=== PATIENT | female | born 1970 | race Caucasian/White ===

== ENCOUNTER 2016-12-26 14:18 | Emergency (ER) | payer OTHER ==
[2016-12-26 14:38] VITALS: BP 126/86
== END 2016-12-26 18:50 | disposition left against medical advice (07) ==
LOC: ED 14:18
DX: H53.8 Other visual disturbances (principal); R20.0 Anesthesia of skin; Z53.21 Procedure and treatment not carried out due to patient leaving prior to being seen by health care provider

== ENCOUNTER 2017-01-04 18:12 | Emergency (ER) | payer OTHER ==
[2017-01-04 18:29] VITALS: BP 104/72
--- NOTE | 2017-01-04 18:46 | UC ---
Headache HPI - HPI Summary HPI Summary: 46 year old female with dizziness. complaints of headache with dizziness, when closing eyes increase dizziness. Symptoms been going on for past 2 weeks. Seen by PCP 12/20/16 diagnosed with sinus infection treated with Augmentin. Seen by Dr. Fuchs and pain management for headaches, changed antibiotics to Doxycycline. Patient states the dizziness worsened a few days ago with movement and called Neuro and advised to get eval. no numbness, no falling, headache stable at this time. Went to Pain management and had Botox for BARRON and not much improved but 7-10 days after the shot had some left sided facial swelling. She went to [place] ED last week and after waiting 6 hours she states she left. She has had some left side face numbness for over a week. No changes in the Sx recently. [ End ] - History Of Current Complaint Chief Complaint: UCGeneralIllness Stated Complaint: DIZZINESS/HEADACHES Time Seen by Provider: 01/04/17 18:40 Hx Obtained From: Patient Hx Last Menstrual Period: a while - had uterine ablation Onset/Duration: Gradual Onset Onset Of Symptoms: Still Present Associated Signs And Symptoms: Positive: Dizziness - Allergies/Home Medications Allergies/Adverse Reactions: Allergies Allergy/AdvReac Type Severity Reaction Status Date / Time Ciprofloxacin [From Cipro] Allergy Unknown Verified 01/04/17 18:29 Reaction Details Indomethacin Allergy Unknown Verified 01/04/17 18:29 Reaction Details Omeprazole Allergy Unknown Verified 01/04/17 18:29 Reaction Details Verapamil Allergy Unknown Verified 01/04/17 18:29 Reaction Details Cephalexin [From Keflex] AdvReac Intermediate Vomiting Verified 01/04/17 18:29 Hydromorphone [From Dilaudid] AdvReac Intermediate Headache Verified 01/04/17 18 :29 Sulfa Drugs AdvReac Intermediate Vomiting Verified 01/04/17 18:29 Home Medications: Home Medications DOXYcycline CAP(*) [DOXYcycline 100MG CAP(*)] 100 mg PO BID 01/04/17 [History Confirmed 01/04/17] Ibuprofen TAB* [Motrin TAB* 600 MG] 600 mg PO Q8H PRN 01/04/17 [History Confirmed 01/04/17] PMH/Surg Hx/FS Hx/Imm Hx Previously Healthy: Yes Psychological History: Anxiety, Depression, Other - headaches Other Psychological History: migraine - Surgical History Surgical History: Yes Surgery Procedure, Year, and Place: c-spine fusion 2007, [facility]. 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 c-sections x2-TUBAL LIGATION 1997. left ankle surgery, RIGHT HIP SURGERY FOR BURSITIS. Lt breast biopsy LUMPECTOMY. RIGHT HIP BURSECTOMY-11/2015 - Family History Known Family History: Positive: Cardiac Disease - Social History Alcohol Use: Rare Alcohol Amount: 2 PER MONTH Substance Use Type: None Smoking Status (MU): Never Smoked Tobacco Have You Smoked in the Last Year: No Review of Systems Neurological: Headache, Other - dizziness Is Patient Immunocompromised?: No All Other Systems Reviewed And Are Negative: Yes Physical Exam Triage Information Reviewed: Yes Appearance: Well-Appearing, No Pain Distress, Well-Nourished Vital Signs: Initial Vital Signs Temp 99.4 F 01/04/17 18:21 Pulse 97 01/04/17 18:21 Resp 16 01/04/17 18:21 BP 104/72 01/04/17 18:21 Vital Signs Reviewed: Yes Eye Exam: Normal ENT Exam: Normal ENT: Positive: Nasal congestion, TM dull - b/l Dental Exam: Normal Neck exam: Normal Neck: Positive: 1 Respiratory Exam: Normal Cardiovascular Exam: Normal Abdominal Exam: Normal Musculoskeletal Exam: Normal Neurological Exam: Normal Neurological: Positive: Alert, Other: - finger to nose normal, DTRs brisk, left side of face of trigeminal nerve with slightly less sensation that the right. can not raise eye brows due to botox, can smile and frown identical. Psychological Exam: Normal Skin Exam: Normal Headache Course/Dx - Course Course Of Treatment: Spoke at length that she should go to ED for imaing and labs as she could have had a stroke which could recur and we have no CT today or capacity to due labs today. She and her partner are aware she could have had TIA or stroke and declined ED. They want to try meds for dizziness and if her sx worsen or not improved then she will go to ED. She will call PCP and Neuro tomorrow. Likely serous effusion causing vertigo like Sx and recent botox causing some of the facial numbness as well. - Differential Dx/Diagnosis Differential Diagnosis/HQI/PQRI: Migraine, Other - vertigo, TIA, stroke Provider Diagnoses: dizziness / vertigo Discharge - Discharge Plan Condition: Good Disposition: HOME Prescriptions: Meclizine HCl [Meclizine 25] 25 mg PO TID PRN #20 tab PRN Reason: Vertigo Patient Education Materials: Vertigo (ED) Referrals: Cecil Holland NP [Primary Care Provider] - 1 Day Additional Instructions: As we discussed you may have had mini stroke like Symptoms and could benefit from further eval in the emergency room. We at this time since you have opted to not go to the ED will try meclizine to see if it can reduce your vertigo symptoms. If you have worsening of any symptoms then go to ED please
== END 2017-01-04 19:12 | disposition home or self-care (01) ==
LOC: UCCORT 18:12
DX: R42 Dizziness and giddiness (principal); Z88.1 Allergy status to other antibiotic agents; Z88.8 Allergy status to other drugs, medicaments and biological substances; Z88.2 Allergy status to sulfonamides; Z98.1 Arthrodesis status; Z98.84 Bariatric surgery status
CPT/HCPCS: 99212; G0463

== ENCOUNTER 2017-01-05 01:20 | Observation (INO) | payer OTHER ==
[2017-01-05 02:12] LABS: Hematocrit 37 % (35-47); Hemoglobin 12.2 g/dl (12.0-16.0); Mean Corpuscular HGB Conc 33 g/dl (31-36); Mean Corpuscular Hemoglobin 32 pg (27-31); Mean Corpuscular Volume 96 fL (80-97); Mean Platelet Volume 8 um3 (7.4-10.4); Red Blood Count 3.83 10^6/ul (4.0-5.4); Red Cell Distribution Width 14 % (10.5-15); White Blood Count 6.4 10^3/ul (3.5-10.8)
[2017-01-05 02:27] LABS: ALT 7 U/L (7-52); AST 11 U/L (13-39); Albumin 3.2 g/dL (3.2-5.2); Alcohol < 10 mg/dL (<10); Alkaline Phosphatase 43 U/L (34-104); Anion Gap 7 mmol/L (2-11); BUN/Creatinine Ratio 22.6 (8-20); Blood Urea Nitrogen 19 mg/dL (6-24); CO2 Carbon Dioxide 22 mmol/L (22-32); Calcium 8.3 mg/dL (8.6-10.3); Chloride 109 mmol/L (101-111); Cholesterol 170 mg/dL; EGFR African American 93.9 (>60); Globulin 2.5 g/dL (2-4); Glucose 80 mg/dL (70-100); HDL Cholesterol 43.7 mg/dL; LDL Cholesterol 104 mg/dL; Potassium 3.5 mmol/L (3.5-5.0); Sodium 138 mmol/L (133-145); Total Protein 5.7 g/dL (6.4-8.9); Triglycerides 112 mg/dL
[2017-01-05 02:30] LABS: Troponin I 0.01 ng/mL (<0.04)
[2017-01-05 02:35] LABS: Urine Bilirubin Negative (Negative); Urine Glucose Negative (Negative); Urine Nitrite Negative (Negative)
[2017-01-05 02:53] LABS: Benzodiazepine Urine Screen None Detected (None Detect)
[2017-01-05 02:53] LABS: TSH (Thyroid Stimulating Horm) 3.54 mcIU/mL (0.34-5.60)
[2017-01-05] MEDS ORDERED: Melatonin (NF) 3 MG TAB PO PRN (02:56)
--- NOTE | 2017-01-05 03:14 | HP ---
H&P (Free Text) History and Physical: PCP: Darrell Holland NP Date/Time: 01/05/2017 0245 CC: facial droop HPI: Mrs Pritchett is a morbidly obese 46YO female HX migraines, anxiety, chronic LBP who presents reporting waxing and waning headache for "weeks" for which she saw Kevin Fuchs MD neurology who increased her topamax & depakote and had her undergo Botox injections around the forehead, ears, and back of the head on . On 12/20 she was seen by per PCP, diagnosed with a sinus infection, and placed on amoxicillin/clavulanate. On the morning of 12/22 after her morning shower she noticed L facial swelling including L eye nearly swelling shut. She contacted her PCP who changed her ABX thinking it was an allergic reaction. She contacted Kevin Fuchs's office again today reporting ongoing BARRON and light-headedness for which he recommended ED evaluation. She initially went to urgent care in [place], was referred to [place] ED, and then transferred here for neurology consultation as she was noted to have OS ptosis. She denies change in speech/swallow or other focal W/N/T. PMedHx anxiety chronic LBP anemia migraines depression B hip pain 2nd OA Ambulatory Orders Topiramate TAB(*) [Topamax 100 mg tab] 100 mg PO BID 01/11/12 traZODone TAB* [Desyrel*] 200 mg PO BEDTIME 01/16/12 Pregabalin [Lyrica] 300 mg PO BEDTIME 11/05/12 Rizatriptan Benzoate [Maxalt] 5 mg PO WEEKLY PRN 02/03/15 Escitalopram (NF) [Lexapro 10 mg (NF)] 20 mg PO DAILY 11/08/15 Divalproex ER TAB(*) [Depakote ER TAB(*)] 500 mg PO BID 02/29/16 HYDROcodone/ACETAMIN 5-325 MG* [[place] 5-325 TAB*] 1 tab PO TID PRN 03/21/16 Cyclobenzaprine TAB* [Flexeril 10 MG TAB*] 10 mg PO TID 07/20/16 Ibuprofen TAB* [Motrin TAB* 600 MG] 600 mg PO Q8H PRN 01/04/17 Allergies Ciprofloxacin [From Cipro] Allergy (Verified 01/05/17 01:46) Unknown Reaction Details Indomethacin Allergy (Verified 01/05/17 01:46) Unknown Reaction Details Omeprazole Allergy (Verified 01/05/17 01:46) Unknown Reaction Details Verapamil Allergy (Verified 01/05/17 01:46) Unknown Reaction Details Cephalexin [From Keflex] Adverse Reaction (Intermediate, Verified 01/05/17 01:46 ) Vomiting Hydromorphone [From Dilaudid] Adverse Reaction (Intermediate, Verified 01/05/17 01:46) Headache Sulfa Drugs Adverse Reaction (Intermediate, Verified 01/05/17 01:46) Vomiting PSurgHx L foot surgery sinus surgery x2 adhesolysis tonsillectomy section x2 tubal ligation gastric bypass L ankle surgery uterine ablation SocHx: no tobacco, alcohol, or recreational drugs; lives with her ; full code status FamHx: Mother: 60s 2nd CAD, DM2, HTN, HLD, CKD; Father: alive 70s w/ HTN, CAD, DM2; Brother: Down's syndrome ROS: as above, otherwise reviewed and all were negative vitals: Vital Signs Temp 36.2 C 01/05/17 01:23 Pulse 84 01/05/17 02:30 Resp 23 01/05/17 02:30 BP 113/77 01/05/17 02:30 Pulse Ox 95 01/05/17 02:30 Intake & Output 01/04/17 01/04/17 01/05/17 11:59 23:59 11:59 Weight 111.13 kg Constitutional: NAD, normally developed, morbidly obese white female HEENM: atraumatic; sclera/conjunctiva: non-icteric/clear; hearing: clinically intact; oropharynx: clear, mucosa moist Neck: soft tissue: non-tender; thyroid: normal Pulmonary: clear to auscultation bilaterally, good aeration, no accessory muscle use CV: RR/RR, normal S1S2, no carotid bruit, no jugular venous distention, 2+ B DP/ PT, no edema Abdominal: soft, non-distended, non-tender, no rebound/guarding/rigidity, normoactive bowel sounds, no hepatosplenomegaly or masses, no costovertebral angle tenderness Musculoskeletal: general: grossly intact, no palpable tenderness Integumental: normal appearance and texture of exposed skin Neurological cranial nerves III/IV/: symmetric light reflex, EOMI, R pupil 7mm reactive, L pupil 5mm reactive V: facial sensation decreased on left VII: L facial droop, OS ptosis VIII: hearing clinically intact IX/X: symmetric palatal motion, no dysarthria XI: intact shoulder shrug XII: midline tongue protrusion, normal voice articulation motor LUE: 4+/5 proximally, distally, & weigher and crusher strength RUE: 4+/5 proximally, distally, & weigher and crusher strength LLE: 4+/5 proximally & distally RLE: 4+/5 proximally & distally coordination finger/nose: slightly ataxic on L heal/brewer: intact B sensory crude touch: decreased globally on L pinprick: decreased globally on L vibration: decreased on L proprioception: intact DTRs biceps: 2+ B triceps: 2+ B brachioradialis: 2+ B patellar: 2+ B Achilles: 1+ B Babinski: equivocal B Psychiatric orientation: AA&O to PPS affect: calm mood: cooperative eye contact: good content: reliable, disjointed responses: timely insight: fair Testing: Lab Results 01/05/17 01/05/17 01/05/17 Range/Units 02:00 02:00 02:00 WBC 6.4 (3.5-10.8) 10^3/ul RBC 3.83 L (4.0-5.4) 10^6/ul Hgb 12.2 (12.0-16.0) g/dl Hct 37 (35-47) % MCV 96 (80-97) fL MCH 32 H (27-31) pg MCHC 33 (31-36) g/dl RDW 14 (10.5-15) % Plt Count 219 (150-450) 10^3/ul MPV 8 (7.4-10.4) um3 Neut % (Auto) 39.4 (38-83) % Lymph % (Auto) 49.0 H (25-47) % Nelson % (Auto) 7.5 (1-9) % Eos % (Auto) 3.3 (0-6) % Baso % (Auto) 0.8 (0-2) % Absolute Neuts (auto) 2.5 (1.5-7.7) 10^3/ul Absolute Lymphs (auto) 3.1 (1.0-4.8) 10^3/ul Absolute Monos (auto) 0.5 (0-0.8) 10^3/ul Absolute Eos (auto) 0.2 (0-0.6) 10^3/ul Absolute Basos (auto) 0.1 (0-0.2) 10^3/ul Absolute Nucleated RBC 0 10^3/ul Nucleated RBC % 0.1 INR (Anticoag Therapy) 0.90 (0.89-1.11) APTT 26.0 (26.0-36.3) seconds Sodium 138 (133-145) mmol/L Potassium 3.5 (3.5-5.0) mmol/L Chloride 109 (101-111) mmol/L Carbon Dioxide 22 (22-32) mmol/L Anion Gap 7 (2-11) mmol/L BUN 19 (6-24) mg/dL Creatinine 0.84 (0.51-0.95) mg/dL Est GFR ( Amer) 93.9 (>60) Est GFR (Non-Af Amer) 73.0 (>60) BUN/Creatinine Ratio 22.6 H (8-20) Glucose 80 (70-100) mg/dL Lactic Acid (0.5-2.0) mmol/L Calcium 8.3 L (8.6-10.3) mg/dL Total Bilirubin 0.40 (0.2-1.0) mg/dL AST 11 L (13-39) U/L ALT 7 (7-52) U/L Alkaline Phosphatase 43 (34-104) U/L Troponin I 0.01 (<0.04) ng/mL Total Protein 5.7 L (6.4-8.9) g/dL Albumin 3.2 (3.2-5.2) g/dL Globulin 2.5 (2-4) g/dL Albumin/Globulin Ratio 1.3 (1-3) Triglycerides 112 mg/dL Cholesterol 170 mg/dL LDL Cholesterol 104 mg/dL HDL Cholesterol 43.7 mg/dL TSH 3.54 (0.34-5.60) mcIU/mL Beta HCG, Quant < 0.60 mIU/mL Urine Color Urine Appearance Urine pH (5-9) Ur Specific [place] (1.010-1.030) Urine Protein (Negative) Urine Ketones (Negative) Urine Blood (Negative) Urine Nitrate (Negative) Urine Bilirubin (Negative) Urine Urobilinogen (Negative) Ur Leukocyte Esterase (Negative) Urine Glucose (Negative) Urine Opiates Screen (None Detect) Ur Barbiturates Screen (None Detect) Ur Phencyclidine Scrn (None Detect) Ur Amphetamines Screen (None Detect) U Benzodiazepines Scrn (None Detect) Urine Cocaine Screen (None Detect) U Cannabinoids Screen (None Detect) Serum Alcohol < 10 (<10) mg/dL 01/05/17 01/05/17 01/05/17 Range/Units 02:00 02:10 02:10 WBC (3.5-10.8) 10^3/ul RBC (4.0-5.4) 10^6/ul Hgb (12.0-16.0) g/dl Hct (35-47) % MCV (80-97) fL MCH (27-31) pg MCHC (31-36) g/dl RDW (10.5-15) % Plt Count (150-450) 10^3/ul MPV (7.4-10.4) um3 Neut % (Auto) (38-83) % Lymph % (Auto) (25-47) % Nelson % (Auto) (1-9) % Eos % (Auto) (0-6) % Baso % (Auto) (0-2) % Absolute Neuts (auto) (1.5-7.7) 10^3/ul Absolute Lymphs (auto) (1.0-4.8) 10^3/ul Absolute Monos (auto) (0-0.8) 10^3/ul Absolute Eos (auto) (0-0.6) 10^3/ul Absolute Basos (auto) (0-0.2) 10^3/ul Absolute Nucleated RBC 10^3/ul Nucleated RBC % INR (Anticoag Therapy) (0.89-1.11) APTT (26.0-36.3) seconds Sodium (133-145) mmol/L Potassium (3.5-5.0) mmol/L Chloride (101-111) mmol/L Carbon Dioxide (22-32) mmol/L Anion Gap (2-11) mmol/L BUN (6-24) mg/dL Creatinine (0.51-0.95) mg/dL Est GFR ( Amer) (>60) Est GFR (Non-Af Amer) (>60) BUN/Creatinine Ratio (8-20) Glucose (70-100) mg/dL Lactic Acid 0.8 (0.5-2.0) mmol/L Calcium (8.6-10.3) mg/dL Total Bilirubin (0.2-1.0) mg/dL AST (13-39) U/L ALT (7-52) U/L Alkaline Phosphatase (34-104) U/L Troponin I (<0.04) ng/mL Total Protein (6.4-8.9) g/dL Albumin (3.2-5.2) g/dL Globulin (2-4) g/dL Albumin/Globulin Ratio (1-3) Triglycerides mg/dL Cholesterol mg/dL LDL Cholesterol mg/dL HDL Cholesterol mg/dL TSH (0.34-5.60) mcIU/mL Beta HCG, Quant mIU/mL Urine Color Yellow Urine Appearance Clear Urine pH 6.0 (5-9) Ur Specific [place] 1.012 (1.010-1.030) Urine Protein Negative (Negative) Urine Ketones Negative (Negative) Urine Blood Negative (Negative) Urine Nitrate Negative (Negative) Urine Bilirubin Negative (Negative) Urine Urobilinogen Negative (Negative) Ur Leukocyte Esterase Negative (Negative) Urine Glucose Negative (Negative) Urine Opiates Screen Presumptive positive H (None Detect) Ur Barbiturates Screen None detected (None Detect) Ur Phencyclidine Scrn None detected (None Detect) Ur Amphetamines Screen None detected (None Detect) U Benzodiazepines Scrn None detected (None Detect) Urine Cocaine Screen None detected (None Detect) U Cannabinoids Screen None detected (None Detect) Serum Alcohol (<10) mg/dL CT brain WO, ([place]): unavailable for review Impression: 46F presenting with TIA vs CVA vs less likely Botox reaction DIAGNOSIS & PLAN Primary TIA : ECHO in AM : MRI brain WO in AM : Lisa Garcia MD neurology consulted by Cookie Edouard MD ED; will evaluate in AM : telemetry : supplemental oxygen : neurockecks : NPO until bedside swallow passed : no indication for PT/OT/ST : supportive care Secondary anxiety : review meds once reconciled chronic LBP : review meds once reconciled anemia : review meds once reconciled migraines : review meds once reconciled Admission Rational: CDU observation for TIA/CVA work up DVTp: heparin SQ Code Status: full HCP:
[2017-01-05] MEDS: Acetaminophen TAB* 325 MG PO PRN ×2 (04:44→21:05)
[2017-01-05] MEDS: Ondansetron INJ* 2 MG/ML VIAL IV PRN ×2 (05:34→11:15)
[2017-01-05] MEDS: Cyclobenzaprine TAB* 10 MG PO SCH ×3 (09:19→21:03)
[2017-01-05] MEDS: Citalopram TAB* 40 MG PO SCH (09:20)
[2017-01-05] MEDS: Topiramate TAB(*) 100 MG PO SCH ×2 (09:20→21:05)
[2017-01-05] MEDS: Divalproex ER TAB(*) 500 MG PO SCH ×3 (09:20→21:03)
[2017-01-05] MEDS: Docusate CAP* 100 MG PO SCH ×2 (09:51→21:05)
--- NOTE | 2017-01-05 11:11 | RAD ---
HISTORY: TIA, stroke COMPARISONS: September 07, 2015 TECHNIQUE: The following sequences were obtained of the head: Sagittal T1-weighted images, axial T2-weighted images, axial FLAIR images, axial susceptibility weighted images, axial T1-weighted images. Additionally, axial diffusion-weighted images were obtained with calculated apparent diffusion coefficients. FINDINGS: HEMORRHAGE/INFARCT: There is no hemorrhage or acute infarct. MASSES/SHIFT: There is no mass or shift. EXTRA-AXIAL SPACES/MENINGES: There are no extra-axial fluid collections. SULCI AND VENTRICLES: The sulci and ventricles are normal in size and position for the patient's stated age. CEREBRUM: There are no focal parenchymal abnormalities. BRAINSTEM: There are no focal parenchymal abnormalities. CEREBELLUM: There are no focal parenchymal abnormalities. The cerebellar tonsils are normal in size and position. SELLA: The sella is normal. PINEAL: The pineal region is clear. CP ANGLE/TEMPORAL BONES: The labyrinthine structures are grossly normal. VESSELS: Normal flow-voids are noted within the visualized vertebral vasculature. DIFFUSION ABNORMALITIES: There are no diffusion abnormalities. PARANASAL SINUSES/MASTOIDS: The paranasal sinuses are clear. ORBITS: The orbits are unremarkable. BONES AND SOFT TISSUE: No bone or soft tissue abnormalities are noted. OTHER: None IMPRESSION: NORMAL BRAIN. NO RESTRICTED DIFFUSION TO SUGGEST ACUTE INFARCT
[2017-01-05] MEDS: HYDROcodone/ACETAMIN 5-325 MG* 1 TAB PO PRN (11:15)
[2017-01-05] MEDS: Ibuprofen TAB* 600 MG PO PRN (13:40)
--- NOTE | 2017-01-05 14:30 | ED ---
Cynthia Sinclair Rebecca, scribed for Audelia Edouard MD on 01/05/17 at 0304 . Neurological HPI - HPI Summary HPI Summary: Pt is a 46 y/o F BIBA as a transfer from [facility] for further evaluation of neurologic sxs including left ptosis afater negative CT brain and labs at [facility]. Pt [place]. F[place] [facility] so when advised by [facility] ED that pt needed further neuro evaluation that [facility] could not provide, pt requested to be transferred [place] [facility] [place] neurology consultation at the hospital where her neurologist practices, and further evaluation. Pt reports that on the 22 of December (14 days ago) she experienced L-sided eye swelling, facial numbness and facial swelling. The numbness resolved after " half of a day" while the swelling lasted for approximately 1 week. Pt reports that her L eye feels as though it has never returned to the way that it was prior to the episode of those symptoms, currently c/o left ptosis. States it "feels like when I am reading or driving, it feels as though I am straining to hold it open." Additionally c/o BARRON, dizziness, blurred vision, numbness of the bilateral lower leg and nausea. BARRON is currently moderate, ranked 6/10. Notes a small rash on the L side of the jaw. Denies fever, CP, SOB. Pt received Botox for her migraines which get injected into the forehead with the last treatment on 12/15. States that she has an indoor dog that occasionally goes outside that often gets fleas, though she cannot recall any ticks. Pt has not been seen in the ED for these sx prior to [facility], as she was going to be seen [place] [facility] [place] but she LWBS. There is a [facility] urgent care visit yesterday, seen by Dr. Brown, recommended to go to the ED for further eval, but pt declined transfer at the time. - History of Current Complaint Chief Complaint: EDGeneral Stated Complaint: XFER FROM [facility] Time Seen by Provider: 01/05/17 01:29 Hx Obtained From: Patient, EMS, Other: - PAULO Martinez at [facility] ED Hx Last Menstrual Period: a while - had uterine ablation Onset/Duration: Still Present Timing: Constant Onset Severity: Moderate Current Severity: Moderate Neurological Deficit Location: Facial - left ptosis Headache Location: Diffuse (Left) Pain Intensity: 6 Pain Scale Used: 0-10 Numeric Character: Dizzy, Numbness/Tingling - Bilateral LE, Other: - not her typical migraine Aggravating: Nothing Alleviating: Nothing Associated Signs and Symptoms: Positive: Headache, Dizziness, Nausea/Vomiting TPA Considered: No - sxs x 2 weeks - Allergy/Home Medications Allergies/Adverse Reactions: Allergies Allergy/AdvReac Type Severity Reaction Status Date / Time Ciprofloxacin [From Cipro] Allergy Unknown Verified 01/05/17 01:46 Reaction Details Indomethacin Allergy Unknown Verified 01/05/17 01:46 Reaction Details Omeprazole Allergy Unknown Verified 01/05/17 01:46 Reaction Details Verapamil Allergy Unknown Verified 01/05/17 01:46 Reaction Details Cephalexin [From Keflex] AdvReac Intermediate Vomiting Verified 01/05/17 01:46 Hydromorphone [From Dilaudid] AdvReac Intermediate Headache Verified 01/05/17 01 :46 Sulfa Drugs AdvReac Intermediate Vomiting Verified 01/05/17 01:46 PMH/Surg Hx/FS Hx/Imm Hx Endocrine/Hematology History: Reports: Hx Anemia Denies: Hx Diabetes, Hx Thyroid Disease Cardiovascular History: Denies: Hx Congestive Heart Failure, Hx Hypertension, Hx Pacemaker/ICD, Other Cardiovascular Problems/Disorders Respiratory History: Reports: Hx Asthma Denies: Hx Chronic Obstructive Pulmonary Disease (COPD), Other Respiratory Problems/Disorders GI History: Reports: Hx Ulcer Denies: Other GI Disorders History: Denies: Hx Renal Disease, Other Problems/Disorders Musculoskeletal History: Reports: Hx Back Problems, Hx Bursitis - RIGHT HIP Denies: Hx Rheumatoid Arthritis, Hx Osteoporosis, Other Musculoskeletal History Sensory History: Denies: Hx Contacts or Glasses, Hx Hearing Aid Opthamlomology History: Denies: Hx Contacts or Glasses Neurological History: Reports: Hx Migraine - receives Botox Psychiatric History: Reports: Hx Anxiety - ON MEDS PRN, Hx Depression, Hx Panic Disorder - Cancer History Hx Chemotherapy: No Hx Radiation Therapy: No - Surgical History Surgery Procedure, Year, and Place: c-spine fusion 2007, . 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 c-sections x2-TUBAL LIGATION 1997. left ankle surgery, RIGHT HIP SURGERY FOR BURSITIS. Lt breast biopsy LUMPECTOMY. RIGHT HIP BURSECTOMY-11/2015 Hx Anesthesia Reactions: No Infectious Disease History: No Infectious Disease History: Denies: Hx Hepatitis, Hx Human Immunodeficiency Virus (HIV), History Other Infectious Disease, Traveled Outside the [place] in Last 30 Days - Family History Known Family History: Positive: Cardiac Disease - Social History Alcohol Use: Rare Alcohol Amount: 2 PER MONTH Substance Use Type: Reports: None Hx Tobacco Use: Yes Smoking Status (MU): Never Smoked Tobacco Have You Smoked in the Last Year: No Review of Systems Negative: Fever Positive: Blurred Vision, Other - L-sided eyelid swelling, L ptosis Negative: Chest Pain Negative: Shortness Of Breath Positive: Nausea Positive: Rash - Small, L side of the jaw, Other - Facial swelling - resolved Neurological: Other - Dizziness Positive: Headache, Numbness - Facial numbness - resolved; Bilateral lower leg All Other Systems Reviewed And Are Negative: Yes Physical Exam Triage Information Reviewed: Yes Vital Signs On Initial Exam: Initial Vitals Temp Pulse Resp BP Pulse Ox 97.1 F 84 16 142/91 100 01/05/17 01:23 01/05/17 01:23 01/05/17 01:23 01/05/17 01:23 01/05/17 01:23 Vital Signs Reviewed: Yes Appearance: Positive: Well-Appearing, Well-Nourished, Pain Distress Skin: Positive: Warm, Skin Color Reflects Adequate Perfusion Head/Face: Positive: Other - left ptosis and left upper eyelid swelling, no forehead creases Eyes: Positive: EOMI, Conjunctiva Clear, Other: - Ptosis on the L side, swelling of the left upper eye lid ENT: Positive: Pharynx normal, TMs normal, Other - Upper plate in place Neck: Positive: Supple, Nontender, No Lymphadenopathy, Other: - no bruits Respiratory/Lung Sounds: Positive: Clear to Auscultation, Breath Sounds Present Cardiovascular: Positive: RRR, Pulses are Symmetrical in both Upper and Lower Extremities, Other - Brisk capillary refill. Negative: Murmur Abdomen Description: Positive: Nontender, Soft Bowel Sounds: Positive: Present Musculoskeletal: Positive: Strength/ROM Intact Neurological: Positive: Sensory/Motor Intact, Alert, Oriented to Person Place, Time, Speech Normal, Other - Eyebrows are moving up with the foreheard with no forehead creases, left ptosis Psychiatric: Positive: Normal - Jose Coma Scale Coma Scale Total: 15 Diagnostics - Vital Signs Vital Signs Temp Pulse Resp BP Pulse Ox 01/05/17 02:30 84 23 113/77 95 01/05/17 02:18 80 20 96 01/05/17 02:15 98 01/05/17 02:14 116/75 01/05/17 01:23 97.1 F 84 16 142/91 100 - Laboratory Lab Results: Lab Results 01/05/17 01/05/17 01/05/17 Range/Units 02:00 02:00 02:00 WBC 6.4 (3.5-10.8) 10^3/ul RBC 3.83 L (4.0-5.4) 10^6/ul Hgb 12.2 (12.0-16.0) g/dl Hct 37 (35-47) % MCV 96 (80-97) fL MCH 32 H (27-31) pg MCHC 33 (31-36) g/dl RDW 14 (10.5-15) % Plt Count 219 (150-450) 10^3/ul MPV 8 (7.4-10.4) um3 Neut % (Auto) 39.4 (38-83) % Lymph % (Auto) 49.0 H (25-47) % [place] % (Auto) 7.5 (1-9) % Eos % (Auto) 3.3 (0-6) % Baso % (Auto) 0.8 (0-2) % Absolute Neuts (auto) 2.5 (1.5-7.7) 10^3/ul Absolute Lymphs (auto) 3.1 (1.0-4.8) 10^3/ul Absolute Monos (auto) 0.5 (0-0.8) 10^3/ul Absolute Eos (auto) 0.2 (0-0.6) 10^3/ul Absolute Basos (auto) 0.1 (0-0.2) 10^3/ul Absolute Nucleated RBC 0 10^3/ul Nucleated RBC % 0.1 INR (Anticoag Therapy) 0.90 (0.89-1.11) APTT 26.0 (26.0-36.3) seconds Sodium 138 (133-145) mmol/L Potassium 3.5 (3.5-5.0) mmol/L Chloride 109 (101-111) mmol/L Carbon Dioxide 22 (22-32) mmol/L Anion Gap 7 (2-11) mmol/L BUN 19 (6-24) mg/dL Creatinine 0.84 (0.51-0.95) mg/dL Est GFR ( Amer) 93.9 (>60) Est GFR (Non-Af Amer) 73.0 (>60) BUN/Creatinine Ratio 22.6 H (8-20) Glucose 80 (70-100) mg/dL Lactic Acid (0.5-2.0) mmol/L Calcium 8.3 L (8.6-10.3) mg/dL Total Bilirubin 0.40 (0.2-1.0) mg/dL AST 11 L (13-39) U/L ALT 7 (7-52) U/L Alkaline Phosphatase 43 (34-104) U/L Troponin I 0.01 (<0.04) ng/mL Total Protein 5.7 L (6.4-8.9) g/dL Albumin 3.2 (3.2-5.2) g/dL Globulin 2.5 (2-4) g/dL Albumin/Globulin Ratio 1.3 (1-3) Triglycerides 112 mg/dL Cholesterol 170 mg/dL LDL Cholesterol 104 mg/dL HDL Cholesterol 43.7 mg/dL TSH Pending Beta HCG, Quant < 0.60 mIU/mL Urine Color Urine Appearance Urine pH (5-9) Ur Specific [place] (1.010-1.030) Urine Protein (Negative) Urine Ketones (Negative) Urine Blood (Negative) Urine Nitrate (Negative) Urine Bilirubin (Negative) Urine Urobilinogen (Negative) Ur Leukocyte Esterase (Negative) Urine Glucose (Negative) Serum Alcohol < 10 (<10) mg/dL 01/05/17 01/05/17 Range/Units 02:00 02:10 WBC (3.5-10.8) 10^3/ul RBC (4.0-5.4) 10^6/ul Hgb (12.0-16.0) g/dl Hct (35-47) % MCV (80-97) fL MCH (27-31) pg MCHC (31-36) g/dl RDW (10.5-15) % Plt Count (150-450) 10^3/ul MPV (7.4-10.4) um3 Neut % (Auto) (38-83) % Lymph % (Auto) (25-47) % [place] % (Auto) (1-9) % Eos % (Auto) (0-6) % Baso % (Auto) (0-2) % Absolute Neuts (auto) (1.5-7.7) 10^3/ul Absolute Lymphs (auto) (1.0-4.8) 10^3/ul Absolute Monos (auto) (0-0.8) 10^3/ul Absolute Eos (auto) (0-0.6) 10^3/ul Absolute Basos (auto) (0-0.2) 10^3/ul Absolute Nucleated RBC 10^3/ul Nucleated RBC % INR (Anticoag Therapy) (0.89-1.11) APTT (26.0-36.3) seconds Sodium (133-145) mmol/L Potassium (3.5-5.0) mmol/L Chloride (101-111) mmol/L Carbon Dioxide (22-32) mmol/L Anion Gap (2-11) mmol/L BUN (6-24) mg/dL Creatinine (0.51-0.95) mg/dL Est GFR ( Amer) (>60) Est GFR (Non-Af Amer) (>60) BUN/Creatinine Ratio (8-20) Glucose (70-100) mg/dL Lactic Acid 0.8 (0.5-2.0) mmol/L Calcium (8.6-10.3) mg/dL Total Bilirubin (0.2-1.0) mg/dL AST (13-39) U/L ALT (7-52) U/L Alkaline Phosphatase (34-104) U/L Troponin I (<0.04) ng/mL Total Protein (6.4-8.9) g/dL Albumin (3.2-5.2) g/dL Globulin (2-4) g/dL Albumin/Globulin Ratio (1-3) Triglycerides mg/dL Cholesterol mg/dL LDL Cholesterol mg/dL HDL Cholesterol mg/dL TSH Beta HCG, Quant mIU/mL Urine Color Yellow Urine Appearance Clear Urine pH 6.0 (5-9) Ur Specific [place] 1.012 (1.010-1.030) Urine Protein Negative (Negative) Urine Ketones Negative (Negative) Urine Blood Negative (Negative) Urine Nitrate Negative (Negative) Urine Bilirubin Negative (Negative) Urine Urobilinogen Negative (Negative) Ur Leukocyte Esterase Negative (Negative) Urine Glucose Negative (Negative) Serum Alcohol (<10) mg/dL Result Diagrams: 01/06/17 05:08 01/06/17 05:08 Lab Statement: Any lab studies that have been ordered have been reviewed, and results considered in the medical decision making process. Course/Dx - Course Assessment/Plan: Pt is a 46 y/o F BIBA as a transfer from [facility] for a neurology consultation after normal CT brain and labs, further eval of left ptosis. Pt reports that on the 22 of December (14 days ago) she experienced L- sided eye swelling, facial numbness and facial swelling. The numbness resolved after "half of a day" while the swelling lasted for approximately 1 week. Pt reports that her L eye feels as though it has never returned to the way that it was prior to the episode of those symptoms, currently c/o left ptosis. States it "feels like when I am reading or driving, it feels as though I am straining. " Additionally c/o BARRON, dizziness, blurred vision, numbness of the bilateral lower leg and nausea. BARRON is currently moderate, ranked 6/10. Notes a small rash on the L side of the jaw. Denies fever, CP, SOB. Pt received Botox for her migraines which get injected into the forehead with the last treatment on 12/15. States that she has an indoor dog that occasionally goes outside that often gets fleas, though she cannot recall any ticks. Pt has not been seen for these sx prior to [facility], as she was going to be [place] [facility] [place] but she LWBS. UA negative for UTI. Discussed care of pt with Dr. Garcia who advised acceptance of transfer from [facility] and that he will evaluate the pt in the morning. Discussed care of pt with Dr. Hill who accepts pt for admission. Pt will be admitted to hospitalist services. She understands and agrees. Pt medications reviewed this visit. Allergies noted. Elevated BP noted. - Differential Dx Differential Diagnoses Neuro: Positive: Francis's Palsy, Cerebrovascular Accident, Drug Toxicity - botox, Migraine, Other - Lyme disease - Diagnoses Provider Diagnoses: Ptosis, left, Elevated BP without diagnosis of hypertension, Headache - Physician Notifications Discussed Care Of Patient With: Jose Garcia Time Discussed With Above Provider: 23:20 Instructed by Provider To: Other - Advises that we accept her as a transfer and he will see the pt in the morning. Discussed care of pt with Dr. Hill at 0325 who accepts pt for admission. Discharge - Discharge Plan Condition: Good Disposition: ADMITTED TO [facility] The documentation as recorded by the Cynthia elias Rebecca accurately reflects the service I personally performed and the decisions made by , Audelia Edouard MD.
[2017-01-05] MEDS ORDERED: Aspirin TAB* 325 MG PO ONE (15:42)
[2017-01-05] MEDS ORDERED: Perflutren Lipid Microsphere* 3 ML VIAL ONE (16:11)
--- NOTE | 2017-01-05 16:58 | PN ---
Subjective Date of Service: 01/05/17 Interval History: Patient denies any new complaints overnight. Patient states that the numbness and tingling in her leg has subsided since yesterday. Patient states she has intermittent dizziness since her symptoms started, but it has not increased. Patient has a headache which has not changed from her chronic headache and is not responsive to tylenol and ibuprofen. Family History: Unchanged from Admission Social History: Unchanged from Admission Past Medical History: Unchanged from Admission Objective Active Medications: Acetaminophen (Tylenol Tab*) 650 mg PO Q6H PRN PRN Reason: FEVER/PAIN Last Admin: 01/05/17 04:44 Dose: 650 mg Hydrocodone Bitart/Acetaminophen (Grimstead 5-325 Tab*) 1 tab PO TID PRN PRN Reason: PAIN Last Admin: 01/05/17 11:15 Dose: 1 tab Aspirin (Aspirin Ec Low Dose*) 81 mg PO DAILY [facility] Citalopram Hydrobromide (Celexa Tab*) 40 mg PO DAILY [facility] Last Admin: 01/05/17 09:20 Dose: 40 mg Cyclobenzaprine HCl (Flexeril Tab*) 10 mg PO TID [facility] Last Admin: 01/05/17 13:36 Dose: 10 mg Divalproex Sodium (Depakote Er Tab(*)) 500 mg PO BID [facility] Last Admin: 01/05/17 09:41 Dose: 500 mg Docusate Sodium (Colace Cap*) 200 mg PO BID [facility] Last Admin: 01/05/17 09:51 Dose: Not Given Heparin Sodium (Porcine) (Heparin Vial(*)) 5,000 units SUBCUT Q8HR [facility] Ibuprofen (Motrin Tab*) 600 mg PO Q8H PRN PRN Reason: PAIN Last Admin: 01/05/17 13:40 Dose: 600 mg Melatonin (Melatonin (Nf)) 3 mg PO BEDTIME PRN; Protocol PRN Reason: Sleep Ondansetron HCl (Zofran Inj*) 4 mg IV Q6H PRN PRN Reason: NAUSEA Last Admin: 01/05/17 11:15 Dose: 4 mg Pregabalin (Lyrica Cap(*)) 300 mg PO BEDTIME [facility] Topiramate (Topamax(*)) 100 mg PO BID [facility] Last Admin: 01/05/17 09:20 Dose: 100 mg Trazodone HCl (Desyrel Tab*) 200 mg PO BEDTIME [facility] Vital Signs 01/05/17 01/05/17 01/05/17 03:00 03:30 04:35 Temperature 97.7 F Pulse Rate 75 84 71 Respiratory 14 19 16 Rate Blood Pressure 129/85 123/77 107/64 (mmHg) O2 Sat by Pulse 96 96 100 Oximetry 01/05/17 01/05/17 01/05/17 04:50 07:51 08:00 Temperature 97.7 F Pulse Rate 73 Respiratory 16 16 16 Rate Blood Pressure 133/82 (mmHg) O2 Sat by Pulse 99 Oximetry 01/05/17 01/05/17 01/05/17 09:19 11:11 11:15 Temperature 97.5 F Pulse Rate 79 Respiratory 16 16 16 Rate Blood Pressure 123/81 (mmHg) O2 Sat by Pulse 97 Oximetry 01/05/17 01/05/17 01/05/17 11:19 13:15 13:36 Temperature Pulse Rate Respiratory 16 16 16 Rate Blood Pressure (mmHg) O2 Sat by Pulse Oximetry Oxygen Devices in Use Now: None Appearance: Patient is a 46yo female with a flat affect who is sitting in the hospital bed in [facility]. Eyes: No Scleral Icterus, PERRLA Ears/Nose/Mouth/Throat: NL Teeth, Lips, Gums, Clear Oropharnyx, Mucous Membranes Moist Neck: NL Appearance and Movements; NL JVP, Trachea Midline Respiratory: Symmetrical Chest Expansion and Respiratory Effort, Clear to Auscultation Cardiovascular: NL Sounds; No Murmurs; No JVD, RRR, No Edema Abdominal: NL Sounds; No Tenderness; No Distention, No Hepatosplenomegaly Lymphatic: No Cervical Adenopathy Extremities: No Edema Skin: No Rash or Ulcers, No Nodules or Sclerosis Neurological: Alert and Oriented x 3, NL Sensation, - - Ptosis and facial droop on left side with symmetrical movement of the forehead and soft palate. Decreased shrugging strength on left side possibly due to pain. 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 Reflexes 1+ in the bilateral biceps and quadriceps areas. Overall poor effort in exam. Result Diagrams: 01/05/17 02:00 01/05/17 02:00 Additional Lab and Data: Lab Results 01/05/17 01/05/17 01/05/17 Range/Units 02:00 02:00 02:00 WBC 6.4 (3.5-10.8) 10^3/ul RBC 3.83 L (4.0-5.4) 10^6/ul Hgb 12.2 (12.0-16.0) g/dl Hct 37 (35-47) % MCV 96 (80-97) fL MCH 32 H (27-31) pg MCHC 33 (31-36) g/dl RDW 14 (10.5-15) % Plt Count 219 (150-450) 10^3/ul MPV 8 (7.4-10.4) um3 Neut % (Auto) 39.4 (38-83) % Lymph % (Auto) 49.0 H (25-47) % [place] % (Auto) 7.5 (1-9) % Eos % (Auto) 3.3 (0-6) % Baso % (Auto) 0.8 (0-2) % Absolute Neuts (auto) 2.5 (1.5-7.7) 10^3/ul Absolute Lymphs (auto) 3.1 (1.0-4.8) 10^3/ul Absolute Monos (auto) 0.5 (0-0.8) 10^3/ul Absolute Eos (auto) 0.2 (0-0.6) 10^3/ul Absolute Basos (auto) 0.1 (0-0.2) 10^3/ul Absolute Nucleated RBC 0 10^3/ul Nucleated RBC % 0.1 INR (Anticoag Therapy) 0.90 (0.89-1.11) APTT 26.0 (26.0-36.3) seconds Sodium 138 (133-145) mmol/L Potassium 3.5 (3.5-5.0) mmol/L Chloride 109 (101-111) mmol/L Carbon Dioxide 22 (22-32) mmol/L Anion Gap 7 (2-11) mmol/L BUN 19 (6-24) mg/dL Creatinine 0.84 (0.51-0.95) mg/dL Est GFR ( Amer) 93.9 (>60) Est GFR (Non-Af Amer) 73.0 (>60) BUN/Creatinine Ratio 22.6 H (8-20) Glucose 80 (70-100) mg/dL Lactic Acid (0.5-2.0) mmol/L Calcium 8.3 L (8.6-10.3) mg/dL Total Bilirubin 0.40 (0.2-1.0) mg/dL AST 11 L (13-39) U/L ALT 7 (7-52) U/L Alkaline Phosphatase 43 (34-104) U/L Troponin I 0.01 (<0.04) ng/mL Total Protein 5.7 L (6.4-8.9) g/dL Albumin 3.2 (3.2-5.2) g/dL Globulin 2.5 (2-4) g/dL Albumin/Globulin Ratio 1.3 (1-3) Triglycerides 112 mg/dL Cholesterol 170 mg/dL LDL Cholesterol 104 mg/dL HDL Cholesterol 43.7 mg/dL TSH Pending Beta HCG, Quant < 0.60 mIU/mL Urine Color Urine Appearance Urine pH (5-9) Ur Specific [place] (1.010-1.030) Urine Protein (Negative) Urine Ketones (Negative) Urine Blood (Negative) Urine Nitrate (Negative) Urine Bilirubin (Negative) Urine Urobilinogen (Negative) Ur Leukocyte Esterase (Negative) Urine Glucose (Negative) Serum Alcohol < 10 (<10) mg/dL 01/05/17 01/05/17 Range/Units 02:00 02:10 WBC (3.5-10.8) 10^3/ul RBC (4.0-5.4) 10^6/ul Hgb (12.0-16.0) g/dl Hct (35-47) % MCV (80-97) fL MCH (27-31) pg MCHC (31-36) g/dl RDW (10.5-15) % Plt Count (150-450) 10^3/ul MPV (7.4-10.4) um3 Neut % (Auto) (38-83) % Lymph % (Auto) (25-47) % [place] % (Auto) (1-9) % Eos % (Auto) (0-6) % Baso % (Auto) (0-2) % Absolute Neuts (auto) (1.5-7.7) 10^3/ul Absolute Lymphs (auto) (1.0-4.8) 10^3/ul Absolute Monos (auto) (0-0.8) 10^3/ul Absolute Eos (auto) (0-0.6) 10^3/ul Absolute Basos (auto) (0-0.2) 10^3/ul Absolute Nucleated RBC 10^3/ul Nucleated RBC % INR (Anticoag Therapy) (0.89-1.11) APTT (26.0-36.3) seconds Sodium (133-145) mmol/L Potassium (3.5-5.0) mmol/L Chloride (101-111) mmol/L Carbon Dioxide (22-32) mmol/L Anion Gap (2-11) mmol/L BUN (6-24) mg/dL Creatinine (0.51-0.95) mg/dL Est GFR ( Amer) (>60) Est GFR (Non-Af Amer) (>60) BUN/Creatinine Ratio (8-20) Glucose (70-100) mg/dL Lactic Acid 0.8 (0.5-2.0) mmol/L Calcium (8.6-10.3) mg/dL Total Bilirubin (0.2-1.0) mg/dL AST (13-39) U/L ALT (7-52) U/L Alkaline Phosphatase (34-104) U/L Troponin I (<0.04) ng/mL Total Protein (6.4-8.9) g/dL Albumin (3.2-5.2) g/dL Globulin (2-4) g/dL Albumin/Globulin Ratio (1-3) Triglycerides mg/dL Cholesterol mg/dL LDL Cholesterol mg/dL HDL Cholesterol mg/dL TSH Beta HCG, Quant mIU/mL Urine Color Yellow Urine Appearance Clear Urine pH 6.0 (5-9) Ur Specific [place] 1.012 (1.010-1.030) Urine Protein Negative (Negative) Urine Ketones Negative (Negative) Urine Blood Negative (Negative) Urine Nitrate Negative (Negative) Urine Bilirubin Negative (Negative) Urine Urobilinogen Negative (Negative) Ur Leukocyte Esterase Negative (Negative) Urine Glucose Negative (Negative) Serum Alcohol (<10) mg/dL 01/05/17 01/05/17 01/05/17 02:00 02:00 02:00 WBC 6.4 RBC 3.83 L Hgb 12.2 Hct 37 MCV 96 MCH 32 H MCHC 33 RDW 14 Plt Count 219 MPV 8 Neut % (Auto) 39.4 Lymph % (Auto) 49.0 H [place] % (Auto) 7.5 Eos % (Auto) 3.3 Baso % (Auto) 0.8 Absolute Neuts (auto) 2.5 Absolute Lymphs (auto) 3.1 Absolute Monos (auto) 0.5 Absolute Eos (auto) 0.2 Absolute Basos (auto) 0.1 Absolute Nucleated RBC 0 Nucleated RBC % 0.1 INR (Anticoag Therapy) 0.90 APTT 26.0 Sodium 138 Potassium 3.5 Chloride 109 Carbon Dioxide 22 Anion Gap 7 BUN 19 Creatinine 0.84 Est GFR ( Amer) 93.9 Est GFR (Non-Af Amer) 73.0 BUN/Creatinine Ratio 22.6 H Glucose 80 Lactic Acid Calcium 8.3 L Total Bilirubin 0.40 AST 11 L ALT 7 Alkaline Phosphatase 43 Troponin I 0.01 Total Protein 5.7 L Albumin 3.2 Globulin 2.5 Albumin/Globulin Ratio 1.3 Triglycerides 112 Cholesterol 170 LDL Cholesterol 104 HDL Cholesterol 43.7 TSH 3.54 Beta HCG, Quant < 0.60 Urine Color Urine Appearance Urine pH Ur Specific [place] Urine Protein Urine Ketones Urine Blood Urine Nitrate Urine Bilirubin Urine Urobilinogen Ur Leukocyte Esterase Urine Glucose Urine Opiates Screen Ur Barbiturates Screen Ur Phencyclidine Scrn Ur Amphetamines Screen U Benzodiazepines Scrn Urine Cocaine Screen U Cannabinoids Screen Serum Alcohol < 10 01/05/17 01/05/17 01/05/17 02:00 02:10 02:10 WBC RBC Hgb Hct MCV MCH MCHC RDW Plt Count MPV Neut % (Auto) Lymph % (Auto) [place] % (Auto) Eos % (Auto) Baso % (Auto) Absolute Neuts (auto) Absolute Lymphs (auto) Absolute Monos (auto) Absolute Eos (auto) Absolute Basos (auto) Absolute Nucleated RBC Nucleated RBC % INR (Anticoag Therapy) APTT Sodium Potassium Chloride Carbon Dioxide Anion Gap BUN Creatinine Est GFR ( Amer) Est GFR (Non-Af Amer) BUN/Creatinine Ratio Glucose Lactic Acid 0.8 Calcium Total Bilirubin AST ALT Alkaline Phosphatase Troponin I Total Protein Albumin Globulin Albumin/Globulin Ratio Triglycerides Cholesterol LDL Cholesterol HDL Cholesterol TSH Beta HCG, Quant Urine Color Yellow Urine Appearance Clear Urine pH 6.0 Ur Specific [place] 1.012 Urine Protein Negative Urine Ketones Negative Urine Blood Negative Urine Nitrate Negative Urine Bilirubin Negative Urine Urobilinogen Negative Ur Leukocyte Esterase Negative Urine Glucose Negative Urine Opiates Screen Presumptive positive H Ur Barbiturates Screen None detected Ur Phencyclidine Scrn None detected Ur Amphetamines Screen None detected U Benzodiazepines Scrn None detected Urine Cocaine Screen None detected U Cannabinoids Screen None detected Serum Alcohol Assess/Plan/Problems-Billing Assessment: Patient is a 46yo female who was transferred from [facility] with left sided facial droop, continuous headache and dizziness with concern for CVA vs TIA. Patient has improved since being in the hospital but has continued neurological deficits. - Patient Problems (1) Headache Current Visit: Yes Status: Acute Code(s): R51 - HEADACHE SNOMED Code(s): 55569047 Comment: Appreciate Neurology Consultation. Increase Depakote level to 500mg QAM and 750mg QPM pending valproic acid level. Continue topimirate. Discontinue Maxalt due to possibility of hemiplegic migraine per Neurology. Grimstead, Tylenol, and Ibuprofen PRN. (2) Facial droop Current Visit: Yes Status: Acute Code(s): R29.810 - FACIAL WEAKNESS SNOMED Code(s): 66551706 Comment: MRI negative, Echo pending. Probably due to adverse botox reaction. unlikely hemiplegic migraine. Observe overnight to assess progress in pain. (3) Chronic pain Current Visit: Yes Status: Acute Code(s): G89.29 - OTHER CHRONIC PAIN SNOMED Code(s): 20239762 Comment: Continue Grimstead, Tylenol, Lyrica, and Flexeril for pain. Status and Disposition: Patient will be observed overnight to document progression in symptoms per Neurology.
--- NOTE | 2017-01-05 18:53 | ECHO ---
Patient: CHAIM THOMAS [facility] Rec#: [id number] : 1970 Date: 01/05/2017 Age: 46y Height: 160 cm / 63.0 in Weight: 111.1 kg / 244.9 lbs Sex: F BSA: 2.1 Room#: [facility] Admit Date#: 01/05/2017 Type: Inpatient Referring: Pedro Hill MD Reading: Bam Schultz DO [place] Chief: Court Yuen RN RDCS CC: ALO [employer]I [employer] Transthoracic Echocardiogram Indication: TIA BP: 107/64 HR: 81 Rhythm: NSR Findings History: Morbid obesity, smoker, recent botox injections for headaches, anemia, anxiety Technical Comments: The study is technically limited due to poor apical windows. The study is technically limited due to patient body habitus. The study is technically limited due to the patient's smoking history. This study was performed in two parts, as the patient needed to go for an MRI before the exam was completed. Left Ventricle: The left ventricular chamber size is normal. Mild concentric left ventricular hypertrophy is observed. Global left ventricular wall motion and contractility are within normal limits. Left ventricular systolic function is at the lower limits of normal. The estimated ejection fraction is 50-55%. There is no consistent Doppler evidence of clinically significant diastolic dysfunction. Left Atrium: The left atrial chamber size is normal. Right Ventricle: The right ventricular cavity size is normal. The right ventricular global systolic function is low normal. Right Atrium: The right atrial cavity size is normal. The bubble study is negative. A patent foramen ovale is not demonstrated with color Doppler and agitated contrast. negative bubble study without and with valsalva Aortic Valve: The aortic valve is trileaflet. The aortic valve leaflets are mildly thickened. There is no evidence of aortic regurgitation. There is no evidence of aortic stenosis. Mitral Valve: The mitral valve leaflets are mildly thickened. There is trace to mild mitral regurgitation. There is no evidence of mitral stenosis. Tricuspid Valve: The tricuspid valve leaflets are normal. There is trace tricuspid regurgitation. Unable to estimate the right ventricular systolic pressure. Pulmonic Valve: The pulmonic valve appears normal. There is a trace pulmonic regurgitation. There is no pulmonic stenosis. Pericardium: There is no significant pericardial effusion. Aorta: There is no dilatation of the ascending aorta. There is no dilatation of the aortic arch. There is no dilation of the aortic root. Pulmonary Artery: The main pulmonary artery is not well visualized. Venous: The venous system is not well visualized. The inferior vena cava is not visualized. Contrast: Definity was used to optimize study. A total of 3 ml of diluted Definity was given IV. Intravenous agitated saline contrast was used to assess intracardiac shunting. Images and . Conclusions The left ventricular chamber size is normal. Mild concentric left ventricular hypertrophy is observed. Left ventricular systolic function is at the lower limits of normal. The estimated ejection fraction is 50% The left atrial chamber size is normal. The right ventricular cavity size is normal. The right ventricular global systolic function is low normal. No significant valvular abnormalities are noted. The agitated saline (bubble study) is negative. Definity was used to optimize study. No prior studies available for comparison at time of interpretation. Measurements Name Value Normal Range RVDdMajor (2D) 2.9 cm (2.2 - 4.4) RAd ISD 4CH 4.1 cm (3.4 - 4.9) RA (A4C)W 3 cm (2.9 - 4.6) IVSd (2D) 1.1 cm (0.6 - 1) LVPWd (2D) 1.1 cm (0.6 - 1) LVIDd (2D) 4.6 cm (3.6 - 5.4) LVIDs (2D) 3.6 cm - LV FS (2D) 22 % (25 - 45) Aortic Annulus 2 cm (1.4 - 2.6) Ao root diameter (2D) 2.8 cm (2.1 - 3.5) Ascending Ao 2.9 cm (2.1 - 3.4) Aortic arch 2.3 cm (1.8 - 3.4) LA dimension (AP) 2D 3.1 cm (2.3 - 3.8) LAd ISD 4CH 4.2 cm (2.9 - 5.3) LA ISD 4CH W 3.5 cm (2.5 - 4.5) Name Value Normal Range MV E-wave Vmax 1.1 m/sec - MV deceleration time 181 msec - MV A-wave Vmax 1.1 m/sec - MV E:A ratio 1 ratio - LV septal e' Vmax 0.08 m/sec - LV lateral e' Vmax 0.08 m/sec - LV E:e' septal ratio 13.8 ratio - LV E:e' lateral ratio 13.8 ratio - Name Value Normal Range AV Vmax 0.98 m/sec - AV VTI 21.2 cm - AV peak gradient 3.8 mmHg - AV mean gradient 2.3 mmHg - LVOT Vmax 0.8 m/sec - LVOT VTI 17.9 cm - LVOT peak gradient 2.6 mmHg - LVOT mean gradient 1.3 mmHg - HARJEET Vmax 0.98 m/sec - Name Value Normal Range PV Vmax 0.8 m/sec -
[2017-01-05] MEDS ORDERED: traZODone TAB* 100 MG PO SCH (21:00)
[2017-01-05] MEDS ORDERED: Pregabalin CAP(*) 300 MG PO SCH (21:00)
[2017-01-06] MEDS: HYDROcodone/ACETAMIN 5-325 MG* 1 TAB PO PRN (05:30)
[2017-01-06 05:47] LABS: Hematocrit 37 % (35-47); Hemoglobin 12.1 g/dl (12.0-16.0); Mean Corpuscular HGB Conc 33 g/dl (31-36); Mean Corpuscular Hemoglobin 31 pg (27-31); Mean Corpuscular Volume 95 fL (80-97); Mean Platelet Volume 8 um3 (7.4-10.4); Red Blood Count 3.86 10^6/ul (4.0-5.4); Red Cell Distribution Width 14 % (10.5-15); White Blood Count 5.7 10^3/ul (3.5-10.8)
[2017-01-06 05:56] LABS: BUN/Creatinine Ratio 14.4 (8-20); Calcium 8.5 mg/dL (8.6-10.3); EGFR African American 86.7 (>60); EGFR Non-African American 67.4 (>60); Potassium 3.6 mmol/L (3.5-5.0)
[2017-01-06] MEDS ORDERED: Heparin VIAL(*) 5000 UNITS/ML VIAL (FIVE THOUSAND) SUBCUT SCH (06:00)
[2017-01-06] MEDS: Ibuprofen TAB* 600 MG PO PRN (06:30)
[2017-01-06] MEDS ORDERED: Divalproex ER TAB(*) 500 MG PO SCH (09:00)
[2017-01-06] MEDS ORDERED: Aspirin EC Low Dose* 81 MG TAB.EC PO SCH (09:00)
[2017-01-06] MEDS: Cyclobenzaprine TAB* 10 MG PO SCH (09:12)
[2017-01-06] MEDS: Citalopram TAB* 40 MG PO SCH (09:13)
[2017-01-06] MEDS: Docusate CAP* 100 MG PO SCH (09:19)
[2017-01-06] MEDS: Topiramate TAB(*) 100 MG PO SCH (09:19)
[2017-01-06 10:32] VITALS: BP 114/68
--- NOTE | 2017-01-06 13:36 | CONS ---
CONSULTATION REPORT: DATE OF CONSULT / DICTATION: 01/06/17 PATIENT OF: Dr. Hill, Dr. Fuchs, and Dr. Ames. HISTORY OF PRESENT ILLNESS: This is a 46-year-old woman I am asked to evaluate for her ptosis. She has had difficult to control migraines for a long time and was recently seen by Dr. Fuchs in December, who adjusted her Depakote, who continued her on Depakote and Topamax and sent her for additional Botox injection, which she had on 12/15/16. On 12/20/16, she was evaluated for a sinus infection by her primary and put on amoxicillin clavulanate. On 12/22/16 , she noted that her left eye had severe ptosis. Her primary care doctor changed the antibiotics and contacted Dr. Fuchs's office on day of admission , who recommended emergent ED evaluation. She also had some persistent headaches and lightheadedness. She went to [facility] and was referred from [facility] ED to [facility], who was noted to have left eye ptosis. She notes that she became worried about the ptosis and then is not sure, but concerned that she had some possible left-sided numbness or weakness. There were no functional limitations in her ability. PAST MEDICAL HISTORY: She has a history of anxiety, chronic low back pain, anemia, migraines, depression, and bilateral hip pain. PAST SURGICAL HISTORY: She is status post left foot surgery, sinus surgery x2, tonsillectomy, , tubal ligation, gastric bypass, left ankle surgery, and uterine ablation. MEDICATIONS: Medicines include: 1. Topamax 100 b.i.d. 2. Trazodone 200 at bedtime. 3. Lyrica 300 at bedtime. 4. Maxalt 5 mg p.o. weekly. 5. Lexapro 20 mg daily. 6. Depakote 500 twice a day. 7. Hydrocodone and acetaminophen 1 pill t.i.d. p.r.n. 8. Flexeril 10 mg t.i.d. 9. Motrin 600 q.8 hours p.r.n. ALLERGIES: Include CIPRO, INDOMETHACIN, OMEPRAZOLE, VERAPAMIL, CEPHALOSPORIN, DILAUDID and SULFA drugs. FAMILY HISTORY: Mother in her 60s and had coronary artery disease, diabetes, hypertension, hyperlipidemia, and chronic kidney disease. Her father has hypertension, coronary artery disease, and diabetes. SOCIAL HISTORY: She does not smoke, drink, or use drugs. She lives with her . REVIEW OF SYSTEMS: Negative in all 14 spheres other than the HPI. PHYSICAL EXAM: On exam, temperature 97.3, pulse 82, respirations 18, blood pressure 123/78. She is alert and oriented with normal speech and comprehension. Cranial nerves II through XII are intact other than she had a left ptosis. She had full extraocular movements. Pupils were equal, round, and reactive to light. Fundi were benign. Facies other than ptosis appeared symmetric. Motor exam revealed normal tone, strength, coordination and gait. No pronator drift. She had some initial giveaway weakness in her left arm, but with encouragement, it is symmetric and full 5/5 strength. Sensation is intact to light touch. The patient's reflexes 2 and equal with downgoing toes. Chest : Clear. Cardiovascular: Regular rate and rhythm. Abdomen: Soft with positive bowel sounds. DIAGNOSTIC STUDIES/LAB DATA: We reviewed her MRI scan, which was normal. She had a transthoracic echo, which showed no source of clot. Labs include white count 6.4, hematocrit 37, platelet count 219. Normal INR and PTT. CMP was normal other than protein of 7.4, calcium of 8.4. Negative beta-HCG. TSH normal. LDL 104. UA negative. Negative toxicology other than opioids presented positive with Depakote level of 48. IMPRESSION AND PLAN: I spoke to Dr. Andrade who does Botox who noted that ptosis can occur following Botox injections as there were complication. It can occur beginning a week or 2 after injection and can persist for several weeks after. The time given here is most consistent with this as the etiology began a week or so after and is slowly improving. She became concerned and had some giveaway weakness in the left arm. I do not think this is hemiplegic. migraines and MRI scan was negative. I would recommend that they send off cardiolipin antibodies and also increase her Depakote dose. She will need to have a followup with Dr. Fuchs in the next several weeks' time. Thank you for sharing her case. [id number]/[facility] #: [id number] LISA
[2017-01-06] MEDS ORDERED: Divalproex ER TAB(*) 250 MG PO SCH (21:00)
--- NOTE | 2017-01-07 06:18 | DS ---
AMENDED REPORT NOW INCLUDES COSIGNER DESIGNATION - ESIGNED BEFORE ADJUSTMENT DISCHARGE SUMMARY: DATE OF ADMISSION: 01/05/17 DATE OF DISCHARGE: 01/06/17 PRIMARY CARE PROVIDER: Cecil Holland NP MY ATTENDING WHILE IN THE HOSPITAL: Dr. Rebekah Eller * (DICTATED BY PAULO MCCOY) PRIMARY DISCHARGE DIAGNOSES: 1. Botox complication, ptosis. 2. Intractable headache. SECONDARY DISCHARGE DIAGNOSES: 1. Anxiety. 2. Chronic low back pain. 3. Depression. CONSULTING PROVIDER: Jose Garcia MD STUDIES DONE WHILE IN THE HOSPITAL: Brain MRI read as normal brain, no restricted diffusion to suggest acute infarct. Transthoracic echocardiogram read as left ventricular chamber size normal, mild concentric left ventricular hypertrophy, left ventricular systolic function lower limits of normal, estimated ejection fraction 50%. Left atrial size is normal. Right ventricular cavity size normal. The right ventricular goal systolic function is low normal. No significant valvular abnormalities. Bubble study is negative. Definity was used to optimize study. MEDICATIONS ON DISCHARGE: 1. Topiramate 100 mg p.o. b.i.d. 2. Trazodone 200 mg p.o. at bedtime. 3. Lyrica 300 mg p.o. at bedtime. 4. Maxalt 5 mg p.o. weekly. 5. Lexapro 25 mg p.o. daily. 6. Divalproex 500 mg p.o. in the morning. 7. Divalproex 750 mg p.o. at bedtime. 8. [place] 325 one tab p.o. t.i.d. 9. Flexeril 10 mg p.o. t.i.d. 10. Ibuprofen 600 mg p.o. q. 8 hours as needed. New medications: 1. Divalproex 750 mg p.o. at bedtime. 2. Divalproex 500 mg p.o. daily. Discontinued medications: Divalproex 500 mg p.o. b.i.d. HOSPITAL COURSE: This is a brief summary of the patient's hospital course. For more details, please see the history and physical by Dr. Pedro Hill from 01/05/17. In brief, the patient is a 46-year-old female with past medical history significant for migraines, anxiety, chronic low back pain, and intractable headache, who presented with left facial swelling with ptosis, which started on 12/22/16 after Botox injection for her headaches on 12/15/16. The patient also had some dizziness and numbness and tingling in her leg, neither of which were new. The patient went to [facility] and was transferred to [facility] for neurological consultation and evaluation for CVA. The patient was admitted and continued to have ptosis, which did not improve. The patient had mild amount of dizziness in the hospital, but this was baseline for her. The patient had intermittent numbness and tingling in the lateral aspect of her lower calf, which is also baseline for her. The patient had a MRI, which was normal and echocardiogram which was also normal. Neurology was consulted and they believe that the differential was between CVA, hemiplegic migraine, and Botox complication. In the end, they believed that Botox complication was the most likely and that it would resolve by itself after a few weeks. The patient continue to have waxing and waning headaches that were resistant to ibuprofen, Tylenol, and [place]. While in the hospital, the patient's preventative medication divalproex was increased to 500 in the morning and 750 at night from 500 mg b.i.d. The patient's valproate level while in the hospital was 0.48, which was subtherapeutic for what they were trying to achieve. The patient was willing to be sent home on her current medication regimen, which includes Maxalt , which would have been contraindicated in hemiplegic migraines and to follow up with her primary care doctor and Dr. Fuchs for continued attempt to control her intractable headaches. PHYSICAL EXAMINATION: On the day of discharge: General: The patient is a 46-year-old female who appears stated age, sitting comfortably in the hospital bed. HEENT: Head normocephalic, atraumatic. Sclerae anicteric. No conjunctival injection. Mucous membranes moist. Pharynx : Nonerythematous. The patient has slight bruising below her left eye. Neck: Supple, nontender, no lymphadenopathy. No carotid bruit auscultated. Cardiac: Regular rate and rhythm. No clicks, murmurs, gallops, or rubs. Pulses 2+ in the bilateral posterior tibialis, dorsalis pedis, and radial areas. Respiratory : Clear to auscultation bilaterally. The patient had mild crackles in the bilateral lower lungs, which resolved with continued deep breathing. Good air exchange bilaterally. Abdomen: Obese, nontender, nondistended. Bowel sounds present and normoactive in all 4 quadrants. No hepatosplenomegaly. No abdominal bruits auscultated. Skin: Clean, dry, and intact. Neuro: Alert and oriented x3. Cranial nerves II through XII grossly intact except for left- sided facial droop with symmetrical forehead movement, which is restricted. Pupils equal, round, and reactive to light. Extraocular movements intact without nystagmus. Distal and proximal strength preserved 5/5 in both upper and lower extremities bilaterally. The patient has poor cooperation with the test, but with prompting, she is able to get up to 5/5 strength. Sensation intact to light touch in the upper and lower extremities. Reflexes 2+ bilaterally in the biceps, quadriceps, and Achilles tendons. [id number] performed without difficulty. No dysdiadochokinesis. Gait antalgic. No unsteadiness. Romberg negative. No drift. Psychiatric: The patient has a flat affect and seems discouraged by her current headaches. The patient is otherwise pleasant and cooperative. DISCHARGE PLAN: The patient will be discharged with the understanding that this is a complication from her Botox and will be able to go home and continue taking her Maxalt as prescribed. The patient will follow up with her primary care doctor within a week and with Dr. Fuchs within a month to assess her ongoing intractable headaches. The patient will continue to take her Depakote at the new dose and should have a Depakote level repeated in a month. The patient should continue to take all of her other medications as prescribed. The patient should avoid taking too many abortive medications such as ibuprofen or Maxalt to avoid rebound headache. ACTIVITY: As tolerated. DIET: Heart healthy, no caffeine. TIME SPENT: Approximately 60 minutes were spent on this discharge, half of which was spent [id number] with the patient obtaining the history and physical and discussing treatment options. PAULO MCCOY [id number]/CPS #: [id number] LISA
[2017-01-08 15:09] LABS: Phospholipid Ab IgG < 9.4 GPL; Phospholipid Ab IgM, S < 9.4 MPL
== END 2017-01-06 11:30 | disposition home or self-care (01) ==
LOC: ED 01:20 → MEDTELE 02:51
PROVIDERS: ADMIT Hospitalist; ATTEND Internal Medicine
DX: T48.295A Adverse effect of other drugs acting on muscles, initial encounter (principal); H02.402 Unspecified ptosis of left eyelid; Y84.8 Other medical procedures as the cause of abnormal reaction of the patient, or of later complication, without mention of misadventure at the time of the procedure; Y92.9 Unspecified place or not applicable; G43.909 Migraine, unspecified, not intractable, without status migrainosus; G89.29 Other chronic pain; I51.7 Cardiomegaly; Z88.1 Allergy status to other antibiotic agents; Z88.2 Allergy status to sulfonamides; Z88.8 Allergy status to other drugs, medicaments and biological substances; F41.9 Anxiety disorder, unspecified; Z79.899 Other long term (current) drug therapy
CPT/HCPCS: 36415; 70551; 80048; 80053; 80061; 80164; 80307; 80320; 81003; 83605; 84443; 84484; 84702; 85025; 85610; 85730; 86147; 86618; 93306; 96374; 99284; A9270-GY; C8929; G0378; G0480; J1644; J2405

== ENCOUNTER 2017-01-30 13:45 | Emergency (ER) | payer OTHER ==
[2017-01-30] MEDS ORDERED: NS 0.9% 1000 ML* 1,000 ML IV SCH (14:15)
--- NOTE | 2017-01-30 14:42 | RAD ---
Indication: Cough. Single frontal view of the chest performed at 1420 hours was reviewed. Comparison is made with previous exam dated January 04, 2017. No mediastinal shift is noted. Heart is of normal size and configuration. Lung pickens appear clear. IMPRESSION: NO ACTIVE CARDIOPULMONARY DISEASE IS NOTED.
[2017-01-30 14:45] LABS: Hematocrit 44 % (35-47); Hemoglobin 14.5 g/dl (12.0-16.0); Mean Corpuscular HGB Conc 33 g/dl (31-36); Mean Corpuscular Hemoglobin 32 pg (27-31); Mean Corpuscular Volume 96 fL (80-97); Mean Platelet Volume 8 um3 (7.4-10.4); Red Blood Count 4.56 10^6/ul (4.0-5.4); Red Cell Distribution Width 15 % (10.5-15); White Blood Count 5.8 10^3/ul (3.5-10.8)
[2017-01-30 15:15] LABS: Albumin 3.8 g/dL (3.2-5.2); BUN/Creatinine Ratio 16.5 (8-20); C Reactive Protein 3.67 mg/L (< 5.00); Calcium 9.2 mg/dL (8.6-10.3); EGFR African American 85.6 (>60); EGFR Non-African American 66.6 (>60); Globulin 3.1 g/dL (2-4); Magnesium 2.1 mg/dL (1.9-2.7); Potassium 3.9 mmol/L (3.5-5.0); Total Bilirubin 0.4 mg/dL (0.2-1.0); Total Protein 6.9 g/dL (6.4-8.9)
--- NOTE | 2017-01-30 15:21 | RAD ---
INDICATION: Left face numbness and pain COMPARISON: CT of the brain dated May 24, 2012 TECHNIQUE: Contiguous axial sections of the brain were obtained from the skull base to the vertex without contrast. FINDINGS: The ventricles, cisterns and sulci are within normal limits. The jackson-white matter differentiation is adequately maintained and there is no sulcal effacement. No significant focal abnormality or mass effect is present. There is no evidence for intracranial hemorrhage. At the expected location of the right cavernous sinus (image 6 and 7 of 28) and along the anterior medial margins of the bilateral orbits (image 5) there are scattered foci of gas. No significant focal osseous abnormality is present. The visualized portion of the paranasal sinuses and mastoid air cells appear clear. IMPRESSION: Scattered foci of gas are identified at the expected location of the right cavernous sinus as well as the medial aspects of the bilateral orbits. The clinical significance of this is indeterminate. There is no CT evidence of an acute territorial infarction or acute intracranial hemorrhage.
[2017-01-30 15:40] LABS: TSH (Thyroid Stimulating Horm) 1.03 mcIU/mL (0.34-5.60)
[2017-01-30 16:26] LABS: Urine Bilirubin Negative (Negative); Urine Glucose Negative (Negative); Urine Nitrite Negative (Negative)
--- NOTE | 2017-01-30 16:36 | ED ---
Odette Sinclair Alfonso, scribed for Haris Germain MD on 01/30/17 at 1406 . Complex/Multi-Sys Presentation - HPI Summary HPI Summary: This patient is a 46 year [facility] with a chief complaint of left-sided face numbness and swelling since approximately 90 minutes ago. These symptoms began while washing dishes. The patient rates the aching pain 8/10 in severity. Symptoms aggravated by nothing. Symptoms alleviated by nothing. Patient reports nonproductive coughing, bilateral ear ache, and a gradually worsening sharp left-frontal headache. Patient denies vision changes, extremity numbness, and rhinorrhea. She was admitted to [facility] from 01/05/17 to 01/06/17 with primary discharge diagnoses of botox complication , ptosis and intractable headache. She reports neurologist follow up on . Medications reviewed. Allergies reviewed. - History Of Current Complaint Chief Complaint: EDHeadache Time Seen by Provider: 01/30/17 13:55 Hx Obtained From: Patient, Medical Records Onset/Duration: Sudden Onset, Lasting Minutes - 90, Still Present Timing: Constant Character: Dull - aching Aggravating Factor(s): nothing Alleviating Factor(s): nothing Associated Signs And Symptoms: Positive: Other - Patient reports nonproductive coughing, bilateral ear ache, and a gradually worsening sharp left-frontal headache. Patient denies vision changes, extremity numbness, and rhinorrhea. - Allergies/Home Medications Allergies/Adverse Reactions: Allergies Allergy/AdvReac Type Severity Reaction Status Date / Time Ciprofloxacin [From Cipro] Allergy Unknown Verified 01/05/17 01:46 Reaction Details Indomethacin Allergy Unknown Verified 01/05/17 01:46 Reaction Details Omeprazole Allergy Unknown Verified 01/05/17 01:46 Reaction Details Verapamil Allergy Unknown Verified 01/05/17 01:46 Reaction Details Cephalexin [From Keflex] AdvReac Intermediate Vomiting Verified 01/05/17 01:46 Hydromorphone [From Dilaudid] AdvReac Intermediate Headache Verified 01/05/17 01 :46 Sulfa Drugs AdvReac Intermediate Vomiting Verified 01/05/17 01:46 Home Medications: Home Medications Pantoprazole TAB (NF) [Protonix TAB (NF)] 20 mg PO DAILY 01/30/17 [History Confirmed 01/30/17] Pregabalin CAP(*) [Lyrica CAP(*)] 300 mg PO BEDTIME 01/30/17 [History Confirmed 01/30/17] Rizatriptan (NF) [Maxalt-Field Operator (NF)] 10 mg PO BID PRN MDD 20 mg 01/30/17 [History Confirmed 01/30/17] PMH/Surg Hx/FS Hx/Imm Hx Endocrine/Hematology History: Reports: Hx Anemia Denies: Hx Diabetes, Hx Thyroid Disease Cardiovascular History: Denies: Hx Congestive Heart Failure, Hx Hypertension, Hx Pacemaker/ICD, Other Cardiovascular Problems/Disorders Respiratory History: Reports: Hx Asthma Denies: Hx Chronic Obstructive Pulmonary Disease (COPD), Other Respiratory Problems/Disorders GI History: Reports: Hx Ulcer Denies: Other GI Disorders History: Denies: Hx Renal Disease, Other Problems/Disorders Musculoskeletal History: Reports: Hx Back Problems, Hx Bursitis - RIGHT HIP Denies: Hx Rheumatoid Arthritis, Hx Osteoporosis, Other Musculoskeletal History Sensory History: Denies: Hx Contacts or Glasses, Hx Hearing Aid Opthamlomology History: Denies: Hx Contacts or Glasses Neurological History: Reports: Hx Headaches - migraines, Hx Migraine - receives Botox, Other Neuro Impairments/Disorders - PAIN CLINIC PT Psychiatric History: Reports: Hx Anxiety - ON MEDS PRN, Hx Depression, Hx Panic Disorder - Cancer History Hx Chemotherapy: No Hx Radiation Therapy: No - Surgical History Surgery Procedure, Year, and Place: c-spine fusion 2007, . 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 c-sections x2-TUBAL LIGATION 1997. left ankle surgery, RIGHT HIP SURGERY FOR BURSITIS. Lt breast biopsy LUMPECTOMY. RIGHT HIP BURSECTOMY-11/2015 Hx Anesthesia Reactions: No Infectious Disease History: No Infectious Disease History: Denies: Hx Clostridium Difficile, Hx Hepatitis, Hx Human Immunodeficiency Virus (HIV), Hx of Known/Suspected MRSA, Hx Shingles, Hx Tuberculosis, History Other Infectious Disease, Traveled Outside the [place] in Last 30 Days - Family History Known Family History: Positive: Cardiac Disease - Social History Alcohol Use: Rare Alcohol Amount: 2 PER MONTH Substance Use Type: Reports: None Hx Tobacco Use: Yes Smoking Status (MU): Never Smoked Tobacco Have You Smoked in the Last Year: No Review of Systems Negative: Fever Positive: Other - Negative vision changes Positive: Ear Ache. Negative: Nasal Discharge Positive: Cough Neurological: Other - left-sided face numbness and swelling; negative extremity numbness Positive: Headache All Other Systems Reviewed And Are Negative: Yes Physical Exam - Summary Physical Exam Summary: General: well-appearing, no pain distress Skin: warm, color reflects adequate perfusion, dry Head: normal Eyes: EOMI, TIO ENT: normal Neck: supple, nontender Respiratory: CTA, breath sounds present Cardiovascular: RRR Abdomen: soft, nontender Bowel: present Musculoskeletal: normal, strength/ROM intact Neurological: normal, sensory/motor intact, A&O x3, GSC 15, NIH 0. Psychological: affect/mood appropriate Triage Information Reviewed: Yes Vital Signs On Initial Exam: Initial Vitals Temp Pulse Resp BP Pulse Ox 97.5 F 86 18 135/83 98 01/30/17 13:48 01/30/17 13:48 01/30/17 13:48 01/30/17 13:48 01/30/17 13:48 Vital Signs Reviewed: Yes - [place] Coma Scale Best Eye Response: 4 - Spontaneous Best Motor Response: 6 - Obeys Commands Best Verbal Response: 5 - Oriented Coma Scale Total: 15 Diagnostics - Vital Signs Vital Signs Temp Pulse Resp BP Pulse Ox 01/30/17 13:48 97.5 F 86 18 135/83 98 - Laboratory Lab Results: Lab Results 01/30/17 01/30/17 01/30/17 Range/Units 14:35 14:35 14:35 WBC 5.8 (3.5-10.8) 10^3/ul RBC 4.56 (4.0-5.4) 10^6/ul Hgb 14.5 (12.0-16.0) g/dl Hct 44 (35-47) % MCV 96 (80-97) fL MCH 32 H (27-31) pg MCHC 33 (31-36) g/dl RDW 15 (10.5-15) % Plt Count 274 (150-450) 10^3/ul MPV 8 (7.4-10.4) um3 Neut % (Auto) 55.6 (38-83) % Lymph % (Auto) 34.2 (25-47) % [place] % (Auto) 6.0 (1-9) % Eos % (Auto) 3.4 (0-6) % Baso % (Auto) 0.8 (0-2) % Absolute Neuts (auto) 3.2 (1.5-7.7) 10^3/ul Absolute Lymphs (auto) 2.0 (1.0-4.8) 10^3/ul Absolute Monos (auto) 0.3 (0-0.8) 10^3/ul Absolute Eos (auto) 0.2 (0-0.6) 10^3/ul Absolute Basos (auto) 0 (0-0.2) 10^3/ul Absolute Nucleated RBC 0 10^3/ul Nucleated RBC % 0 INR (Anticoag Therapy) 0.82 L (0.89-1.11) APTT 24.8 L (26.0-36.3) seconds Sodium 139 (133-145) mmol/L Potassium 3.9 (3.5-5.0) mmol/L Chloride 110 (101-111) mmol/L Carbon Dioxide 23 (22-32) mmol/L Anion Gap 6 (2-11) mmol/L BUN 15 (6-24) mg/dL Creatinine 0.91 (0.51-0.95) mg/dL Est GFR ( Amer) 85.6 (>60) Est GFR (Non-Af Amer) 66.6 (>60) BUN/Creatinine Ratio 16.5 (8-20) Glucose 80 (70-100) mg/dL Lactic Acid (0.5-2.0) mmol/L Calcium 9.2 (8.6-10.3) mg/dL Magnesium 2.1 (1.9-2.7) mg/dL Total Bilirubin 0.40 (0.2-1.0) mg/dL AST 11 L (13-39) U/L ALT 8 (7-52) U/L Alkaline Phosphatase 41 (34-104) U/L Troponin I 0.00 (<0.04) ng/mL C-Reactive Protein 3.67 (< 5.00) mg/L Total Protein 6.9 (6.4-8.9) g/dL Albumin 3.8 (3.2-5.2) g/dL Globulin 3.1 (2-4) g/dL Albumin/Globulin Ratio 1.2 (1-3) TSH 1.03 (0.34-5.60) mcIU/mL Urine Color Urine Appearance Urine pH (5-9) Ur Specific [place] (1.010-1.030) Urine Protein (Negative) Urine Ketones (Negative) Urine Blood (Negative) Urine Nitrate (Negative) Urine Bilirubin (Negative) Urine Urobilinogen (Negative) Ur Leukocyte Esterase (Negative) Urine Glucose (Negative) Valproic Acid 71.0 (50-100) mcg/mL 01/30/17 01/30/17 Range/Units 14:35 15:59 WBC (3.5-10.8) 10^3/ul RBC (4.0-5.4) 10^6/ul Hgb (12.0-16.0) g/dl Hct (35-47) % MCV (80-97) fL MCH (27-31) pg MCHC (31-36) g/dl RDW (10.5-15) % Plt Count (150-450) 10^3/ul MPV (7.4-10.4) um3 Neut % (Auto) (38-83) % Lymph % (Auto) (25-47) % [place] % (Auto) (1-9) % Eos % (Auto) (0-6) % Baso % (Auto) (0-2) % Absolute Neuts (auto) (1.5-7.7) 10^3/ul Absolute Lymphs (auto) (1.0-4.8) 10^3/ul Absolute Monos (auto) (0-0.8) 10^3/ul Absolute Eos (auto) (0-0.6) 10^3/ul Absolute Basos (auto) (0-0.2) 10^3/ul Absolute Nucleated RBC 10^3/ul Nucleated RBC % INR (Anticoag Therapy) (0.89-1.11) APTT (26.0-36.3) seconds Sodium (133-145) mmol/L Potassium (3.5-5.0) mmol/L Chloride (101-111) mmol/L Carbon Dioxide (22-32) mmol/L Anion Gap (2-11) mmol/L BUN (6-24) mg/dL Creatinine (0.51-0.95) mg/dL Est GFR ( Amer) (>60) Est GFR (Non-Af Amer) (>60) BUN/Creatinine Ratio (8-20) Glucose (70-100) mg/dL Lactic Acid 1.2 (0.5-2.0) mmol/L Calcium (8.6-10.3) mg/dL Magnesium (1.9-2.7) mg/dL Total Bilirubin (0.2-1.0) mg/dL AST (13-39) U/L ALT (7-52) U/L Alkaline Phosphatase (34-104) U/L Troponin I (<0.04) ng/mL C-Reactive Protein (< 5.00) mg/L Total Protein (6.4-8.9) g/dL Albumin (3.2-5.2) g/dL Globulin (2-4) g/dL Albumin/Globulin Ratio (1-3) TSH (0.34-5.60) mcIU/mL Urine Color Straw Urine Appearance Clear Urine pH 7.0 (5-9) Ur Specific [place] 1.008 L (1.010-1.030) Urine Protein Negative (Negative) Urine Ketones Negative (Negative) Urine Blood Negative (Negative) Urine Nitrate Negative (Negative) Urine Bilirubin Negative (Negative) Urine Urobilinogen Negative (Negative) Ur Leukocyte Esterase Negative (Negative) Urine Glucose Negative (Negative) Valproic Acid (50-100) mcg/mL Result Diagrams: 01/30/17 14:35 01/30/17 14:35 Lab Statement: Any lab studies that have been ordered have been reviewed, and results considered in the medical decision making process. - Radiology CXR Radiology Interpretation Completed By: Radiologist - NO ACTIVE CARDIOPULMONARY DISEASE IS NOTED. ED physician has reviewed this radiology report and agrees. - CT Brain CT Interpretation Completed By: Radiologist - Scattered foci of gas are identified at the expected location of the right cavernous sinus as well as the medial aspects of the bilateral orbits. The clinical significance of this is indeterminate. There is no CT evidence of an acute territorial infarction or acute intracranial hemorrhage. ED physician has reviewed this radiology report and agrees. National Institutes Of Health - NIH Scale Level of Consciousness: Alert/Keenly Responsive Ask Patient the Month and His/Her Age: Both Correct Ask Pt to Open/Close Eyes and Shingle Shearing Machine Operator/Release Non-Paretic Hand: Both Correctly Best Gaze (Only Horizontal Eye Movement): Normal Visual Field Testing: No Visual Loss Facial Paresis-Pt to Smile & Close Eyes or Grimace Symmetry: Normal/Symmetrical Motor Function - Right Arm: No Drift-Holds 10 Seconds Motor Function - Left Arm: No Drift-Holds 10 Seconds Motor Function - Right Leg: No Drift-Holds 10 Seconds Motor Function - Left Leg: No Drift-Holds 10 Seconds Limb Ataxia-Must be out of Proportion to Weakness Present: Absent Sensory (Use Pinprick to Test Arms/Legs/Trunk/Face): Normal Best Language (Describe Picture, Name Items): No Aphasia Dysarthria (Read Several Words): Normal Extinction and Inattention: No Abnormality Total Score: 0 Complex Multi-Symp Course/Dx Course Of Treatment: DR WELLINGTON, NEUROLOGY, SAW PATIENT IN THE ED. SEE HIS CONSULT. WILL TREAT BRONCHITIS WITH ZPAC. F/U PMD/NEUROLOGY; RETURN IF WORSE. NO CRITICAL CARE TIME. - Diagnoses Provider Diagnoses: Headache, Paresthesia, Bronchitis - Physician Notifications Discussed Care Of Patient With: Geo Wellington Time Discussed With Above Provider: 14:23 Instructed by Provider To: Other - Consulted Dr. Wellington (neurologist) at 1423 who will see the patient in the ED. Discharge - Discharge Plan Condition: Stable Disposition: HOME Prescriptions: Azithromycin TAB* [Zithromax TAB (Z-KIMBERLEE) 250 mg #6 tabs] 2 tab PO .TODAY, THEN 1 DAILY #1 [email or web address] Patient Education Materials: Acute Bronchitis (ED), Acute Headache (ED), Paresthesia (ED) Referrals: Cecil Holland NP [Primary Care Provider] - Additional Instructions: FOLLOW UP WITH YOUR DOCTOR. RETURN TO THE EMERGENCY DEPARTMENT FOR ANY WORSENING OF YOUR CONDITION; WEAKNESS , NUMBNESS, SHORTNESS OF BREATH, YOU FEEL ILL OR QUESTIONS OR CONCERNS. The documentation as recorded by the Odette elias Alfonso accurately reflects the service I personally performed and the decisions made by me, Haris Germain MD.
[2017-01-30 17:05] VITALS: BP 124/84
--- NOTE | 2017-01-30 22:08 | CONS ---
CC: Dr. Fuchs * NEUROLOGY CONSULTATION: DATE OF CONSULT: 01/30/17 LOCATION: She is in the emergency room. REFERRING PHYSICIAN: Dr. Germain. CHIEF COMPLAINT: Headache, facial numbness. HISTORY OF PRESENT ILLNESS: Fany Pritchett is a 46-year-old woman, who has had chronic migraines and follows with Dr. Fuchs and has also had some Botox therapies for chronic migraine by Dr. Ames. I saw her a couple of years back for occipital nerve blocks. She has chronic daily headache, which is usually milder in the morning and it gets worse as the day goes by. She was in hospital and admitted on 01/06/17 with a bad headache and ptosis of the left eye. Her Depakote has been increased since to 1500 mg per day from 1000 mg per day. She had a normal MRI scan of the brain during that hospitalization. Today, she was in her usual state of health with a dull headache in the morning. She started to get some numbness or pain in the left side of her face, which she rates "a 3/10." It seemed to go up towards her eye and forehead and then she had an intensification of her headache. Headache was most intense in the left side, but then it became global. Previously, headaches could be on the left or right side or global. The numbness became more of a pain in the left side of her forehead and face. At this point, she just has a bad headache. She does not notice any change in vision or numbness of her limbs. There is no facial weakness or difficulty with speech. She did not take any additional headache medicine. She has hydrocodone that she can take up to 3 times per day for back and hip pain and also had a prescription for rizatriptan , which she says that she was told to stop that, but she is not sure by who. She does not clearly describe visual aura in the past, but she says occasionally she has seen spotted lines. It is not clear whether they precede the headaches or occur with the headaches or how often. She says sometimes she has them every day and sometimes not at all. PAST MEDICAL HISTORY: Notable for chronic migraines, chronic back pain, anxiety disorder, depression, sinus surgery, gastric bypass surgery, ankle surgery. MEDICATIONS: Current medications consist of: 1. Depakote 1500 mg p.o. q. day. 2. Topamax 100 mg p.o. b.i.d. 3. Trazodone 200 mg q.h.s. 4. Lyrica 300 mg q.h.s. 5. Hydrocodone 1 tablet 3 times a day as needed for back and hip pain. 6. Ibuprofen 600 mg t.i.d. as needed. 7. Flexeril 10 mg t.i.d. ALLERGIES: She is allergic to SULFA drugs which caused a rash and DILAUDID which intensified her headaches. SOCIAL HISTORY: She is a nonsmoker, does not drink alcohol. She lives with her , who is present in the exam room today. PHYSICAL EXAM: She is obese. Temperature 97.5 by temporal scan, blood pressure 135/83, heart rate 86 and regular. Respirations 18 and oxygen saturation is 98% on room air. Heart is in a regular rate and rhythm without murmurs. Carotid pulses are symmetric and there are no bruits. Lungs are clear. Neurological Exam: Pupils are equal and reactive to light from 4 down to 2.5 mm. Funduscopic exam revealed sharp discs with venous pulsation seen bilaterally. Eye movements are normal and there is no ptosis. Visual pickens are full to confrontation. Facial musculature is symmetric. Palate and tongue appeared normal and speech is clear. Hearing is intact. Facial sensation is reported as diminished to light touch on the left cheek, temperature is reported as symmetric, vibration is reported as decreased in the left forehead relative to the right forehead. Sensation in the limbs in intact with vibration and light touch. Strength and tone in the limbs are normal. There is no drift of any of the limbs. There is no tremor or other abnormal movements. Finger taps are normal in hands. Reflexes are symmetric in the upper and lower extremities. Plantar responses are flexor. She is alert and oriented. She is a fairly good historian with intact recent and remote memory. She has a flat affect. Language is fluent. DIAGNOSTIC STUDIES/LAB DATA: On this admission is notable for a normal CBC, INR is 0.82, PTT 24.8. CT scan of the brain was obtained and looks normal. There is, however, some air or gas bubbles in the orbits in the medial aspects right up against the bony orbital wall on both sides. There is also some in the right cavernous sinus. IMPRESSION AND PLAN: My impression is that Fany has chronic migraines. The facial numbness may be from migraine and her exam is somewhat functional. I am not sure how the air bubbles or gas bubbles got into the venous system, but I presume it might have been related to phlebotomy or IV insertion. There has been no recent head trauma. She has had 3 brain MRI scans since 2012, all of which have been normal. Recommended treating her headache as migraine by usual approach including ketorolac and also recommended adding some antiemetics and magnesium. I will discuss my impression with Dr. Germain. [id number] #: [id number] [facility] NETWORKLisa
== END 2017-01-30 17:05 | disposition home or self-care (01) ==
LOC: ED 13:45
DX: R51 Headache (principal); R20.2 Paresthesia of skin; J40 Bronchitis, not specified as acute or chronic; H92.02 Otalgia, left ear; R05 Cough
CPT/HCPCS: 36415; 70450; 71010; 80053; 80164; 81003; 83605; 83735; 84443; 84484; 85025; 85610; 85730; 86140; 99156; 99157; 99283

== ENCOUNTER 2017-09-25 12:26 | Observation (INO) | payer OTHER ==
--- OUTSIDE RECORDS SUMMARY | 2017-09-25 12:43 | XMS REPORT ---
:1970 External Reference #:[id number] Author Organization [facility] Address [address] [place] [address] [place] [address] Phone [phone] Care Team Providers Name Role Phone Teresa Montesinos MD Primary Care Physician Unavailable Payers Type Date Identification Numbers Payment Provider Subscriber Commercial Effective: Policy Number: [employer] Alex Thomas 2012 [id number] Group Number: [id number] [id number] Group Name: [place] [address] PayID: [id number] Problems Date Description Provider Status Onset: 04/23/2013 Neck pain Lionel Ramirez M.D. 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 Active Onset: 06/02/2014 Low back pain Lionel Ramirez M.D. Active Onset: 08/04/2014 Headache Joie Fuchs M.D. Active Onset: 11/30/2014 Lumbosacral spondylosis without Lionel Ramirez M.D. 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 Active Onset: 09/24/2015 Trochanteric bursitis Karely Guzmán M.D. Active Onset: 09/24/2015 Morbid obesity Karely Guzmán M.D. Active Onset: 11/01/2015 Gluteal tendinitis Karely Guzmán M.D. Active Onset: 11/09/2015 Chronic migraine without aura Joie Fuchs M.D. Active with status migrainosus Onset: 07/26/2016 Difficulty breathing Melva Connell MD Active Onset: 09/12/2016 Obstructive sleep apnea syndrome Roz Velazquez DNP, RN, Active POLISHING MACHINE OPERATOR-BC Onset: 09/12/2016 Hypersomnia Roz Velazquez DNP, RN, Active POLISHING MACHINE OPERATOR-BC Onset: 12/29/2016 Iliotibial band friction syndrome Karely Guzmán M.D. 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 08/04/2014 Dilaudid active 12/22/2014 Sulfa Antibiotics active 12/22/2014 Cipro active 12/22/2014 Keflex active 05/31/2015 Omeprazole active Mild caused burning in chest 10/19/2015 Indomethacin Nausea and Vomiting active Severe 11/08/2015 Verapamil hEADACHES active 05/03/2016 Guaifenisen-Codeine Hallucinations active 08/17/2016 Famotidine active Medications Medication Date Status Form Strength Qnty SIG Indications Ordering Provider Ativan 09/11 Active Tablets 0.5mg 30tab take 1 F41.9 Cecil /2018 s tab by IVAN Holland mouth every 12 hours as needed for anxiety Cyanocobalamin 02/04 Active Solution 1000mcg/M 1unit inject 1 Cecil /2016 L s millilite IVAN Holland rs intramusc ularly once a month Fluticasone 01/12 Active Suspension 50mcg/Act 16gm 2 sprays J06.9 Cecil Propionate each IVAN Holland nostril qd. Syringe/Luer 05/04 Active Misc 25G X 10uni intramusc Cecil Lock/3ML/25G X /2016 1-1/2" 3 ts ular, IVAN Holland 1-1/2" ML once monthly with cyanocoba kannan Escitalopram 04/19 Active Tablets 20mg 30tab Take One Cecil Oxalate s Tablet By IVAN Holland Mouth Every Day Ondansetron 01/13 Active Tablets 4mg 30tab 1 three G43.909 Geo . Dispers s times a Raymond, day as M.D. needed for nausea Depakote 11/[address] 500mg 90tab take one G43.011 Jose s tablet by kory Garcia in the morning and 2 tabs in pm. Ventolin HFA 07/07 Active Aerosol 108(90Bas 1unit 2 puffs 4 e) s times a Varn, N.P. mcg/Act day as needed Topiramate 08/04 Active Tablets 50mg 450ta 2 tabs by Joie Oh /2014 lilli mouth in [facility] the in M.D. the morning, 3 tabs in the at night Hydrocodone-Aceta 06/17 Active Tablets 5-325mg 60tab 1-2 by M54.2 Joie torres /2014 s mouth [facility], every 6 M.D. hours as needed (30 day supply) Lyrica 12/25 Active Capsules 150mg 60cap take two Jose s capsules Jose by mouth every evening Cyclobenzaprine Active Tablets 10mg 90tab one by Cecil HCL / s mouth IVAN Holland three times a day as needed spasm Meclizine HCL Active Tablets 25mg 30tab 1 tablet Cecil / s every 8 IVAN Holland hours as needed for vertigo Zolmitriptan Active Tablets 5mg 6tabs 1 tab by Jose / mouth Jose, twice a MD day maximum 2 days weekly Trazodone HCL 00 Active Tablets 100mg 60tab Take Two Cecil s Tablets IVAN Holland By Mouth AT Bedtime Doxycycline 06/19 Hx Capsules 100mg 20cap one J01.90 Cecil Hyclate s tablet IVAN Holland - twice 06/29 daily for 10 days. Azithromycin 01/17 Hx Tablets 250mg 6tabs 2 tabs by mouth IVAN Holland - every day 01/23 x1 day, tab by mouth every day x 4 days Miralax 01/12 Hx Powder 3350NF 510un dissolve K59.00 its 1 IVAN Holland - tablespoo 07/11 nful daily in liquid as needed Benzonatate 01/12 Hx Capsules 200mg 30cap one by J06.9 s mouth IVAN Holland - three 09/11 daily as needed for cough Doxycycline 12/22 Hx Capsules 100mg 20cap one J01.90 Cecil cl s tablet IVAN Holland - twice 01/12 daily for 10 days. Pantoprazole 12/[address] 20mg 30tab take 1 R10.9 Cecil s tablet by IVAN Holland - mouth one 02/06 daily Augmentin 12/20 Hx Tablets 875-125mg 20tab 1 tablet J01.90 s by mouth IVAN Holland - q12 hours 12/22 for days Methylprednisolon 08/23 Hx TBPK 4mg 1unit Medrol Raphael s dose pack MD Yuli - Take as 09/04 Augmentin 08/21 Hx Tablets 875-125mg 20tab one by Christelle /2017 s mouth Varn, N.P. - every 12 / hours ten days Benzonatate 08/15 Hx Capsules 200mg 30cap one by J20.9 Christelle /2017 s mouth Varn, N.P. - three 08/30 daily as needed for cough Flovent HFA 08/15 Hx Aerosol 110mcg/Ac 12gm 2 puffs J20.9 Christelle /2017 t twice Varn, N.P. - daily 09/14 Famotidine 08/09 Hx Tablets 20mg 60tab take one s tablet by IVAN Holland - mouth 08/16 twice a day as needed Vitamin D3 06/27 Hx Capsules [id number] 4caps one by E55.9 mouth Varn, N.P. - once 08/26 Augmentin 06/27 Hx Tablets 875-125mg 28tab one by J01.90 s mouth Varn, N.P. - every 12 07/11 hours 14 days Medrol 06/27 Hx TBPK 4mg 21uni 6 by [email or web address] Christelle /2017 ts mouth day Varn, N.P. - 1, 5 by 07/03 mouth 2, 4 by mouth day 3, 3 by mouth day 4, 2 by mouth day 5, 1 by mouth day 6 Levofloxacin 05/16 Hx Tablets 500mg 10tab one by s mouth IVAN Holland - daily for 05/26 Azithromycin 05/03 Hx Tablets 250mg 6tabs 2 tabs by mouth IVAN Holland - every day 05/07 x1 day, tab by mouth every day x 4 days Cyanocobalamin 04/30 Hx Solution 1000mcg/M 25ml 1.0 cubic L centimete IVAN Holland - rs 12/13 intram ular once monthly Guaifenesin-Codei 04/19 Hx Syrup 100-10mg/ 180ml 1-2 J06.9 [place] 5ML teaspoon IVAN Holland - every 4-6 04/24 hours cough Ativan 03/22 Hx Tablets 0.5mg 30tab take 1 s tab by IVAN Holland - mouth 07/11 every hours as needed for anxiety Prednisone 02/22 Hx Tablets 20mg 6tabs 3 by Geo Silva mouth x1 Raymond, - day then M.D. 04/19 2 by mouth x1 day then 1 by mouth every day and stop Rizatriptan 01/10 Hx Tablets 10mg 14tab 1 by Joie Guerra s mouth Jef, - twice a M.D. 07/11 day needed headache max 2 days a week Percocet 01/06 Hx Tablets 5-325mg 60tab 1 -2 tabs Janice s by mouth Donnell, - every 4-6 M.D. 04/19 hours needed pain Cyclobenzaprine 01/06 Hx Tablets 5mg 60tab Take One Cecil HCL s Tablet By IVAN Holland - Mouth 07/26 Every Hours as Needed, May Take A Second Tablet If Not Effective Medrol 01/03 Hx TBPK 4mg 21uni as M54.31 Cecil ts directed IVAN Holland - on 01/10 package Percocet 10/31 Hx Tablets 5-325mg 60tab 1-2 M25.551 Cherie s tablets [place], - by mouth AIR TURNING MACHINE FEEDER 01/10 every - hours as needed for pain Colace 10/31 Hx Capsules 100mg 90cap 1 by M25.551 Cherie s mouth up [place], - to 3 AIR TURNING MACHINE FEEDER 12/22 times day as needed for constipat ion. Aspirin Ec 10/[address] 325mg 20tab 1 by M25.551 Cherie /2016 s mouth [place], - twice AIR TURNING MACHINE FEEDER 01/03 daily 10 days to prevent blood clots Verapamil HCL 10/18 Hx Tablets 40mg 60tab 1 tab by Zuri s mouth MD Hallie - every 11/07 night at bedtime x1 week then 1 twice daily Indomethacin 09/19 Hx Capsules 25mg 120ca 1-4 caps Joie M. ps by mouth Jef, - as M.D. 10/18 directed Vitamin D3 08/17 Hx Capsules [id number] 12cap Once Cecil s weekly x IVAN Holland - 12 weeks 01/25 Levaquin 07/29 Hx Tablets 500mg 5tabs 1 tab daily [place], - M.D. 08/15 Escitalopram 07/18 Hx Tablets 10mg 30tab take one Cecil Oxalate s tablet by IVAN Holland - mouth 04/19 every Fluticasone 07/08 Hx Suspension 50mcg/Act 16gm 2 sprays J01.90 Cecil Propionate each Amalia, AIR TURNING MACHINE FEEDER - nostril 07/18 qd. Levofloxacin 07/08 Hx Tablets 500mg 10tab one by J01.90 Cecil s mouth Amalia, AIR TURNING MACHINE FEEDER - daily for 07/18 10 days Pulmicort 07/08 Hx Aerosol 180mcg/Ac 1unit 2 puffs R05 [place] Flexhaler t s twice Amalia, AIR TURNING MACHINE FEEDER - daily 07/25 Azithromycin 07/04 Hx Tablets 250mg 6tabs 2 tabs by J01.90 Cecil mouth Amalia, AIR TURNING MACHINE FEEDER - every day 07/08 x1 day, tab by mouth every day x 4 days Guaifenesin-Codei 07/04 Hx Syrup 100-10mg/ 180ml 1-2 J01.90 [place] 5ML teaspoon Amalia, AIR TURNING MACHINE FEEDER - every 4-6 07/14 hours cough Medrol (Owen) 06/01 Hx Tablets 4mg 21tab take 6 M54.2 s tabs day Amalia, AIR TURNING MACHINE FEEDER - 1, 5 tabs 06/07 day 2, tabs day 3, 3 tabs day 4, 2 tabs day 5, and 1 tab day 6. Lidocaine HCL 06/01 Hx Cream 3% 85gm apply M54.2 twice a Amalia, AIR TURNING MACHINE FEEDER - day as 07/04 needed painful areas. Rabeprazole 05/[address] 20mg 30tab 1 by [place] s mouth Amalia, AIR TURNING MACHINE FEEDER - every day 10/18 Vistaril 05/24 Hx Capsules 25mg 30cap 1-2 by F41.9 Cecil s mouth Amalia, AIR TURNING MACHINE FEEDER - four 11/07 times daily as needed Omeprazole 05/[address] 20mg 30cap 1 by R10.9 Cecil s mouth Amalia, AIR TURNING MACHINE FEEDER - once 05/28 daily Sertraline HCL 05/07 Hx Tablets 100mg 60tab 2 by [place] s mouth Amalia, AIR TURNING MACHINE FEEDER - every day 07/18 Vitamin D3 05/03 Hx Capsules 5000Unit 60cap 1 by [place] Maximum s mouth Amalia, AIR TURNING MACHINE FEEDER - twice 08/05 Vitamin D 12/29 Hx Capsules [id number] 12cap take one Cecil (Ergocalciferol) s capsule IVAN Holland - once 05/03 for 12 weeks. Ferrous Sulfate 12/29 Hx Tablets 325(65Fe) 60tab take 1 mg s tablet IVAN Holland - daily. 04/19 Cyanocobalamin 12/29 Hx Solution 1000mcg/M 25ml 1.0 cubic L centimete IVAN Holland - rs 11/07 intramusc ular every week for 4 weeks and then monthly Methylprednisolon 12/22 Hx Tablets 4mg QS as M46.1 Cecil e (Owen) directed IVAN Holland - on 12/26 Maxalt 08/04 Hx Tablets 10mg 12tab Take One Geo S. s Tablet By Raymond, - Mouth AT M.D. 01/03 Onset Migraine, May Repeat In 2 Hours Once, No More Than 2 Days A Week Acetaminophen-Cod 06/08 Hx Tablets 300-30mg 45tab 1-2 tab 723.1 Geo lyne # s four [place], - times a M.D. 06/17 day needed for pain Oxycodone HCL 04/07 Hx Capsules 5mg 30cap 1 q8 Lionel Marcelino s hours James, - prnfor M.D. 06/02 pain Nortriptyline HCL 02/03 Hx Capsules 25mg 90cap 3 caps by R51 Joie Oh s mouth Jef, - every M.D. 07/06 night directed. Oxycodone-Acetami 01/07 Hx Tablets 5-325mg 10tab 1 tab by Joie patterson s mouth q Jef, - 8-12 M.D. 04/07 hours as needed Tramadol HCL 12/03 Hx Tablets 50mg 60tab 1-2 by 723.1 Lionel Marcelino s mouth James, - four M.D. 06/08 times day as needed Nortriptyline HCL 11/27 Hx Capsules 50mg 90cap take 1 by Joie Oh s mouth Jef, - every M.D. 08/03 night at /2015 bedtime Sertraline HCL 09/30 Hx Tablets 100mg 30tab 1 by Cecil s mouth Amalia AIR TURNING MACHINE FEEDER - every 05/07 night at bedtime Methocarbamol 10/29 Hx Tablets 500mg 45tab one to Joie Oh s two up to Jef, - qid prn M.D. 10/29 for spasm Lyrica 10/29 Hx Capsules 50mg 120ca 2 - 4 Joie Yas ps caps by Jef, - mouth M.D. 12/25 night as directed Relpax 10/29 Hx Tablets 40mg 12tab 1 tab by Trish s mouth as Patrizia AIR TURNING MACHINE FEEDER - needed ; 01/13 repeat once in 2 hrs. no more than 2 doses in 24 hours, on no more than 2 days a week. Oxycodone/Acetami 05/23 Hx Tablets 5-325mg 15tab 1 tab by Joie patterson s mouth q Jef, - 6-8 hours M.D. 01/07 as needed Nortriptyline HCL 04/10 Hx Capsules 10mg 180ca 5 po qhs Joie Yas ps Jef, - M.D. 11/27 Nortriptyline HCL 02/25 Hx Capsules 50mg 90cap take 1 po Joie Oh s daily as Jef, - directed M.D. 04/10 Methylprednisolon 11/21 Hx Tablets 4mg 28tab two po Lionel wright s bid x 7 James, - days only M.D. 10/29 Gabapentin 11/07 Hx Capsules 100mg 90cap 1 - 2 po Lionel Marcelino s qhs to James, - start and M.D. 09/30 increase as tolerated graduall y up to 3 tid prn pain, caution: can cause sedation. Cyclobenzaprine 04/14 Hx Tablets 10mg 90tab 1 tab by Lionel VALLE s mouth James, - three M.D. 01/03 times day as needed spasm Methocarbamol 07/27 Hx Tablets 500mg 45tab one to Lionel Marcelino s two up to James, - qid prn M.D. 03/31 for spasm Neurontin 07/27 Hx Capsules 100mg 90cap 1 po qhs Lionel Marcelino /2009 s to start James, - x 2 days M.D. 09/24 then up as tolerable slowly to 3 qhs then up as tolerable to 3 tid 2 days between each ch [place] 07/27 Hx Tablets 7.5-325mg 90tab one to Lionel Marcelino s two by James, - mouth M.D. 09/30 times a day as needed pain Topiramate Hx Tablets 100mg 180ta 1 po qhs Unknown /0000 bs - 08/04 Hydroxyzine HCL Hx Tablets 50mg 60tab take 1 Unknown / s tablet by - mouth tid 09/30 pr Pantoprazole Hx Tablets DR 40mg Atkins, Sodium /0000 Honey, - P.A. 06/02 Ibuprofen Hx Tablets 800mg by mouth Unknown /0000 three - times a 06/05 day needed Proair HFA Hx Aerosol 108(90Bas 2 puffs Unknown /0000 e) by mouth - mcg/Act every 4 / hours needed Hydroxyzine Hx Capsules 25mg 1-2 caps Unknown Pamoate /0000 by mouth - four 07/06 times day as needed for anxiety Divalproex Sodium Hx Tablets ER 250mg 3 tabs by Unknown ER /0000 24HR mouth at - bedtime 09/11 Medications Administered in Office Medication Date Status Form Strength Qnty SIG Indications Ordering Provider B-12 Injection Administered Injection Nurse Visit 017 A Depomedrol Administered Injection Geo S. 20MG Tiffanie Andrade M.D. Depomedrol Administered Injection Geo S. 20MG Tiffanie Andrade M.D. Depomedrol Administered Injection Karely 40MG Tiffanie Guzmán M.D. B-12 Injection Administered Injection Christelle 016 Varn, N.P. B-12 Injection Administered Injection Tiffanie Mccarthy AIR TURNING MACHINE FEEDER B-12 Injection Administered Injection Tiffanie Mccarthy AIR TURNING MACHINE FEEDER B-12 Injection Administered Injection Nurse Visit 016 A B-12 Injection Administered Injection Shilo Mccarthy AIR TURNING MACHINE FEEDER B-12 Injection Administered Injection Nurse Visit 015 C B-12 Injection Administered Injection Nurse Visit 015 C B-12 Injection Administered Injection Nurse Visit 015 C Vital Signs Date Vital Result Comment 09/11/2017 Height 63 inches 5'3" Weight 239.50 lb Heart Rate 87 /min BP Systolic 109 mmHg BP Diastolic 74 mmHg Body Temperature 97.8 F O2 % BldC Oximetry 99 % BMI (Body Mass Index) 42.4 kg/m2 07/11/2017 Height 63 inches 5'3" Weight 232.00 lb Heart Rate 87 /min BP Systolic Sitting 118 mmHg BP Diastolic Sitting 76 mmHg BMI (Body Mass Index) 41.1 kg/m2 07/05/2017 Height 63 inches 5'3" Weight 235.25 lb Heart Rate 92 /min BP Systolic Sitting 116 mmHg Rue large cuff BP Diastolic Sitting 78 mmHg Rue large cuff Respiratory Rate 12 /min O2 % BldC Oximetry 93 % BMI (Body Mass Index) 41.7 kg/m2 06/19/2017 Weight 234.00 lb Heart Rate 87 /min BP Systolic 122 mmHg BP Diastolic 74 mmHg Body Temperature 98.4 F O2 % BldC Oximetry 99 % 02/06/2017 Weight 245.00 lb Heart Rate 93 /min BP Systolic Sitting 120 mmHg BP Diastolic Sitting 80 mmHg Body Temperature 98.5 F O2 % BldC Oximetry 98 % 01/12/2017 Height 63 inches 5'3" Weight 245.00 lb Heart Rate 101 /min BP Systolic Sitting 114 mmHg BP Diastolic Sitting 76 mmHg Body Temperature 97.8 F O2 % BldC Oximetry 98 % BMI (Body Mass Index) 43.4 kg/m2 12/29/2016 Height 63 inches 5'3" Weight 245.00 lb Heart Rate 97 /min BP Systolic 113 mmHg BP Diastolic 76 mmHg BMI (Body Mass Index) 43.4 kg/m2 12/20/2016 Weight 245.00 lb Heart Rate 81 /min BP Systolic Sitting 102 mmHg BP Diastolic Sitting 76 mmHg Body Temperature 97.5 F Pain Level 6 R hip O2 % BldC Oximetry 94 % 12/14/2016 Height 63 inches 5'3" Weight 245.00 lb Heart Rate 96 /min BP Systolic Sitting 122 mmHg LA lg cuff BP Diastolic Sitting 92 mmHg LA lg cuff Respiratory Rate 28 /min BMI (Body Mass Index) 43.4 kg/m2 09/12/2016 Height 63 inches 5'3" Weight 240.00 lb Heart Rate 100 /min BP Systolic Sitting 124 mmHg BP Diastolic Sitting 80 mmHg Respiratory Rate 16 /min O2 % BldC Oximetry 98 % BMI (Body Mass Index) 42.5 kg/m2 09/04/2016 Height 63 inches 5'3" Weight 240.00 lb BP Systolic Sitting 118 mmHg BP Diastolic Sitting 76 mmHg Pain Level 5 neck & shoulders BMI (Body Mass Index) 42.5 kg/m2 08/21/2016 Height 63 inches 5'3" Weight 240.00 lb Heart Rate 86 /min BP Systolic Sitting 122 mmHg BP Diastolic Sitting 82 mmHg Respiratory Rate 16 /min Body Temperature 97.9 F Pain Level 4 BMI (Body Mass Index) 42.5 kg/m2 08/17/2016 Height 63.5 inches 5'3.50" Weight 240.00 lb Heart Rate 80 /min BP Systolic Sitting 118 mmHg BP Diastolic Sitting 70 mmHg Respiratory Rate 14 /min BMI (Body Mass Index) 41.8 kg/m2 08/15/2016 Weight 245.75 lb Heart Rate 116 /min BP Systolic 118 mmHg BP Diastolic 60 mmHg Body Temperature 98.2 F O2 % BldC Oximetry 98 % 08/03/2016 Weight 247.00 lb Heart Rate 102 /min BP Systolic Sitting 142 mmHg BP Diastolic Sitting 100 mmHg Respiratory Rate 16 /min O2 % BldC Oximetry 98 % 07/26/2016 Height 63 inches 5'3" Weight 245.00 lb Heart Rate 99 /min BP Systolic Sitting 146 mmHg BP Diastolic Sitting 84 mmHg Respiratory Rate 16 /min O2 % BldC Oximetry 98 % BMI (Body Mass Index) 43.4 kg/m2 Neck Circumference in inches 15 07/17/2016 Weight 246.50 lb Heart Rate 114 /min BP Systolic 126 mmHg BP Diastolic 80 mmHg Body Temperature 97.7 F O2 % BldC Oximetry 96 % 06/27/2016 Weight 248.00 lb with shoes Heart Rate 72 /min BP Systolic 114 mmHg BP Diastolic 80 mmHg Body Temperature 97.7 F O2 % BldC Oximetry 98 % 05/25/2016 Height 63 inches 5'3" Weight 240.00 lb Heart Rate 77 /min BP Systolic Sitting 127 mmHg BP Diastolic Sitting 72 mmHg Respiratory Rate 17 /min BMI (Body Mass Index) 42.5 kg/m2 04/19/2016 Weight 249.00 lb Heart Rate 97 /min BP Systolic Sitting 120 mmHg BP Diastolic Sitting 80 mmHg Respiratory Rate 18 /min Body Temperature 98.1 F O2 % BldC Oximetry 97 % 01/27/2016 Height 63 inches 5'3" Weight 235.00 lb Heart Rate 68 /min BP Systolic Sitting 130 mmHg BP Diastolic Sitting 80 mmHg Respiratory Rate 14 /min BMI (Body Mass Index) 41.6 kg/m2 01/14/2016 Height 63 inches 5'3" Weight 240.00 lb Heart Rate 105 /min BP Systolic 112 mmHg BP Diastolic 79 mmHg Pain Level 5 BMI (Body Mass Index) 42.5 kg/m2 01/12/2016 Height 63 inches 5'3" Weight 240.00 lb Heart Rate 76 /min BP Systolic Sitting 118 mmHg BP Diastolic Sitting 72 mmHg Respiratory Rate 16 /min BMI (Body Mass Index) 42.5 kg/m2 01/04/2016 Height 63 inches 5'3" Weight 239.00 lb Heart Rate 88 /min BP Systolic 115 mmHg BP Diastolic 84 mmHg Body Temperature 98.9 F BMI (Body Mass Index) 42.3 kg/m2 12/24/2015 Heart Rate 99 /min BP Systolic 120 mmHg BP Diastolic 81 mmHg Pain Level 5 11/26/2015 Height 63 inches 5'3" Weight 240.00 lb Body Temperature 97.8 F BMI (Body Mass Index) 42.5 kg/m2 11/09/2015 Height 63 inches 5'3" Weight 240.00 lb Heart Rate 84 /min BP Systolic Sitting 108 mmHg BP Diastolic Sitting 70 mmHg Pain Level 8 8/10 O2 % BldC Oximetry 96 % BMI (Body Mass Index) 42.5 kg/m2 11/08/2015 Weight 242.00 lb Heart Rate 80 /min BP Systolic Sitting 124 mmHg BP Diastolic Sitting 78 mmHg Respiratory Rate 15 /min Body Temperature 98.4 F O2 % BldC Oximetry 98 % 11/01/2015 Height 63.5 inches 5'3.50" Weight 237.00 lb Pain Level 8 BMI (Body Mass Index) 41.3 kg/m2 10/25/2015 Height 63.5 inches 5'3.50" Weight 237.00 lb Pain Level 7 BMI (Body Mass Index) 41.3 kg/m2 09/24/2015 Height 63.5 inches 5'3.50" Weight 237.00 lb Heart Rate 91 /min BP Systolic 121 mmHg BP Diastolic 77 mmHg Pain Level 7 BMI (Body Mass Index) 41.3 kg/m2 09/06/2015 Weight 238.50 lb Heart Rate 83 /min BP Systolic Sitting 111 mmHg BP Diastolic Sitting 81 mmHg Pain Level 8 O2 % BldC Oximetry 98 % 09/02/2015 Height 63.5 inches 5'3.50" Weight 235.00 lb Heart Rate 64 /min BP Systolic Sitting 124 mmHg BP Diastolic Sitting 80 mmHg Respiratory Rate 14 /min BMI (Body Mass Index) 41.0 kg/m2 08/16/2015 Height 63.5 inches 5'3.50" Weight 244.00 lb Heart Rate 88 /min BP Systolic Sitting 128 mmHg BP Diastolic Sitting 84 mmHg Respiratory Rate 15 /min Body Temperature 98.5 F O2 % BldC Oximetry 98 % BMI (Body Mass Index) 42.5 kg/m2 07/19/2015 Height 63.5 inches 5'3.50" Weight 234.00 lb Heart Rate 86 /min BP Systolic Sitting 124 mmHg BP Diastolic Sitting 78 mmHg Respiratory Rate 15 /min Body Temperature 98.0 F O2 % BldC Oximetry 98 % BMI (Body Mass Index) 40.8 kg/m2 07/09/2015 Height 63.5 inches 5'3.50" Weight 239.00 lb Heart Rate 94 /min BP Systolic Sitting 126 mmHg BP Diastolic Sitting 78 mmHg Respiratory Rate 14 /min Body Temperature 98.5 F O2 % BldC Oximetry 98 % BMI (Body Mass Index) 41.7 kg/m2 07/05/2015 Height 63.5 inches 5'3.50" Weight 235.75 lb Heart Rate 96 /min BP Systolic Sitting 122 mmHg BP Diastolic Sitting 82 mmHg Respiratory Rate 16 /min Body Temperature 98.0 F Pain Level 7 O2 % BldC Oximetry 98 % BMI (Body Mass Index) 41.1 kg/m2 06/02/2015 Height 63.5 inches 5'3.50" Weight 240.00 lb Heart Rate 89 /min BP Systolic Sitting 124 mmHg BP Diastolic Sitting 87 mmHg Body Temperature 96.4 F Pain Level 7 O2 % BldC Oximetry 99 % BMI (Body Mass Index) 41.8 kg/m2 05/24/2015 Height 63.5 inches 5'3.50" Weight 237.00 lb Heart Rate 74 /min BP Systolic Sitting 128 mmHg BP Diastolic Sitting 82 mmHg Respiratory Rate 15 /min Body Temperature 98.0 F O2 % BldC Oximetry 97 % BMI (Body Mass Index) 41.3 kg/m2 04/15/2015 Height 63.5 inches 5'3.50" Heart Rate 72 /min BP Systolic Sitting 126 mmHg BP Diastolic Sitting 72 mmHg Respiratory Rate 16 /min 02/15/2015 Weight 236.00 lb Heart Rate 86 /min BP Systolic Sitting 120 mmHg BP Diastolic Sitting 72 mmHg Respiratory Rate 14 /min Body Temperature 98.4 F O2 % BldC Oximetry 98 % 01/13/2015 Weight 229.00 lb Heart Rate 85 /min BP Systolic Sitting 123 mmHg BP Diastolic Sitting 81 mmHg Body Temperature 97.8 F 12/22/2014 Weight 224.00 lb Heart Rate 112 /min BP Systolic Sitting 131 mmHg BP Diastolic Sitting 85 mmHg Body Temperature 98.1 F 11/30/2014 Height 63 inches 5'3" Weight 220.00 lb Heart Rate 76 /min BP Systolic Sitting 138 mmHg BP Diastolic Sitting 80 mmHg Pain Level 9 neck BMI (Body Mass Index) 39.0 kg/m2 08/04/2014 Height 63 inches 5'3" Heart Rate 76 /min BP Systolic Sitting 126 mmHg BP Diastolic Sitting 84 mmHg Respiratory Rate 16 /min 06/02/2014 Height 63 inches 5'3" Weight 222.00 lb Heart Rate 88 /min BP Systolic Sitting 120 mmHg BP Diastolic Sitting 80 mmHg Pain Level 5 neck&back BMI (Body Mass Index) 39.3 kg/m2 02/03/2014 Height 63 inches 5'3" Weight 209.00 lb Heart Rate 76 /min BP Systolic Sitting 110 mmHg BP Diastolic Sitting 72 mmHg Respiratory Rate 16 /min BMI (Body Mass Index) 37.0 kg/m2 12/03/2013 Height 63 inches 5'3" Weight 209.00 lb Heart Rate 86 /min BP Systolic Sitting 110 mmHg BP Diastolic Sitting 78 mmHg Pain Level 6 neck BMI (Body Mass Index) 37.0 kg/m2 10/07/2013 Height 63 inches 5'3" Weight 204.00 lb Heart Rate 88 /min BP Systolic Sitting 136 mmHg BP Diastolic Sitting 82 mmHg Respiratory Rate 20 /min BMI (Body Mass Index) 36.1 kg/m2 10/29/2012 Heart Rate 96 /min BP Systolic Sitting 122 mmHg BP Diastolic Sitting 76 mmHg Respiratory Rate 18 /min Results Test Date Test Result H/L Range Note Laboratory test 07/31/2017 Surgical Interface SEE RESULT BELOW 1, 2 finding Order Laboratory test 07/12/2017 TSH (Thyroid Stim 1.94 mcIU/mL 0.34-5.60 finding Horm) Comp Metabolic Panel 06/19/2017 Sodium 140 mmol/L 133-145 Potassium 4.4 mmol/L 3.5-5.0 Chloride 108 mmol/L 101-111 Co2 Carbon Dioxide 27 mmol/L 22-32 Anion Gap 5 mmol/L 2-11 Glucose 74 mg/dL 70-100 Blood Urea Nitrogen 12 mg/dL 6-24 Creatinine 0.93 mg/dL 0.51-0.95 BUN/Creatinine Ratio 12.9 8-20 Calcium 9.0 mg/dL 8.6-10.3 Total Protein 6.0 g/dL Low 6.4-8.9 Albumin 3.5 g/dL 3.2-5.2 Globulin 2.5 g/dL 2-4 Albumin/Globulin Ratio 1.4 1-3 Total Bilirubin 0.50 mg/dL 0.2-1.0 Alkaline Phosphatase 47 U/L 34-104 Alt 12 U/L 7-52 Ast 12 U/L Low 13-39 Egfr Non- 64.9 >60 Egfr 83.5 >60 3 Laboratory test finding 06/19/2017 Monospot Negative Negative 4 Vitamin B12 353 pg/mL 180-914 5 Vitamin D Total 25(Oh) 22.5 ng/mL 20-50 Urinalysis Profile 01/30/2017 Urine Color Straw Urine Appearance Clear Urine Specific Dike 1.008 Low 1.010-1.030 Urine pH 7.0 5-9 Urine Urobilinogen Negative Negative Urine Ketones Negative Negative Urine Protein Negative Negative Urine Leukocytes Negative Negative Urine Blood Negative Negative Urine Nitrite Negative Negative Urine Bilirubin Negative Negative Urine Glucose Negative Negative CBC Auto Diff 01/30/2017 White Blood Count 5.8 10^3/uL 3.5-10.8 Red Blood Count 4.56 10^6/uL 4.0-5.4 Hemoglobin 14.5 g/dL 12.0-16.0 Hematocrit 44 % 35-47 Mean Corpuscular Volume 96 fL 80-97 Mean Corpuscular Hemoglobin 32 pg High 27-31 Mean Corpuscular HGB Conc 33 g/dL 31-36 Red Cell Distribution Width 15 % 10.5-15 Platelet Count 274 10^3/uL 150-450 Mean Platelet Volume 8 um3 7.4-10.4 Abs Neutrophils 3.2 10^3/uL 1.5-7.7 Abs Lymphocytes 2.0 10^3/uL 1.0-4.8 Abs Monocytes 0.3 10^3/uL 0-0.8 Abs Eosinophils 0.2 10^3/uL 0-0.6 Abs Basophils 0 10^3/uL 0-0.2 Abs Nucleated RBC 0 10^3/uL Granulocyte % 55.6 % 38-83 Lymphocyte % 34.2 % 25-47 Monocyte % 6.0 % 1-9 Eosinophil % 3.4 % 0-6 Basophil % 0.8 % 0-2 Nucleated Red Blood Cells % 0 Inr/Protime 01/30/2017 Inr 0.82 Low 0.89-1.11 Laboratory test finding 01/30/2017 Partial Thrombo Time 24.8 seconds Low 26.0-36.3 PTT Lactic Acid 1.2 mmol/L 0.5-2.0 6 Troponin-I (TnI) 0.00 ng/mL <0.04 Comp Metabolic Panel 01/30/2017 Sodium 139 mmol/L 133-145 Potassium 3.9 mmol/L 3.5-5.0 Chloride 110 mmol/L 101-111 Co2 Carbon Dioxide 23 mmol/L 22-32 Anion Gap 6 mmol/L 2-11 Glucose 80 mg/dL 70-100 Blood Urea Nitrogen 15 mg/dL 6-24 Creatinine 0.91 mg/dL 0.51-0.95 BUN/Creatinine Ratio 16.5 8-20 Calcium 9.2 mg/dL 8.6-10.3 Total Protein 6.9 g/dL 6.4-8.9 Albumin 3.8 g/dL 3.2-5.2 Globulin 3.1 g/dL 2-4 Albumin/Globulin Ratio 1.2 1-3 Total Bilirubin 0.40 mg/dL 0.2-1.0 Alkaline Phosphatase 41 U/L 34-104 Alt 8 U/L 7-52 Ast 11 U/L Low 13-39 Egfr Non- 66.6 >60 Egfr 85.6 >60 7 Laboratory test finding 01/30/2017 Magnesium 2.1 mg/dL 1.9-2.7 C Reactive Protein 3.67 mg/L < 5.00 8 Valproic Acid (Depakene) 71.0 g/mL 50-100 TSH (Thyroid Stim Horm) 1.03 mcIU/mL 0.34-5.60 Urinalysis Profile 01/05/2017 Urine Color Yellow Urine Appearance Clear Urine Specific Dike 1.012 1.010-1.030 Urine pH 6.0 5-9 Urine Urobilinogen Negative Negative Urine Ketones Negative Negative Urine Protein Negative Negative Urine Leukocytes Negative Negative Urine Blood Negative Negative Urine Nitrite Negative Negative Urine Bilirubin Negative Negative Urine Glucose Negative Negative Urine Drug SCR ED & 01/05/2017 Amphetamine Ur Screen None Detected None Detect Pain Clinic Barbiturates Urine Screen None Detected None Detect Benzodiazepine Urine Screen None Detected None Detect Urine Cannabinoids Screen None Detected None Detect Urine Cocaine Screen None Detected None Detect Urine Opiates Screen Presumptive Posi <SEE NOTE> None Detect 9 Urine Phencyclidine Screen None Detected None Detect 10 CBC Auto Diff 01/05/2017 White Blood Count 6.4 10^3/uL 3.5-10.8 Red Blood Count 3.83 10^6/uL Low 4.0-5.4 Hemoglobin 12.2 g/dL 12.0-16.0 Hematocrit 37 % 35-47 Mean Corpuscular Volume 96 fL 80-97 Mean Corpuscular Hemoglobin 32 pg High 27-31 Mean Corpuscular HGB Conc 33 g/dL 31-36 Red Cell Distribution Width 14 % 10.5-15 Platelet Count 219 10^3/uL 150-450 Mean Platelet Volume 8 um3 7.4-10.4 Abs Neutrophils 2.5 10^3/uL 1.5-7.7 Abs Lymphocytes 3.1 10^3/uL 1.0-4.8 Abs Monocytes 0.5 10^3/uL 0-0.8 Abs Eosinophils 0.2 10^3/uL 0-0.6 Abs Basophils 0.1 10^3/uL 0-0.2 Abs Nucleated RBC 0 10^3/uL Granulocyte % 39.4 % 38-83 Lymphocyte % 49.0 % High 25-47 Monocyte % 7.5 % 1-9 Eosinophil % 3.3 % 0-6 Basophil % 0.8 % 0-2 Nucleated Red Blood Cells % 0.1 Inr/Protime 01/05/2017 Inr 0.90 0.89-1.11 Laboratory test finding 01/05/2017 Partial Thrombo Time 26.0 seconds 26.0 -36.3 PTT Lactic Acid 0.8 mmol/L 0.5-2.0 11 Comp Metabolic Panel 01/05/2017 Sodium 138 mmol/L 133-145 Potassium 3.5 mmol/L 3.5-5.0 Chloride 109 mmol/L 101-111 Co2 Carbon Dioxide 22 mmol/L 22-32 Anion Gap 7 mmol/L 2-11 Glucose 80 mg/dL 70-100 Blood Urea Nitrogen 19 mg/dL 6-24 Creatinine 0.84 mg/dL 0.51-0.95 BUN/Creatinine Ratio 22.6 High 8-20 Calcium 8.3 mg/dL Low 8.6-10.3 Total Protein 5.7 g/dL Low 6.4-8.9 Albumin 3.2 g/dL 3.2-5.2 Globulin 2.5 g/dL 2-4 Albumin/Globulin Ratio 1.3 1-3 Total Bilirubin 0.40 mg/dL 0.2-1.0 Alkaline Phosphatase 43 U/L 34-104 Alt 7 U/L 7-52 Ast 11 U/L Low 13-39 Egfr Non- 73.0 >60 Egfr 93.9 >60 12 Lipid Profile (Trig/Chol/HDL) 01/05/2017 Triglycerides 112 mg/dL 13 Cholesterol 170 mg/dL 14 HDL Cholesterol 43.7 mg/dL 15 LDL Cholesterol 104 mg/dL 16 Laboratory test finding 01/05/2017 Alcohol < 10 mg/dL <10 Troponin-I (TnI) 0.01 ng/mL <0.04 HCG < 0.60 mIU/mL 17 TSH (Thyroid Stim Horm) 3.54 mcIU/mL 0.34-5.60 Laboratory test finding 12/06/2016 Vitamin B12 213 pg/mL 180-914 18 Rapid Influenza A & B 08/15/2016 Influenza A Molecular POSITIVE Negative 19 Molecular Influenza B Molecular NEGATIVE Negative Laboratory test 08/15/2016 Influenza A & B SEE RESULT BELOW 20 finding Request CBC Auto Diff 08/03/2016 White Blood Count 7.0 10^3/uL 3.5-10.8 Red Blood Count 4.38 10^6/uL 4.0-5.4 Hemoglobin 13.7 g/dL 12.0-16.0 Hematocrit 41 % 35-47 Mean Corpuscular Volume 94 fL 80-97 Mean Corpuscular Hemoglobin 31 pg 27-31 Mean Corpuscular HGB Conc 33 g/dL 31-36 Red Cell Distribution Width 14 % 10.5-15 Platelet Count 251 10^3/uL 150-450 Mean Platelet Volume 9 um3 7.4-10.4 Abs Neutrophils 4.0 10^3/uL 1.5-7.7 Abs Lymphocytes 2.3 10^3/uL 1.0-4.8 Abs Monocytes 0.4 10^3/uL 0-0.8 Abs Eosinophils 0.2 10^3/uL 0-0.6 Abs Basophils 0 10^3/uL 0-0.2 Abs Nucleated RBC 0 10^3/uL Granulocyte % 57.6 % 38-83 Lymphocyte % 32.7 % 25-47 Monocyte % 6.4 % 1-9 Eosinophil % 2.8 % 0-6 Basophil % 0.5 % 0-2 Nucleated Red Blood Cells % 0 Comp Metabolic Panel 08/03/2016 Sodium 138 mmol/L 133-145 Potassium 4.1 mmol/L 3.5-5.0 Chloride 105 mmol/L 101-111 Co2 Carbon Dioxide 26 mmol/L 22-32 Anion Gap 7 mmol/L 2-11 Glucose 74 mg/dL 70-100 Blood Urea Nitrogen 17 mg/dL 6-24 Creatinine 0.91 mg/dL 0.51-0.95 BUN/Creatinine Ratio 18.7 8-20 Calcium 9.0 mg/dL 8.6-10.3 Total Protein 6.4 g/dL 6.4-8.9 Albumin 3.8 g/dL 3.2-5.2 Globulin 2.6 g/dL 2-4 Albumin/Globulin Ratio 1.5 1-3 Total Bilirubin 0.40 mg/dL 0.2-1.0 Alkaline Phosphatase 49 U/L 34-104 Alt 7 U/L 7-52 Ast 10 U/L Low 13-39 Egfr Non- 66.9 >60 Egfr 86.0 >60 21 Laboratory test finding 08/03/2016 Amylase 26 U/L Low 29-103 Lipase 10 U/L Low 11.0-82.0 Vitamin B12 245 pg/mL 180-914 22 Urinalysis Profile 08/03/2016 Urine Color Yellow Urine Appearance Clear Urine Specific Dike 1.014 1.010-1.030 Urine pH 6.0 5-9 Urine Urobilinogen Negative Negative Urine Ketones Trace Negative Urine Protein Negative Negative Urine Leukocytes Negative Negative Urine Blood Negative Negative Urine Nitrite Negative Negative Urine Bilirubin Negative Negative Urine Glucose Negative Negative CBC Auto Diff 04/27/2016 White Blood Count 7.6 10^3/uL 3.5-10.8 Red Blood Count 4.42 10^6/uL 4.0-5.4 Hemoglobin 13.9 g/dL 12.0-16.0 Hematocrit 42 % 35-47 Mean Corpuscular Volume 94 fL 80-97 Mean Corpuscular Hemoglobin 31 pg 27-31 Mean Corpuscular HGB Conc 33 g/dL 31-36 Red Cell Distribution Width 13 % 10.5-15 Platelet Count 246 10^3/uL 150-450 Mean Platelet Volume 8 um3 7.4-10.4 Abs Neutrophils 4.1 10^3/uL 1.5-7.7 Abs Lymphocytes 2.7 10^3/uL 1.0-4.8 Abs Monocytes 0.7 10^3/uL 0-0.8 Abs Eosinophils 0.1 10^3/uL 0-0.6 Abs Basophils 0 10^3/uL 0-0.2 Abs Nucleated RBC 0.01 10^3/uL Granulocyte % 53.2 % 38-83 Lymphocyte % 35.0 % 25-47 Monocyte % 9.6 % High 1-9 Eosinophil % 1.6 % 0-6 Basophil % 0.6 % 0-2 Nucleated Red Blood Cells % 0.1 Comp Metabolic Panel 04/27/2016 Sodium 138 mmol/L 133-145 Potassium 3.9 mmol/L 3.5-5.0 Chloride 105 mmol/L 101-111 Co2 Carbon Dioxide 27 mmol/L 22-32 Anion Gap 6 mmol/L 2-11 Glucose 81 mg/dL 70-100 Blood Urea Nitrogen 17 mg/dL 6-24 Creatinine 0.90 mg/dL 0.51-0.95 BUN/Creatinine Ratio 18.9 8-20 Calcium 9.1 mg/dL 8.6-10.3 Total Protein 6.5 g/dL 6.4-8.9 Albumin 3.8 g/dL 3.2-5.2 Globulin 2.7 g/dL 2-4 Albumin/Globulin Ratio 1.4 1-3 Total Bilirubin 0.50 mg/dL 0.2-1.0 Alkaline Phosphatase 48 U/L 34-104 Alt 9 U/L 7-52 Ast 11 U/L Low 13-39 Egfr Non- 67.7 >60 Egfr 87.1 >60 23 Laboratory test finding 04/27/2016 TSH (Thyroid Stim Horm) 2.72 mcIU/mL 0.34-5.60 Vitamin B12 181 pg/mL 180-914 24 Connective Tissue Panel 04/27/2016 Anti-Nuclear Antibody 0.3 U 25 Cyclic Citrullinated Peptide <15.6 U 26 Interpretation See Comment 27 CBC Auto Diff 11/09/2015 White Blood Count 6.5 10^3/uL 3.5-10.8 Red Blood Count 4.56 10^6/uL 4.0-5.4 Hemoglobin 13.5 g/dL 12.0-16.0 Hematocrit 41 % 35-47 Mean Corpuscular Volume 91 fL 80-97 Mean Corpuscular Hemoglobin 30 pg 27-31 Mean Corpuscular HGB Conc 33 g/dL 31-36 Red Cell Distribution Width 15 % 10.5-15 Platelet Count 336 10^3/uL 150-450 Mean Platelet Volume 9 um3 7.4-10.4 Abs Neutrophils 4.2 10^3/uL 1.5-7.7 Abs Lymphocytes 1.7 10^3/uL 1.0-4.8 Abs Monocytes 0.4 10^3/uL 0-0.8 Abs Eosinophils 0.1 10^3/uL 0-0.6 Abs Basophils 0.1 10^3/uL 0-0.2 Abs Nucleated RBC 0 10^3/uL Granulocyte % 63.9 % 38-83 Lymphocyte % 26.8 % 25-47 Monocyte % 6.5 % 1-9 Eosinophil % 1.9 % 0-6 Basophil % 0.9 % 0-2 Nucleated Red Blood Cells % 0 Comp Metabolic Panel 11/09/2015 Sodium 139 mmol/L 133-145 Potassium 4.3 mmol/L 3.5-5.0 Chloride 109 mmol/L 101-111 Co2 Carbon Dioxide 25 mmol/L 22-32 Anion Gap 5 mmol/L 2-11 Glucose 84 mg/dL 70-100 Blood Urea Nitrogen 13 mg/dL 6-24 Creatinine 0.94 mg/dL 0.51-0.95 BUN/Creatinine Ratio 13.8 8-20 Calcium 9.2 mg/dL 8.6-10.3 Total Protein 6.5 g/dL 6.4-8.9 Albumin 3.8 g/dL 3.2-5.2 Globulin 2.7 g/dL 2-4 Albumin/Globulin Ratio 1.4 1-3 Total Bilirubin 0.50 mg/dL 0.2-1.0 Alkaline Phosphatase 55 U/L 34-104 Alt 9 U/L 7-52 Ast 14 U/L 13-39 Egfr Non- 64.4 >60 Egfr 82.8 >60 28 Inr/Protime 11/09/2015 Inr 0.95 0.89-1.11 Laboratory test finding 11/09/2015 Vitamin D Total 25(Oh) 30.9 ng/mL 30- 50 29 Vitamin B12 151 pg/mL Low 180-914 30 Ferritin 17.6 ng/mL 11-307 31 Laboratory test finding 09/06/2015 Lyme Disease Serology Negative Negative 32 Laboratory test finding 09/06/2015 CRP High Sensitivity 2.10 mg/L 33 Erythrocyte Sed Rate 19 mm/Hr High 0-14 Connective Tissue Panel 09/06/2015 Anti-Nuclear Antibody 0.2 U 34 Cyclic Citrullinated Peptide <15.6 U 35 Interpretation See Comment 36 Laboratory test finding 08/16/2015 Vitamin D Total 25(Oh) 20.7 ng/mL Low 30-50 Vitamin B12 > 1450 pg/mL High 180-914 37 Ferritin 15.0 ng/mL 11-307 Laboratory test finding 05/24/2015 Amylase 31 U/L 29-103 CBC Auto Diff 05/24/2015 White Blood Count 6.2 10^3/uL 3.5-10.8 Red Blood Count 4.34 10^6/uL 4.0-5.4 Hemoglobin 12.7 g/dL 12.0-16.0 Hematocrit 40 % 35-47 Mean Corpuscular Volume 93 fL 80-97 Mean Corpuscular Hemoglobin 29 pg 27-31 Mean Corpuscular HGB Conc 32 g/dL 31-36 Red Cell Distribution Width 15 % 10.5-15 Platelet Count 368 10^3/uL 150-450 Mean Platelet Volume 8 um3 7.4-10.4 Abs Neutrophils 3.7 10^3/uL 1.5-7.7 Abs Lymphocytes 2.0 10^3/uL 1.0-4.8 Abs Monocytes 0.4 10^3/uL 0-0.8 Abs Eosinophils 0.1 10^3/uL 0-0.6 Abs Basophils 0 10^3/uL 0-0.2 Abs Nucleated RBC 0 10^3/uL Granulocyte % 58.9 % 38-83 Lymphocyte % 32.1 % 25-47 Monocyte % 6.4 % 1-9 Eosinophil % 1.8 % 0-6 Basophil % 0.8 % 0-2 Nucleated Red Blood Cells % 0 Comp Metabolic Panel 05/24/2015 Sodium 140 mmol/L 133-145 Potassium 4.6 mmol/L 3.5-5.0 Chloride 110 mmol/L 101-111 Co2 Carbon Dioxide 26 mmol/L 22-32 Anion Gap 4 mmol/L 2-11 Glucose 83 mg/dL 70-100 Blood Urea Nitrogen 12 mg/dL 6-24 Creatinine 0.92 mg/dL 0.51-0.95 BUN/Creatinine Ratio 13.0 8-20 Calcium 9.3 mg/dL 8.6-10.3 Total Protein 6.7 g/dL 6.4-8.9 Albumin 4.0 g/dL 3.2-5.2 Globulin 2.7 g/dL 2-4 Albumin/Globulin Ratio 1.5 1-3 Total Bilirubin 0.30 mg/dL 0.2-1.0 Alkaline Phosphatase 57 U/L 34-104 Alt 10 U/L 7-52 Ast 14 U/L 13-39 Egfr Non- 66.3 >60 Egfr 85.3 >60 38 Laboratory test finding 05/24/2015 Lipase 14 U/L 11.0-82.0 Laboratory test finding 04/27/2015 Ferritin < 10.0 ng/mL Low 11-307 Vitamin D Total 25(Oh) 24.5 ng/mL Low 30-50 Vitamin B12 131 pg/mL Low 180-914 39 CBC Auto Diff 12/24/2014 White Blood Count 6.6 10^3/uL 4.8-10.8 Red Blood Count 4.37 10^6/uL 4.0-5.4 Hemoglobin 12.9 g/dL 12.0-16.0 Hematocrit 40 % 35-47 Mean Corpuscular Volume 91 fL 80-97 Mean Corpuscular Hemoglobin 29 pg 27-31 Mean Corpuscular HGB Conc 33 g/dL 31-36 Red Cell Distribution Width 15 % 10.5-15 Platelet Count 301 10^3/uL 150-450 Mean Platelet Volume 8 um3 7.4-10.4 Abs Neutrophils 4.3 10^3/uL 1.5-7.7 Abs Lymphocytes 1.6 10^3/uL 1.0-4.8 Abs Monocytes 0.4 10^3/uL 0-0.8 Abs Eosinophils 0.2 10^3/uL 0-0.6 Abs Basophils 0 10^3/uL 0-0.2 Abs Nucleated RBC 0.01 10^3/uL Granulocyte % 65.3 % 38-83 Lymphocyte % 24.4 % Low 25-47 Monocyte % 6.6 % 1-9 Eosinophil % 3.2 % 0-6 Basophil % 0.5 % 0-2 Nucleated Red Blood Cells % 0.1 Laboratory test finding 12/24/2014 Ferritin < 10.0 ng/mL Low 11-307 Vitamin B12 100 pg/mL Low 180-914 40 Vitamin D Total 25(Oh) 25.4 ng/mL Low 30-50 Erythrocyte Sed Rate 22 mm/Hr High 0-14 C Reactive Protein 5.18 mg/L High < 5.00 41 TSH (Thyroid Stim Horm) 1.38 ?IU/mL 0.34-5.60 Lipid Profile (Trig/Chol/HDL) 12/24/2014 Triglycerides 90 mg/dL 42 Cholesterol 179 mg/dL 43 HDL Cholesterol 51.0 mg/dL 44 LDL Cholesterol 110 mg/dL 45 Comp Metabolic Panel 12/24/2014 Sodium 137 mmol/L 133-145 Potassium 4.6 mmol/L 3.5-5.0 Chloride 107 mmol/L 101-111 Co2 Carbon Dioxide 26 mmol/L 22-32 Anion Gap 4 mmol/L 2-11 Glucose 80 mg/dL 70-100 Blood Urea Nitrogen 13 mg/dL 6-24 Creatinine 0.87 mg/dL 0.51-0.95 BUN/Creatinine Ratio 14.9 8-20 Calcium 8.8 mg/dL 8.6-10.3 Total Protein 6.3 g/dL Low 6.4-8.9 Albumin 3.7 g/dL 3.2-5.2 Globulin 2.6 g/dL 2-4 Albumin/Globulin Ratio 1.4 1-3 Total Bilirubin 0.40 mg/dL 0.2-1.0 Alkaline Phosphatase 57 U/L 34-104 Alt 9 U/L 7-52 Ast 14 U/L 13-39 Egfr Non- 70.7 >60 Egfr 91.0 >60 46 Laboratory test 12/24/2014 Elisa (Antinuclear Negative Negative finding Antibodies) Surgical Pathology 06/10/2009 Surgical Pathology 47 <SEE NOTE> Cortical Block Green 06/09/2009 Cortical Block Green [id number] #7 #7 <SEE NOTE> Tissue Kit 06/09/2009 Tissue Kit [id number] 49 <SEE NOTE> CBC With Electronic 06/07/2009 White Blood Count 6.3 CUMM 4.8-10.8 50 Diff Red Cell Count 4.08 CUMM Low 4.2-5.4 50 Hemoglobin 13.1 g/dL 12.0-16.0 50 Hematocrit 38 % 35-47 50 Mean Corpuscular Volume 94 um3 79-97 50 Mean Corpuscular Hemoglob 32 pg High 27-31 50 Mean Corpuscular HGB Cone 34 g/dL 32-36 50 Redcell Distribution WDTH 13 % 10.5-15 50 Platelet Count 313 CUMM 150-450 50 Mean Platelet Volume 7.3 um3 Low 7.4-10.4 50 Gran % 51.4 % 38-83 50 Lymph % 39.4 % 25-47 50 Mononuclear % 5.5 % 1-9 50 Eosinophil % 3.3 % 0-6 50 Basophil % 0.4 % 0-2 50 Abs Lymphs 2.5 1.0-4.8 50 Abs Mononuclear 0.3 0-0.8 50 Absolute Neutrophil Count 3.2 1.5-7.7 50 Abs Eosinophils 0.2 0-0.6 50 Abs Basophils 0 0-0.2 50 Type And Screen 06/07/2009 Patient Blood Type O POSITIVE 50 Antibody Screen NEGATIVE 50 Specimen Discard Date 06/21/2009 50, 51 1 [id number] 2 SEE RESULT BELOW Name: PADMINI THOMASLakhwinder Ramírez : [address]: Fab Turcios MD Acct: [id number] Unit: [id number] AGE: 46 Location: [facility] Re07/31/17 SEX: F Status: DEP REF SPEC: [id number] LEONORA: 07/31/17- SUBM DR: Fab Turcios MD REQ: [id number] RECD: 07/31/17 STATUS: GUIDO ALVAREZ DR: Cecil Holland [employer] _ ORDERED: LEVEL 4 COMMENTS: [id number] FINAL DIAGNOSIS Surgical anastomosis, biopsy: -- Body-type gastric mucosa with mild chronic inflammation. -- No evidence of neoplasia. CLINICAL HISTORY Right upper quadrant pain POST-OPERATIVE DIAGNOSIS Esophagus ? normal; stomach ? small, biopsied; duodenum-jejunum ? normal, wide GROSS DESCRIPTION The specimen is received in formalin labeled, Biopsy Surgical Anastomosis, and consists of a 0.3 x 0.2 x 0.2 cm coon-brown irregular to polypoid soft tissue fragment which is entirely submitted in one cassette. Signed by and Reported on: Cherie Clarke MD 08/01/17 1104 END OF REPORT DEPARTMENT OF PATHOLOGY, [address] [place] [address] Chaparro Trammell M.D. Director [facility] # [id number] 3 Because ethnic data is not always readily available, this report includes an eGFR for both -Americans and non- Americans. The National Kidney Disease Education Program (NKDEP) does not endorse the use of the MDRD equation for patients that are not between the ages of 18 and 70, are , have extremes of body size, muscle mass, or nutritional status, or are non- or non-. According to the National Kidney Foundation, irrespective of diagnosis, the stage of the disease is based on the level of kidney function: Stage Description GFR(mL/min/1.73 m(2)) 1 Kidney damage with normal or decreased GFR 90 2 Kidney damage with mild decrease in GFR 60-89 3 Moderate decrease in GFR 30-59 4 Severe decrease in GFR 15-29 5 Kidney failure <15 (or dialysis) 4 Would you like an EBV if Monospot is Negative?: N 5 Normal Range 180 to 914 Indeterminate Range 145 to 180 Deficient Range <145 6 [facility] Severe Sepsis and Septic Shock Management Bundle Measure requires all lactic acids initially measuring >2.0 mmol/L be repeated. 7 Because ethnic data is not always readily available, this report includes an eGFR for both -Americans and non- Americans. The National Kidney Disease Education Program (NKDEP) does not endorse the use of the MDRD equation for patients that are not between the ages of 18 and 70, are , have extremes of body size, muscle mass, or nutritional status, or are non- or non-. According to the National Kidney Foundation, irrespective of diagnosis, the stage of the disease is based on the level of kidney function: Stage Description GFR(mL/min/1.73 m(2)) 1 Kidney damage with normal or decreased GFR 90 2 Kidney damage with mild decrease in GFR 60-89 3 Moderate decrease in GFR 30-59 4 Severe decrease in GFR 15-29 5 Kidney failure <15 (or dialysis) 8 Acute inflammation: >10.00 9 Presumptive Positive Presumptive positive results are unconfirmed. 10 The urine specimen was tested at the listed cutoffs: Drug class test level (ng/mL) Amphetamines 500 Barbiturates 200 Benzodiazepine metabolites 200 Cocaine metabolites 150 Cannabinoids 50 Opiates 300 Pcp 25 Specimen was received without chain of custody. Results should be used for medical purposes only. 11 [facility] Severe Sepsis and Septic Shock Management Bundle Measure requires all lactic acids initially measuring >2.0 mmol/L be repeated. 12 Because ethnic data is not always readily available, this report includes an eGFR for both -Americans and non- Americans. The National Kidney Disease Education Program (NKDEP) does not endorse the use of the MDRD equation for patients that are not between the ages of 18 and 70, are , have extremes of body size, muscle mass, or nutritional status, or are non- or non-. According to the National Kidney Foundation, irrespective of diagnosis, the stage of the disease is based on the level of kidney function: Stage Description GFR(mL/min/1.73 m(2)) 1 Kidney damage with normal or decreased GFR 90 2 Kidney damage with mild decrease in GFR 60-89 3 Moderate decrease in GFR 30-59 4 Severe decrease in GFR 15-29 5 Kidney failure <15 (or dialysis) 13 Desirable <150 Borderline high 150-199 High 200-499 Very High >500 14 Desirable <200 Borderline high 200-239 High >239 15 Low <40 Desirable: 40-60 High: >60 16 Desirable: <100 mg/dL Near Optimal: 100-129 mg/dL Borderline High: 130-159 mg/dL High: 160-189 mg/dL Very High: >189 mg/dL 17 <5.0 Negative 5.0 - 25.0 Indeterminate (Repeat testing recommended after 72 hours) >25.0 Positive Perimenopausal women can display HCG levels of up to 20 mIU/mL 18 Normal Range 180 to 914 Indeterminate Range 145 to 180 Deficient Range <145 19 Supervisor Advice: [id number] SEE RESULT BELOW Name: WILLIAMPADMINILakhwinder Ramírez : [address]: Christelle King NP Acct: [id number] Unit: [id number] AGE: 46 Location: [facility] Re08/15/16 SEX: F Status: REG REF SPEC: [id number] LEONORA: 08/15/16-[address] [facility] [address]: Christelle King NP REQ: [id number] RECD: 08/15/16 STATUS: COMP _ SOURCE: YENAj SPDESC: ORDERED: Flu A B Request COMMENTS: [id number] Procedure Result Reported Site Rapid Influenza A B Request Final 08/15/161934 ML Specimen received for Influenza A/B Molecular testing * ML - MAIN LAB ([facility]) . END OF REPORT * ML=Testing performed at Main Lab DEPARTMENT OF PATHOLOGY, [address] [place] [id number] Chaparro Trammell M.D. Director [facility] # [id number] 21 Because ethnic data is not always readily available, this report includes an eGFR for both -Americans and non- Americans. The National Kidney Disease Education Program (NKDEP) does not endorse the use of the MDRD equation for patients that are not between the ages of 18 and 70, are , have extremes of body size, muscle mass, or nutritional status, or are non- or non-. According to the National Kidney Foundation, irrespective of diagnosis, the stage of the disease is based on the level of kidney function: Stage Description GFR(mL/min/1.73 m(2)) 1 Kidney damage with normal or decreased GFR 90 2 Kidney damage with mild decrease in GFR 60-89 3 Moderate decrease in GFR 30-59 4 Severe decrease in GFR 15-29 5 Kidney failure <15 (or dialysis) 22 Normal Range 180 to 914 Indeterminate Range 145 to 180 Deficient Range <145 23 Because ethnic data is not always readily available, this report includes an eGFR for both -Americans and non- Americans. The National Kidney Disease Education Program (NKDEP) does not endorse the use of the MDRD equation for patients that are not between the ages of 18 and 70, are , have extremes of body size, muscle mass, or nutritional status, or are non- or non-. According to the National Kidney Foundation, irrespective of diagnosis, the stage of the disease is based on the level of kidney function: Stage Description GFR(mL/min/1.73 m(2)) 1 Kidney damage with normal or decreased GFR 90 2 Kidney damage with mild decrease in GFR 60-89 3 Moderate decrease in GFR 30-59 4 Severe decrease in GFR 15-29 5 Kidney failure <15 (or dialysis) 24 Normal Range 180 to 914 Indeterminate Range 145 to 180 Deficient Range <145 25 REFERENCE VALUE <=1.0 (Negative) 26 REFERENCE VALUE <20.0 (Negative) 27 Tests for antibodies to dsDNA and AMRITA antigens are not performed automatically unless the ELISA result is > or= 3.0 U. Studies performed at [facility] indicate that positive ELISA results <3.0 U are rarely accompanied by positive second order tests. Test Performed by: [place] [address] [employer] Tr[employer]: Haris August II, M.D., Ph.D. 28 Because ethnic data is not always readily available, this report includes an eGFR for both -Americans and non- Americans. The National Kidney Disease Education Program (NKDEP) does not endorse the use of the MDRD equation for patients that are not between the ages of 18 and 70, are , have extremes of body size, muscle mass, or nutritional status, or are non- or non-. According to the National Kidney Foundation, irrespective of diagnosis, the stage of the disease is based on the level of kidney function: Stage Description GFR(mL/min/1.73 m(2)) 1 Kidney damage with normal or decreased GFR 90 2 Kidney damage with mild decrease in GFR 60-89 3 Moderate decrease in GFR 30-59 4 Severe decrease in GFR 15-29 5 Kidney failure <15 (or dialysis) 29 Due in 3 months. 30 Normal Range 180 to 914 Indeterminate Range 145 to 180 Deficient Range <145 31 Due in 3 months. 32 Serologic response to B. burgdorferi infection is not detected, but cannot rule out early infection during which low or undetectable antibody levels to B. burgdorferi may be present. If clinically indicated, a new serum specimen should be submitted in 7-14 days. Test Performed by: [facility] - [address] [address] Inseam Trimmer: Haris August II, M.D., Ph.D. 33 Low risk: <1.00 Average risk: 1.00-3.00 High risk: >3.00 34 REFERENCE VALUE <=1.0 (Negative) 35 REFERENCE VALUE <20.0 (Negative) 36 Tests for antibodies to dsDNA and AMRITA antigens are not performed automatically unless the ELISA result is > or= 3.0 U. Studies performed at [facility] indicate that positive ELISA results <3.0 U are rarely accompanied by positive second order tests. Test Performed by: [facility] [place] [address] Inseam Trimmer: Haris August II, M.D., Ph.D. 37 Normal Range 180 to 914 Indeterminate Range 145 to 180 Deficient Range <145 38 Because ethnic data is not always readily available, this report includes an eGFR for both -Americans and non- Americans. The National Kidney Disease Education Program (NKDEP) does not endorse the use of the MDRD equation for patients that are not between the ages of 18 and 70, are , have extremes of body size, muscle mass, or nutritional status, or are non- or non-. According to the National Kidney Foundation, irrespective of diagnosis, the stage of the disease is based on the level of kidney function: Stage Description GFR(mL/min/1.73 m(2)) 1 Kidney damage with normal or decreased GFR 90 2 Kidney damage with mild decrease in GFR 60-89 3 Moderate decrease in GFR 30-59 4 Severe decrease in GFR 15-29 5 Kidney failure <15 (or dialysis) 39 Normal Range 180 to 914 Indeterminate Range 145 to 180 Deficient Range <145 40 Normal Range 180 to 914 Indeterminate Range 145 to 180 Deficient Range <145 41 Acute inflammation: >10.00 42 Desirable <150 Borderline high 150-199 High 200-499 Very High >500 43 Desirable <200 Borderline high 200-239 High >239 44 Low <40 Desirable: 40-60 High: >60 45 Desirable: <100 mg/dL Near Optimal: 100-129 mg/dL Borderline High: 130-159 mg/dL High: 160-189 mg/dL Very High: >189 mg/dL 46 Because ethnic data is not always readily available, this report includes an eGFR for both -Americans and non- Americans. The National Kidney Disease Education Program (NKDEP) does not endorse the use of the MDRD equation for patients that are not between the ages of 18 and 70, are , have extremes of body size, muscle mass, or nutritional status, or are non- or non-. According to the National Kidney Foundation, irrespective of diagnosis, the stage of the disease is based on the level of kidney function: Stage Description GFR(mL/min/1.73 m(2)) 1 Kidney damage with normal or decreased GFR 90 2 Kidney damage with mild decrease in GFR 60-89 3 Moderate decrease in GFR 30-59 4 Severe decrease in GFR 15-29 5 Kidney failure <15 (or dialysis) 47 ---- RUN DATE: 06/15/09 [facility] NMI LIVE PAGE 1 RUN TIME: 1455 Specimen Inquiry RUN USER: INTERFACE -- Name: LISAPADMINI JOHNSTONLakhwinder Sharpe#: [id number] Status: [facility] Re06/10/09 Age/Sex: 38/F Unit#: [id number] Location: [facility] : 70 -- Specimen: [id number] Spec Date: 06/10/[address]: Lionel martinez MD Spec Type: SURGICAL P Received: 06/10/09-1351 Copies to: SPECIMEN C5-6 DISC HISTORY PRE-OP DIAGNOSIS: C5-6 Herniated disc with myelopathy. GROSS DESCRIPTION Specimen received in formalin labelled Chaim Thomas, C5-6 Disc and consists of multiple fragments of bony tissue measuring in aggregate 2.0 x 2.0 x 1.0 cm. Probate Clerk sections, one cassette. DIAGNOSIS Intervertebral disc, C5-6, discectomy - Intervertebral disc material and bone with degenerative changes. Signed Electronically by: CHAPARRO TARMMELL MD 06/15/09 1452 -- -- DEPARTMENT OF PATHOLOGY, [address] [place] [address] [facility] Permit #[id number] Chaparro Trammell M.D. Director Daquan Gates M.D. Gold Blower Dir jey -- [phone] [id number] HARJIT SPRAGUE #7 TRANSFUSED 06/10/09 1044 49 [id number] TISSUE KIT TRANSFUSED 06/10/09 0722 50 SDS 06/10/09 51 PREADMISSION TESTING SAMPLES FOR BLOOD BANK WILL BE HELD FOR 14 DAYS FROM THE DATE OF COLLECTION *IF* THE FOLLOWING CRITERIA ARE MET: 1) THE PATIENT HAS *NOT* BEEN IN THE LAST 3 MONTHS. 2) THE PATIENT HAS *NOT* BEEN TRANSFUSED IN THE LAST 3 MONTHS. PREADMISSION TESTING SAMPLES WILL *NOT* BE HELD FOR 14 DAYS FROM PATIENTS WHO IN THE LAST 3 MONTHS: 1) HAVE BEEN 2) HAVE BEEN TRANSFUSED THESE PATIENTS *MUST* BE COLLECTED WITHIN 3 DAYS OF THE SURGERY DATE. Procedures Date CPT Code Description Status 01/05/2017 44296 ECHO Transthorasic Realtime 2D W Doppler & Color Flow Completed Hosp 08/02/2016 70397 Sleep Study Unattended,HRT Rate,Oxygen Sat,Resp Completed Effort/Airflow 05/04/2016 44377 Admin Of Inj Completed 01/14/2016 00870 Injection For Nerve Block, Greater Occipital Nerve Completed 01/12/2016 69139 Injection For Nerve Block, Greater Occipital Nerve Completed 11/18/2015 90942 Excision;Trochanteric Bursa Or Calcification Completed 11/18/2015 17869 Excision;Trochanteric Bursa Or Calcification Completed 09/24/2015 98522 Injection Single Tendon Origin/Insertion Completed 08/24/2015 Mammogram Completed 08/16/2015 79466 Admin Of Inj Completed 07/19/2015 71501 Admin Of Inj Completed 05/24/2015 44041 Admin Of Inj Completed 05/04/2015 34452 Admin Of Inj Completed 02/15/2015 66853 Admin Of Inj Completed 01/25/2015 35861 Admin Of Inj Completed 01/18/2015 14624 Admin Of Inj Completed 01/04/2015 82879 Admin Of Inj Completed 06/10/2009 24967 Discectomy,W/Decomp SP Cord/Nerve Root;Cervical Single Completed Interspace 06/10/2009 17127 Anterior Instrumentation 2-3 Vertebral Segments Completed 06/10/2009 59238 Arthrodesis, Anterior Cervical C2 And Below Completed 06/10/2009 28317 Allograft For Spine Surgery,Structural (Bone Bank) Completed Encounters Type Date Location Provider CPT E/M Dx Office Visit 07/11/2017 [facility] [address] G47.33 11:15a G43.019 G25.0 G25.2 G44.201 Office Visit 07/05/2017 1:15p Pulmonology And Sleep Roz Velazquez, 83324 G47.33 Services Of [facility] [address] ELHAM RN, POLISHING MACHINE OPERATOR- G47.14 Z68.41 Office Visit 06/19/2017 11:40a [facility] [address] [place] [address] J01.90 Mathieu R53.83 R10.9 Office Visit 02/06/2017 1:40p [facility] [address] Internal RobbyEarnest Richard, 21804 J45.991 Medicine - Mathieu Joyner,FACP G43.011 Office Visit 01/30/2017 1:46p [facility] Geo Silva 94336 G43.719 Anya Andrade R20.0 Office Visit 01/12/2017 9:20a [facility] [address] [place] [address] T48.295A Mathieu J06.9 K59.00 Office Visit 01/12/2017 11:30a Rene/Shaq Fuchs, 05862 G43.011 Neurologic Serv Of Jem Joyner Office Visit 01/06/2017 10:49a [facility],kelly Guido, 02283 G89.29 Hospitalists PA T48.295A F41.9 Z86.69 Office Visit 01/06/2017 10:20a [facility] Jose Garcia, 89658 T48.295A H02.402 Office Visit 01/05/2017 10:48[place], [address] I63.9 Assoc, Hospitalists Anya F41.9 Z86.69 Office Visit 12/29/2016 9:45a [facility] Services Of Karely Guzámn M.D. 50260 M76.31 Genet Office Visit 12/20/2016 10:20a [facility] [address] [place] [address] M25.551 - [place] R10.9 J01.90 Office Visit 12/14/2016 10:00a [place] [facility] Joie Fuchs, 95645 G43.711 Services Of [facility] [address] M.Nikolas Office Visit 09/12/2016 9:15a Pul[facility]ology [facility] Sleep Roz Velazquez, 66882 G47.33 Services Of [facility] [address] ELHAM RN, [facility]- G47.14 E66.01 Z68.41 Office Visit 09/04/2016 2:15p Neurosurgery Services Of Belen Celestin PA-C 24792 M54.2 [facility] [address] M25.511 M25.512 Z98.1 Office Visit 08/21/2016 9:00a Orthopedic Services Gui Estrella, 26304 M54.12 Of Genet RIVER Office Visit 08/17/2016 8:30a [facility] Joie Fuchs, 44954 G43.719 Services Of [facility] [address] Jerad.DYas R25.1 Office Visit 08/15/2016 1:00p [facility] [address] Internal Medicine Christelle King, N.P. 30758 J20.9 - [place] Office Visit 08/03/2016 10:00a [facility] [address] [place] [address] M25.519 - [place] R10.9 D51.9 M54.2 Office Visit 07/26/2016 8:45a [facility] [place] [address] R06.83 Services Of [facility] [address] G47.10 G47.53 R53.1 R12 E66.01 Z68.41 Office Visit 07/17/2016 1:40p [facility] [address] [place] [address] D51.9 [place] M54.5 Office Visit 06/27/2016 10:00a [facility] [address] Internal Medicine Christelle King, N.P. 39514 R53.83 - [place] E55.9 D51.9 M72.2 J01.90 Office Visit 05/25/2016 9:15a [place] [facility] Joie Fuchs, 28412 G43.719 Services Of Side Laster Tack M.D. Office Visit 04/19/2016 11:40a [facility] [address] [place] [address] J06.9 - [place] F41.9 Office Visit 01/27/2016 11:30a [place] [facility] Joie Fuchs, 32073 G43.711 Services Of Side Laster Tack M.D. Office Visit 01/04/2016 9:40a [facility] [address] [place] [address] M54.31 - [place] Office Visit 11/09/2015 9:45a [place] [facility] Joie Fuchs, 36217 G43.711 Services Of Side Laster Tack M.D. Office Visit 11/08/2015 9:00a [facility] [address] [place] [address] Z01.818 - [place] M70.61 M76.01 G43.909 Office Visit 11/01/2015 9:15a [facility] Services Of Karely Guzmán M.D. 51251 M25.551 C.M.A. M70.61 M76.01 Office Visit 10/25/2015 9:30a [facility] Of Karely Guzmán M.D. 16272 M54.5 C.M.A. M70.61 Office Visit 09/24/2015 10:00a [facility] Of Karely Guzmán M.D. 58989 M25.551 C.M.A. M70.61 E66.01 Office Visit 09/06/2015 10:20a [facility] [address] [place] [address] M25.551 [place] Office Visit 09/02/2015 3:15p [place] [facility] Joie Fuchs, 89673 G43.011 Services Of Side Laster Tack M.D. M54.2 M25.551 M25.579 Office Visit 08/16/2015 1:00p [facility] [address] Internal Medicine Christelle King, N.P. 58440 F41.9 - [place] Z12.31 D51.9 N64.4 N60.11 N60.12 Office Visit 07/19/2015 9:40a [facility] [address] Internal Medicine - Cecil Holland, AIR TURNING MACHINE FEEDER 59375 F41.9 [place] F32.8 R05 D51.9 Office Visit 07/09/2015 2:00p [facility] [address] Internal Medicine - Cecil Holland, AIR TURNING MACHINE FEEDER 69624 J01.90 [place] R05 Office Visit 07/05/2015 11:40a [facility] [address] Internal Medicine - Cecil Holland, AIR TURNING MACHINE FEEDER 06907 J01.90 [place] Office Visit 06/02/2015 3:00p [facility] [address] Internal Medicine - Cecil Holland, AIR TURNING MACHINE FEEDER 21373 M54.2 [place] Office Visit 05/24/2015 8:40a [facility] [address] Internal Medicine - Cecil Holland, AIR TURNING MACHINE FEEDER 08621 F41.9 [place] D51.9 R10.9 Office Visit 04/15/2015 9:30a [place] [facility] Joie Fuchs, 37751 G43.011 Services Of [facility] [address] Anya Office Visit 02/15/2015 11:40a [facility] [address] Internal Medicine Cecil Holland, IVAN [address]2957 M25.571 - [place] D51.9 Office Visit 01/13/2015 2:20p [facility] [address] Internal Medicine Christelle King, N.P. 07903 G43.011 - [place] M54.5 Office Visit 12/22/2014 2:00p [facility] [address] Internal Medicine - Cecil Holland, IVAN [address]56[address] R53.83 [place] Z13.220 M46.1 Office Visit 11/30/2014 11:20a Neurosurgery Services Lionel Ramirez, 34388 723.1 Of Jem Joyner V45.4 721.3 724.2 Office Visit 08/04/2014 9:15a [facility] Joie Fuchs, 58612 346.90 M.DYas Office Visit 06/02/2014 9:40a Neurosurgery Services Of Lionel Ramirez, 37570 723.1 Jem Joyner V45.4 724.2 Office Visit 02/03/2014 11:15a [place] [facility] Joie Fuchs, 48825 784.0 Services Of Jem Joyner Office Visit 12/03/2013 2:40p Neurosurgery Services Lionel Ramirez, 13648 723.1 Of Side Laster Tack M.D. V45.4 Office Visit 10/07/2013 9:45a [place] [facility] Joie Fuchs, 40555 723.8 Services Of Side Laster Tack M.D. 784.0 Office Visit 04/23/2013 2:40p Neurosurgery Services Lionel Ramirez, 44386 723.1 [facility] Laster [facility]ack [facility]71 V45.89 Office Visit 12/25/2012 8:45a [place] [facility] Joie Fuchs, 97160 723.8 Services Of Side Laster Tack M.D. Office Visit 12/04/2012 9:40a Neurosurgery Services Lionel Ramirez, 87529 723.1 Of Side Laster Tack AT [facility].D. Office Visit 10/29/2012 11:00a [place] [facility] Joie Fuchs, 21344 723.8 Services Of Side Laster Tack M.D. Office Visit 08/05/2012 3:20p Neurosurgery Services Lionel Ramirez, 45913 723.1 Of Side Laster Tack M.D. Office Visit 01/25/2012 2:00p [place] [facility] Joie Fuchs, 39315 723.8 Services Of Side Laster Tack M.D. 729.5 Office Visit 11/23/2011 11:00a [facility] Joie Fuchs, 22729 346.90 Neurologic Serv Of Side Laster Tack M.D. 723.8 Office Visit 11/06/2011 1:20p Neurosurgery Services Lionel Ramirez, 10620 723.1 Of Side Laster Tack M.D. Office Visit 09/25/2011 3:20p Neurosurgery Services Lionel Ramirez, 30124 721.3 Of Side Laster Tack M.D. 726.5 Office Visit 03/17/2011 2:20p Neurosurgery Services Lionel Ramirez, 29722 721.3 Of Side Laster Tack M.D. 726.5 Office Visit 11/14/2010 2:40p Neurosurgery Services Lionel Ramirez 67466 721.3 Of Side Laster Tack M.D. Office Visit 04/29/2010 1:40p Neurosurgery Services Lionel Ramirez, 03749 722.71 Of Side Laster Tack M.D. Office Visit 09/16/2009 2:40p Neurosurgery Services Lionel Ramirez, 42688 722.71 Of [facility] [address] M.DYas Office Visit 06/04/2009 1:40p Neurosurgery Services Lionel Ramirez, 83659 722.0 Of [facility] [address] M.DYas Office Visit 02/19/2007 4:00p Neurosurgery Services Lionel Ramirez, 62490 721.3 Of [facility] [address] M.Nikolas Plan of Care Future Appointment(s):09/18/2017 9:00 am - Im Nurse Holter Monitor at [facility]09/17/2017 9:00 am - Im Nurse Holter Monitor at [facility]09/27/2017 9:15 am - Roz Velazquez DNP, RN , POLISHING MACHINE OPERATOR- at Pulmonology And Sleep Services [facility]10/10/2017 10:00 am - Jose Garcia MD at Neurohospitalist Suffzg0209/21/2017 8:40 am - Christelle King NMiguel Angel at [facility]09/11/2017 - Cecil Holland, NPR07.9 Chest pain , unspecifiedNew Orders:EKGComments:I am ordering some blood work to evaluate your symptoms. Based on your symptoms and significant family history of heart disease I am ordering a stress test. If you have any chest pain that is associated with shortness of breath, dizziness, blurred vision, palpitations, or is not subsiding go to the ER.R20.2 Paresthesia of skinR00.2 PalpitationsNew Orders:Holter BriqzpsY52.9 Anxiety disorder, unspecifiedNew Medication:Ativan 0.5 mg
--- NOTE | 2017-09-25 14:11 | RAD ---
Indication: Headache and shakiness. Low blood sugar. Comparison: January 30, 2017 Technique: Noncontrast CT vertex of skull through foramen magnum. Report: The sulci, ventricles, and basal cisterns are normal for age. Jo matter white matter differentiation is preserved without evidence for edema. No intra or extra axial hemorrhage, mass, or fluid collection detected. Unremarkable visualized orbital contents. Unremarkable calvarium and skull base. Unremarkable scalp. The visualized paranasal sinuses and mastoid air spaces are clear. IMPRESSION: Negative unenhanced head CT.
--- NOTE | 2017-09-25 14:23 | RAD ---
INDICATION: Chest pain COMPARISON: January 20, 2017 TECHNIQUE: An AP seated portable view obtained at 1405 hours is submitted. FINDINGS: Bones/Soft Tissues: There are no acute bony findings. Cardiomediastinal: The cardiomediastinal silhouette is normal. Lungs: There are no infiltrates. Pleura: There are no pleural effusions. Other: None IMPRESSION: NO ACTIVE DISEASE.
[2017-09-25 14:24] LABS: ABS Basophils 0.1 10^3/ul (0-0.2); ABS Eosinophils 0.2 10^3/ul (0-0.6); ABS Lymphocytes 2.5 10^3/ul (1.0-4.8); ABS Monocytes 0.5 10^3/ul (0-0.8); ABS Neutrophils 3.7 10^3/ul (1.5-7.7); ABS Nucleated RBC 0 10^3/ul; Eosinophil % 2.7 % (0-6); Hematocrit 38 % (35-47); Hemoglobin 12.7 g/dl (12.0-16.0); Mean Corpuscular HGB Conc 33 g/dl (31-36); Mean Corpuscular Hemoglobin 32 pg (27-31); Mean Corpuscular Volume 95 fL (80-97); Mean Platelet Volume 8.4 um3 (7.4-10.4); Nucleated Red Blood Cells % 0; Platelet Count 250 10^3/ul (150-450); Red Cell Distribution Width 14 % (10.5-15); White Blood Count 6.9 10^3/ul (3.5-10.8)
[2017-09-25 14:35] LABS: INR 0.78 (0.77-1.02)
[2017-09-25 14:51] LABS: EGFR Non-African American 60.1 (>60)
--- NOTE | 2017-09-25 16:18 | ED ---
Aric Sinclair Simon, scribed for Simba Peoples on 09/25/17 at 1354 . Headache - HPI Summary HPI Summary: This patient is a 47 year old F presenting to [facility] accompanied by with a chief complaint of BARRON (11/09) since 1100. She endorses shakes, dizziness, and sweats. She noted similar sx intermittently, starting a couple of weeks ago ; her blood glucose during the first episode was 55. No PMHx, Rx for diabetes or any other conditions. Pt drank OJ, ate skittles in an attempt to bring up blood glucose level (61 in ambulance), which didnt help sx, but did raise blood glucose level to 100. She endorses recent chest discomfort. Pt denies abd pain. - History Of Current Complaint Chief Complaint: EDGeneral Stated Complaint: LOW BLOOD SUGAR Time Seen by Provider: 09/25/17 13:34 Hx Obtained From: Patient Hx Last Menstrual Period: a while - had uterine ablation Onset/Duration: Started hours ago Initially Headache Was: Moderate Currently Pain Is: Current Pain Scale(0-10)= - 8/10 Timing: Constant, Hours Allevating Factors: Nothing - attempted to eat and drink sugar to raise BG, did , but no alleviation of sx Associated Signs And Symptoms: Dizziness, Other (Noted In Comments) - tremors, sweats Related History: Similar Episode/DX As: - intermittent episodes starting 3 weeks ago - Allergies/Home Medications Allergies/Adverse Reactions: Allergies Allergy/AdvReac Type Severity Reaction Status Date / Time ciprofloxacin Allergy Vomiting Verified 09/25/17 14:46 famotidine Allergy Unknown Verified 09/25/17 14:46 Reaction Details indomethacin Allergy Vomiting Verified 09/25/17 14:46 methocarbamol Allergy Vomiting Verified 09/25/17 14:46 omeprazole Allergy Unknown Verified 09/25/17 14:46 Reaction Details verapamil Allergy Vomiting Verified 09/25/17 14:46 cephalexin AdvReac Intermediate Vomiting Verified 09/25/17 14:46 hydromorphone AdvReac Intermediate Headache Verified 09/25/17 14:46 Sulfa (Sulfonamide AdvReac Intermediate Vomiting Verified 09/25/17 14:46 Antibiotics) Home Medications: Home Medications Cyclobenzaprine TAB* [Flexeril 10 MG TAB*] 10 mg PO TID PRN 09/25/17 [History Confirmed 09/25/17] Divalproex DR TAB(*) [Depakote DR(*)] 1,000 mg PO QPM 09/25/17 [History Confirmed 09/25/17] Escitalopram (NF) [Lexapro 20 mg (NF)] 20 mg PO DAILY 09/25/17 [History Confirmed 09/25/17] HYDROcodone/ACETAMIN 5-325 MG* [[place] 5-325 TAB*] 1 tab PO TID PRN MDD 3 tablets 09/25/17 [History Confirmed 09/25/17] Ibuprofen TAB* [Motrin TAB* 600 MG] 600 mg PO TID PRN 09/25/17 [History Confirmed 09/25/17] LORazepam TAB(*) [Ativan 1 MG TAB (*)] 2 mg PO TID PRN 09/25/17 [History Confirmed 09/25/17] Meclizine TAB* [Antivert 12.5 TAB*] 25 mg PO Q8H PRN 09/25/17 [History Confirmed 09/25/17] Ondansetron TAB* [Zofran 4 MG Tab*] 4 mg PO TID PRN 09/25/17 [History Confirmed 09/25/17] Pregabalin CAP(*) [Lyrica CAP(*)] 300 mg PO QPM MDD 2 tablets 09/25/17 [History Confirmed 09/25/17] Topiramate TAB(*) [Topamax 25 MG tab] 100 mg PO BEDTIME 09/25/17 [History Confirmed 09/25/17] ZOLMitriptan ODT(NF) [Zomeg ODT (NF)] 5 mg SL BID PRN 09/25/17 [History Confirmed 09/25/17] traZODone TAB* [Desyrel TAB*] 200 mg PO BEDTIME 09/25/17 [History Confirmed ] PMH/Surg Hx/FS Hx/Imm Hx Endocrine/Hematology History: Reports: Hx Anemia Denies: Hx Diabetes, Hx Thyroid Disease Cardiovascular History: Reports: Hx Hypertension Denies: Hx Congestive Heart Failure, Hx Pacemaker/ICD, Other Cardiovascular Problems/Disorders Respiratory History: Reports: Hx Asthma Denies: Hx Chronic Obstructive Pulmonary Disease (COPD), Other Respiratory Problems/Disorders GI History: Reports: Hx Ulcer Denies: Other GI Disorders History: Denies: Hx Renal Disease, Other Problems/Disorders Musculoskeletal History: Reports: Hx Back Problems, Hx Bursitis - RIGHT HIP Denies: Hx Rheumatoid Arthritis, Hx Osteoporosis, Other Musculoskeletal History Sensory History: Denies: Hx Contacts or Glasses, Hx Hearing Aid Opthamlomology History: Denies: Hx Contacts or Glasses Neurological History: Reports: Hx Headaches - migraines, Hx Migraine - receives Botox, Other Neuro Impairments/Disorders - PAIN CLINIC PT Psychiatric History: Reports: Hx Anxiety - ON MEDS PRN, Hx Depression, Hx Panic Disorder - Cancer History Hx Chemotherapy: No Hx Radiation Therapy: No - Surgical History Surgery Procedure, Year, and Place: c-spine fusion 2007, . 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 c-sections x2-TUBAL LIGATION 1997. left ankle surgery, RIGHT HIP SURGERY FOR BURSITIS. Lt breast biopsy LUMPECTOMY. RIGHT HIP BURSECTOMY-11/2015 Hx Anesthesia Reactions: No Infectious Disease History: No Infectious Disease History: Denies: Hx Clostridium Difficile, Hx Hepatitis, Hx Human Immunodeficiency Virus (HIV), Hx of Known/Suspected MRSA, Hx Shingles, Hx Tuberculosis, History Other Infectious Disease, Traveled Outside the [place] in Last 30 Days - Family History Known Family History: Positive: Cardiac Disease - Social History Alcohol Use: None Alcohol Amount: 2 PER MONTH Substance Use Type: Reports: None Hx Tobacco Use: Yes Smoking Status (MU): Never Smoked Tobacco Have You Smoked in the Last Year: No Review of Systems Positive: Skin Diaphoresis, Other - shakes. Negative: Fever Negative: Chest Pain Negative: Abdominal Pain Negative: Edema Neurological: Other - dizziness Positive: Headache All Other Systems Reviewed And Are Negative: Yes Physical Exam - Summary Physical Exam Summary: Appearance: Well appearing, no pain distress Skin: warm, dry, reflects adequate perfusion Head/face: normal Eyes: EOMI, TIO ENT: normal Neck: supple, non-tender Respiratory: CTA, breath sounds present Cardiovascular: RRR, pulses symmetrical Abdomen: non-tender, soft Bowel: present Musculoskeletal: normal, strength/ROM intact Neuro: normal, sensory motor intact, A&Ox3 Triage Information Reviewed: Yes Vital Signs On Initial Exam: Initial Vitals Temp Pulse Resp BP Pulse Ox 98 F 89 17 129/84 100 09/25/17 12:33 09/25/17 12:33 09/25/17 12:33 09/25/17 12:33 09/25/17 12:33 Vital Signs Reviewed: Yes Diagnostics - Vital Signs Vital Signs Temp Pulse Resp BP Pulse Ox 09/25/17 12:33 98 F 89 17 129/84 100 - Laboratory Lab Results: Lab Results 09/25/17 Range/Units 12:42 POC Glucose (mg/dL) 52 L (70-100) mg/dL Result Diagrams: 09/25/17 14:14 09/25/17 14:12 Lab Statement: Any lab studies that have been ordered have been reviewed, and results considered in the medical decision making process. - Radiology CXR Xray Interpretation: No Acute Changes Radiology Interpretation Completed By: Radiologist - No active disease. Dr. Peoples has reviewed this report. - CT Brain CT Interpretation: No Acute Changes CT Interpretation Completed By: Radiologist - Negative unenhanced head CT. Dr. Peoples has reviewed this report. - EKG 1408 Cardiac Rate: NL - 75 EKG Rhythm: Sinus Rhythm ST Segment: Normal EKG Comparison: No Significant Change Headache Course/Dx - Course Course Of Treatment: A 47-year-old F presents to the ED with a CC of BARRON since 1100. (+) sweats, shakes, dizziness, low blood sugar, recent chest discomfort. ( -) abd pain, PMHx diabetes. Similar episodes starting 3 weeks ago.(-) CXR. An EKG reveals NSR, no acute changes. (-) CTB. Blood work/UA obtained. - Diagnoses Differential Diagnosis/HQI/PQRI: Sinus Headache, Tension Headache, Other - hypoglycemia Provider Diagnoses: Hypoglycemia, Dizziness - Physician Notifications Discussed Care Of Patient With: Raphael Thurman Time Discussed With Above Provider: 15:50 Instructed by Provider To: Other - discussed, accepted pt admission Discharge - Sign-Out/Discharge Documenting (check all that apply): Discharge/Admit/Transfer - admit - Discharge Plan Condition: Fair Disposition: ADMITTED TO [facility] Referrals: Cecil Holland REED MAN [Primary Care Provider] - - Billing Disposition and Condition Condition: FAIR Disposition: Admitted to [facility] The documentation as recorded by the Aric elias Simon accurately reflects the service I personally performed and the decisions made by Richelle mendoza Emmanuel.
[2017-09-25] MEDS ORDERED: Dextrose 50% Syringe 50 ML* 25 GM/50 ML SYRINGE IV PUSH PRN (17:11)
[2017-09-25] MEDS ORDERED: Acetaminophen TAB* 325 MG PO PRN (17:13)
[2017-09-25] MEDS ORDERED: Ondansetron 40 MG VIAL* 2 MG/ML 20 ML VIAL IV PRN (17:13)
[2017-09-25] MEDS ORDERED: Ketorolac INJ* 30 MG/ML 1 ML VIAL IV PUSH ONE (17:15)
[2017-09-25] MEDS ORDERED: LORazepam TAB(*) 1 MG PO PRN (17:16)
[2017-09-25] MEDS ORDERED: Meclizine TAB* 12.5 MG PO PRN (17:16)
[2017-09-25] MEDS ORDERED: Cyclobenzaprine TAB* 10 MG PO PRN (17:16)
[2017-09-25] MEDS ORDERED: NS 0.9% 1000 ML* 1,000 ML IV SCH (17:45)
[2017-09-25] MEDS ORDERED: Enoxaparin(*) 40 MG/0.4 ML SYR SUBCUT SCH (18:00)
[2017-09-25] MEDS ORDERED: Pregabalin CAP(*) 100 MG PO SCH (18:00)
[2017-09-25] MEDS ORDERED: Divalproex DR TAB(*) 500 MG PO SCH (18:00)
[2017-09-25] MEDS: Ibuprofen TAB* 600 MG PO PRN (20:56)
[2017-09-25] MEDS ORDERED: traZODone TAB* 100 MG PO SCH (21:00)
[2017-09-25] MEDS ORDERED: Topiramate TAB(*) 100 MG PO SCH (21:00)
[2017-09-25] MEDS: HYDROcodone/ACETAMIN 5-325 MG* 1 TAB PO PRN (22:34)
--- NOTE | 2017-09-26 03:06 | HP ---
CC: Cecil Holland NP * ADMISSION HISTORY AND PHYSICAL: DATE OF ADMISSION: 09/25/17 PRIMARY CARE PROVIDER: Cecil Holland NP HEALTHCARE PROXY: Her . CODE STATUS: Full. SOURCE OF INFORMATION: History obtained from the patient and her . RELIABILITY: Good. CHIEF COMPLAINT: Sensation of feeling shaky with low blood sugar. HISTORY OF PRESENT ILLNESS: This is a 47-year-old female who has been in her usual state of health until approximately 2 to 3 weeks prior. She started to feel shaky intermittently. She noticed in addition to feeling shaky, she had been feeling more fatigued as well as having palpitations. She had a part of her stress with the planned second part today with also the planned Holter today ; however, presented to the emergency room. In the intermittent time, over the last 2 weeks, she has had several episodes where she has felt shaky, sweaty, and nauseous. For instance, 2 weeks prior, she had eaten a large breakfast including [place] toast and then used her mother's glucometer that her father had given it to her, noted her blood sugar to be 55. She ate jelly beans and did not note that she felt better. She had similar episodes with her blood sugars in the 60s, but noted that she usually does not feel better if she eats food. Additionally, these symptoms of feeling sweaty and fatigued and shaky tend to persist throughout the day and not just at the time of checking her fingersticks. Today, she had toast and coffee at 7:30 a.m. and around 10:15 and again developed sensation of feeling shaky, checked her fingersticks to be 57. She drank orange juice and ate some candy but could not improve her fingersticks and so presented to the emergency room. Additionally, she noted a headache that was occipital radiating to the top of her head associated with nausea and diarrhea. She has had diarrhea 8 to 10 times per day; however, last episode was this morning and none in the last approximately 8 hours. She denies any symptoms, cough, sick contacts, medication changes, dog travel , or insect bites, although she does have 2 dogs, but she has not taken any ticks off of them. She has had some chest discomfort that has been difficult to characterize. PAST MEDICAL HISTORY: Includes migraines that occur once every 2 weeks, anxiety , chronic low back pain, anemia, depression, osteoarthritis in bilateral hips. PAST SURGICAL HISTORY: Sinus surgery, left foot surgery, lysis of adhesions performed secondary to abdominal pain, 2 C-sections, gastric bypass in 2007, uterine ablation, left ankle surgery. HOME MEDICATIONS: Include: 1. Zolmitriptan ODT 5 mg sublingual twice daily as needed for migraine. 2. Lyrica 300 mg in the evening. 3. Meclizine 25 mg every 8 hours as needed. 4. Citalopram 20 mg daily. 5. Trazodone 200 mg daily. 6. [place] 5/325 one tab 3 times a day as needed. 7. Ondansetron 4 mg 3 times a day as needed. 8. Ibuprofen 600 mg 3 times a day as needed. 9. Depakote 1000 mg in the evening. 10. Cyclobenzaprine 10 mg 3 times a day. 11. Topiramate 100 mg at bedtime. 12. Lorazepam 2 mg 3 times a day as needed. ALLERGIES: To CIPROFLOXACIN, FAMOTIDINE, INDOMETHACIN, METHOCARBAMOL, OMEPRAZOLE, VERAPAMIL, CEPHALEXIN, HYDROMORPHONE, and SULFA. FAMILY HISTORY: Mother in her 60s from CAD, history of diabetes and hypertension. Father with CAD, diabetes, and hypertension. SOCIAL HISTORY: No illicits. Rare alcohol. No tobacco. 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 PHYSICAL EXAMINATION GENERAL: Sitting up in bed, interactive, pleasant, no apparent distress. VITAL SIGNS: In the emergency room, 107/92, heart rate is 98, respiratory rate of 16, 98% on room air, T-max is 98. HEENT: Oropharynx is clear. She has moist mucous membranes. Sclerae are anicteric. NECK: Non-elevated JVD. LUNGS: Clear to auscultation. HEART: Regular rate and rhythm. No murmurs, rubs, or gallops. ABDOMEN: Soft. She has mild tenderness in the left lower quadrant. No rebound or guarding. EXTREMITIES: Warm and well perfused without clubbing, cyanosis, or edema. She has less than 2-second cap refill. NEUROLOGIC: She is alert and oriented x3. Her cranial nerves II through XII are intact. She has a faint erythema. Malar distribution of her face extending over her neck. She has no apparent anxiety, agitation, or depression. SKIN: Good skin turgor. PERTINENT LABORATORY DATA: Glucose 62 on her serum on presentation. Troponin I 0.00. TSH is 1.31. Negative test. IMAGING: Brain CT: Negative unenhanced CT of the brain. Chest x-ray: No active cardiopulmonary disease. EKG: Left axis, no ST or T wave changes, normal intervals. ASSESSMENT AND PLAN: This is a 47-year-old female, who has had several weeks of symptoms including diaphoresis, shakiness, palpitations, and fatigue with possible association of hypoglycemia presenting for further evaluation. 1. Hypoglycemia. Unclear if this is an inciting event. Argument against this is the patient does not have improvement in her symptoms if she eats food or ingests carbohydrates. I would like to admit her to the hospital, check her fingersticks with meals as well as identify association of her symptomatology with fingersticks and mealtime here. We will not place her on a D5, D10 at this time. Give D50 for fingersticks for less than 50. Check C-peptide insulin and proinsulin in the a.m. Do not plan on fasting tests at this point. Check urine culture. 2. Tachycardic in the emergency room to 98. Start normal saline for 1 L at 100 cc per hour overnight. 3. History of migraines. Continue all home medications. Toradol now for active pain. 4. Diarrhea, 8 to 10 times today. Check C. diff. 5. DVT prophylaxis is Lovenox subcu. [id number]/[facility] #: [id number] MTDD
[2017-09-26 03:19] LABS: Urine Appearance Clear; Urine Blood Negative (Negative); Urine Color Yellow; Urine Ketones Trace (Negative); Urine Protein Negative (Negative); Urine Specific Gravity 1.017 (1.010-1.030); Urine Urobilinogen Positive (Negative)
[2017-09-26] MEDS: Ibuprofen TAB* 600 MG PO PRN (04:38)
[2017-09-26] MEDS ORDERED: Citalopram TAB* 40 MG PO SCH (09:00)
[2017-09-26 09:09] LABS: EGFR Non-African American 61.6 (>60)
[2017-09-26] MEDS: HYDROcodone/ACETAMIN 5-325 MG* 1 TAB PO PRN (09:48)
[2017-09-26 13:01] VITALS: BP 111/58
--- NOTE | 2017-09-27 08:22 | DS ---
CC: Cecil Holland NP * DISCHARGE SUMMARY: DATE OF ADMISSION: 09/25/17 DATE OF DISCHARGE: 09/26/17 PRIMARY CARE PROVIDER: Cecil Holland NP PRIMARY DIAGNOSIS: Palpitation and sensation of shakiness, presumably numbness. SECONDARY DIAGNOSES: Include: 1. Anxiety. 2. History of migraines. 3. Chronic low back pain. 4. Depression. MEDICATIONS ON DISCHARGE: Unchanged from admission: 1. Zolmitriptan ODT 5 mg twice daily as needed for migraine. 2. Lyrica 300 mg in the evening. 3. Meclizine 25 mg every 8 hours as needed. 4. Citalopram 20 mg daily. 5. Trazodone 200 mg daily. 6. [place] 5/325 one tab 3 times a day as needed. 7. Ondansetron 4 mg 3 times a day as needed. 8. Ibuprofen 600 mg 3 times a day as needed. 9. Depakote 1000 mg in the evening. 10. Cyclobenzaprine 10 mg 3 times a day. 11. Topiramate 100 mg at bedtime. 12. Lorazepam 2 mg 3 times a day as needed. PERTINENT LABORATORY DATA: Notable for blood glucose 69 preprandial in the morning and 69 prior to lunch on the day of discharge. Cortisol 7.14, troponin I 0.00. Insulin level, preprandial in the morning 7.5. Please note proinsulin and C- peptide pending at the time of discharge. HISTORY OF PRESENT ILLNESS AND HOSPITAL COURSE: This is a 47-year-old female who presented to the hospital with 2 weeks of multiple complaints including sensation of feeling fatigued and intermittent shakiness that she thought may have been associated with hypoglycemia. The patient has been checking her blood sugar using a glucometer that belonged to her mother prior to her dying 3 years prior. There was some concern on her behalf that her symptoms were secondary to hypoglycemia. However, it was noted on admission that her symptoms did not resolve with ingestion of food. The patient was admitted to telemetry and observed. She had no abnormal arrhythmias and additionally had no hypoglycemic episodes. She did not have a prolonged fast, but I did check an insulin level as well as a proinsulin and C- peptide level, which are still pending as indicated above. The patient did not have any further episodes of shakiness that might have indicated an infection or other underlying source. At the time of discharge, I do not have a diagnosis for her general fatigue, but she does note that the 3-year anniversary of her mother's is arriving shortly. She denies any other stressors in her life. Cultures have remained negative to date and she has no localizing symptoms. It is my understanding from the patient that she has a planned Holter monitor as well as a stress test , which she missed secondary to being admitted, plan with her PCP, which I agree with to further evaluate her symptoms, which brought her to the emergency room. I encouraged her to follow up with Cecil upon discharge for further evaluation of her fatigue and intermittent symptoms. At followup, please: 1. Continue evaluation as outlined above. Agree with Holter as well as stress test, further interrogation of cardiac etiologies. 2. Can consider more deeply interrogating underlying depression, although currently denying while in the hospital. 3. No other specific labs or vitals that need followup. Reasons to return to the hospital including but not limited to recurrent or worsening symptoms including any chest pain or discomfort, shortness of breath, nausea, vomiting, lightheadedness, loss of consciousness or near loss of consciousness discussed with the patient. She acknowledged that any low blood sugars associated with symptoms should be treated immediately with ingestion of food or drink containing sugars such as juice and she should represent to the hospital immediately. TIME SPENT: Greater than 60 minutes was spent on the discharge of the patient, which greater than half was spent [id number] with the patient and her . [id number]/[id number] #: [id number] LISA
== END 2017-09-26 14:15 | disposition home or self-care (01) ==
LOC: ED 12:26 → MED 17:13
PROVIDERS: ADMIT Internal Medicine; ATTEND Internal Medicine
DX: R00.2 Palpitations (principal); R25.1 Tremor, unspecified; F41.9 Anxiety disorder, unspecified; M54.5 Low back pain; F32.9 Major depressive disorder, single episode, unspecified; R19.7 Diarrhea, unspecified; Z88.1 Allergy status to other antibiotic agents; R42 Dizziness and giddiness
CPT/HCPCS: 36415; 70450; 71045; 80048; 80053; 81003; 81015; 82533; 83525; 83735; 83880; 84206; 84443; 84484; 84681; 84702; 85025; 85610; 85730; 87086; 93005; 96374; 99284; A9270-GY; G0378; J1650; J1885

== ENCOUNTER 2017-10-01 15:36 | Emergency (ER) | payer OTHER ==
[2017-10-01 16:11] LABS: ABS Basophils 0.1 10^3/ul (0-0.2); ABS Eosinophils 0.2 10^3/ul (0-0.6); ABS Lymphocytes 2.4 10^3/ul (1.0-4.8); ABS Monocytes 0.7 10^3/ul (0-0.8); ABS Neutrophils 4.4 10^3/ul (1.5-7.7); ABS Nucleated RBC 0 10^3/ul; Eosinophil % 2.3 % (0-6); Hematocrit 37 % (35-47); Hemoglobin 12.3 g/dl (12.0-16.0); Lymphocyte % 30.8 % (25-47); Mean Corpuscular HGB Conc 34 g/dl (31-36); Mean Corpuscular Hemoglobin 31 pg (27-31); Mean Corpuscular Volume 93 fL (80-97); Mean Platelet Volume 7.9 um3 (7.4-10.4); Nucleated Red Blood Cells % 0; Platelet Count 252 10^3/ul (150-450); Red Blood Count 3.94 10^6/ul (4.00-5.40); Red Cell Distribution Width 13 % (10.5-15); White Blood Count 7.7 10^3/ul (3.5-10.8)
[2017-10-01 16:55] LABS: EGFR Non-African American 67.1 (>60)
[2017-10-01 17:14] VITALS: BP 144/78
--- NOTE | 2017-10-01 17:23 | ED ---
Sabino Sinclair Tenzin, scribed for Dexter Chappell MD on 10/01/17 at 1554 . Complex/Multi-Sys Presentation - HPI Summary HPI Summary: Pt is a 47 years old female presenting to the ED complaining of drop in her blood sugar, feeling shaky, diaphoresis, feeling like she is havingpanic attack today. She notes that she had similar symptoms in the past few weeks. Pt is also complaining of constant abdominal pain. She also notes that 30 mins after eating again, her BS went down to 52. Pt notes that she has been checking her insulin often at home. Pt denies fever, N/V/D. She also notes that she was recently seen at the ED. Pt takes medication for migraines and depression. She takes muscle relaxer and pain medication for her back too. No aggravating or alleviating factors were noted. - History Of Current Complaint Time Seen by Provider: 10/01/17 15:40 Hx Obtained From: Patient Onset/Duration: Lasting Weeks - since two weeks ago. Associated Signs And Symptoms: Positive: Other - POSITIVE: abd pain, drop in Blood sugar, feeling like she is having "panic attack" and diaphoresis. NEGATIVE : fever, D/N/V - Allergies/Home Medications Allergies/Adverse Reactions: Allergies Allergy/AdvReac Type Severity Reaction Status Date / Time ciprofloxacin Allergy Vomiting Verified 09/25/17 14:46 famotidine Allergy Unknown Verified 09/25/17 14:46 Reaction Details indomethacin Allergy Vomiting Verified 09/25/17 14:46 methocarbamol Allergy Vomiting Verified 09/25/17 14:46 omeprazole Allergy Unknown Verified 09/25/17 14:46 Reaction Details verapamil Allergy Vomiting Verified 09/25/17 14:46 cephalexin AdvReac Intermediate Vomiting Verified 09/25/17 14:46 hydromorphone AdvReac Intermediate Headache Verified 09/25/17 14:46 Sulfa (Sulfonamide AdvReac Intermediate Vomiting Verified 09/25/17 14:46 Antibiotics) PMH/Surg Hx/FS Hx/Imm Hx Endocrine/Hematology History: Reports: Hx Anemia Denies: Hx Diabetes, Hx Thyroid Disease Cardiovascular History: Reports: Hx Hypertension Denies: Hx Congestive Heart Failure, Hx Pacemaker/ICD, Other Cardiovascular Problems/Disorders Respiratory History: Reports: Hx Asthma Denies: Hx Chronic Obstructive Pulmonary Disease (COPD), Other Respiratory Problems/Disorders GI History: Reports: Hx Ulcer Denies: Other GI Disorders History: Denies: Hx Renal Disease, Other Problems/Disorders Musculoskeletal History: Reports: Hx Back Problems, Hx Bursitis - RIGHT HIP Denies: Hx Rheumatoid Arthritis, Hx Osteoporosis, Other Musculoskeletal History Sensory History: Denies: Hx Contacts or Glasses, Hx Hearing Aid Opthamlomology History: Denies: Hx Contacts or Glasses Neurological History: Reports: Hx Headaches - migraines, Hx Migraine - receives Botox, Other Neuro Impairments/Disorders - PAIN CLINIC PT Psychiatric History: Reports: Hx Anxiety - ON MEDS PRN, Hx Depression, Hx Panic Disorder - Cancer History Hx Chemotherapy: No Hx Radiation Therapy: No - Surgical History Surgery Procedure, Year, and Place: c-spine fusion 2007, . 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 c-sections x2-TUBAL LIGATION 1997. left ankle surgery, RIGHT HIP SURGERY FOR BURSITIS. Lt breast biopsy LUMPECTOMY. RIGHT HIP BURSECTOMY-11/2015 Hx Anesthesia Reactions: No Infectious Disease History: Denies: Hx Clostridium Difficile, Hx Hepatitis, Hx Human Immunodeficiency Virus (HIV), Hx of Known/Suspected MRSA, Hx Shingles, Hx Tuberculosis, History Other Infectious Disease - Family History Known Family History: Positive: Cardiac Disease - Social History Alcohol Use: Occasionally Alcohol Amount: 2 PER MONTH Substance Use Type: Reports: None Hx Tobacco Use: Yes Smoking Status (MU): Never Smoked Tobacco Have You Smoked in the Last Year: No Review of Systems Positive: Skin Diaphoresis, Other - Shaky.. Negative: Fever Positive: Abdominal Pain. Negative: Vomiting, Diarrhea, Nausea All Other Systems Reviewed And Are Negative: Yes Physical Exam - Summary Physical Exam Summary: Appearance: Well appearing, no pain distress Skin: warm, dry, reflects adequate perfusion, ecchymosis on right calf. Head/face: normal Eyes: EOMI, TIO ENT: normal Neck: supple, non-tender Respiratory: CTA, breath sounds present Cardiovascular: RRR, pulses symmetrical Abdomen: non-tender, soft Bowel Sounds: present Musculoskeletal: normal, strength/ROM intact Neuro: normal, sensory motor intact, A&Ox3 Arms: Recent blood drawn out on her both arms. Triage Information Reviewed: Yes Vital Signs On Initial Exam: Initial Vitals Temp Pulse Resp BP Pulse Ox 97.9 F 82 14 137/94 99 07/02/18 15:49 10/01/17 15:49 10/01/17 15:49 10/01/17 15:49 10/01/17 15:49 Vital Signs Reviewed: Yes Diagnostics - Vital Signs Vital Signs Temp Pulse Resp BP Pulse Ox 10/01/17 17:13 98.0 F 76 14 144/78 99 10/01/17 15:49 97.9 F 82 14 137/94 99 - Laboratory Lab Results: Lab Results 10/01/17 10/01/17 10/01/17 Range/Units 15:59 15:59 16:04 WBC 7.7 (3.5-10.8) 10^3/ul RBC 3.94 L (4.00-5.40) 10^6/ul Hgb 12.3 (12.0-16.0) g/dl Hct 37 (35-47) % MCV 93 (80-97) fL MCH 31 (27-31) pg MCHC 34 (31-36) g/dl RDW 13 (10.5-15) % Plt Count 252 (150-450) 10^3/ul MPV 7.9 (7.4-10.4) um3 Neut % (Auto) 57.3 (38-83) % Lymph % (Auto) 30.8 (25-47) % [place] % (Auto) 8.9 H (0-7) % Eos % (Auto) 2.3 (0-6) % Baso % (Auto) 0.7 (0-2) % Absolute Neuts (auto) 4.4 (1.5-7.7) 10^3/ul Absolute Lymphs (auto) 2.4 (1.0-4.8) 10^3/ul Absolute Monos (auto) 0.7 (0-0.8) 10^3/ul Absolute Eos (auto) 0.2 (0-0.6) 10^3/ul Absolute Basos (auto) 0.1 (0-0.2) 10^3/ul Absolute Nucleated RBC 0 10^3/ul Nucleated RBC % 0 Sodium 138 (135-145) mmol/L Potassium 4.2 (3.5-5.0) mmol/L Chloride 107 (101-111) mmol/L Carbon Dioxide 24 (22-32) mmol/L Anion Gap 7 (2-11) mmol/L BUN 14 (6-24) mg/dL Creatinine 0.90 (0.51-0.95) mg/dL Est GFR ( Amer) 81.2 (>60) Est GFR (Non-Af Amer) 67.1 (>60) BUN/Creatinine Ratio 15.6 (8-20) Glucose 81 (70-100) mg/dL POC Glucose (mg/dL) 71 (70-100) mg/dL Calcium 9.2 (8.6-10.3) mg/dL TSH 2.49 (0.34-5.60) mcIU/mL 10/01/17 Range/Units 17:08 WBC (3.5-10.8) 10^3/ul RBC (4.00-5.40) 10^6/ul Hgb (12.0-16.0) g/dl Hct (35-47) % MCV (80-97) fL MCH (27-31) pg MCHC (31-36) g/dl RDW (10.5-15) % Plt Count (150-450) 10^3/ul MPV (7.4-10.4) um3 Neut % (Auto) (38-83) % Lymph % (Auto) (25-47) % [place] % (Auto) (0-7) % Eos % (Auto) (0-6) % Baso % (Auto) (0-2) % Absolute Neuts (auto) (1.5-7.7) 10^3/ul Absolute Lymphs (auto) (1.0-4.8) 10^3/ul Absolute Monos (auto) (0-0.8) 10^3/ul Absolute Eos (auto) (0-0.6) 10^3/ul Absolute Basos (auto) (0-0.2) 10^3/ul Absolute Nucleated RBC 10^3/ul Nucleated RBC % Sodium (135-145) mmol/L Potassium (3.5-5.0) mmol/L Chloride (101-111) mmol/L Carbon Dioxide (22-32) mmol/L Anion Gap (2-11) mmol/L BUN (6-24) mg/dL Creatinine (0.51-0.95) mg/dL Est GFR ( Amer) (>60) Est GFR (Non-Af Amer) (>60) BUN/Creatinine Ratio (8-20) Glucose (70-100) mg/dL POC Glucose (mg/dL) 162 H (70-100) mg/dL Calcium (8.6-10.3) mg/dL TSH (0.34-5.60) mcIU/mL Result Diagrams: 10/01/17 15:59 10/01/17 15:59 Lab Statement: Any lab studies that have been ordered have been reviewed, and results considered in the medical decision making process. Re-Evaluation - Re-Evaluation First Eval Change: Improved - Blood sugar was up to 162 after eating. Complex Multi-Symp Course/Dx Course Of Treatment: Patient has had recent admission for workup for hypoglycemia. She was not hypoglycemic than through the admission. She has had multiple rechecks of her insulin which has been within normal range including this morning. This makes insulinoma much less likely. She is not taking any oral glycemic medications or insulin. She is nondiabetic. She has been referred to endocrinology by her doctor. I suggested she take her blood sugar monitor into the doctor's office in the morning and check it against their machine. - Diagnoses Differential Diagnoses/HQI/PQRI: Metabolic Abnormality, Other - Infection, insulinoma, fictitious disorder Provider Diagnoses: Non-diabetic hypoglycemia Discharge - Sign-Out/Discharge Documenting (check all that apply): Discharge/Admit/Transfer - Discharge - Discharge Plan Condition: Stable Disposition: HOME Patient Education Materials: Non-diabetic Hypoglycemia (ED) Referrals: Cecil Holland NP [Primary Care Provider] - Additional Instructions: Go first thing in the morning to her doctor's office with your blood sugar monitor. Have them to check your blood sugar there and also check on your monitor. Return if worse, new symptoms or other concerns or persistent low blood sugar. Eat regularly. Go to the poultry farm manager as referred I your doctor. - Billing Disposition and Condition Condition: STABLE Disposition: Home The documentation as recorded by the Sabino elias Tenzin accurately reflects the service I personally performed and the decisions made by me, Dexter Chappell MD.
== END 2017-10-01 17:13 | disposition home or self-care (01) ==
LOC: ED 15:36
DX: E16.2 Hypoglycemia, unspecified (principal); F41.9 Anxiety disorder, unspecified; Z79.899 Other long term (current) drug therapy; Z88.3 Allergy status to other anti-infective agents; Z88.8 Allergy status to other drugs, medicaments and biological substances
CPT/HCPCS: 36415; 80048; 83036; 84443; 85025; 99282

== ENCOUNTER 2018-01-14 15:30 | Emergency (ER) | payer OTHER ==
--- OUTSIDE RECORDS SUMMARY | 2018-01-14 16:51 | XMS REPORT ---
:1970 External Reference #:[id number] Author Organization [facility] Address [address] [place] [address] [place] [address] Phone [phone] Care Team Providers Name Role Phone Teresa Montesinos MD Primary Care Physician Unavailable Payers Type Date Identification Numbers Payment Provider Subscriber Commercial Effective: Policy Number: [employer]CP[employer] Alex Thomas 2012 [id number] Group Number: [id number] [id number] Group Name: [place] [address] PayID: [id number] Problems Date Description Provider Status Onset: 04/23/2013 [...] myelopathy Onset: 12/31/2014 Vitamin B12 deficiency (non Cecildavid Holland, [employer]ER Active anemic) Onset: 09/02/2015 Multiple joint pain [...] apnea syndrome Roz Velazquez DNP, RN, Active [employer] Onset: 09/12/2016 Hypersomnia Roz Velazquez DNP, RN, Active [employer] Onset: 12/29/2016 Iliotibial band friction syndrome Karely Guzmán M.D. Active Onset: 07/11/2017 Refractory migraine without aura Jose Garcia MD Active Onset: 07/11/2017 Essential tremor Jose Garcia MD Active Onset: 09/25/2017 Tachycardia Raphael Thurman M.D. Active Onset: 09/25/2017 Hypoglycemia Raphael Thurman M.D. Active Onset: 09/26/2017 Anxiety state Raphael Thurman M.D. Active Onset: 09/26/2017 Malaise and fatigue Raphael Thurman M.D. 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 Dispers s times a , day as M.D. needed for nausea Depakote 11/[address] 500mg 90tab 1 tab in G43.011 s pm MD Jose Topiramate 08/04 Active Tablets 50mg 450ta 2 tabs by Joie Oh bs mouth in [facility], the in M.D. the morning, 3 tabs in the at night Hydrocodone-Aceta 06/17 Active Tablets 5-325mg 60tab 1-2 by M54.2 Joie torres s mouth [facility], every 6 M.D. hours as needed (30 day supply) Lyrica 12/25 Active Capsules 150mg 60cap take two s capsules Jose by mouth every evening Cyclobenzaprine Active Tablets 10mg 90tab one by Cecil HCL / s mouth IVAN Holland three times a day as needed spasm Meclizine HCL Active Tablets 25mg 30tab 1 tablet Cecil / s every 8 IVAN Holland hours as needed for vertigo Zolmitriptan Active Tablets 5mg 6tabs 1 tab by Jose / mouth Jose twice a MD day maximum 2 days weekly Trazodone HCL Active Tablets 100mg 60tab Take Two Cecil /0000 s Tablets IVAN Holland By Mouth AT Bedtime Tylenol PM Extra Active Tablets 500-25mg 1-2 tab Unknown Strength /0000 at bedtime Lidocaine Viscous 12/25 Hx Solution 2% 200ml swish and J06.9 Burton EYas spit 15cc Nicolette, - up to M.D. 01/01 times a day as needed Ativan 09/11 Hx Tablets 0.5mg 30tab take 1 F41.9 Cecil s tab by IVAN Holland - mouth 01/01 every hours as needed for anxiety Doxycycline 06/19 Hx Capsules 100mg 20cap one J01.90 Cecil Hyclate s tablet IVAN Holland - twice 06/29 daily for 10 days. Azithromycin 01/17 Hx Tablets 250mg 6tabs 2 tabs by Cecil mouth IVAN Holland - every day 01/23 x1 day, tab by mouth every day x 4 days Miralax 01/12 Hx Powder 3350NF 510un dissolve K59.00 its 1 IVAN Holland - tablespoo 07/11 nful daily in liquid as needed Fluticasone 01/12 Hx Suspension 50mcg/Act 16gm 2 sprays J06.9 Cecil Propionate each IVAN Holland - nostril 12/24 qd. Benzonatate 01/12 Hx Capsules 200mg 30cap one by J06.9 s mouth IVAN Holland - three 09/11 daily as needed for cough Doxycycline 12/22 Hx Capsules 100mg 20cap one J01.90 Cecil Hyclate s tablet IVAN Holland - twice 01/12 [...] pack MD Yuli - Take as 09/04 directed Augmentin 08/21 Hx Tablets 875-125mg 20tab one by s mouth Varn, N.P. - every 12 08/31 hours ten days Benzonatate 08/15 Hx Capsules 200mg 30cap one by J20.9 s mouth Varn, N.P. - three 08/30 times daily as needed for cough Flovent HFA 08/15 Hx Aerosol 110mcg/Ac 12gm 2 puffs J20.9 t twice Varn, N.P. - daily 09/14 Famotidine 08/09 Hx Tablets 20mg 60tab take one s tablet by IVAN Holland - mouth 08/16 twice a day as needed Vitamin D3 06/27 Hx Capsules 03605Cbid 4caps one by E55.9 mouth Varn, N.P. - once 08/26 Augmentin 06/27 Hx Tablets 875-125mg 28tab one by J01.90 s mouth Varn, N.P. - every 12 07/11 hours 14 days Medrol 06/27 Hx TBPK 4mg 21uni 6 by J01.90 ts mouth day Varn, N.P. - 1, [...] 04/19 Hx Syrup 100-10mg/ 180ml 1-2 J06.9 Cecil 5ML teaspoon IVAN Holland - every 4-6 04/24 hours cough Ativan 03/22 Hx Tablets 0.5mg 30tab take 1 Cecil s tab by IVAN Holland - mouth [...] 1 -2 tabs Janice s by mouth Jacobo, - every 4-6 M.D. 04/19 hours needed pain Cyclobenzaprine 01/06 Hx Tablets 5mg 60tab Take One Cecil HCL s Tablet By IVAN Holland - Mouth 07/26 Every Hours as Needed, May Take A Second Tablet If Not Effective Medrol 01/03 Hx TBPK 4mg 21uni as M54.31 ts directed IVAN Holland - on 01/10 Percocet 10/31 Hx Tablets 5-325mg 60tab 1-2 M25.551 s tablets Bordoni, - by mouth [employer] 01/10 every - hours as needed for pain Colace 10/31 Hx Capsules 100mg 90cap 1 by M25.551 Cherie s mouth up [place]ordoni, - to 3 [employer] 12/22 times day as needed for constipat ion. Aspirin Ec 10/[address] 325mg 20tab 1 by M25.551 Cherie s mouth [place]ordoni, - twice [employer] 01/03 daily 10 days to prevent blood clots Verapamil HCL 10/18 Hx Tablets 40mg 60tab 1 tab by Zuri s kory Sterling MD - every 11/07 night at bedtime x1 week then 1 twice daily Indomethacin 09/19 Hx Capsules 25mg 120ca 1-4 caps Joie Oh ps by mouth Jef, - as M.D. 10/18 Vitamin D3 08/17 Hx Capsules 40520Rhne 12cap Once s weekly x IVAN Holland - 12 weeks 01/25 Levaquin 07/29 Hx Tablets 500mg 5tabs 1 tab Raphael daily Olman - M.Nikolas 08/15 Escitalopram 07/18 Hx Tablets 10mg 30tab take one Cecil s tablet by IVAN Holland - mouth 04/19 every day Fluticasone 07/08 Hx Suspension 50mcg/Act 16gm 2 sprays Kevin01.Raúl Cecil Propionate each IVAN Holland - nostril 07/18 qd. Levofloxacin 07/08 Hx Tablets 500mg 10tab one by Kirsten.Raúl s mouth IVAN Holland - daily for 07/18 10 Pulmicort 07/08 Hx Aerosol 180mcg/Ac 1unit 2 puffs R05 Cecil Flexhaler t s twice IVAN Holland - daily 07/25 Ventolin HFA 07/07 Hx Aerosol 108(90Bas 1unit 2 puffs 4 e) s times a Varn, N.P. - mcg/Act day as 09/05 Azithromycin 07/04 Hx Tablets 250mg 6tabs 2 tabs by Kirsten.Raúl mouth Amalia [employer] - every day 07/08 x1 day, tab by mouth every day x 4 days Guaifenesin-Codei 07/04 Hx Syrup 100-10mg/ 180ml 1-2 J01.90 Cecil 5ML teaspoon IVAN Holland - every 4-6 / hours for cough Medrol (Owen) 06/01 Hx Tablets 4mg 21tab take 6 M54.2 s tabs day IVAN Holland - 1, 5 tabs 06/07 day 2, tabs day 3, 3 tabs day 4, 2 tabs day 5, and 1 tab day 6. Lidocaine HCL 06/01 Hx Cream 3% 85gm apply M54.2 twice a IVAN Holland - day as 07/04 needed to painful areas. Rabeprazole 05/[address] 20mg 30tab 1 by Cecil Sodium s mouth Amalia, [employer] - every day 10/18 Vistaril 05/24 Hx Capsules 25mg 30cap 1-2 by F41.9 Cecil s mouth Amalia, [employer] - four 11/07 times daily as needed Omeprazole 05/[address] 20mg 30cap 1 by R10.9 Cecil s mouth Amalia, [employer] - once 05/28 Sertraline HCL 05/07 Hx Tablets 100mg 60tab 2 by Cecil s mouth Amalia, [employer] - every day 07/18 Vitamin D3 05/03 Hx Capsules 5000Unit 60cap 1 by Cecil Maximum Strength s mouth Amalia, [employer] - twice 08/05 Vitamin D 12/29 Hx Capsules [id number] 12cap take one Cecil (Ergocalciferol) s capsule Amalia [employer] - once 05/03 for 12 weeks. Ferrous Sulfate 12/29 Hx Tablets 325(65Fe) 60tab take 1 Cecil mg s tablet IVAN Holland - daily. 04/19 Cyanocobalamin 12/29 Hx Solution 1000mcg/M 25ml 1.0 cubic Cecil L centimete IVAN Holland - rs 11/07 intramusc ular every week for 4 weeks and then monthly Methylprednisolon 12/22 Hx Tablets 4mg QS as M46.1 Cecil e (Owen) directed IVAN Holland - on 12/26 package Maxalt 08/04 Hx Tablets 10mg 12tab Take One Geo Silva s Tablet By Raymond, - Mouth AT M.D. 01/03 Onset Migraine, May Repeat In 2 Hours Once, No More Than 2 Days A Week Acetaminophen-Cod 06/08 Hx Tablets 300-30mg 45tab 1-2 tab 723.1 Geo ortiz #3 s four Sandro, - times a M.D. 06/17 day needed for pain Oxycodone HCL 04/07 Hx Capsules 5mg 30cap 1 q8 Lionel Marcelino /2014 s hours James, - afshan MHafsa 06/02 pain /2014 Nortriptyline HCL 02/03 Hx Capsules 25mg 90cap 3 caps by R51 Joie Oh s mouth Jef, - every M.D. 07/06 night directed. Oxycodone-Acetami 01/07 Hx Tablets 5-325mg 10tab 1 tab by Joie patterson s mouth q Jef, - 8-12 M.D. 04/07 hours needed Tramadol HCL 12/03 Hx Tablets 50mg 60tab 1-2 by 723.1 Lionel Marcelino s mouth James, - four M.D. 06/08 times a day as needed Nortriptyline HCL 11/27 Hx Capsules 50mg 90cap take 1 by Joie Oh s mouth Jef, - every M.D. 08/03 night at bedtime Sertraline HCL 09/30 Hx Tablets 100mg 30tab 1 by Cecil s mouth Amalia, [employer] - every 05/07 night at bedtime Methocarbamol 10/29 Hx Tablets 500mg 45tab one to Joie Oh s two up to Jef, - qid prn M.D. 10/29 for Lyrica 10/29 Hx Capsules 50mg 120ca 2 - 4 Joie Oh ps caps by Jef, - mouth M.D. 12/25 night as directed Relpax 10/29 Hx Tablets 40mg 12tab 1 tab by s mouth as Patrizia, [employer] - needed ; 01/13 repeat once in 2 hrs. no more than 2 doses in 24 hours, on no more than 2 days a week. Oxycodone/Acetami 05/23 Hx Tablets 5-325mg 15tab 1 tab by Joie patterson s mouth q Jef, - 6-8 hours M.D. 01/07 as needed Nortriptyline HCL 04/10 Hx Capsules 10mg 180ca 5 po qhs Joie Oh ps Jef, - M.D. 11/27 Nortriptyline HCL 02/25 Hx Capsules 50mg 90cap take 1 po Joie Oh s daily as Jef, - directed M.D. 04/10 Methylprednisolon 11/21 Hx Tablets 4mg 28tab two po Lionel wright s bid x 7 James, - days only M.D. 10/29 Gabapentin 11/07 Hx Capsules 100mg 90cap 1 - 2 po Lionel Marcelino /2011 s qhs to James, - start and M.D. 09/30 increase as tolerated graduall y up to 3 tid prn pain, caution: can cause sedation. Cyclobenzaprine 04/14 Hx Tablets 10mg 90tab 1 tab by Lionel Marcelino s mouth James, - three M.D. 01/03 times day as needed spasm Methocarbamol 07/27 Hx Tablets 500mg 45tab one to Lionel Marcelino /2009 s two up to James - qid prn M.D. 03/31 for spasm Neurontin 07/27 Hx Capsules 100mg 90cap 1 po qhs Lionel Marcelino s to start James, - x 2 days M.D. 09/24 then up as tolerable slowly to 3 qhs then up as tolerable to 3 tid 2 days between each ch [place] 07/27 Hx Tablets 7.5-325mg 90tab one to Lionel Marcelino s two by James, - mouth M.D. 09/30 times a day as needed pain Topiramate Hx Tablets 100mg 180ta 1 po qhs Unknown /0000 bs - 08/04 Hydroxyzine HCL Hx Tablets 50mg 60tab take 1 Unknown / s tablet by - mouth tid 09/30 pr Pantoprazole Hx Tablets DR 40mg Travis, Sodium /0000 Honey, - P.A. 06/02 Ibuprofen Hx Tablets 800mg by mouth Unknown /0000 three - times a 06/05 day needed Proair HFA Hx Aerosol 108(90Bas 2 puffs Unknown /0000 e) by mouth - mcg/Act every 4 07/04 hours needed Hydroxyzine Hx Capsules 25mg 1-2 caps Unknown Pamoate /0000 by mouth - four 07/06 times day as needed for anxiety Divalproex Sodium Hx Tablets ER 250mg 3 tabs by Unknown ER /0000 24HR mouth at - bedtime 09/11 Medications Administered in Office Medication Date Status Form Strength Qnty SIG Indications Ordering Provider Technetium TC Administered Injection Ica Nuclear 99M 018 Schedule Tetrofosmin, Per Unit Dose Up To 40 Millicuries Technetium TC Administered Injection Bam S. 99M 018 DO Antoine Tetrofosmin, FACC Per Unit Dose Up To 40 Millicuries B-12 Injection Administered Injection Nurse Visit 017 A Depomedrol Administered Injection Geo S. 20MG Tiffanie Andrade M.D. Depomedrol Administered Injection Geo S. 20MG 016 Anya Andrade Depomedrol Administered Injection Karely 40MG 016 Anya Guzmán B-12 Injection Administered Injection Christelle 016 Varn, N.P. B-12 Injection Administered Injection Cecil Amalia, 016 [employer] B-12 Injection Administered Injection Cecil Amalia, 016 [employer] B-12 Injection Administered Injection Nurse Visit 016 A B-12 Injection Administered Injection Cecil Amalia, 015 [employer] B-12 Injection Administered Injection Nurse Visit 015 C B-12 Injection Administered Injection Nurse Visit 015 C B-12 Injection Administered Injection Nurse Visit 015 C Vital Signs Date Vital Result Comment 01/02/2018 Height 63 inches 5'3" Weight 240.12 lb Heart Rate 88 /min BP Systolic 122 mmHg BP Diastolic 90 mmHg BMI (Body Mass Index) 42.5 kg/m2 12/25/2017 Height 63 inches 5'3" Weight 238.00 lb Heart Rate 86 /min BP Systolic Sitting 100 mmHg BP Diastolic Sitting 72 mmHg Body Temperature 97.8 F O2 % BldC Oximetry 98 % BMI (Body Mass Index) 42.2 kg/m2 09/11/2017 Height 63 inches 5'3" Weight 239.50 [...] Test Result H/L Range Note Laboratory test finding 10/01/2017 Point of Care 162 mg/dL High 70-100 1 Glucose Laboratory test finding 10/01/2017 Point of Care 71 mg/dL 70-100 2 Glucose CBC Auto Diff 10/01/2017 White Blood Count 7.7 10^3/uL 3.5-10.8 Red Blood Count 3.94 10^6/uL Low 4.00-5.40 Hemoglobin 12.3 g/dL 12.0-16.0 Hematocrit 37 % 35-47 Mean Corpuscular Volume 93 fL 80-97 Mean Corpuscular Hemoglobin 31 pg 27-31 Mean Corpuscular HGB Conc 34 g/dL 31-36 Red Cell Distribution Width 13 % 10.5-15 Platelet Count 252 10^3/uL 150-450 Mean Platelet Volume 7.9 um3 7.4-10.4 Abs Neutrophils 4.4 10^3/uL 1.5-7.7 Abs Lymphocytes 2.4 10^3/uL 1.0-4.8 Abs Monocytes 0.7 10^3/uL 0-0.8 Abs Eosinophils 0.2 10^3/uL 0-0.6 Abs Basophils 0.1 10^3/uL 0-0.2 Abs Nucleated RBC 0 10^3/uL Granulocyte % 57.3 % 38-83 Lymphocyte % 30.8 % 25-47 Monocyte % 8.9 % High 0-7 Eosinophil % 2.3 % 0-6 Basophil % 0.7 % 0-2 Nucleated Red Blood Cells % 0 Laboratory test finding 10/01/2017 TSH (Thyroid Stim Horm) 2.49 mcIU/mL 0.34-5.60 Basic Metabolic Panel 10/01/2017 Sodium 138 mmol/L 135-145 Potassium 4.2 mmol/L 3.5-5.0 Chloride 107 mmol/L 101-111 Co2 Carbon Dioxide 24 mmol/L 22-32 Anion Gap 7 mmol/L 2-11 Glucose 81 mg/dL 70-100 Blood Urea Nitrogen 14 mg/dL 6-24 Creatinine 0.90 mg/dL 0.51-0.95 BUN/Creatinine Ratio 15.6 8-20 Calcium 9.2 mg/dL 8.6-10.3 Egfr Non- 67.1 >60 Egfr 81.2 >60 3 Laboratory test finding 10/01/2017 Hemoglobin A1c (Glyco HGB) 5.2 % 4.0- 5.6 4 Laboratory test finding 10/01/2017 Hemoglobin A1c (Glyco HGB) 5.3 % 4.0- 5.6 5, 6 Insulin Level 10.8 mcIU/mL 2.0-16.0 5, 7 C-Peptide 3.9 ng/mL 1.1 - 4.4 5, 8 CBC Auto Diff 09/25/2017 White Blood Count 6.9 10^3/uL 3.5-10.8 Red Blood Count 4.00 10^6/uL 4.00-5.40 Hemoglobin 12.7 g/dL 12.0-16.0 Hematocrit 38 % 35-47 Mean Corpuscular Volume 95 fL 80-97 Mean Corpuscular Hemoglobin 32 pg High 27-31 Mean Corpuscular HGB Conc 33 g/dL 31-36 Red Cell Distribution Width 14 % 10.5-15 Platelet Count 250 10^3/uL 150-450 Mean Platelet Volume 8.4 um3 7.4-10.4 Abs Neutrophils 3.7 10^3/uL 1.5-7.7 Abs Lymphocytes 2.5 10^3/uL 1.0-4.8 Abs Monocytes 0.5 10^3/uL 0-0.8 Abs Eosinophils 0.2 10^3/uL 0-0.6 Abs Basophils 0.1 10^3/uL 0-0.2 Abs Nucleated RBC 0 10^3/uL Granulocyte % 53.6 % 38-83 Lymphocyte % 36.0 % 25-47 Monocyte % 6.9 % 0-7 Eosinophil % 2.7 % 0-6 Basophil % 0.8 % 0-2 Nucleated Red Blood Cells % 0 Comp Metabolic Panel 09/25/2017 Sodium 140 mmol/L 135-145 Potassium 4.1 mmol/L 3.5-5.0 Chloride 108 mmol/L 101-111 Co2 Carbon Dioxide 27 mmol/L 22-32 Anion Gap 5 mmol/L 2-11 Glucose 62 mg/dL Low 70-100 Blood Urea Nitrogen 11 mg/dL 6-24 Creatinine 0.99 mg/dL High 0.51-0.95 BUN/Creatinine Ratio 11.1 8-20 Calcium 9.4 mg/dL 8.6-10.3 Total Protein 6.8 g/dL 6.4-8.9 Albumin 3.7 g/dL 3.2-5.2 Globulin 3.1 g/dL 2-4 Albumin/Globulin Ratio 1.2 1-3 Total Bilirubin 0.30 mg/dL 0.2-1.0 Alkaline Phosphatase 56 U/L 34-104 Alt 8 U/L 7-52 Ast 11 U/L Low 13-39 Egfr Non- 60.1 >60 Egfr 72.7 >60 9 Laboratory test finding 09/25/2017 Magnesium 2.0 mg/dL 1.9-2.7 HCG < 0.60 mIU/mL 10 Inr/Protime 09/25/2017 Inr 0.78 0.77-1.02 Laboratory test finding 09/25/2017 Partial Thrombo Time 28.3 seconds 26.0 -36.3 PTT B-Type Natriuretic Peptide BNP 28 pg/mL 11 Troponin-I (TnI) 0.00 ng/mL <0.04 TSH (Thyroid Stim Horm) 1.31 mcIU/mL 0.34-5.60 Laboratory test finding 09/25/2017 Point of Care Glucose 52 mg/dL Low 70- 100 12 Laboratory test finding 09/11/2017 B-Type Natriuretic 46 pg/mL 13 Peptide BNP CBC Auto Diff 09/11/2017 White Blood Count 6.5 10^3/uL 3.5-10.8 Red Blood Count 4.25 10^6/uL 4.00-5.40 Hemoglobin 13.5 g/dL 12.0-16.0 Hematocrit 41 % 35-47 Mean Corpuscular Volume 96 fL 80-97 Mean Corpuscular Hemoglobin 32 pg High 27-31 Mean Corpuscular HGB Conc 33 g/dL 31-36 Red Cell Distribution Width 13 % 10.5-15 Platelet Count 275 10^3/uL 150-450 Mean Platelet Volume 8.3 um3 7.4-10.4 Abs Neutrophils 3.6 10^3/uL 1.5-7.7 Abs Lymphocytes 2.4 10^3/uL 1.0-4.8 Abs Monocytes 0.3 10^3/uL 0-0.8 Abs Eosinophils 0.1 10^3/uL 0-0.6 Abs Basophils 0 10^3/uL 0-0.2 Abs Nucleated RBC 0 10^3/uL Granulocyte % 55.3 % 38-83 Lymphocyte % 36.6 % 25-47 Monocyte % 5.2 % 0-7 Eosinophil % 2.1 % 0-6 Basophil % 0.8 % 0-2 Nucleated Red Blood Cells % 0 Comp Metabolic Panel 09/11/2017 Sodium 141 mmol/L 139-145 Potassium 4.6 mmol/L 3.5-5.0 Chloride 109 mmol/L 101-111 Co2 Carbon Dioxide 27 mmol/L 22-32 Anion Gap 5 mmol/L 2-11 Glucose 80 mg/dL 70-100 Blood Urea Nitrogen 12 mg/dL 6-24 Creatinine 1.00 mg/dL High 0.51-0.95 BUN/Creatinine Ratio 12.0 8-20 Calcium 9.2 mg/dL 8.6-10.3 Total Protein 6.4 g/dL 6.4-8.9 Albumin 3.7 g/dL 3.2-5.2 Globulin 2.7 g/dL 2-4 Albumin/Globulin Ratio 1.4 1-3 Total Bilirubin 0.40 mg/dL 0.2-1.0 Alkaline Phosphatase 62 U/L 34-104 Alt 9 U/L 7-52 Ast 13 U/L 13-39 Egfr Non- 59.4 >60 Egfr 76.4 >60 14 Laboratory test 09/11/2017 D Dimer Quantitative < 200 ng/mL Less Than 230 15 finding Magnesium 2.1 mg/dL 1.9-2.7 TSH (Thyroid Stim Horm) 1.30 mcIU/mL 0.34-5.60 Troponin-I (TnI) 0.00 ng/mL <0.04 Vitamin B12 393 pg/mL 180-914 16 Laboratory test 07/31/2017 Surgical Interface SEE RESULT BELOW 17, 18 finding Order Laboratory test 07/12/2017 TSH (Thyroid [...] Egfr Non- 64.9 >60 Egfr 83.5 >60 19 Laboratory test finding 06/19/2017 Monospot Negative Negative 20 Vitamin B12 353 pg/mL 180-914 21 Vitamin D Total 25(Oh) 22.5 ng/mL 20-50 Urinalysis Profile 01/30/2017 Urine Color Straw Urine Appearance Clear Urine Specific [place] 1.008 Low 1.010-1.030 Urine pH 7.0 5-9 [...] 26.0-36.3 PTT Lactic Acid 1.2 mmol/L 0.5-2.0 22 Troponin-I (TnI) 0.00 ng/mL <0.04 Comp Metabolic [...] Egfr Non- 66.6 >60 Egfr 85.6 >60 23 Laboratory test finding 01/30/2017 Magnesium 2.1 mg/dL 1.9-2.7 C Reactive Protein 3.67 mg/L < 5.00 24 Valproic Acid (Depakene) 71.0 g/mL 50-100 TSH (Thyroid Stim Horm) 1.03 mcIU/mL 0.34-5.60 Urinalysis Profile 01/05/2017 Urine Color Yellow Urine Appearance Clear Urine Specific [place] 1.012 1.010-1.030 Urine pH 6.0 5-9 Urine [...] Screen Presumptive Posi <SEE NOTE> None Detect 25 Urine Phencyclidine Screen None Detected None Detect 26 CBC Auto Diff 01/05/2017 White Blood Count [...] -36.3 PTT Lactic Acid 0.8 mmol/L 0.5-2.0 27 Comp Metabolic Panel 01/05/2017 Sodium 138 mmol/L [...] Egfr Non- 73.0 >60 Egfr 93.9 >60 28 Lipid Profile (Trig/Chol/HDL) 01/05/2017 Triglycerides 112 mg/dL 29 Cholesterol 170 mg/dL 30 HDL Cholesterol 43.7 mg/dL 31 LDL Cholesterol 104 mg/dL 32 Laboratory test finding 01/05/2017 Alcohol < 10 mg/dL <10 Troponin-I (TnI) 0.01 ng/mL <0.04 HCG < 0.60 mIU/mL 33 TSH (Thyroid Stim Horm) 3.54 mcIU/mL 0.34-5.60 Laboratory test finding 12/06/2016 Vitamin B12 213 pg/mL 180-914 34 Rapid Influenza A & B 08/15/2016 Influenza A Molecular POSITIVE Negative 35 Molecular Influenza B Molecular NEGATIVE Negative Laboratory test 08/15/2016 Influenza A & B SEE RESULT BELOW 36 finding Request CBC Auto Diff 08/03/2016 White [...] Egfr Non- 66.9 >60 Egfr 86.0 >60 37 Laboratory test finding 08/03/2016 Amylase 26 U/L Low 29-103 Lipase 10 U/L Low 11.0-82.0 Vitamin B12 245 pg/mL 180-914 38 Urinalysis Profile 08/03/2016 Urine Color Yellow Urine Appearance Clear Urine Specific [place] 1.014 1.010-1.030 Urine pH 6.0 5-9 Urine [...] Egfr Non- 67.7 >60 Egfr 87.1 >60 39 Laboratory test finding 04/27/2016 TSH (Thyroid Stim Horm) 2.72 mcIU/mL 0.34-5.60 Vitamin B12 181 pg/mL 180-914 40 Connective Tissue Panel 04/27/2016 Anti-Nuclear Antibody 0.3 U 41 Cyclic Citrullinated Peptide <15.6 U 42 Interpretation See Comment 43 Laboratory test finding 11/09/2015 Vitamin D Total 25(Oh) 30.9 ng/mL 30- 50 44 Vitamin B12 151 pg/mL Low 180-914 45 Ferritin 17.6 ng/mL 11-307 46 CBC Auto Diff 11/09/2015 White Blood Count [...] Egfr Non- 64.4 >60 Egfr 82.8 >60 47 Inr/Protime 11/09/2015 Inr 0.95 0.89-1.11 Connective Tissue Panel 09/06/2015 Anti-Nuclear Antibody 0.2 U 48 Cyclic Citrullinated Peptide <15.6 U 49 Interpretation See Comment 50 Laboratory test finding 09/06/2015 CRP High Sensitivity 2.10 mg/L 51 Erythrocyte Sed Rate 19 mm/Hr High 0-14 Laboratory test finding 09/06/2015 Lyme Disease Serology Negative Negative 52 Laboratory test finding 08/16/2015 Vitamin D Total 25(Oh) 20.7 ng/mL Low 30-50 Vitamin B12 > 1450 pg/mL High 180-914 53 Ferritin 15.0 ng/mL 11-307 Comp Metabolic Panel 05/24/2015 Sodium 140 mmol/L [...] Egfr Non- 66.3 >60 Egfr 85.3 >60 54 CBC Auto Diff 05/24/2015 White Blood Count [...] 0-2 Nucleated Red Blood Cells % 0 Laboratory test finding 05/24/2015 Lipase 14 U/L 11.0-82.0 Laboratory test finding 05/24/2015 Amylase 31 U/L 29-103 Laboratory test finding 04/27/2015 Ferritin < 10.0 ng/mL Low 11-307 Vitamin D Total 25(Oh) 24.5 ng/mL Low 30-50 Vitamin B12 131 pg/mL Low 180-914 55 Laboratory test finding 12/24/2014 Ferritin < 10.0 ng/mL Low 11-307 Vitamin B12 100 pg/mL Low 180-914 56 Vitamin D Total 25(Oh) 25.4 ng/mL Low 30-50 Erythrocyte Sed Rate 22 mm/Hr High 0-14 C Reactive Protein 5.18 mg/L High < 5.00 57 TSH (Thyroid Stim Horm) 1.38 ?IU/mL 0.34-5.60 CBC Auto Diff 12/24/2014 White Blood Count [...] 0-2 Nucleated Red Blood Cells % 0.1 Lipid Profile (Trig/Chol/HDL) 12/24/2014 Triglycerides 90 mg/dL 58 Cholesterol 179 mg/dL 59 HDL Cholesterol 51.0 mg/dL 60 LDL Cholesterol 110 mg/dL 61 Comp Metabolic Panel 12/24/2014 Sodium 137 mmol/L [...] Egfr Non- 70.7 >60 Egfr 91.0 >60 62 Laboratory test 12/24/2014 Elisa (Antinuclear Negative Negative finding Antibodies) Surgical Pathology 06/10/2009 Surgical Pathology 63 <SEE NOTE> Cortical Block Green 06/09/2009 Cortical Block Green [id number] #7 #7 <SEE NOTE> Tissue Kit 06/09/2009 Tissue Kit [id number] 65 <SEE NOTE> Type And Screen 06/07/2009 Patient Blood Type O POSITIVE 66 Antibody Screen NEGATIVE 66 Specimen Discard Date 06/21/2009 66, 67 CBC With Electronic Diff 06/07/2009 White Blood Count 6.3 CUMM 4.8-10.8 66 Red Cell Count 4.08 CUMM Low 4.2-5.4 66 Hemoglobin 13.1 g/dL 12.0-16.0 66 Hematocrit 38 % 35-47 66 Mean Corpuscular Volume 94 um3 79-97 66 Mean Corpuscular Hemoglob 32 pg High 27-31 66 Mean Corpuscular HGB Cone 34 g/dL 32-36 66 Redcell Distribution WDTH 13 % 10.5-15 66 Platelet Count 313 CUMM 150-450 66 Mean Platelet Volume 7.3 um3 Low 7.4-10.4 66 Gran % 51.4 % 38-83 66 Lymph % 39.4 % 25-47 66 Mononuclear % 5.5 % 1-9 66 Eosinophil % 3.3 % 0-6 66 Basophil % 0.4 % 0-2 66 Abs Lymphs 2.5 1.0-4.8 66 Abs Mononuclear 0.3 0-0.8 66 Absolute Neutrophil Count 3.2 1.5-7.7 66 Abs Eosinophils 0.2 0-0.6 66 Abs Basophils 0 0-0.2 66 1 [employer]: [id number] 2 [employer]: [id number] 3 Because ethnic data is not always [...] 5 Kidney failure <15 (or dialysis) 4 Therapeutic target for the treatment of diabetes mellitus patients is <7% HBA1C, and in selective patients <6.0%. Please refer to [facility] Diabetes Association diabetic care guidelines for further information. 5 FASTING 8 HOUR 6 Therapeutic target for the treatment of diabetes mellitus patients is <7% HBA1C, and in selective patients <6.0%. Please refer to [place] [employer] diabetic care guidelines for further information. 7 FASTING 8 HOUR 8 Test Performed by: [facility] [address] [place] [address] 9 Because ethnic data is not always readily [...] 15-29 5 Kidney failure <15 (or dialysis) 10 <5.0 Negative 5.0 - 25.0 Indeterminate (Repeat testing recommended after 72 hours) >25.0 Positive Perimenopausal women can display HCG levels of up to 20 mIU/mL 11 >100 to <200 pg/mL: likely compensated congestive heart failure (CHF) 200 to 400 pg/mL: likely moderate CHF >400 pg/mL: likely moderate to severe CHF 12 [employer]person [employer]: [id number] 13 >100 to <200 pg/mL: likely compensated congestive heart failure (CHF) 200 to 400 pg/mL: likely moderate CHF >400 pg/mL: likely moderate to severe CHF 14 Because ethnic data is not always readily [...] 15-29 5 Kidney failure <15 (or dialysis) 15 Please note: The following may produce a false positive D Dimer test: - Rheumatoid factor greater than 60 IU/ml - Plasma hemoglobin greater than 0.05 gm/dl - Bilirubin greater than 50 mg/dl - Lipids greater than 1000 mg/dl - FDP greater than 20 ug/ml 16 Normal Range 180 to 914 Indeterminate Range 145 to 180 Deficient Range <145 17 [id number] 18 SEE RESULT BELOW Name: CHAIM THOMAS: [address]: Fab Turcios MD Acct: [id number] Unit: [id number] AGE: 46 Location: [facility] Re07/31/17 SEX: F Status: DEP REF SPEC: [id number] LEONORA: 07/31/17- SUBM DR: Fab Turcios MD REQ: [id number] RECD: 07/31/17-160 STATUS: GUIDO ALVAREZ DR: Cecil Holland TAR POT WORKER _ ORDERED: LEVEL 4 COMMENTS: [id number] FINAL DIAGNOSIS Surgical anastomosis, biopsy: -- Body-type [...] 1104 END OF REPORT DEPARTMENT OF PATHOLOGY, [address] [place] [address] Chaparro Trammell M.D. Director [facility] # [id number] 19 Because ethnic data is not always readily [...] 15-29 5 Kidney failure <15 (or dialysis) 20 Would you like an EBV if Monospot is Negative?: N 21 Normal Range 180 to 914 Indeterminate Range 145 to 180 Deficient Range <145 22 [facility] Severe Sepsis and Septic Shock Management Bundle Measure requires all lactic acids initially measuring >2.0 mmol/L be repeated. 23 Because ethnic data is not always [...] 5 Kidney failure <15 (or dialysis) 24 Acute inflammation: >10.00 25 Presumptive Positive Presumptive positive results are unconfirmed. 26 The urine specimen was tested at the listed cutoffs: Drug class test level (ng/mL) Amphetamines 500 Barbiturates 200 Benzodiazepine metabolites 200 Cocaine metabolites 150 Cannabinoids 50 Opiates 300 Pcp 25 Specimen was received without chain of custody. Results should be used for medical purposes only. 27 [facility] Severe Sepsis and Septic Shock Management Bundle Measure requires all lactic acids initially measuring >2.0 mmol/L be repeated. 28 Because ethnic data is not always [...] 5 Kidney failure <15 (or dialysis) 29 Desirable <150 Borderline high 150-199 High 200-499 Very High >500 30 Desirable <200 Borderline high 200-239 High >239 31 Low <40 Desirable: 40-60 High: >60 32 Desirable: <100 mg/dL Near Optimal: 100-129 mg/dL Borderline High: 130-159 mg/dL High: 160-189 mg/dL Very High: >189 mg/dL 33 <5.0 Negative 5.0 - 25.0 Indeterminate (Repeat testing recommended after 72 hours) >25.0 Positive Perimenopausal women can display HCG levels of up to 20 mIU/mL 34 Normal Range 180 to 914 Indeterminate Range 145 to 180 Deficient Range <145 35 [employer]: [id number] SEE RESULT BELOW Name: CHAIM THOMAS : [address]: Christelle King NP Acct: [id number] Unit: [id number] AGE: 46 Location: [facility] Re08/15/16 SEX: F Status: REG REF SPEC: [id number] LEONORA: 08/15/16-[address] [facility] [address]: Christelle King NP REQ: [id number] RECD: 08/15/16 STATUS: COMP _ SOURCE: DEREK BARRYC: ORDERED: Flu A B Request COMMENTS: [id number] Procedure Result Reported Site Rapid Influenza A B Request Final 08/15/16- 1935 ML Specimen received for Influenza A/B Molecular testing * ML - MAIN LAB ([facility]) . END OF REPORT * ML=Testing performed at Main Lab DEPARTMENT OF PATHOLOGY, [address] [place] [address] Chaparro Trammell M.D. Director [facility] # [id number] 37 Because ethnic data is not always readily [...] 15-29 5 Kidney failure <15 (or dialysis) 38 Normal Range 180 to 914 Indeterminate Range 145 to 180 Deficient Range <145 39 Because ethnic data is not always readily [...] 15-29 5 Kidney failure <15 (or dialysis) 40 Normal Range 180 to 914 Indeterminate Range 145 to 180 Deficient Range <145 41 REFERENCE VALUE <=1.0 (Negative) 42 REFERENCE VALUE <20.0 (Negative) 43 Tests for antibodies to dsDNA and AMRITA antigens are not performed automatically unless the ELISA result is > or= 3.0 U. Studies performed at [facility] indicate that positive ELISA results <3.0 U are rarely accompanied by positive second order tests. Test Performed by: [facility] [place] [address] [employer]ic Fibre Drawer: Haris August II, M.D., Ph.D. 44 Due in 3 months. 45 Normal Range 180 to 914 Indeterminate Range 145 to 180 Deficient Range <145 46 Due in 3 months. 47 Because ethnic data is not always readily [...] 15-29 5 Kidney failure <15 (or dialysis) 48 REFERENCE VALUE <=1.0 (Negative) 49 REFERENCE VALUE <20.0 (Negative) 50 Tests for antibodies to dsDNA and AMRITA antigens are not performed automatically unless the ELISA result is > or= 3.0 U. Studies performed at [facility] indicate that positive ELISA results <3.0 U are rarely accompanied by positive second order tests. Test Performed by: [address] [address] [employer] Drawer: Haris August II, M.D., Ph.D. 51 Low risk: <1.00 Average risk: 1.00-3.00 High risk: >3.00 52 Serologic response to B. burgdorferi infection is not detected, but cannot rule out early infection during which low or undetectable antibody levels to B. burgdorferi may be present. If clinically indicated, a new serum specimen should be submitted in 7-14 days. Test Performed by: [facility] - [address] [address] Optic Fibre Drawer: Haris August II, M.D., Ph.D. 53 Normal Range 180 to 914 Indeterminate Range 145 to 180 Deficient Range <145 54 Because ethnic data is not always readily [...] 15-29 5 Kidney failure <15 (or dialysis) 55 Normal Range 180 to 914 Indeterminate Range 145 to 180 Deficient Range <145 56 Normal Range 180 to 914 Indeterminate Range 145 to 180 Deficient Range <145 57 Acute inflammation: >10.00 58 Desirable <150 Borderline high 150-199 High 200-499 Very High >500 59 Desirable <200 Borderline high 200-239 High >239 60 Low <40 Desirable: 40-60 High: >60 61 Desirable: <100 mg/dL Near Optimal: 100-129 mg/dL Borderline High: 130-159 mg/dL High: 160-189 mg/dL Very High: >189 mg/dL 62 Because ethnic data is not always readily [...] 15-29 5 Kidney failure <15 (or dialysis) 63 ---- RUN DATE: 06/15/09 [facility] NMI LIVE PAGE 1 RUN TIME: 1455 Specimen Inquiry RUN USER: INTERFACE -- Name: CHAIM THOMAS Darrell Sharpe#: [id number] Status: [facility] Re06/10/09 Age/Sex: 38/F Unit#: [id number] Location: [facility] : [birth year] -- Specimen: [id number] Spec Date: 06/10/[address]: Lionel martinez MD Spec Type: SURGICAL P Received: 06/10/09-7742 Copies to: SPECIMEN C5-6 DISC HISTORY PRE-OP DIAGNOSIS: C5-6 Herniated disc with myelopathy. GROSS DESCRIPTION Specimen received in formalin labelled Chaim Thomas, C5-6 Disc and consists of multiple fragments of bony tissue measuring in aggregate 2.0 x 2.0 x 1.0 cm. Engravings Polisher sections, one cassette. DIAGNOSIS Intervertebral disc, C5-6, discectomy - Intervertebral disc material and bone with degenerative changes. Signed Electronically by: CHAPARRO TRAMMELL MD 06/15/09 1452 -- -- DEPARTMENT OF PATHOLOGY, [address] [place] [address] [facility] Permit #[id number] Chaparro Trammell M.D. Director Daquan Gates M.D. [employer] Teacher Dir khanna -- 64 [id number] HARJIT SPRAGUE #7 TRANSFUSED 06/10/09 1044 65 [id number] TISSUE KIT TRANSFUSED 06/10/09 0722 66 SDS 06/10/09 67 PREADMISSION TESTING SAMPLES FOR BLOOD BANK WILL [...] DATE. Procedures Date CPT Code Description Status 09/27/2017 99210 Myocardial Perfusion Imaging Tomographic (Spect) Completed Multiple Studies 09/20/2017 63057 Stress Test Completed 09/20/2017 75755 Myocardial Perfusion Imaging Tomographic (Spect) Completed Multiple Studies 09/11/2017 23563 EKG Tracing & Interpretation Completed 01/05/2017 20828 ECHO Transthorasic Realtime 2D W Doppler & Color Flow Completed Hosp 08/02/2016 65221 Sleep Study Unattended,HRT Rate,Oxygen Sat,Resp Completed Effort/Airflow 05/04/2016 41979 Admin Of Inj Completed 01/14/2016 87171 Injection For Nerve Block, Greater Occipital Nerve Completed 01/12/2016 95423 Injection For Nerve Block, Greater Occipital Nerve Completed 11/18/2015 90795 Excision;Trochanteric Bursa Or Calcification Completed 11/18/2015 41861 Excision;Trochanteric Bursa Or Calcification Completed 09/24/201561471 Injection Single Tendon Origin/Insertion Completed 08/24/2015 Mammogram Completed 08/16/2015 90932 Admin Of Inj Completed 07/19/2015 10370 Admin Of Inj Completed 05/24/2015 22298 Admin Of Inj Completed 05/04/2015 13780 Admin Of Inj Completed 02/15/2015 69351 Admin Of Inj Completed 01/25/2015 80488 Admin Of Inj Completed 01/18/2015 17474 Admin Of Inj Completed 01/04/2015 87983 Admin Of Inj Completed 06/10/2009 42325 Discectomy,W/Decomp SP Cord/Nerve Root;Cervical Single Completed Interspace 06/10/2009 19824 Anterior Instrumentation 2-3 Vertebral Segments Completed 06/10/2009 57658 Arthrodesis, Anterior Cervical C2 And Below Completed 06/10/200922718 Allograft For Spine Surgery,Structural (Bone Bank) Completed Encounters Type Date Location Provider CPT E/M Dx Office Visit 12/25/2017 [facility] Internal Medicine - Burton Will, 24259 J06.9 10:00a Zenia Joyner Office Visit 09/26/2017 [facility], Raphael Thurman, 68006 R00.0 8:50a Hospitalists Anya F41.9 R53.83 Office Visit 09/25/2017 8:50a [facility], Raphael Pierre Part, 96019 R00.0 Hospitalnatty Joyner E16.2 Office Visit 09/11/2017 9:20a [facility] [place] [address] R07.9 Mathieu R20.2 R00.2 F41.9 Office Visit 07/11/2017 11:15a [facility] [address] G47.33 G43.019 G25.0 G25.2 G44.201 Office Visit 07/05/2017 1:15p Pulmonology And Sleep Roz Velazquez 98202 G47.33 Services Of [facility] ELHAM RN, COCOA ROASTER- G47.14 Z68.41 Office Visit 06/19/2017 11:40a [facility] [place] [address] J01.90 Mathieu R53.83 R10.9 Office Visit 02/06/2017 1:40p [facility] Internal Robby Richard, 06148 J45.991 Medicine - Mathieu Joyner,FACP G43.011 Office Visit 01/30/2017 1:46p [facility] Geo Silva 99355 G43.719 Anya Andrade R20.0 Office Visit 01/12/2017 11:30a [place] [address] G43.011 Neurologic Serv Of Jem Fuchs M.D. Office Visit 01/12/2017 9:20a [facility] [place] [address] T48.295A Mathieu J06.9 K59.00 Office Visit 01/06/2017 10:20a [facility] Jose Garcia, 90859 T48.295A H02.402 Office Visit 01/06/2017 10:49a [facility] PAULO Bliss 23986 G89.29 Hospitalists T48.295A F41.9 Z86.69 Office Visit 01/05/2017 10:48a [facility] [place] [address] I63.9 Assoc, Hospitalists MHafsa F41.9 Z86.69 Office Visit 12/29/2016 9:45a Orthopedic Services Of Karely Guzmán M.D. 78422 M76.31 C.M.A. Office Visit 12/20/2016 10:20a [facility] [place] [address] M25.551 - Mathieu R10.9 J01.90 Office Visit 12/14/2016 10:00a [facility] Joie Fuchs, 73239 G43.711 Services Of [facility] Anya Office Visit 09/12/2016 9:15a Pulmonology And Sleep Roz Velazquez, 10682 G47.33 Services Of [facility] ELHAM RN, COCOA ROASTER- G47.14 E66.01 Z68.41 Office Visit 09/04/2016 2:15p Neurosurgery Services Of PAULO Vang-C 34013 M54.2 [facility] M25.511 M25.512 Z98.1 Office Visit 08/21/2016 9:00a Orthopedic Services Gui Estrella, 32840 M54.12 Of [place] Office Visit 08/17/2016 8:30a [facility] Joie Fuchs, 31989 G43.719 Services Of Departure Clerk M.D. R25.1 Office Visit 08/15/2016 1:00p [facility] Internal Medicine Christelle King, N.P. 25624 J20.9 - [place] Office Visit 08/03/2016 10:00a [facility] [place] [address] M25.519 - [place] R10.9 D51.9 M54.2 Office Visit 07/26/2016 8:45a Pul[facility] [place] [address] R06.83 Services Of [facility] G47.10 G47.53 R53.1 R12 E66.01 Z68.41 Office Visit 07/17/2016 1:40p [facility] [place] [address] D51.9 [place] M54.5 Office Visit 06/27/2016 10:00a [facility] Internal Medicine Christelle King, N.P. 96519 R53.83 - [place] E55.9 D51.9 M72.2 J01.90 Office Visit 05/25/2016 9:15a [facility] Joie Fuchs, 85452 G43.719 Services Of Departure Clerk M.D. Office Visit 04/19/2016 11:40a [facility] [place] [address] J06.9 - [place] F41.9 Office Visit 01/27/2016 11:30a [facility] Joie Fuchs, 60655 G43.711 Services Of Departure Clerk M.D. Office Visit 01/04/2016 9:40a [facility] [place] [address] M54.31 - [place] Office Visit 11/09/2015 9:45a [facility] Joie Fuchs, 78232 G43.711 Services Of Departure Clerk M.D. Office Visit 11/08/2015 9:00a [facility] [place] [address] Z01.818 - [place] M70.61 M76.01 G43.909 Office Visit 11/01/2015 9:15a Orthopedic Services Of Karely Guzmán M.D. 05375 M25.551 C.M.A. M70.61 M76.01 Office Visit 10/25/2015 9:30a [facility] Services Of Karely Guzmán M.D. 40112 M54.5 C.M.A. M70.61 Office Visit 09/24/2015 10:00a Orthopedic Services Of Karely Guzmán M.D. 95290 M25.551 C.M.A. M70.61 E66.01 Office Visit 09/06/2015 10:20a [facility] [place] [address] M25.551 [place] Office Visit 09/02/2015 3:15p [facility] Joie Fuchs, 85611 G43.011 Services Of [facility] M.D. M54.2 M25.551 M25.579 Office Visit 08/16/2015 1:00p [facility] Internal Medicine Christelle King, N.P. 75242 F41.9 - [place] Z12.31 D51.9 N64.4 N60.11 N60.12 Office Visit 07/19/2015 9:40a [facility] [place] [address] F41.9 [place] F32.8 R05 D51.9 Office Visit 07/09/2015 2:00p [facility] [place] [address] J01.90 [place] R05 Office Visit 07/05/2015 11:40a [facility] [place] [address] J01.90 [place] Office Visit 06/02/2015 3:00p [facility] [place] [address] M54.2 [place] Office Visit 05/24/2015 8:40a [facility] [place] [address] F41.9 [place] D51.9 R10.9 Office Visit 04/15/2015 9:30a [facility] Joie Fuchs, 81018 G43.011 Services Of Departure Clerk M.D. Office Visit 02/15/2015 11:40a [facility] [place] [address] M25.571 - [place] D51.9 Office Visit 01/13/2015 2:20p [facility] Internal Medicine Christelle King, N.P. 46228 G43.011 - [place] M54.5 Office Visit 12/22/2014 2:00p [facility] Internal Medicine - Cecil Holland, TAR POT WORKER 86438 R53.83 [place] Z13.220 M46.1 Office Visit 11/30/2014 11:20a Neurosurgery Services Lionel Ramirez, 71798 723.1 Of Departure Clerk M.D. V45.4 721.3 724.2 Office Visit 08/04/2014 9:15a [facility] Joie Fuchs, 28501 346.90 M.D. Office Visit 06/02/2014 9:40a Neurosurgery Services Of Lionel Ramirez, 07362 723.1 Departure Clerk M.D. V45.4 724.2 Office Visit 02/03/2014 11:15a [facility] Joie Fuchs, 49040 784.0 Services Of Departure Clerk M.D. Office Visit 12/03/2013 2:40p Neurosurgery Services Lionel Ramirez, 48519 723.1 Of Departure Clerk M.D. V45.4 Office Visit 10/07/2013 9:45a [facility] Joie Fuchs, 51805 723.8 Services Of Departure Clerk M.D. 784.0 Office Visit 04/23/2013 2:40p Neurosurgery Services Lionel Ramirez, 58376 723.1 [facility] V45.89 Office Visit 12/25/2012 8:45a [facility] Joie Fuchs, 61388 723.8 Services Of Departure Clerk M.D. Office Visit 12/04/2012 9:40a Neurosurgery Services Lionel Ramirez, 78318 723.1 Of Departure Clerk AT [facility].D. Office Visit 10/29/2012 11:00a [facility] Joie Fuchs 92586 723.8 Services Of Departure Clerk M.D. Office Visit 08/05/2012 3:20p Neurosurgery Services Lionel Ramirez 79750 723.1 Of Departure Clerk M.D. Office Visit 01/25/2012 2:00p [facility] Joie MarsYas Jef, 20696 723.8 Services Of Jem Mars.Nikolas 729.5 Office Visit 11/23/2011 11:00a [place] Schwartzdy JeradYas Jef, 91520 346.90 Neurologic Serv Of Jem Mars.Nikolas 723.8 Office Visit 11/06/2011 1:20p Neurosurgery Services Lionel Ramirez, 45527 723.1 Of Departure Clerk M.D. Office Visit 09/25/2011 3:20p Neurosurgery Services Lionel Ramirez, 36928 721.3 Of Departure Clerk M.D. 726.5 Office Visit 03/17/2011 2:20p Neurosurgery Services Lionel Ramirez, 69671 721.3 Of Departure Clerk M.D. 726.5 Office Visit 11/14/2010 2:40p Neurosurgery Services Lionel Ramirez, 58781 721.3 Of Departure Clerk M.D. Office Visit 04/29/2010 1:40p Neurosurgery Services Lionel Ramirez, 43010 722.71 Of Departure Clerk M.D. Office Visit 09/16/2009 2:40p Neurosurgery Services Lionel Ramirez, 52515 722.71 Of Departure Clerk M.D. Office Visit 06/04/2009 1:40p Neurosurgery Services Lionel Ramirez, 25031 722.0 Of Departure Clerk M.D. Office Visit 02/19/2007 4:00p Neurosurgery Services Lionel Ramirez, 33057 721.3 Of Departure Clerk M.D. Plan of Care Future Appointment(s):03/01/2018 9:15 am - Jose Garcia MD at Neurohospitalist [id number]/02/2018 - Jose Garcia MDG43.119 Migraine with aura , intractable, without status migrainosusComments:Intractable migraines that are disabling and has not responded well to botox and at least 4 daily prophylactic medications. Will have a trial of ajovy monthly. Before we begin patient will read on line about this. Will set up.Follow up:2 months
--- OUTSIDE RECORDS SUMMARY | 2018-01-14 16:52 | XMS REPORT ---
:1970 External Reference #:[id number] Author Organization [employer] Address [address] [facility] [place] [address] [place] [address] Phone [phone] Care Team Providers Name Role Phone Teresa Montesinos MD Primary Care Physician Unavailable Payers Type Date Identification Numbers Payment Provider Subscriber Commercial Effective: Policy Number: [employer] Alex Thomas 2012 [id number] Group Number: [id number] [id number] Group Name: [place] [address] PayID: [id number] Problems Date Description Provider Status Onset: 04/23/2013 [...] 12/31/2014 Vitamin B12 deficiency (non Cecildavid Holland, SUPERVISORY FORESTER Active anemic) Onset: 09/02/2015 Multiple joint pain [...] apnea syndrome Roz Velazquez DNP, RN, Active HAT BLOCKING MACHINE OPERATOR-BC Onset: 09/12/2016 Hypersomnia Roz Velazquez DNP, RN, Active HAT BLOCKING MACHINE OPERATOR-BC Onset: 12/29/2016 Iliotibial band friction syndrome Karely Guzmán M.D. Active Onset: 07/11/2017 Refractory migraine without aura Jose Garcia MD Active Onset: 07/11/2017 Essential tremor Jose Garcia MD Active Onset: 09/25/2017 Tachycardia Raphael Thurman M.D. Active Onset: 09/25/2017 Hypoglycemia Raphael Thurman M.D. Active Onset: 09/26/2017 Anxiety state Raphael Thurman M.D. Active Onset: 09/26/2017 Malaise and fatigue Raphael Thurman M.D. 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 spit 15cc Nicolette, up to M.D. three times a day as needed Ativan 09/11 Active Tablets 0.5mg 30tab take 1 F41.9 Cecil s tab by IVAN Holland mouth every 12 hours as needed for anxiety Cyanocobalamin 02/04 Active Solution 1000mcg/M 1unit inject 1 L s millilite IVAN Holland rs intramusc ularly once a month Syringe/Luer 05/04 Active Misc 25G X 10uni intramusc Cecil Lock/3ML/25G X /2016 1-2" 3 ts ular, IVAN Holland 1-/2" ML once monthly with cyanocoba kannan Escitalopram 04/19 Active Tablets 20mg 30tab Take One Cecil s Tablet By IVAN Holland Mouth Every Day Ondansetron 01/13 Active Tablets 4mg 30tab 1 three G43.909 Geo S. /2015 Dispers s times a , day as M.D. needed for nausea Depakote 11/[address] 500mg 90tab take one G43.011 s tablet by kory Garcia in the morning and 2 tabs in pm. Topiramate 08/04 Active Tablets 50mg 450ta 2 tabs by Joie reeder mouth in Jef, the in M.D. the morning, 3 tabs in the at night Hydrocodone-Aceta 06/17 Active Tablets 5-325mg 60tab 1-2 by M54.2 Joie Oh minleonidas /2014 s mouth Jef, every 6 M.D. hours as needed (30 day supply) Lyrica 12/25 Active Capsules 150mg 60cap take two Jose s capsules Jose by mouth every evening Cyclobenzaprine 00 Active Tablets 10mg 90tab one by Cecil HCL /0000 s mouth IVAN Holland three times a day as needed spasm Meclizine HCL Active Tablets 25mg 30tab 1 tablet Cecil / s every 8 IVAN Holland hours as needed for vertigo Zolmitriptan Active Tablets 5mg 6tabs 1 tab by Jose / mouth janna Garcia a MD day maximum 2 days weekly Trazodone HCL Active Tablets 100mg 60tab Take Two Cecil / s Tablets IVAN Holland By Mouth AT Bedtime Tylenol PM Extra Active Tablets 500-25mg 1-2 tab Unknown Strength /0000 at bedtime Doxycycline 06/19 Hx Capsules 100mg 20cap one J01.90 Cecil Hycl s tablet IVAN Holland - twice 06/29 daily for 10 days. Azithromycin 01/17 Hx Tablets 250mg 6tabs 2 tabs by mouth IVAN Holland - every day 01/23 x1 day, tab by mouth every day x 4 days Miralax 01/12 Hx Powder 3350NF 510un dissolve K59.00 its 1 IVAN Holland - tablespoo 07/11 nful once daily in liquid as needed Fluticasone 01/12 Hx Suspension 50mcg/Act 16gm 2 sprays J06.9 Cecil Propionate each IVAN Holland - nostril 12/24 qd. Benzonatate 01/12 Hx Capsules 200mg 30cap one by Kevin06.9 s mouth IVAN Holland - three 09/11 [...] 1 tablet J01.90 s by mouth IVAN Holladn - q12 hours 12/22 for days Methylprednisolon 08/23 Hx TBPK 4mg 1unit Medrol Raphael wright s dose pack MD Yuli - Take as 09/04 directed Augmentin 08/21 Hx Tablets 875-125mg 20tab one by Christelle s mouth Varn, N.P. - every 12 [...] as needed Vitamin D3 06/27 Hx Capsules 99155Nxct 4caps one by E55.9 mouth Varn, N.P. - once 08/26 Augmentin 06/27 Hx Tablets 875-125mg 28tab one by J01.90 s mouth Varn, N.P. - every 07/11 hours 14 days Medrol 06/27 Hx [...] L centimete IVAN Holland - rs 12/13 intramusc ular once monthly Guaifenesin-Codei 04/19 Hx Syrup [...] Hx Tablets 5mg 60tab Take One Cecil s Tablet By IVAN Holland - Mouth 07/26 Every Hours as Needed, May Take A Second Tablet If Not Effective Medrol 01/03 Hx TBPK 4mg 21uni as M54.31 Cecil ts directed IVAN Holland - on 01/10 Percocet 10/31 Hx Tablets 5-325mg 60tab 1-2 M25.551 Cherie s tablets Bordoni, - by mouth SUPERVISORY FORESTER 01/10 every - hours as needed for pain Colace 10/31 Hx Capsules 100mg 90cap 1 by M25.551 Cherie s mouth up [place]ord[place], - to 3 SUPERVISORY FORESTER 12/22 times day as needed for constipat ion. Aspirin Ec 10/[address] 325mg 20tab 1 by M25.551 Cherie s mouth [place], - twice SUPERVISORY FORESTER 10 daily for 10 days to prevent blood clots Verapamil HCL 10/18 Hx Tablets 40mg 60tab 1 tab by Zuri s mouth MD Hallie - every 11/07 night at bedtime x1 week then 1 twice daily Indomethacin 09/19 Hx Capsules 25mg 120ca 1-4 caps Joie Oh ps by mouth Jef, - as M.D. 10/18 directed Vitamin D3 08/17 Hx Capsules 91617Omsy 12cap Once Cecil s weekly x Amalia SUPERVISORY FORESTER - 12 weeks 01/25 Levaquin 07/29 Hx Tablets 500mg 5tabs 1 tab Raphael daily Sy Thurman M.D. 08/15 Escitalopram 07/18 Hx Tablets 10mg 30tab take one Cecil s tablet by Amalia SUPERVISORY FORESTER - mouth 04/19 every day Fluticasone 07/08 Hx Suspension 50mcg/Act 16gm 2 sprays J01.Raúl Cecil Propionate each Amalia SUPERVISORY FORESTER - nostril 07/18 qd. Levofloxacin 07/08 Hx Tablets 500mg 10tab one by Kevin01.Raúl Cecil s mouth Amalia, SUPERVISORY FORESTER - daily for 07/18 10 days Pulmicort 07/08 Hx Aerosol 180mcg/Ac 1unit 2 puffs R05 Cecil Flexhaler t s twice Amalia SUPERVISORY FORESTER - daily 07/25 Ventolin HFA 07/07 Hx Aerosol 108(90Bas 1unit 2 puffs 4 Christelle e) s times a Varn, N.P. - mcg/Act day as 09/05 needed Azithromycin 07/04 Hx Tablets 250mg 6tabs 2 tabs by J01.90 mouth Amalia, SUPERVISORY FORESTER - every day 07/08 x1 day, tab by mouth every day x 4 days Guaifenesin-Codei 07/04 Hx Syrup 100-10mg/ 180ml 1-2 J01.90 Cecil 5ML teaspoon Amalia, SUPERVISORY FORESTER - every 4-6 /14 hours cough Medrol (Owen) 06/01 Hx Tablets 4mg 21tab take 6 M54.2 s tabs day Amalia, SUPERVISORY FORESTER - 1, 5 tabs 06/07 day 2, tabs day 3, 3 tabs day 4, 2 tabs day 5, and 1 tab day 6. Lidocaine HCL 06/01 Hx Cream 3% 85gm apply M54.2 twice a Amalia, SUPERVISORY FORESTER - day as 07/04 needed to painful areas. Rabeprazole 05/[address] 20mg 30tab 1 by Cecil Sodium s mouth Amalia, SUPERVISORY FORESTER - every day 10/18 Vistaril 05/24 Hx Capsules 25mg 30cap 1-2 by F41.9 Cecil s mouth IVAN Holland - four 11/07 daily as needed Omeprazole 05/[address] 20mg 30cap 1 by R10.9 Cecil s mouth Amalia, SUPERVISORY FORESTER - once 05/28 Sertraline HCL 05/07 Hx Tablets 100mg 60tab 2 by Cecil s mouth IVAN Holland - every day 07/18 Vitamin D3 05/03 Hx Capsules 5000Unit 60cap 1 by Cecil Maximum s mouth Amalia SUPERVISORY FORESTER - twice 08/05 Vitamin D 12/29 Hx Capsules 12933Milg 12cap take one Cecil (Ergocalciferol) s capsule IVAN Holland - once 05/03 for 12 weeks. Ferrous Sulfate 12/29 Hx Tablets 325(65Fe) 60tab take 1 Cecil mg s tablet IVAN Holland - daily. 04/19 Cyanocobalamin 12/29 Hx Solution 1000mcg/M 25ml 1.0 cubic Cecil L centimete IVAN Hollnad - rs 11/07 intramusc ular every week for 4 weeks and then monthly Methylprednisolon 12/22 Hx Tablets 4mg QS as M46.1 Cecil e () directed IVAN Holland - on 12/26 Maxalt 08/04 Hx Tablets 10mg 12tab Take One Geo S. s Tablet By Raymond, - Mouth AT M.D. 01/03 Onset Migraine, May Repeat In 2 Hours Once, No More Than 2 Days A Week Acetaminophen-Cod 06/08 Hx Tablets 300-30mg 45tab 1-2 tab 723.1 Geo lyne #3 s four Austin, - times a M.D. 06/17 day needed for pain Oxycodone HCL 04/07 Hx Capsules 5mg 30cap 1 q8 Lionel Marcelino s hours James, - prnfor M.D. 06/02 pain /2014 Nortriptyline HCL 02/03 Hx Capsules 25mg 90cap 3 caps by R51 Joie Oh /2013 s mouth Jef, - every M.D. 07/06 [...] 30tab 1 by Cecil s mouth Amalia, SUPERVISORY FORESTER - every 05/07 night bedtime Methocarbamol 10/29 Hx Tablets 500mg 45tab one to Joie Oh s two up to Jef, - qid prn M.D. 10/29 for Lyrica 10/29 Hx Capsules 50mg 120ca 2 - 4 Joie Yas ps caps by Jef, - mouth M.D. 12/25 night as directed Relpax 10/29 Hx Tablets 40mg 12tab 1 tab by Trish s mouth as Patrizia SUPERVISORY FORESTER - needed ; 01/13 repeat once in [...] Hx Tablets 4mg 28tab two po Lionel Marcelino s bid x 7 James, - days only M.D. 10/29 Gabapentin 11/07 Hx Capsules 100mg 90cap 1 - 2 po Lionel Marcelino /2011 s qhs to James - abby and M.D. 09/30 increase as tolerated graduall y up to 3 tid prn pain, caution: can cause sedation. Cyclobenzaprine 04/14 Hx Tablets 10mg 90tab 1 tab by Lionel Marcelino s mouth James, - three M.D. 01/03 times day as needed spasm Methocarbamol 07/27 Hx Tablets 500mg 45tab one to Lionel Marcelino /2009 s two up to James, - qid prn M.D. 03/31 for spasm Neurontin 07/27 Hx Capsules 100mg 90cap 1 po qhs Lionel Marcelino /2009 s to start James, - x 2 days M.D. 09/24 then up as tolerable slowly to 3 qhs then up as tolerable to 3 tid 2 days between each ch [place] 07/27 Hx Tablets 7.5-325mg 90tab one to Lionel Marcelino /2009 s two by James, - mouth M.D. 09/30 times a day as needed pain Topiramate Hx Tablets 100mg 180ta 1 po qhs Unknown /0000 bs - 08/04 Hydroxyzine HCL Hx Tablets 50mg 60tab take 1 Unknown /0000 s tablet by - mouth tid 09/30 [...] TC Administered Injection Bam S. 99M 018 Schultz, Tetrofosmin, FACC Per Unit Dose Up To 40 Millicuries B-12 Injection Administered Injection Nurse Visit 017 A Depomedrol Administered Injection Geo S. 20MG 016 Anya Andrade Depomedrol Administered Injection Geo S. 20MG 016 Anya Andrade Depomedrol Administered Injection Karely 40MG 016 Anya Guzmán B-12 Injection Administered Injection Christelle 016 Varn, N.P. B-12 Injection Administered Injection Cecil Amalia, 016 SUPERVISORY FORESTER B-12 Injection Administered Injection Cecil Amalia, 016 SUPERVISORY FORESTER B-12 Injection Administered Injection Nurse Visit 016 A B-12 Injection Administered Injection Cecil Amalia, 015 SUPERVISORY FORESTER B-12 Injection Administered Injection Nurse Visit 015 C B-12 Injection Administered Injection Nurse Visit 015 C B-12 Injection Administered Injection Nurse Visit 015 C Vital Signs Date Vital Result Comment 12/25/2017 Height 63 inches 5'3" Weight 238.00 [...] Color Straw Urine Appearance Clear Urine Specific [place] 1.008 Low 1.010-1.030 Urine pH 7.0 5-9 [...] Color Yellow Urine Appearance Clear Urine Specific [place] 1.012 1.010-1.030 Urine pH 6.0 5-9 Urine [...] Color Yellow Urine Appearance Clear Urine Specific [place] 1.014 1.010-1.030 Urine pH 6.0 5-9 Urine [...] Cortical Block Green 06/09/2009 Cortical Block Green [id number] #7 #7 <SEE NOTE> Tissue Kit 06/09/2009 Tissue Kit [id number] 65 <SEE NOTE> Type And Screen 06/07/2009 [...] 66 Abs Basophils 0 0-0.2 66 1 Contract Modeler: [id number] 2 Contract Modeler: [id number] 3 Because ethnic data is not always [...] in selective patients <6.0%. Please refer to [place] [employer] diabetic care guidelines for further information. 5 FASTING 8 HOUR 6 Therapeutic target for the treatment of diabetes mellitus patients is <7% HBA1C, and in selective patients <6.0%. Please refer to [place] [employer] diabetic care guidelines for further information. 7 FASTING 8 HOUR 8 Test Performed by: [facility] [address] [place] [address] 9 Because ethnic data is not always [...] pg/mL: likely moderate to severe CHF 12 Contract Modeler: [id number] 13 >100 to <200 pg/mL: likely compensated [...] 145 to 180 Deficient Range <145 17 [id number] 18 SEE RESULT BELOW Name: PADMINI THOMASLakhwinder Ramírez : [address]: Fab Turcios MD Acct: [id number] Unit: [id number] AGE: 46 Location: [facility] Re07/31/17 SEX: F Status: DEP REF SPEC: [id number] LEONORA: 07/31/17- SUBM DR: Fab Turcios MD REQ: [id number] RECD: 07/31/17 STATUS: GUIDO ALVAREZ DR: Cecil Holland SUPERVISORY FORESTER _ ORDERED: LEVEL 4 COMMENTS: [id number] FINAL DIAGNOSIS Surgical anastomosis, biopsy: -- Body-type [...] 1104 END OF REPORT DEPARTMENT OF PATHOLOGY, [address] [place] [address] Chaparro Trammell M.D. Director [facility] # [id number] 19 Because ethnic data is not always [...] 145 to 180 Deficient Range <145 22 [facility] Severe Sepsis and Septic Shock Management Bundle [...] be used for medical purposes only. 27 [facility] Severe Sepsis and Septic Shock Management Bundle [...] 145 to 180 Deficient Range <145 35 Contract Modeler: [id number] 36 SEE RESULT BELOW Name: WILLIAMCHAIM R : [address]: Christelle King NP Acct: [id number] Unit: [id number] AGE: 46 Location: [facility] Re08/15/16 SEX: F Status: REG REF SPEC: [id number] LEONORA: 08/15/16-1226 [facility] DR: Christelle King NP REQ: [id number] RECD: 08/15/16 STATUS: COMP _ SOURCE: [facility]: ORDERED: Flu A B Request COMMENTS: [id number] Procedure Result Reported Site Rapid Influenza A B Request Final 08/15/161934 ML Specimen received for Influenza A/B Molecular testing * ML - MAIN LAB ([facility]) . END OF REPORT * ML=Testing performed at Main Lab DEPARTMENT OF PATHOLOGY, [address] [place] [address] Chaparro Trammell M.D. Director [facility] # [id number] 37 Because ethnic data is not always [...] > or= 3.0 U. Studies performed at [facility] indicate that positive ELISA results <3.0 U are rarely accompanied by positive second order tests. Test Performed by: [address] [address] Chemistry Department Chair: Haris August II, M.D., Ph.D. 44 Due [...] > or= 3.0 U. Studies performed at [facility] indicate that positive ELISA results <3.0 U are rarely accompanied by positive second order tests. Test Performed by: [facility] [address] [place] [address] Chemistry Department Chair: Haris August II, M.D., Ph.D. 51 Low risk: <1.00 Average risk: 1.00-3.00 High risk: >3.00 52 Serologic response to B. burgdorferi infection is not detected, but cannot rule out early infection during which low or undetectable antibody levels to B. burgdorferi may be present. If clinically indicated, a new serum specimen should be submitted in 7-14 days. Test Performed by: [address] [address] Chemistry Department Chair: Haris August II, M.D., Ph.D. 53 Normal [...] (or dialysis) 63 ---- RUN DATE: 06/15/09 [facility] NMI LIVE PAGE 1 RUN TIME: 1455 Specimen Inquiry RUN USER: INTERFACE -- Name: CHAIM THOMAS Darrell Sharpe#: [id number] Status: [facility] Re06/10/09 Age/Sex: 38/F Unit#: [id number] Location: [facility] : [birth year] -- Specimen: [id number] Spec Date: 06/10/[address]: Lionel martinez MD Spec Type: SURGICAL P Received: 06/10/09-3223 Copies to: SPECIMEN C5-6 DISC HISTORY PRE-OP DIAGNOSIS: C5-6 Herniated disc with myelopathy. GROSS DESCRIPTION Specimen received in formalin labelled Chaim Thomas, C5-6 Disc and consists of multiple fragments of bony tissue measuring in aggregate 2.0 x 2.0 x 1.0 cm. Cigarette Machine Operator sections, one cassette. DIAGNOSIS Intervertebral disc, C5-6, discectomy - Intervertebral disc material and bone with degenerative changes. Signed Electronically by: CHAPARRO TRAMMELL MD 06/15/09 1452 -- -- DEPARTMENT OF PATHOLOGY, [address] [place] [address] [facility] Permit #[id number] Chaparro Trammell M.D. Director Daquan Gates M.D. Oncology Technician Dir jey -- 64 [id number] HARJIT SPRAGUE #7 TRANSFUSED 06/10/09 1044 65 [id number] TISSUE KIT TRANSFUSED 06/10/09 0722 66 SDS [...] Procedures Date CPT Code Description Status 09/27/2017 33088 Myocardial Perfusion Imaging Tomographic (Spect) Completed Multiple Studies 09/20/2017 32850 Stress Test Completed 09/20/2017 74293 Myocardial Perfusion Imaging Tomographic (Spect) Completed Multiple Studies 09/11/2017 54070 EKG Tracing & Interpretation Completed 01/05/2017 29568 ECHO Transthorasic Realtime 2D W Doppler & Color Flow Completed Hosp 08/02/2016 24214 Sleep Study Unattended,HRT Rate,Oxygen Sat,Resp Completed Effort/Airflow 05/04/2016 29043 Admin Of Inj Completed 01/14/2016 88515 Injection For Nerve Block, Greater Occipital Nerve Completed 01/12/2016 86158 Injection For Nerve Block, Greater Occipital Nerve Completed 11/18/2015 26203 Excision;Trochanteric Bursa Or Calcification Completed 11/18/2015 94458 Excision;Trochanteric Bursa Or Calcification Completed 09/24/2015 60506 Injection Single Tendon Origin/Insertion Completed 08/24/2015 Mammogram Completed 08/16/2015 23273 Admin Of Inj Completed 07/19/2015 88175 Admin Of Inj Completed 05/24/2015 31452 Admin Of Inj Completed 05/04/2015 78521 Admin Of Inj Completed 02/15/2015 19025 Admin Of Inj Completed 01/25/2015 00344 Admin Of Inj Completed 01/18/2015 04072 Admin Of Inj Completed 01/04/2015 46262 Admin Of Inj Completed 06/10/2009 79292 Discectomy,W/Decomp SP Cord/Nerve Root;Cervical Single Completed Interspace 06/10/2009 38074 Anterior Instrumentation 2-3 Vertebral Segments Completed 06/10/2009 76750 Arthrodesis, Anterior Cervical C2 And Below Completed 06/10/2009 94619 Allograft For Spine Surgery,Structural (Bone Bank) Completed Encounters Type Date Location Provider CPT E/M Dx Office Visit 09/26/2017 [facility], Raphael Thurman, 19419 R00.0 8:50a Hospitalists Anya F41.9 R53.83 Office Visit 09/25/2017 8:50a [facility] Raphael Thurman, 85104 R00.0 Hospitalnatty Joyner E16.2 Office Visit 09/11/2017 9:20a [facility] [place] [address] R07.9 Mathieu R20.2 R00.2 F41.9 Office Visit 07/11/2017 11:15a [facility] [address] G47.33 G43.019 G25.0 G25.2 G44.201 Office Visit 07/05/2017 1:15p Pulmonology And Sleep Roz Velazquez, 95848 G47.33 Services Of [facility] ELHAM RN, HAT BLOCKING MACHINE OPERATOR- G47.14 Z68.41 Office Visit 06/19/2017 11:40a [facility] [place] [address] J01.90 Mathieu R53.83 R10.9 Office Visit 02/06/2017 1:40p [facility] Internal Robby Richard, 92161 J45.991 Medicine - Mathieu Joyner,FACP G43.011 Office Visit 01/30/2017 1:46p [facility] Geo Silva 83681 G43.719 Anya Andrade R20.0 Office Visit 01/12/2017 11:30a [place] [address] G43.011 Neurologic Serv Of [facility] Anya Fuchs Office Visit 01/12/2017 9:20a [facility] [place] [address] T48.295A Mathieu J06.9 K59.00 Office Visit 01/06/2017 10:20a [facility] Jose Garcia, 60481 T48.295A H02.402 Office Visit 01/06/2017 10:49a [facility] PAULO Bliss [address]135 G89.29 Hospitalists T48.295A F41.9 Z86.69 Office Visit 01/05/2017 10:48a [facility] [place], [address] I63.9 Assoc, Hospitalists MHafsa F41.9 Z86.69 Office Visit 12/29/2016 9:45a Orthopedic Services Of Karely Guzmán M.D. 00961 M76.31 Genet Office Visit 12/20/2016 10:20a [facility] [place] [address] M25.551 - Mathieu R10.9 J01.90 Office Visit 12/14/2016 10:00a [facility] Joie Fuchs, 78213 G43.711 [facility] Anya Office Visit 09/12/2016 9:15a Pulmonology And Sleep Roz Velazquez, 86912 G47.33 Services [facility] ELHAM, RN, [facility]- G47.14 E66.01 Z68.41 Office Visit 09/04/2016 2:15p Neurosurgery Services Of Belen Celestin PA-C 73246 M54.2 [facility] M25.511 M25.512 Z98.1 Office Visit 08/21/2016 9:00a Orthopedic Services Gui Estrella, 34822 M54.12 Of Genet RIVER Office Visit 08/17/2016 8:30a [facility] Joie Fuchs, 07292 G43.719 Services [facility] Anya R25.1 Office Visit 08/15/2016 1:00p [facility] Internal Medicine Christelle King, N.P. 51847 J20.9 - [place] Office Visit 08/03/2016 10:00a [facility] [place] [address] M25.519 - [place] R10.9 D51.9 M54.2 Office Visit 07/26/2016 8:45a Pulmonology [place] [address] R06.83 Services [facility] G47.10 G47.53 R53.1 R12 E66.01 Z68.41 Office Visit 07/17/2016 1:40p [facility] [place] [address] D51.9 [place] M54.5 Office Visit 06/27/2016 10:00a [facility] Internal Medicine Christelle King, N.P. 03822 R53.83 - [place] E55.9 D51.9 M72.2 J01.90 Office Visit 05/25/2016 9:15a [facility] Joie Fuchs, 54760 G43.719 [facility] M.D. Office Visit 04/19/2016 11:40a [facility] [place] [address] J06.9 - [place] F41.9 Office Visit 01/27/2016 11:30a [facility] Joie Fuchs, 40185 G43.711 [facility] M.D. Office Visit 01/04/2016 9:40a [facility] Internal [place] [address] M54.31 - [place] Office Visit 11/09/2015 9:45a [facility] Joie Fuchs, 33110 G43.711 Services Of Protohistorian M.D. Office Visit 11/08/2015 9:00a [facility] [place] [address] Z01.818 - [place] M70.61 M76.01 G43.909 Office Visit 11/01/2015 9:15a Orthopedic Services Of Karely Guzmán M.D. 85658 M25.551 C.M.A. M70.61 M76.01 Office Visit 10/25/2015 9:30a [facility]opedic Services Of Karely Guzmán M.D. 82481 M54.5 C.M.A. M70.61 Office Visit 09/24/2015 10:00a Orthopedic Services Of Karely Guzmán M.D. 60502 M25.551 Genet M70.61 E66.01 Office Visit 09/06/2015 10:20a [facility] [place] [address] M25.551 [place] Office Visit 09/02/2015 3:15p [facility] Joie Fuchs, 06323 G43.011 Services [facility] M.DYas M54.2 M25.551 M25.579 Office Visit 08/16/2015 1:00p [facility] Internal Medicine Christelle King, N.P. 35049 F41.9 - [place] Z12.31 D51.9 N64.4 N60.11 N60.12 Office Visit 07/19/2015 9:40a [facility] [place] [address] F41.9 [place] F32.8 R05 D51.9 Office Visit 07/09/2015 2:00p [facility] [place] [address] J01.90 [place] R05 Office Visit 07/05/2015 11:40a [facility] [place] [address] J01.90 [place] Office Visit 06/02/2015 3:00p [facility] [place] [address] M54.2 [place] Office Visit 05/24/2015 8:40a [facility] [place] [address] F41.9 [place] D51.9 R10.9 Office Visit 04/15/2015 9:30a [facility] Joie Fuchs, 07784 G43.011 Services [facility] M.D. Office Visit 02/15/2015 11:40a [facility] [place] [address] M25.571 - [place] D51.9 Office Visit 01/13/2015 2:20p [facility] Internal Medicine Christelle King, N.P. 02000 G43.011 - [place] M54.5 Office Visit 12/22/2014 2:00p [facility] [place] [address] R53.83 [place] Z13.220 M46.1 Office Visit 11/30/2014 11:20a Neurosurgery Services Lionel Ramirez, 31008 723.1 Of Protohistorian M.D. V45.4 721.3 724.2 Office Visit 08/04/2014 9:15a Neurohospitalist [facility] Joie Fuchs, [id number] 346.90 M.D. Office Visit 06/02/2014 9:40a [facility], 43812 723.1 Protohistorian M.D. V45.4 724.2 Office Visit 02/03/2014 11:15a [facility] Jo[facility] Fuchs, 02720 784.0 Services Of Protohistorian M.D. Office Visit 12/03/2013 2:40p [facility], 64112 723.1 Of Protohistorian M.D. V45.4 Office Visit 10/07/2013 9:45a [facility] Jo[facility] Fuchs, 96620 723.8 Services Of Protohistorian M.D. 784.0 Office Visit 04/23/2013 2:40p [facility], [id number] 723.1 Of Protohistorian AT [facility].D. 722.71 V45.89 Office Visit 12/25/2012 8:45a [facility] Jo[facility] Fuchs, 90293 723.8 Services Of Protohistorian M.D. Office Visit 12/04/2012 9:40a [facility] Ramirez, 28273 723.1 Of Protohistorian AT [facility].D. Office Visit 10/29/2012 11:00a [facility] Jo[facility] Fuchs, 03763 723.8 Services Of Protohistorian M.D. Office Visit 08/05/2012 3:20p [facility], 21131 723.1 Of Protohistorian M.D. Office Visit 01/25/2012 2:00p [facility] Joie Fuchs, 48072 723.8 Services Of Protohistorian M.D. 729.5 Office Visit 11/23/2011 11:00a [place] Fuchs, 09696 346.90 Neurolog[facility] Serv Of Protohistorian M.D. 723.8 Office Visit 11/06/2011 1:20p [facility], 01698 723.1 Of Protohistorian M.D. Office Visit 09/25/2011 3:20p [facility], 33829 721.3 Of Protohistorian M.DYas 726.5 Office Visit 03/17/2011 2:20p [facility], 87268 721.3 Of Protohistorian M.DYas 726.5 Office Visit 11/14/2010 2:40p [facility], 78466 721.3 Of Protohistorian M.D. Office Visit 04/29/2010 1:40p [facility], 99587 722.71 Of Protohistorian M.D. Office Visit 09/16/2009 2:40p [facility], 48555 722.71 Of Protohistorian M.D. Office Visit 06/04/2009 1:40p [facility], 26757 722.0 Of Protohistorian M.DYas Office Visit 02/19/2007 4:00p [facility] Ramirez, 69481 721.3 Of Protohistorian M.DYas Plan of Care Future Appointment(s):01/02/2018 9:30 am - Jose Garcia MD at [id number]/25/2017 - Burton Will M.D.J06.9 Acute upper respiratory infection, unspecifiedNew Medication:Lidocaine Viscous 2 %
[2018-01-14 17:28] VITALS: BP 131/85
== END 2018-01-14 20:04 | disposition left against medical advice (07) ==
LOC: ED 15:30
DX: G43.909 Migraine, unspecified, not intractable, without status migrainosus (principal); Z53.21 Procedure and treatment not carried out due to patient leaving prior to being seen by health care provider

== ENCOUNTER 2018-03-17 19:56 | Emergency (ER) | payer OTHER ==
--- NOTE | 2018-03-17 20:13 | ED ---
HPI Chest Pain - HPI Summary HPI Summary: This patient is a 47 year old F brought in by ambulance to [facility] accompanied by her with a chief complaint of intermittent chest pain since 2 days ago. Patient reports that her pain was worse 2 days ago and was nearly constant. Patient reports that since 1 day ago, the pain lessened slightly and became more intermittent, lasting several minutes at a time. Patient reports that she was diagnosed with a sinus infection a few days ago. Patient reports that she was just sitting on the couch when the pain began. EMS administered ASA, NTG, and Zofran. The patient rates the pain 6/10 in severity. Symptoms aggravated by nothing. Symptoms alleviated by nothing. Patient reports fatigue since several weeks ago, diaphoresis, dizziness, swelling in ankles, and SOB. Patient denies nausea or palpitations. Hx of problems with B12, migraines, depression. Patient notes that she is taking amoxicillin for her sinus infection. - History of Current Complaint Chief Complaint: EDChestPainROMI Time Seen by Provider: 03/17/18 20:02 Hx Obtained From: Patient Hx Last Menstrual Period: a while - had uterine ablation Onset/Duration: Started Days Ago - 2 days, Atraumatic, Still Present Timing: Intermittent Initial Severity: Moderate Current Severity: Moderate Pain Intensity: 6 Pain Scale Used: 0-10 Numeric Chest Pain Radiates: No Character: Pressure/Squeezing Aggravating Factor(s): Nothing Alleviating Factor(s): Nothing Associated Signs and Symptoms: Positive: Chest Pain, Dizziness, Shortness of Breath, Diaphoresis. Negative: Nausea, Palpitations - Additional Pertinent History Primary Care Physician: ADILSON - Allergy/Home Medications Allergies/Adverse Reactions: Allergies Allergy/AdvReac Type Severity Reaction Status Date / Time ciprofloxacin Allergy Vomiting Verified 03/17/18 20:04 famotidine Allergy Unknown Verified 03/17/18 20:04 Reaction Details indomethacin Allergy Vomiting Verified 03/17/18 20:04 methocarbamol Allergy Vomiting Verified 03/17/18 20:04 niacin Allergy Unknown Verified 03/17/18 20:04 Reaction Details omeprazole Allergy Unknown Verified 03/17/18 20:04 Reaction Details verapamil Allergy Vomiting Verified 03/17/18 20:04 cephalexin AdvReac Intermediate Vomiting Verified 03/17/18 20:04 hydromorphone AdvReac Intermediate Headache Verified 03/17/18 20:04 Sulfa (Sulfonamide AdvReac Intermediate Vomiting Verified 03/17/18 20:04 Antibiotics) Home Medications: Home Medications Topiramate 100 mg PO SEE INSTRUCTIONS 03/17/18 [History Confirmed 03/17/18] Venlafaxine HCl 150 mg PO DAILY 03/17/18 [History Confirmed 03/17/18] hydrOXYzine HCl [Hydroxyzine HCl] 10 mg PO BID PRN 03/17/18 [History Confirmed 03/17/18] PMH/Surg Hx/FS Hx/Imm Hx Endocrine/Hematology History: Reports: Hx Anemia Denies: Hx Diabetes, Hx Thyroid Disease Cardiovascular History: Reports: Hx Hypertension Denies: Hx Congestive Heart Failure, Hx Pacemaker/ICD, Other Cardiovascular Problems/Disorders Respiratory History: Reports: Hx Asthma Denies: Hx Chronic Obstructive Pulmonary Disease (COPD), Other Respiratory Problems/Disorders GI History: Reports: Hx Ulcer Denies: Other GI Disorders History: Denies: Hx Renal Disease, Other Problems/Disorders Musculoskeletal History: Reports: Hx Back Problems, Hx Bursitis - RIGHT HIP Denies: Hx Rheumatoid Arthritis, Hx Osteoporosis, Other Musculoskeletal History Sensory History: Denies: Hx Contacts or Glasses, Hx Hearing Aid Opthamlomology History: Denies: Hx Contacts or Glasses Neurological History: Reports: Hx Headaches - migraines, Hx Migraine - receives Botox, Other Neuro Impairments/Disorders - PAIN CLINIC PT Psychiatric History: Reports: Hx Anxiety - ON MEDS PRN, Hx Depression, Hx Panic Disorder - Cancer History Hx Chemotherapy: No Hx Radiation Therapy: No - Surgical History Surgery Procedure, Year, and Place: c-spine fusion 2007, . 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 c-sections x2-TUBAL LIGATION 1997. left ankle surgery, RIGHT HIP SURGERY FOR BURSITIS. Lt breast biopsy LUMPECTOMY. RIGHT HIP BURSECTOMY-11/2015 Hx Anesthesia Reactions: No Infectious Disease History: No Infectious Disease History: Denies: Hx Clostridium Difficile, Hx Hepatitis, Hx Human Immunodeficiency Virus (HIV), Hx of Known/Suspected MRSA, Hx Shingles, Hx Tuberculosis, History Other Infectious Disease, Traveled Outside the [place] in Last 30 Days - Family History Known Family History: Positive: Cardiac Disease - Social History Alcohol Use: Occasionally Alcohol Amount: 2 PER MONTH Substance Use Type: Reports: None Hx Tobacco Use: Yes Smoking Status (MU): Never Smoked Tobacco Have You Smoked in the Last Year: No Review of Systems Positive: Fatigue, Skin Diaphoresis Negative: Epistaxis Positive: Chest Pain. Negative: Palpitations Positive: Shortness Of Breath Negative: Nausea Positive: Edema - swelling in ankles Neurological: Other - positive dizziness All Other Systems Reviewed And Are Negative: Yes Physical Exam - Summary Physical Exam Summary: Appearance: Well-appearing, obese, lying in bed comfortably Skin: Warm, dry, no obvious rash Eyes: sclera anicteric, no conjunctival pallor ENT: mucous membranes moist, pharynx appears normal Neck: Supple, nontender Respiratory: Clear to auscultation, no signs of respiratory distress Cardiovascular: Normal S1, S2. No murmurs. Normal distal pulses in tibial and radial bilaterally. Abdomen: Soft, nontender, normal active bowel sounds present Musculoskeletal: Normal, Strength/ROM Intact Neurological: A&Ox3, awake and alert, mentation is normal, speech is fluent and appropriate Psychiatric: affect is normal, does not appear anxious or depressed Triage Information Reviewed: Yes Vital Signs On Initial Exam: Initial Vitals Temp Pulse Resp BP Pulse Ox 97.5 F 88 12 115/70 94 03/17/18 19:58 03/17/18 19:58 03/17/18 19:58 03/17/18 19:58 03/17/18 19:58 Vital Signs Reviewed: Yes Diagnostics - Vital Signs Vital Signs Temp Pulse Resp BP Pulse Ox 03/17/18 19:58 97.5 F 88 12 115/70 94 - Laboratory Result Diagrams: 03/17/18 20:24 03/17/18 20:24 Lab Statement: Any lab studies that have been ordered have been reviewed, and results considered in the medical decision making process. - Radiology CXR Radiology Interpretation Completed By: ED Physician Summary of Radiographic Findings: no acute disease - EKG 19:56 Cardiac Rate: NL - at 84 bpm EKG Rhythm: Sinus Rhythm ST Segment: Normal Ectopy: None Summary of EKG Findings: NSR at 84 bpm, P waves, QRS complex, and T waves are within normal limits, T waves and intervals are normal, no ischemic changes. Chest Pain Course/Dx - Course Course Of Treatment: This patient is a 47 year old F with hx of depression and migraines brought in by ambulance to [facility] accompanied by her with a chief complaint of intermittent chest pain since 2 days ago. Patient reports that she was diagnosed with a sinus infection a few days ago. EMS administered ASA, NTG, and Zofran. The patient rates the pain 6/10 in severity. Patient reports fatigue since several weeks ago, diaphoresis, dizziness, swelling in ankles, and SOB. Patient denies nausea or palpitations. An EKG reveals NSR at 84 bpm, P waves, QRS complex, and T waves are within normal limits, T waves and intervals are normal, no ischemic changes. CXR reveals no acute disease. Test results with no significant abnormalities. Patient will be discharged with follow up from PCP. The patient is agreeable with this plan. - Diagnoses Provider Diagnoses: Non-cardiac chest pain Discharge - Sign-Out/Discharge Documenting (check all that apply): Patient Departure - Discharge Plan Condition: Stable Disposition: HOME Patient Education Materials: Noncardiac Chest Pain (ED) Referrals: Cceil Holland [employer]PERATOR [Nurse Practitioner] - 2 Days (if not better) - Billing Disposition and Condition Condition: STABLE Disposition: Home - Attestation Statements Document Initiated by Cande: Yes Documenting Scribe: Cherie Han Provider For Whom Cande is Documenting (Include Credential): Samuel Mercedes MD Scribe Attestation: Cherie Sinclair, chicaed for Samuel Mercedes MD on 03/18/18 at 0216. Scribe Documentation Reviewed: Yes Provider Attestation: The documentation as recorded by the Cherie elias accurately reflects the service I personally performed and the decisions made by , Samuel Mercedes MD Status of Scribe Document: Viewed
[2018-03-17 20:34] LABS: ABS Basophils 0 10^3/ul (0-0.2); ABS Eosinophils 0 10^3/ul (0-0.6); ABS Lymphocytes 1.8 10^3/ul (1.0-4.8); ABS Monocytes 0.5 10^3/ul (0-0.8); ABS Neutrophils 3.8 10^3/ul (1.5-7.7); ABS Nucleated RBC 0 10^3/ul; Eosinophil % 0 %; Hematocrit 38 % (35-47); Hemoglobin 12.5 g/dl (12.0-16.0); Lymphocyte % 30.2 %; Mean Corpuscular HGB Conc 33 g/dl (31-36); Mean Corpuscular Hemoglobin 30 pg (27-31); Mean Corpuscular Volume 91 fL (80-97); Mean Platelet Volume 8.1 fL (7.4-10.4); Nucleated Red Blood Cells % 0; Platelet Count 271 10^3/ul (150-450); Red Blood Count 4.17 10^6/ul (4.00-5.40); Red Cell Distribution Width 16 % (10.5-15); White Blood Count 6.1 10^3/ul (3.5-10.8)
[2018-03-17 20:48] LABS: EGFR Non-African American 60.1 (>60)
[2018-03-17] MEDS ORDERED: Acetaminophen TAB* 325 MG PO ONE (22:44)
[2018-03-17 23:59] VITALS: BP 99/59
== END 2018-03-17 23:59 | disposition home or self-care (01) ==
LOC: ED 19:56
DX: R07.9 Chest pain, unspecified (principal); R42 Dizziness and giddiness; R06.02 Shortness of breath; Z88.2 Allergy status to sulfonamides; Z88.3 Allergy status to other anti-infective agents; Z88.1 Allergy status to other antibiotic agents; R60.0 Localized edema
CPT/HCPCS: 36415; 71046; 80053; 84443; 84484; 85025; 93005; 99284; A9270-GY

== ENCOUNTER 2018-06-25 12:05 | Emergency (ER) | payer OTHER ==
--- OUTSIDE RECORDS SUMMARY | 2018-06-25 12:29 | XMS REPORT | Continuity of Care Document ---
:1970 External Reference #:[id number] Author Name Raquel Jeffrey Care Team Providers Name Role Phone Chaparro Naranjo PA Primary Care Physician Unavailable Payers Date Identification Numbers Payment Provider Subscriber Effective: 2012 Policy Number: [id number] [employer] Alex Thomas Group Number: [id number] [address] Group Name: [place] [address] PayID: [id number] Policy Number: [id number] Medicare Chaim Thomas PayID: [id number] [address] [place] [address] Advance Directives Description No Information Available Problems Date Description Provider Status Onset: 04/23/2013 [...] 12/31/2014 Vitamin B12 deficiency (non Cecil Amalia, DEVELOPMENT CONSULTANT Active anemic) Onset: 09/02/2015 Multiple joint pain [...] apnea syndrome Roz Velazquez DNP, RN, Active RV TECHNICIAN-BC Onset: 09/12/2016 Hypersomnia Roz Velazquez DNP, RAFIA, Active RV TECHNICIAN-BC Onset: 12/29/2016 Iliotibial band friction syndrome Karely [...] MD Active Family History Date Family Member(s) Observation Comments General Heart disease, cancer, and diabetes in immediate family Father Hypertension Father Hypercholesterolemia Father Heart Disease Mother due to Heart Disease () Mother Diabetes Mother Hypercholesterolemia Mother Hypertension Social History Type Date Description Comments Sex Unknown Marital Status Lives With 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 08/04/2014 Dilaudid Active 12/22/2014 Sulfa Antibiotics Active 12/22/2014 Cipro Active 12/22/2014 Keflex Active 05/31/2015 Omeprazole Active Mild caused burning in chest 10/19/2015 Indomethacin Nausea and Vomiting Active Severe 11/08/2015 Verapamil hEADACHES Active 05/03/2016 Guaifenisen-Codeine Hallucinations Active 08/17/2016 Famotidine Active Medications Medication Date Status Form Strength Qnty SIG Indications Ordering Provider Brandon 01/22 Active Soln 225mg/1.5 1unit inject Prefill ML s once a Jose Syringe bin#[id number] pcn#cn grp#[id number] id#[id number] Syringe/Luer 05/04 Active Misc 25G X 10uni intramusc Cecil Lock/3ML/25G X /2016 1-1/2" 3 ts Amalia ventura NP 1-1/2" ML once monthly with cyanocoba kannan Ondansetron 01/13 Active Tablets 4mg 30tab 1 three G43.909 Dispers s times a , day as M.D. needed for nausea Depakote 11/[address] 500mg 90tab 1 tab in G43.011 s pm MD Jose Topiramate 08/04 Active Tablets 50mg 150ta 2 tabs by Jose bs mouth in Jose, the in the morning, 3 tabs in the at night Hydrocodone-Aceta 06/17 Active Tablets 5-325mg 60tab 1-2 by M54.2 Joie torres s mouth Jef, every 6 M.D. hours as needed (30 day supply) Lyrica 12/25 Active Capsules 150mg 60cap take two Jose s capsules Jose, by mouth every evening Tylenol PM Extra Active Tablets 500-25mg 1-2 tab Unknown Strength /0000 at bedtime Trazodone HCL Active Tablets 100mg 60tab Take Two Cecil / s Tablets IVAN Holland By Mouth AT Bedtime Meloxicam Active Tablets 7.5mg take one Unknown /0000 tab twice daily as needed for pain Rizatriptan Active Tablets 10mg 1 by Unknown Benzoate /0000 mouth as needed for headache may repeat once in 2 hours max 2 days a week Tizanidine HCL Active Capsules 4mg 1 cap po Unknown /0000 up t0 3x daily as needed Venlafaxine HCL Active Tablets 75mg 2 by Unknown /0000 mouth every day Magnesium Active Capsules 300mg 1 by Unknown /0000 mouth every day Vitamin B Complex Active Tablets 1 by Unknown /0000 mouth every day Vitamin C Active Capsules 500mg 1 by Unknown /0000 mouth every day Probiotic Active Capsules 1 tab a Unknown Acid day Lidocaine Viscous 12/25 Hx Solution 2% 200ml swish and J06.9 Burton E. spit 15cc Nicolette, - up to M.D. 01/01 times a day as needed Ativan 09/11 Hx Tablets 0.5mg 30tab take 1 F41.9 Cecil s tab by IVAN Holland - mouth 01/01 every hours as needed for anxiety Doxycycline 06/19 Hx Capsules 100mg 20cap one J01.90 Cecil Hyclate s tablet IVAN Holland - twice 06/29 daily for 10 days. Cyanocobalamin 02/04 Hx Solution 1000mcg/M 1unit inject 1 L s millilite IVAN Holland - rs 06/09 intramusc ularly once a month Azithromycin 01/17 Hx Tablets 250mg 6tabs 2 [...] Hx Capsules 200mg 30cap one by Kevin06.9 Cecil s mouth IVAN Holland - three 09/11 times daily as needed for cough Doxycycline 12/22 Hx Capsules 100mg 20cap one J01.90 Cecil Hyclate s tablet IVAN Holland - twice 01/12 daily for 10 days. Pantoprazole 12/[address] 20mg 30tab take 1 R10.9 Cecil Sodium s tablet by IVAN Holland - mouth one 02/06 daily Augmentin 12/20 Hx Tablets 875-125mg 20tab 1 tablet [email or web address] Cecil s by mouth IVAN Holland - q12 [...] as needed Vitamin D3 06/27 Hx Capsules [id number] 4caps one by E55.9 Christelle /2017 mouth Varn, N.P. - once 08/26 Augmentin 06/27 Hx Tablets 875-125mg 28tab one by J01.90 Christelle /2017 s mouth Varn, N.P. - every 12 07/11 hours 14 days Medrol 06/27 Hx TBPK 4mg 21uni 6 by Kevin01.90 Christelle /2017 ts mouth day Varn, N.P. - 1, 5 by 07/03 mouth 2, 4 by mouth day 3, 3 by mouth day 4, 2 by mouth day 5, 1 by mouth day 6 Levofloxacin 05/16 Hx Tablets 500mg 10tab one by Cecil s mouth IVAN Holland - daily for 05/26 Azithromycin 05/03 Hx Tablets 250mg 6tabs 2 tabs by Cecil mouth IVAN Holland - every day 05/07 x1 day, tab by mouth every day x 4 days Cyanocobalamin 04/30 Hx Solution 1000mcg/M 25ml 1.0 cubic Cecil L centimete IVAN Holland - rs 12/13 intramusc ular once monthly Guaifenesin-Codei 04/19 Hx Syrup 100-10mg/ 180ml 1-2 J06.9 Cecil 5ML teaspoon IVAN Holland - every 4-6 04/24 hours cough Escitalopram 04/19 Hx Tablets 20mg 30tab Take One Cecil Oxalate s Tablet By IVAN Holland - Mouth 06/09 Every Ativan 03/22 Hx Tablets 0.5mg 30tab take 1 Cecil s tab by IVAN Holland - mouth 07/11 every hours as needed for anxiety Prednisone 02/22 Hx Tablets 20mg 6tabs 3 by Geo S. mouth x1 Raymond, - day then M.D. 04/19 2 by mouth x1 day then 1 by mouth every day and stop Rizatriptan 01/10 Hx Tablets 10mg 14tab 1 by Joie Novaate s mouth [place], - twice a M.D. 07/11 day needed headache max 2 days a week Percocet 01/06 Hx Tablets 5-325mg 60tab 1 -2 tabs s by mouth Jacobo, - every 4-6 [...] Hx Tablets 5-325mg 60tab 1-2 M25.551 Cherie /2016 s tablets [place]ord[place], - by mouth DEVELOPMENT CONSULTANT 01/10 every - hours as needed for pain Colace 10/31 Hx Capsules 100mg 90cap 1 by M25.551 Cherie s mouth up [place], - to 3 DEVELOPMENT CONSULTANT 12/22 times day as needed for constipat ion. Aspirin Ec 10/[address] 325mg 20tab 1 by M25.551 Cherie s mouth Namita, - twice DEVELOPMENT CONSULTANT 01/03 daily for 10 days to prevent blood clots Verapamil HCL 10/18 Hx Tablets 40mg 60tab 1 tab by Zuri s mouth MD Hallie - every 11/07 night at bedtime x1 week then 1 twice daily Indomethacin 09/19 Hx Capsules 25mg 120ca 1-4 caps Joie Oh ps by mouth Jef - as M.DYas 10/18 directed Vitamin D3 08/17 Hx Capsules [id number] 12cap Once Cecil s weekly x IVAN Holland - 12 weeks 01/25 Levaquin 07/29 Hx Tablets 500mg 5tabs 1 tab daily Sy Thurman M.D. 08/15 Escitalopram 07/18 Hx Tablets 10mg 30tab take one Cecil s tablet by IVAN Holland - mouth 04/19 every day Fluticasone 07/08 Hx Suspension 50mcg/Act 16gm 2 sprays J01.90 Cecil Propionate each IVAN Holland - nostril 07/18 qd. Levofloxacin 07/08 Hx Tablets 500mg 10tab one by [email or web address] Cecil s mouth IVAN Holland - daily for 07/18 10 Pulmicort 07/08 Hx Aerosol 180mcg/Ac 1unit 2 puffs R05 Cecil Flexhaler t s twice IVAN Holland - daily 07/25 Ventolin HFA 07/07 Hx Aerosol 108(90Bas 1unit 2 puffs 4 e) s times a Varn, N.P. - mcg/Act day as 09/05 Azithromycin 07/04 Hx Tablets 250mg 6tabs 2 tabs by [email or web address] Cecil mouth IVAN Holland - every day 07/08 x1 day, tab by mouth every day x 4 days Guaifenesin-Codei 07/04 Hx Syrup 100-10mg/ 180ml 1-2 J01.90 Cecil 5ML teaspoon Amalia, DEVELOPMENT CONSULTANT - every 4-6 04/14 hours cough Medrol (Owen) 06/01 Hx Tablets 4mg 21tab take 6 M54.2 s tabs day Amalia DEVELOPMENT CONSULTANT - 1, 5 tabs 06/07 day 2, tabs day 3, 3 tabs day 4, 2 tabs day 5, and 1 tab day 6. Lidocaine HCL 06/01 Hx Cream 3% 85gm apply M54.2 Cecil twice a Amalia DEVELOPMENT CONSULTANT - day as 07/04 needed painful areas. Rabeprazole 05/[address] 20mg 30tab 1 by Cecil Sodium s mouth Amalia, DEVELOPMENT CONSULTANT - every day 10/18 Vistaril 05/24 Hx Capsules 25mg 30cap 1-2 by F41.9 Cecil s mouth Amalia, DEVELOPMENT CONSULTANT - four 11/07 daily as needed Omeprazole 05/[address] 20mg 30cap 1 by R10.9 Cecil s mouth Amalia, DEVELOPMENT CONSULTANT - once 05/28 Sertraline HCL 05/07 Hx Tablets 100mg 60tab 2 by Cecil s mouth Amalia, DEVELOPMENT CONSULTANT - every day 07/18 Vitamin D3 05/03 Hx Capsules 5000Unit 60cap 1 by Cecil Maximum Strength s mouth Amalia, DEVELOPMENT CONSULTANT - twice 08/05 Vitamin D 12/29 Hx Capsules [id number] 12cap take one Cecil (Ergocalciferol) s capsule Amalia DEVELOPMENT CONSULTANT - once 05/03 for 12 weeks. Ferrous Sulfate 12/29 Hx Tablets 325(65Fe) 60tab take 1 mg s tablet Amalia DEVELOPMENT CONSULTANT - daily. 04/19 Cyanocobalamin 12/29 Hx Solution 1000mcg/M 25ml 1.0 cubic Cecil L centimete IVAN Holland - rs 11/07 intramusc ular every week for 4 weeks and then monthly Methylprednisolon 12/22 Hx Tablets 4mg QS as M46.1 Cecil e (Owen) directed Amalia DEVELOPMENT CONSULTANT - on 12/26 package Maxalt 08/04 Hx Tablets 10mg 12tab Take One Geo S. s Tablet By [place], - Mouth AT M.D. 01/03 Onset Migraine, May Repeat In 2 Hours Once, No More Than 2 Days A Week Acetaminophen-Cod 06/08 Hx Tablets 300-30mg 45tab 1-2 tab 723.1 Geo ortiz #3 s four [place], - times a M.D. 06/17 day needed for pain Oxycodone HCL 04/07 Hx Capsules 5mg 30cap 1 q8 Lionel Marcelino s serena Ramirez, - prnfor M.D. 06/02 pain Nortriptyline HCL [...] 30tab 1 by Cecil s mouth Amalia DEVELOPMENT CONSULTANT - every 05/07 night at bedtime Methocarbamol [...] tab by Trish s mouth as Patrizia DEVELOPMENT CONSULTANT - needed ; 01/13 repeat once in 2 hrs. no more than 2 doses in 24 hours, on no more than 2 days a week. Oxycodone/Acetami 05/23 Hx Tablets 5-325mg 15tab 1 tab by Joie Oh s mouth q Jef, - 6-8 hours M.D. 01/07 as needed Nortriptyline HCL 04/10 Hx Capsules 10mg 180ca 5 po qhs Joie Oh ps Sy FuchsDYas 11/27 Nortriptyline HCL 02/25 Hx Capsules 50mg 90cap take 1 po Joie Oh s daily as Jef - directed M.D. 04/10 Methylprednisolon 11/21 Hx Tablets 4mg 28tab two po Lionel Marcelino e s bid x 7 James - days only M.D. 10/29 Gabapentin 11/07 Hx Capsules 100mg 90cap 1 - 2 po Lionel Marcelino s qhs to James, - start and M.DYas 09/30 increase as tolerated graduall y up [...] 3 tid 2 days between each ch Conger 07/27 Hx Tablets 7.5-325mg 90tab one to Lionel Marcelino s two by James, - mouth M.D. 09/30 times a day as needed pain Topiramate Hx Tablets 100mg 180ta 1 po qhs Unknown /0000 bs - 08/04 Hydroxyzine HCL Hx Tablets 50mg 60tab take 1 Unknown s tablet by - mouth tid 09/30 prn Pantoprazole Hx Tablets DR 40mg Travis, Sodium /0000 Sy MéndezA. 06/02 Ibuprofen Hx Tablets 800mg by mouth Unknown /0000 three - times a 06/05 day needed Proair HFA Hx Aerosol 108(90Bas 2 puffs Unknown /0000 e) by mouth - mcg/Act every 4 / hours needed Hydroxyzine Hx Capsules 25mg 1-2 caps Unknown Pamoate /0000 by mouth - four 07/06 times day as needed for anxiety Cyclobenzaprine Hx Tablets 10mg 90tab one by Cecil HCL /0000 s mouth Amalia, DEVELOPMENT CONSULTANT - three 06/09 times day as needed spasm Divalproex Sodium Hx Tablets ER 250mg 3 tabs by Unknown ER /0000 24HR mouth at - bedtime 09/11 Meclizine HCL Hx Tablets 25mg 30tab 1 tablet Cecil /0000 s every 8 Amalia, DEVELOPMENT CONSULTANT - hours as 06/09 for vertigo Zolmitriptan Hx Tablets 5mg 6tabs 1 tab by Jose /0000 mouth Jose, - twice a MD maximum 2 days weekly Medications Administered in Office Medication Date Status [...] 016 Varn, N.P. B-12 Injection Administered Injection CecliTiffanie Torres DEVELOPMENT CONSULTANT B-12 Injection Administered Injection CecilTiffanie Torres DEVELOPMENT CONSULTANT B-12 Injection Administered Injection Nurse Visit 016 A B-12 Injection Administered Injection Cecil Amalia, 015 DEVELOPMENT CONSULTANT B-12 Injection Administered Injection Nurse Visit 015 C B-12 Injection Administered Injection Nurse Visit 015 C B-12 Injection Administered Injection Nurse Visit 015 C Immunizations CPT Code Status Date Vaccine Lot # [id number] Given 01/07/2018 Influenza Virus Vaccine, Quadrivalent, Split, Preservative Free Vital Signs Date Vital Result Comment 06/10/2018 2:27pm Height 63 inches 5'3" Weight 233.00 lb Heart Rate 86 /min BP Systolic 118 mmHg BP Diastolic 80 mmHg BMI (Body Mass Index) 41.3 kg/m2 01/02/2018 9:31am Height 63 inches 5'3" Weight 240.12 lb Heart Rate 88 /min BP Systolic 122 mmHg BP Diastolic 90 mmHg BMI (Body Mass Index) 42.5 kg/m2 12/25/2017 10:30am Height 63 inches 5'3" Weight 238.00 lb Heart Rate 86 /min BP Systolic Sitting 100 mmHg BP Diastolic Sitting 72 mmHg Body Temperature 97.8 F O2 % BldC Oximetry 98 % BMI (Body Mass Index) 42.2 kg/m2 09/11/2017 8:58am Height 63 inches 5'3" Weight 239.50 lb Heart Rate 87 /min BP Systolic 109 mmHg BP Diastolic 74 mmHg Body Temperature 97.8 F O2 % BldC Oximetry 99 % BMI (Body Mass Index) 42.4 kg/m2 07/11/2017 11:24am Height 63 inches 5'3" Weight 232.00 lb Heart Rate 87 /min BP Systolic Sitting 118 mmHg BP Diastolic Sitting 76 mmHg BMI (Body Mass Index) 41.1 kg/m2 07/05/2017 12:57pm Height 63 inches 5'3" Weight 235.25 lb Heart Rate 92 /min BP Systolic Sitting 116 mmHg Rue large cuff BP Diastolic Sitting 78 mmHg Rue large cuff Respiratory Rate 12 /min O2 % BldC Oximetry 93 % BMI (Body Mass Index) 41.7 kg/m2 06/19/2017 11:28am Weight 234.00 lb Heart Rate 87 /min BP Systolic 122 mmHg BP Diastolic 74 mmHg Body Temperature 98.4 F O2 % BldC Oximetry 99 % 02/06/2017 1:30pm Weight 245.00 lb Heart Rate 93 /min BP Systolic Sitting 120 mmHg BP Diastolic Sitting 80 mmHg Body Temperature 98.5 F O2 % BldC Oximetry 98 % 01/12/2017 9:07am Height 63 inches 5'3" Weight 245.00 lb Heart Rate 101 /min BP Systolic Sitting 114 mmHg BP Diastolic Sitting 76 mmHg Body Temperature 97.8 F O2 % BldC Oximetry 98 % BMI (Body Mass Index) 43.4 kg/m2 12/29/2016 10:30am Height 63 inches 5'3" Weight 245.00 lb Heart Rate 97 /min BP Systolic 113 mmHg BP Diastolic 76 mmHg BMI (Body Mass Index) 43.4 kg/m2 12/20/2016 10:19am Weight 245.00 lb Heart Rate 81 /min BP Systolic Sitting 102 mmHg BP Diastolic Sitting 76 mmHg Body Temperature 97.5 F Pain Level 6 R hip O2 % BldC Oximetry 94 % 12/14/2016 10:02am Height 63 inches 5'3" Weight 245.00 lb Heart Rate 96 /min BP Systolic Sitting 122 mmHg LA lg cuff BP Diastolic Sitting 92 mmHg LA lg cuff Respiratory Rate 28 /min BMI (Body Mass Index) 43.4 kg/m2 09/12/2016 9:33am Height 63 inches 5'3" Weight 240.00 lb Heart Rate 100 /min BP Systolic Sitting 124 mmHg BP Diastolic Sitting 80 mmHg Respiratory Rate 16 /min O2 % BldC Oximetry 98 % BMI (Body Mass Index) 42.5 kg/m2 09/04/2016 2:02pm Height 63 inches 5'3" Weight 240.00 lb BP Systolic Sitting 118 mmHg BP Diastolic Sitting 76 mmHg Pain Level 5 neck & shoulders BMI (Body Mass Index) 42.5 kg/m2 08/21/2016 9:10am Height 63 inches 5'3" Weight 240.00 lb Heart Rate 86 /min BP Systolic Sitting 122 mmHg BP Diastolic Sitting 82 mmHg Respiratory Rate 16 /min Body Temperature 97.9 F Pain Level 4 BMI (Body Mass Index) 42.5 kg/m2 08/17/2016 8:46am Height 63.5 inches 5'3.50" Weight 240.00 lb Heart Rate 80 /min BP Systolic Sitting 118 mmHg BP Diastolic Sitting 70 mmHg Respiratory Rate 14 /min BMI (Body Mass Index) 41.8 kg/m2 08/15/2016 11:57am Weight 245.75 lb Heart Rate 116 /min BP Systolic 118 mmHg BP Diastolic 60 mmHg Body Temperature 98.2 F O2 % BldC Oximetry 98 % 08/03/2016 9:54am Weight 247.00 lb Heart Rate 102 /min BP Systolic Sitting 142 mmHg BP Diastolic Sitting 100 mmHg Respiratory Rate 16 /min O2 % BldC Oximetry 98 % 07/26/2016 8:23am Height 63 inches 5'3" Weight 245.00 lb Heart Rate 99 /min BP Systolic Sitting 146 mmHg BP Diastolic Sitting 84 mmHg Respiratory Rate 16 /min O2 % BldC Oximetry 98 % BMI (Body Mass Index) 43.4 kg/m2 Neck Circumference in inches 15 07/17/2016 1:14pm Weight 246.50 lb Heart Rate 114 /min BP Systolic 126 mmHg BP Diastolic 80 mmHg Body Temperature 97.7 F O2 % BldC Oximetry 96 % 06/27/2016 9:40am Weight 248.00 lb with shoes Heart Rate 72 /min BP Systolic 114 mmHg BP Diastolic 80 mmHg Body Temperature 97.7 F O2 % BldC Oximetry 98 % 05/25/2016 9:12am Height 63 inches 5'3" Weight 240.00 lb Heart Rate 77 /min BP Systolic Sitting 127 mmHg BP Diastolic Sitting 72 mmHg Respiratory Rate 17 /min BMI (Body Mass Index) 42.5 kg/m2 04/19/2016 11:34am Weight 249.00 lb Heart Rate 97 /min BP Systolic Sitting 120 mmHg BP Diastolic Sitting 80 mmHg Respiratory Rate 18 /min Body Temperature 98.1 F O2 % BldC Oximetry 97 % 01/27/2016 11:35am Height 63 inches 5'3" Weight 235.00 lb Heart Rate 68 /min BP Systolic Sitting 130 mmHg BP Diastolic Sitting 80 mmHg Respiratory Rate 14 /min BMI (Body Mass Index) 41.6 kg/m2 01/14/2016 10:06am Height 63 inches 5'3" Weight 240.00 lb Heart Rate 105 /min BP Systolic 112 mmHg BP Diastolic 79 mmHg Pain Level 5 BMI (Body Mass Index) 42.5 kg/m2 01/12/2016 8:06am Height 63 inches 5'3" Weight 240.00 lb Heart Rate 76 /min BP Systolic Sitting 118 mmHg BP Diastolic Sitting 72 mmHg Respiratory Rate 16 /min BMI (Body Mass Index) 42.5 kg/m2 01/04/2016 9:44am Height 63 inches 5'3" Weight 239.00 lb Heart Rate 88 /min BP Systolic 115 mmHg BP Diastolic 84 mmHg Body Temperature 98.9 F BMI (Body Mass Index) 42.3 kg/m2 12/24/2015 8:52am Heart Rate 99 /min BP Systolic 120 mmHg BP Diastolic 81 mmHg Pain Level 5 11/26/2015 10:35am Height 63 inches 5'3" Weight 240.00 lb Body Temperature 97.8 F BMI (Body Mass Index) 42.5 kg/m2 11/09/2015 9:33am Height 63 inches 5'3" Weight 240.00 lb Heart Rate 84 /min BP Systolic Sitting 108 mmHg BP Diastolic Sitting 70 mmHg Pain Level 8 8/10 O2 % BldC Oximetry 96 % BMI (Body Mass Index) 42.5 kg/m2 11/08/2015 8:47am Weight 242.00 lb Heart Rate 80 /min BP Systolic Sitting 124 mmHg BP Diastolic Sitting 78 mmHg Respiratory Rate 15 /min Body Temperature 98.4 F O2 % BldC Oximetry 98 % 11/01/2015 9:00am Height 63.5 inches 5'3.50" Weight 237.00 lb Pain Level 8 BMI (Body Mass Index) 41.3 kg/m2 10/25/2015 8:56am Height 63.5 inches 5'3.50" Weight 237.00 lb Pain Level 7 BMI (Body Mass Index) 41.3 kg/m2 09/24/2015 9:51am Height 63.5 inches 5'3.50" Weight 237.00 lb Heart Rate 91 /min BP Systolic 121 mmHg BP Diastolic 77 mmHg Pain Level 7 BMI (Body Mass Index) 41.3 kg/m2 09/06/2015 10:32am Weight 238.50 lb Heart Rate 83 /min BP Systolic Sitting 111 mmHg BP Diastolic Sitting 81 mmHg Pain Level 8 O2 % BldC Oximetry 98 % 09/02/2015 3:11pm Height 63.5 inches 5'3.50" Weight 235.00 lb Heart Rate 64 /min BP Systolic Sitting 124 mmHg BP Diastolic Sitting 80 mmHg Respiratory Rate 14 /min BMI (Body Mass Index) 41.0 kg/m2 08/16/2015 12:52pm Height 63.5 inches 5'3.50" Weight 244.00 lb Heart Rate 88 /min BP Systolic Sitting 128 mmHg BP Diastolic Sitting 84 mmHg Respiratory Rate 15 /min Body Temperature 98.5 F O2 % BldC Oximetry 98 % BMI (Body Mass Index) 42.5 kg/m2 07/19/2015 9:50am Height 63.5 inches 5'3.50" Weight 234.00 lb Heart Rate 86 /min BP Systolic Sitting 124 mmHg BP Diastolic Sitting 78 mmHg Respiratory Rate 15 /min Body Temperature 98.0 F O2 % BldC Oximetry 98 % BMI (Body Mass Index) 40.8 kg/m2 07/09/2015 2:03pm Height 63.5 inches 5'3.50" Weight 239.00 lb Heart Rate 94 /min BP Systolic Sitting 126 mmHg BP Diastolic Sitting 78 mmHg Respiratory Rate 14 /min Body Temperature 98.5 F O2 % BldC Oximetry 98 % BMI (Body Mass Index) 41.7 kg/m2 07/05/2015 11:48am Height 63.5 inches 5'3.50" Weight 235.75 lb Heart Rate 96 /min BP Systolic Sitting 122 mmHg BP Diastolic Sitting 82 mmHg Respiratory Rate 16 /min Body Temperature 98.0 F Pain Level 7 O2 % BldC Oximetry 98 % BMI (Body Mass Index) 41.1 kg/m2 06/02/2015 3:01pm Height 63.5 inches 5'3.50" Weight 240.00 lb Heart Rate 89 /min BP Systolic Sitting 124 mmHg BP Diastolic Sitting 87 mmHg Body Temperature 96.4 F Pain Level 7 O2 % BldC Oximetry 99 % BMI (Body Mass Index) 41.8 kg/m2 05/24/2015 8:37am Height 63.5 inches 5'3.50" Weight 237.00 lb Heart Rate 74 /min BP Systolic Sitting 128 mmHg BP Diastolic Sitting 82 mmHg Respiratory Rate 15 /min Body Temperature 98.0 F O2 % BldC Oximetry 97 % BMI (Body Mass Index) 41.3 kg/m2 04/15/2015 9:31am Height 63.5 inches 5'3.50" Heart Rate 72 /min BP Systolic Sitting 126 mmHg BP Diastolic Sitting 72 mmHg Respiratory Rate 16 /min 02/15/2015 11:45am Weight 236.00 lb Heart Rate 86 /min BP Systolic Sitting 120 mmHg BP Diastolic Sitting 72 mmHg Respiratory Rate 14 /min Body Temperature 98.4 F O2 % BldC Oximetry 98 % 01/13/2015 2:17pm Weight 229.00 lb Heart Rate 85 /min BP Systolic Sitting 123 mmHg BP Diastolic Sitting 81 mmHg Body Temperature 97.8 F 12/22/2014 1:53pm Weight 224.00 lb Heart Rate 112 /min BP Systolic Sitting 131 mmHg BP Diastolic Sitting 85 mmHg Body Temperature 98.1 F 11/30/2014 11:28am Height 63 inches 5'3" Weight 220.00 lb Heart Rate 76 /min BP Systolic Sitting 138 mmHg BP Diastolic Sitting 80 mmHg Pain Level 9 neck BMI (Body Mass Index) 39.0 kg/m2 08/04/2014 9:06am Height 63 inches 5'3" Heart Rate 76 /min BP Systolic Sitting 126 mmHg BP Diastolic Sitting 84 mmHg Respiratory Rate 16 /min 06/02/2014 9:16am Height 63 inches 5'3" Weight 222.00 lb Heart Rate 88 /min BP Systolic Sitting 120 mmHg BP Diastolic Sitting 80 mmHg Pain Level 5 neck&back BMI (Body Mass Index) 39.3 kg/m2 02/03/2014 11:28am Height 63 inches 5'3" Weight 209.00 lb Heart Rate 76 /min BP Systolic Sitting 110 mmHg BP Diastolic Sitting 72 mmHg Respiratory Rate 16 /min BMI (Body Mass Index) 37.0 kg/m2 12/03/2013 2:37pm Height 63 inches 5'3" Weight 209.00 lb Heart Rate 86 /min BP Systolic Sitting 110 mmHg BP Diastolic Sitting 78 mmHg Pain Level 6 neck BMI (Body Mass Index) 37.0 kg/m2 10/07/2013 9:44am Height 63 inches 5'3" Weight 204.00 lb Heart Rate 88 /min BP Systolic Sitting 136 mmHg BP Diastolic Sitting 82 mmHg Respiratory Rate 20 /min BMI (Body Mass Index) 36.1 kg/m2 10/29/2012 10:55am Heart Rate 96 /min BP Systolic Sitting 122 mmHg BP Diastolic Sitting 76 mmHg Respiratory Rate 18 /min Results Test Date Facility Test Result H/L Range Note Laboratory test 10/01/2017 [facility] Point of Care 162 mg/dL High 70-100 [address] [place] [address] [phone] Laboratory test 10/01/2017 [facility] Point of Care 71 mg/dL N 70-100 [address] Glucose [place], [place] [id number] [phone] CBC Auto Diff 10/01/2017 [facility] White Blood 7.7 10^3/uL N 3.5-10.[address] [place] [address] [phone] Red Blood Count 3.94 10^6/uL Low 4.00-5.40 Hemoglobin 12.3 g/dL N 12.0-16.0 Hematocrit 37 % N 35-47 Mean Corpuscular Volume 93 fL N 80-97 Mean Corpuscular Hemoglobin 31 pg N 27-31 Mean Corpuscular HGB Conc 34 g/dL N 31-36 Red Cell Distribution Width 13 % N 10.5-15 Platelet Count 252 10^3/uL N 150-450 Mean Platelet Volume 7.9 um3 N 7.4-10.4 Abs Neutrophils 4.4 10^3/uL N 1.5-7.7 Abs Lymphocytes 2.4 10^3/uL N 1.0-4.8 Abs Monocytes 0.7 10^3/uL N 0-0.8 Abs Eosinophils 0.2 10^3/uL N 0-0.6 Abs Basophils 0.1 10^3/uL N 0-0.2 Abs Nucleated RBC 0 10^3/uL Granulocyte % 57.3 % N 38-83 Lymphocyte % 30.8 % N 25-47 Monocyte % 8.9 % High 0-7 Eosinophil % 2.3 % N 0-6 Basophil % 0.7 % N 0-2 Nucleated Red Blood Cells % 0 Laboratory test 10/01/2017 [facility] TSH (Thyroid 2.49 mcIU/mL N 0.34-5.[address] Stim [place]) [place] [address] [phone] Basic Metabolic 10/01/2017 [facility] Sodium 138 mmol/L N 135- [address] [place] [address] [phone] Potassium 4.2 mmol/L N 3.5-5.0 Chloride 107 mmol/L N 101-111 Co2 Carbon Dioxide 24 mmol/L N 22-32 Anion Gap 7 mmol/L N 2-11 Glucose 81 mg/dL N 70-100 Blood Urea Nitrogen 14 mg/dL N 6-24 Creatinine 0.90 mg/dL N 0.51-0.95 BUN/Creatinine Ratio 15.6 N 8-20 Calcium 9.2 mg/dL N 8.6-10.3 Egfr Non- 67.1 >60 Egfr 81.2 >60 3 Laboratory test 10/01/2017 [facility] Hemoglobin A1c 5.2 % N 4.0-5.6 [address] (Glyco HGB) [place] [address] [phone] Laboratory test 10/01/2017 [facility] Hemoglobin A1c 5.3 % N 4.0-5.6 5, [address] (Glyco HGB) [place] [address] [phone] Insulin Level 10.8 mcIU/mL N 2.0-16.0 7 C-Peptide 3.9 ng/mL 1.1 - 4.4 8 CBC Auto Diff 09/25/2017 [facility] White Blood 6.9 10^3/uL N 3.5-10.[address] [place] [address] [phone] Red Blood Count 4.00 10^6/uL N 4.00-5.40 Hemoglobin 12.7 g/dL N 12.0-16.0 Hematocrit 38 % N 35-47 Mean Corpuscular Volume 95 fL N 80-97 Mean Corpuscular Hemoglobin 32 pg High 27-31 Mean Corpuscular HGB Conc 33 g/dL N 31-36 Red Cell Distribution Width 14 % N 10.5-15 Platelet Count 250 10^3/uL N 150-450 Mean Platelet Volume 8.4 um3 N 7.4-10.4 Abs Neutrophils 3.7 10^3/uL N 1.5-7.7 Abs Lymphocytes 2.5 10^3/uL N 1.0-4.8 Abs Monocytes 0.5 10^3/uL N 0-0.8 Abs Eosinophils 0.2 10^3/uL N 0-0.6 Abs Basophils 0.1 10^3/uL N 0-0.2 Abs Nucleated RBC 0 10^3/uL Granulocyte % 53.6 % N 38-83 Lymphocyte % 36.0 % N 25-47 Monocyte % 6.9 % N 0-7 Eosinophil % 2.7 % N 0-6 Basophil % 0.8 % N 0-2 Nucleated Red Blood Cells % 0 Comp Metabolic Panel 09/25/2017 [facility] Sodium 140 mmol/L N 135-[address] [place] [address] [phone] Potassium 4.1 mmol/L N 3.5-5.0 Chloride 108 mmol/L N 101-111 Co2 Carbon Dioxide 27 mmol/L N 22-32 Anion Gap 5 mmol/L N 2-11 Glucose 62 mg/dL Low 70-100 Blood Urea Nitrogen 11 mg/dL N 6-24 Creatinine 0.99 mg/dL High 0.51-0.95 BUN/Creatinine Ratio 11.1 N 8-20 Calcium 9.4 mg/dL N 8.6-10.3 Total Protein 6.8 g/dL N 6.4-8.9 Albumin 3.7 g/dL N 3.2-5.2 Globulin 3.1 g/dL N 2-4 Albumin/Globulin Ratio 1.2 N 1-3 Total Bilirubin 0.30 mg/dL N 0.2-1.0 Alkaline Phosphatase 56 U/L N 34-104 Alt 8 U/L N 7-52 Ast 11 U/L Low 13-39 Egfr Non- 60.1 >60 Egfr 72.7 >60 9 Laboratory test 09/25/2017 [facility] Magnesium 2.0 mg/dL N 1.9-2.[address] [place] [address] [phone] HCG < 0.60 mIU/mL 10 Inr/Protime 09/25/2017 [facility] Inr 0.78 N 0.77-1.[address] [place] [address] [phone] Laboratory test 09/25/2017 [facility] Partial 28.3 seconds N 26.0-36.[address] [place] [address] PTT [phone] B-Type Natriuretic Peptide BNP 28 pg/mL 11 Troponin-I (TnI) 0.00 ng/mL <0.04 TSH (Thyroid Stim Horm) 1.31 mcIU/mL N 0.34-5.60 Laboratory test 09/25/2017 [facility] Point of Care 52 mg/dL Low 70-100 [address] [place] [address] [phone] Laboratory test 09/11/2017 [facility] B-Type 46 pg/mL [address] [place] [address] Peptide BNP [phone] CBC Auto Diff 09/11/2017 [facility] White Blood 6.5 N 3.5- 10.[address] Count 10^3/[place] [address] [phone] Red Blood Count 4.25 10^6/uL N 4.00-5.40 Hemoglobin 13.5 g/dL N 12.0-16.0 Hematocrit 41 % N 35-47 Mean Corpuscular Volume 96 fL N 80-97 Mean Corpuscular Hemoglobin 32 pg High 27-31 Mean Corpuscular HGB Conc 33 g/dL N 31-36 Red Cell Distribution Width 13 % N 10.5-15 Platelet Count 275 10^3/uL N 150-450 Mean Platelet Volume 8.3 um3 N 7.4-10.4 Abs Neutrophils 3.6 10^3/uL N 1.5-7.7 Abs Lymphocytes 2.4 10^3/uL N 1.0-4.8 Abs Monocytes 0.3 10^3/uL N 0-0.8 Abs Eosinophils 0.1 10^3/uL N 0-0.6 Abs Basophils 0 10^3/uL N 0-0.2 Abs Nucleated RBC 0 10^3/uL Granulocyte % 55.3 % N 38-83 Lymphocyte % 36.6 % N 25-47 Monocyte % 5.2 % N 0-7 Eosinophil % 2.1 % N 0-6 Basophil % 0.8 % N 0-2 Nucleated Red Blood Cells % 0 Comp Metabolic Panel 09/11/2017 [facility] Sodium 141 mmol/L N 139-[address] [place] [address] [phone] Potassium 4.6 mmol/L N 3.5-5.0 Chloride 109 mmol/L N 101-111 Co2 Carbon Dioxide 27 mmol/L N 22-32 Anion Gap 5 mmol/L N 2-11 Glucose 80 mg/dL N 70-100 Blood Urea Nitrogen 12 mg/dL N 6-24 Creatinine 1.00 mg/dL High 0.51-0.95 BUN/Creatinine Ratio 12.0 N 8-20 Calcium 9.2 mg/dL N 8.6-10.3 Total Protein 6.4 g/dL N 6.4-8.9 Albumin 3.7 g/dL N 3.2-5.2 Globulin 2.7 g/dL N 2-4 Albumin/Globulin Ratio 1.4 N 1-3 Total Bilirubin 0.40 mg/dL N 0.2-1.0 Alkaline Phosphatase 62 U/L N 34-104 Alt 9 U/L N 7-52 Ast 13 U/L N 13-39 Egfr Non- 59.4 >60 Egfr 76.4 >60 14 Laboratory test 09/11/2017 [facility] D Dimer < 200 N Less [address] Quantitative ng/mL Than [address] [place] [address] [phone] Magnesium 2.1 mg/dL N 1.9-2.7 TSH (Thyroid Stim Horm) 1.30 mcIU/mL N 0.34-5.60 Troponin-I (TnI) 0.00 ng/mL <0.04 Vitamin B12 393 pg/mL N 180-914 16 Laboratory test 07/31/2017 [facility] Surgical SEE RESULT 17, [address] [place] [address] Order [phone] Laboratory test 07/12/2017 [facility] TSH (Thyroid 1.94 N 0.34 - finding [address] Stim Horm) mcIU/mL 5.60 [place] [address] [phone] Comp Metabolic 06/19/2017 [facility] Sodium 140 mmol/L N 133- [address] [place] [address] [phone] Potassium 4.4 mmol/L N 3.5-5.0 Chloride 108 mmol/L N 101-111 Co2 Carbon Dioxide 27 mmol/L N 22-32 Anion Gap 5 mmol/L N 2-11 Glucose 74 mg/dL N 70-100 Blood Urea Nitrogen 12 mg/dL N 6-24 Creatinine 0.93 mg/dL N 0.51-0.95 BUN/Creatinine Ratio 12.9 N 8-20 Calcium 9.0 mg/dL N 8.6-10.3 Total Protein 6.0 g/dL Low 6.4-8.9 Albumin 3.5 g/dL N 3.2-5.2 Globulin 2.5 g/dL N 2-4 Albumin/Globulin Ratio 1.4 N 1-3 Total Bilirubin 0.50 mg/dL N 0.2-1.0 Alkaline Phosphatase 47 U/L N 34-104 Alt 12 U/L N 7-52 Ast 12 U/L Low 13-39 Egfr Non- 64.9 >60 Egfr 83.5 >60 19 Laboratory test 06/19/2017 [facility] Monospot Negative Negative [address] [place] [address] [phone] Vitamin B12 353 pg/mL N 180-914 21 Vitamin D Total 25(Oh) 22.5 ng/mL N 20-50 Urinalysis Profile 01/30/2017 [facility] Urine Color Straw N [address] [place] [address] [phone] Urine Appearance Clear N Urine Specific [place] 1.008 Low 1.010-1.030 Urine pH 7.0 N 5-9 Urine Urobilinogen Negative N Negative Urine Ketones Negative N Negative Urine Protein Negative N Negative Urine Leukocytes Negative N Negative Urine Blood Negative N Negative Urine Nitrite Negative N Negative Urine Bilirubin Negative N Negative Urine Glucose Negative N Negative CBC Auto Diff 01/30/2017 [facility] White Blood 5.8 10^3/uL N 3.5-10.[address] [place] [address] [phone] Red Blood Count 4.56 10^6/uL N 4.0-5.4 Hemoglobin 14.5 g/dL N 12.0-16.0 Hematocrit 44 % N 35-47 Mean Corpuscular Volume 96 fL N 80-97 Mean Corpuscular Hemoglobin 32 pg High 27-31 Mean Corpuscular HGB Conc 33 g/dL N 31-36 Red Cell Distribution Width 15 % N 10.5-15 Platelet Count 274 10^3/uL N 150-450 Mean Platelet Volume 8 um3 N 7.4-10.4 Abs Neutrophils 3.2 10^3/uL N 1.5-7.7 Abs Lymphocytes 2.0 10^3/uL N 1.0-4.8 Abs Monocytes 0.3 10^3/uL N 0-0.8 Abs Eosinophils 0.2 10^3/uL N 0-0.6 Abs Basophils 0 10^3/uL N 0-0.2 Abs Nucleated RBC 0 10^3/uL N Granulocyte % 55.6 % N 38-83 Lymphocyte % 34.2 % N 25-47 Monocyte % 6.0 % N 1-9 Eosinophil % 3.4 % N 0-6 Basophil % 0.8 % N 0-2 Nucleated Red Blood Cells % 0 N Inr/Protime 01/30/2017 [facility] Inr 0.82 Low 0.89-1.[address] [place] [address] [phone] Laboratory test 01/30/2017 [facility] Partial 24.8 Low 26.0- 36.3 finding [place] [address] PTT [phone] Lactic Acid 1.2 mmol/L N 0.5-2.0 22 Troponin-I (TnI) 0.00 ng/mL N <0.04 Comp Metabolic Panel 01/30/2017 [facility] Sodium 139 mmol/L N 133-[address] [place] [address] [phone] Potassium 3.9 mmol/L N 3.5-5.0 Chloride 110 mmol/L N 101-111 Co2 Carbon Dioxide 23 mmol/L N 22-32 Anion Gap 6 mmol/L N 2-11 Glucose 80 mg/dL N 70-100 Blood Urea Nitrogen 15 mg/dL N 6-24 Creatinine 0.91 mg/dL N 0.51-0.95 BUN/Creatinine Ratio 16.5 N 8-20 Calcium 9.2 mg/dL N 8.6-10.3 Total Protein 6.9 g/dL N 6.4-8.9 Albumin 3.8 g/dL N 3.2-5.2 Globulin 3.1 g/dL N 2-4 Albumin/Globulin Ratio 1.2 N 1-3 Total Bilirubin 0.40 mg/dL N 0.2-1.0 Alkaline Phosphatase 41 U/L N 34-104 Alt 8 U/L N 7-52 Ast 11 U/L Low 13-39 Egfr Non- 66.6 N >60 Egfr 85.6 N >60 23 Laboratory test 01/30/2017 [facility] Magnesium 2.1 mg/dL N 1.9-2.[address] [place] [address] [phone] Reactive Protein 3.67 mg/L N < 5.00 24 Valproic Acid (Depakene) 71.0 g/mL N 50-100 TSH (Thyroid Stim Horm) 1.03 mcIU/mL N 0.34-5.60 Urinalysis Profile 01/05/2017 [facility] Urine Color Yellow N [address] [place] [address] [phone] Urine Appearance Clear N Urine Specific [place] 1.012 N 1.010-1.030 Urine pH 6.0 N 5-9 Urine Urobilinogen Negative N Negative Urine Ketones Negative N Negative Urine Protein Negative N Negative Urine Leukocytes Negative N Negative Urine Blood Negative N Negative Urine Nitrite Negative N Negative Urine Bilirubin Negative N Negative Urine Glucose Negative N Negative Urine Drug 01/05/2017 [facility] Amphetamine Ur None Detected N None Detect SCR ED & [address] [place] [address] [phone] Barbiturates Urine Screen None Detected N None Detect Benzodiazepine Urine Screen None Detected N None Detect Urine Cannabinoids Screen None Detected N None Detect Urine Cocaine Screen None Detected N None Detect Urine Opiates Screen Presumptive Posi <SEE NOTE> Abnormal None Detect 25 Urine Phencyclidine Screen None Detected N None Detect 26 CBC Auto Diff 01/05/2017 [facility] White Blood 6.4 10^3/uL N 3.5-10.[address] [place] [address] [phone] Red Blood Count 3.83 10^6/uL Low 4.0-5.4 Hemoglobin 12.2 g/dL N 12.0-16.0 Hematocrit 37 % N 35-47 Mean Corpuscular Volume 96 fL N 80-97 Mean Corpuscular Hemoglobin 32 pg High 27-31 Mean Corpuscular HGB Conc 33 g/dL N 31-36 Red Cell Distribution Width 14 % N 10.5-15 Platelet Count 219 10^3/uL N 150-450 Mean Platelet Volume 8 um3 N 7.4-10.4 Abs Neutrophils 2.5 10^3/uL N 1.5-7.7 Abs Lymphocytes 3.1 10^3/uL N 1.0-4.8 Abs Monocytes 0.5 10^3/uL N 0-0.8 Abs Eosinophils 0.2 10^3/uL N 0-0.6 Abs Basophils 0.1 10^3/uL N 0-0.2 Abs Nucleated RBC 0 10^3/uL N Granulocyte % 39.4 % N 38-83 Lymphocyte % 49.0 % High 25-47 Monocyte % 7.5 % N 1-9 Eosinophil % 3.3 % N 0-6 Basophil % 0.8 % N 0-2 Nucleated Red Blood Cells % 0.1 N Inr/Protime 01/05/2017 [facility] Inr 0.90 N 0.89-1.[address] [place] [address] [phone] Laboratory test 01/05/2017 [facility] Partial 26.0 seconds N 26.0-36.[address] [place] [address] PTT [phone] Lactic Acid 0.8 mmol/L N 0.5-2.0 27 Comp Metabolic Panel 01/05/2017 [facility] Sodium 138 mmol/L N 133-145 [address] [place] [address] [phone] Potassium 3.5 mmol/L N 3.5-5.0 Chloride 109 mmol/L N 101-111 Co2 Carbon Dioxide 22 mmol/L N 22-32 Anion Gap 7 mmol/L N 2-11 Glucose 80 mg/dL N 70-100 Blood Urea Nitrogen 19 mg/dL N 6-24 Creatinine 0.84 mg/dL N 0.51-0.95 BUN/Creatinine Ratio 22.6 High 8-20 Calcium 8.3 mg/dL Low 8.6-10.3 Total Protein 5.7 g/dL Low 6.4-8.9 Albumin 3.2 g/dL N 3.2-5.2 Globulin 2.5 g/dL N 2-4 Albumin/Globulin Ratio 1.3 N 1-3 Total Bilirubin 0.40 mg/dL N 0.2-1.0 Alkaline Phosphatase 43 U/L N 34-104 Alt 7 U/L N 7-52 Ast 11 U/L Low 13-39 Egfr Non- 73.0 N >60 Egfr 93.9 N >60 28 Lipid Profile 01/05/2017 [facility] Triglycerides 112 mg/dL N 29 (Trig/Chol/HDL) [address] [place] [address] [phone] Cholesterol 170 mg/dL N 30 HDL Cholesterol 43.7 mg/dL N 31 LDL Cholesterol 104 mg/dL N 32 Laboratory test finding 01/05/2017 [facility] Alcohol < 10 mg/ dL N <[address] [place] [address] [phone] Troponin-I (TnI) 0.01 ng/mL N <0.04 HCG < 0.60 mIU/mL N 33 TSH (Thyroid Stim Horm) 3.54 mcIU/mL N 0.34-5.60 Laboratory 12/06/2016 [facility] Vitamin B12 213 pg/mL N 180- 914 34 test finding [address] [place] [address] [phone] Rapid 08/15/2016 [facility] Influenza A POSITIVE Abnormal Negative 35 Influenza A & [address] [place] [address] [phone] Influenza B Molecular NEGATIVE N Negative Laboratory test 08/15/2016 [facility] Influenza A & B SEE RESULT [address] [place] [address] [phone] CBC Auto Diff 08/03/2016 [facility] White Blood 7.0 10^3/uL N 3.5-[address] Count .8 [place] [address] [phone] Red Blood Count 4.38 10^6/uL N 4.0-5.4 Hemoglobin 13.7 g/dL N 12.0-16.0 Hematocrit 41 % N 35-47 Mean Corpuscular Volume 94 fL N 80-97 Mean Corpuscular Hemoglobin 31 pg N 27-31 Mean Corpuscular HGB Conc 33 g/dL N 31-36 Red Cell Distribution Width 14 % N 10.5-15 Platelet Count 251 10^3/uL N 150-450 Mean Platelet Volume 9 um3 N 7.4-10.4 Abs Neutrophils 4.0 10^3/uL N 1.5-7.7 Abs Lymphocytes 2.3 10^3/uL N 1.0-4.8 Abs Monocytes 0.4 10^3/uL N 0-0.8 Abs Eosinophils 0.2 10^3/uL N 0-0.6 Abs Basophils 0 10^3/uL N 0-0.2 Abs Nucleated RBC 0 10^3/uL N Granulocyte % 57.6 % N 38-83 Lymphocyte % 32.7 % N 25-47 Monocyte % 6.4 % N 1-9 Eosinophil % 2.8 % N 0-6 Basophil % 0.5 % N 0-2 Nucleated Red Blood Cells % 0 N Comp Metabolic Panel 08/03/2016 [facility] Sodium 138 mmol/L N 133-145 [address] [place] [address] [phone] Potassium 4.1 mmol/L N 3.5-5.0 Chloride 105 mmol/L N 101-111 Co2 Carbon Dioxide 26 mmol/L N 22-32 Anion Gap 7 mmol/L N 2-11 Glucose 74 mg/dL N 70-100 Blood Urea Nitrogen 17 mg/dL N 6-24 Creatinine 0.91 mg/dL N 0.51-0.95 BUN/Creatinine Ratio 18.7 N 8-20 Calcium 9.0 mg/dL N 8.6-10.3 Total Protein 6.4 g/dL N 6.4-8.9 Albumin 3.8 g/dL N 3.2-5.2 Globulin 2.6 g/dL N 2-4 Albumin/Globulin Ratio 1.5 N 1-3 Total Bilirubin 0.40 mg/dL N 0.2-1.0 Alkaline Phosphatase 49 U/L N 34-104 Alt 7 U/L N 7-52 Ast 10 U/L Low 13-39 Egfr Non- 66.9 N >60 Egfr 86.0 N >60 37 Laboratory test finding 08/03/2016 [facility] Amylase 26 U/L Low 29-103 [address] [place] [address] [phone] Lipase 10 U/L Low 11.0-82.0 Vitamin B12 245 pg/mL N 180-914 38 Urinalysis Profile 08/03/2016 [facility] Urine Color Yellow N [address] [place] [address] [phone] Urine Appearance Clear N Urine Specific [place] 1.014 N 1.010-1.030 Urine pH 6.0 N 5-9 Urine Urobilinogen Negative N Negative Urine Ketones Trace Abnormal Negative Urine Protein Negative N Negative Urine Leukocytes Negative N Negative Urine Blood Negative N Negative Urine Nitrite Negative N Negative Urine Bilirubin Negative N Negative Urine Glucose Negative N Negative CBC Auto Diff 04/27/2016 [facility] White Blood 7.6 10^3/uL N 3.5-10.[address] [place] [address] [phone] Red Blood Count 4.42 10^6/uL N 4.0-5.4 Hemoglobin 13.9 g/dL N 12.0-16.0 Hematocrit 42 % N 35-47 Mean Corpuscular Volume 94 fL N 80-97 Mean Corpuscular Hemoglobin 31 pg N 27-31 Mean Corpuscular HGB Conc 33 g/dL N 31-36 Red Cell Distribution Width 13 % N 10.5-15 Platelet Count 246 10^3/uL N 150-450 Mean Platelet Volume 8 um3 N 7.4-10.4 Abs Neutrophils 4.1 10^3/uL N 1.5-7.7 Abs Lymphocytes 2.7 10^3/uL N 1.0-4.8 Abs Monocytes 0.7 10^3/uL N 0-0.8 Abs Eosinophils 0.1 10^3/uL N 0-0.6 Abs Basophils 0 10^3/uL N 0-0.2 Abs Nucleated RBC 0.01 10^3/uL N Granulocyte % 53.2 % N 38-83 Lymphocyte % 35.0 % N 25-47 Monocyte % 9.6 % High 1-9 Eosinophil % 1.6 % N 0-6 Basophil % 0.6 % N 0-2 Nucleated Red Blood Cells % 0.1 N Comp Metabolic Panel 04/27/2016 [facility] Sodium 138 mmol/L N 133-145 [address] [place] [address] [phone] Potassium 3.9 mmol/L N 3.5-5.0 Chloride 105 mmol/L N 101-111 Co2 Carbon Dioxide 27 mmol/L N 22-32 Anion Gap 6 mmol/L N 2-11 Glucose 81 mg/dL N 70-100 Blood Urea Nitrogen 17 mg/dL N 6-24 Creatinine 0.90 mg/dL N 0.51-0.95 BUN/Creatinine Ratio 18.9 N 8-20 Calcium 9.1 mg/dL N 8.6-10.3 Total Protein 6.5 g/dL N 6.4-8.9 Albumin 3.8 g/dL N 3.2-5.2 Globulin 2.7 g/dL N 2-4 Albumin/Globulin Ratio 1.4 N 1-3 Total Bilirubin 0.50 mg/dL N 0.2-1.0 Alkaline Phosphatase 48 U/L N 34-104 Alt 9 U/L N 7-52 Ast 11 U/L Low 13-39 Egfr Non- 67.7 N >60 Egfr 87.1 N >60 39 Laboratory test 04/27/2016 [facility] TSH (Thyroid 2.72 mcIU/mL N 0.34-5.[address] Stim Horm) [place] [address] [phone] Vitamin B12 181 pg/mL N 180-693 40 Connective Tissue 04/27/2016 [facility] Anti-Nuclear 0.3 U N [address] [place] [address] [phone] Cyclic Citrullinated Peptide <15.6 U N 42 Interpretation See Comment N 43 Laboratory test 11/09/2015 [facility] Vitamin D 30.9 ng/mL N 30-50 [address] Total 25(Oh) [place] [address] [phone] Vitamin B12 151 pg/mL Low 180-910 45 Ferritin 17.6 ng/mL N 11-307 46 CBC Auto Diff 11/09/2015 [facility] White Blood 6.5 10^3/uL N 3.5-10.[address] [place] [address] [phone] Red Blood Count 4.56 10^6/uL N 4.0-5.4 Hemoglobin 13.5 g/dL N 12.0-16.0 Hematocrit 41 % N 35-47 Mean Corpuscular Volume 91 fL N 80-97 Mean Corpuscular Hemoglobin 30 pg N 27-31 Mean Corpuscular HGB Conc 33 g/dL N 31-36 Red Cell Distribution Width 15 % N 10.5-15 Platelet Count 336 10^3/uL N 150-450 Mean Platelet Volume 9 um3 N 7.4-10.4 Abs Neutrophils 4.2 10^3/uL N 1.5-7.7 Abs Lymphocytes 1.7 10^3/uL N 1.0-4.8 Abs Monocytes 0.4 10^3/uL N 0-0.8 Abs Eosinophils 0.1 10^3/uL N 0-0.6 Abs Basophils 0.1 10^3/uL N 0-0.2 Abs Nucleated RBC 0 10^3/uL N Granulocyte % 63.9 % N 38-83 Lymphocyte % 26.8 % N 25-47 Monocyte % 6.5 % N 1-9 Eosinophil % 1.9 % N 0-6 Basophil % 0.9 % N 0-2 Nucleated Red Blood Cells % 0 N Comp Metabolic Panel 11/09/2015 [facility] Sodium 139 mmol/L N 133-[address] [place] [address] [phone] Potassium 4.3 mmol/L N 3.5-5.0 Chloride 109 mmol/L N 101-111 Co2 Carbon Dioxide 25 mmol/L N 22-32 Anion Gap 5 mmol/L N 2-11 Glucose 84 mg/dL N 70-100 Blood Urea Nitrogen 13 mg/dL N 6-24 Creatinine 0.94 mg/dL N 0.51-0.95 BUN/Creatinine Ratio 13.8 N 8-20 Calcium 9.2 mg/dL N 8.6-10.3 Total Protein 6.5 g/dL N 6.4-8.9 Albumin 3.8 g/dL N 3.2-5.2 Globulin 2.7 g/dL N 2-4 Albumin/Globulin Ratio 1.4 N 1-3 Total Bilirubin 0.50 mg/dL N 0.2-1.0 Alkaline Phosphatase 55 U/L N 34-104 Alt 9 U/L N 7-52 Ast 14 U/L N 13-39 Egfr Non- 64.4 N >60 Egfr 82.8 N >60 47 Inr/Protime 11/09/2015 [facility] Inr 0.95 N 0.89-1.[address] [place] [address] [phone] Connective Tissue 09/06/2015 [facility] Anti-Nuclear 0.2 U N 48 Panel 101 [place] [address] [phone] Cyclic Citrullinated Peptide <15.6 U N 49 Interpretation See Comment N 50 Laboratory test 09/06/2015 [facility] CRP High 2.10 mg/L N 51 finding [address] [place] [address] [phone] Erythrocyte Sed Rate 19 mm/Hr High 0-14 Laboratory test 09/06/2015 [facility] Lyme Disease Negative N Negative 52 finding [address] [place] [address] [phone] Laboratory test 08/16/2015 [facility] Vitamin D 20.7 ng/mL Low 30-[address] Total 25(Oh) [place] [address] [phone] Vitamin B12 > 1450 pg/mL High 180-914 53 Ferritin 15.0 ng/mL N 11-307 Comp Metabolic Panel 05/24/2015 [facility] Sodium 140 mmol/L N 133-[address] [place] [address] [phone] Potassium 4.6 mmol/L N 3.5-5.0 Chloride 110 mmol/L N 101-111 Co2 Carbon Dioxide 26 mmol/L N 22-32 Anion Gap 4 mmol/L N 2-11 Glucose 83 mg/dL N 70-100 Blood Urea Nitrogen 12 mg/dL N 6-24 Creatinine 0.92 mg/dL N 0.51-0.95 BUN/Creatinine Ratio 13.0 N 8-20 Calcium 9.3 mg/dL N 8.6-10.3 Total Protein 6.7 g/dL N 6.4-8.9 Albumin 4.0 g/dL N 3.2-5.2 Globulin 2.7 g/dL N 2-4 Albumin/Globulin Ratio 1.5 N 1-3 Total Bilirubin 0.30 mg/dL N 0.2-1.0 Alkaline Phosphatase 57 U/L N 34-104 Alt 10 U/L N 7-52 Ast 14 U/L N 13-39 Egfr Non- 66.3 N >60 Egfr 85.3 N >60 54 CBC Auto Diff 05/24/2015 [facility] White Blood 6.2 10^3/uL N 3.5-10.[address] [place] [address] [phone] Red Blood Count 4.34 10^6/uL N 4.0-5.4 Hemoglobin 12.7 g/dL N 12.0-16.0 Hematocrit 40 % N 35-47 Mean Corpuscular Volume 93 fL N 80-97 Mean Corpuscular Hemoglobin 29 pg N 27-31 Mean Corpuscular HGB Conc 32 g/dL N 31-36 Red Cell Distribution Width 15 % N 10.5-15 Platelet Count 368 10^3/uL N 150-450 Mean Platelet Volume 8 um3 N 7.4-10.4 Abs Neutrophils 3.7 10^3/uL N 1.5-7.7 Abs Lymphocytes 2.0 10^3/uL N 1.0-4.8 Abs Monocytes 0.4 10^3/uL N 0-0.8 Abs Eosinophils 0.1 10^3/uL N 0-0.6 Abs Basophils 0 10^3/uL N 0-0.2 Abs Nucleated RBC 0 10^3/uL N Granulocyte % 58.9 % N 38-83 Lymphocyte % 32.1 % N 25-47 Monocyte % 6.4 % N 1-9 Eosinophil % 1.8 % N 0-6 Basophil % 0.8 % N 0-2 Nucleated Red Blood Cells % 0 N Laboratory test 05/24/2015 [facility] Lipase 14 U/L N 11.0- 82.0 finding [address] [place] [address] [phone] Laboratory test 05/24/2015 [facility] Amylase 31 U/L N 29-103 finding [address] [place] [address] [phone] Laboratory test 04/27/2015 [facility] Ferritin < 10.0 Low 11- 307 finding [address] [facility] ng/[place] [address] [phone] Vitamin D Total 25(Oh) 24.5 ng/mL Low 30-50 Vitamin B12 131 pg/mL Low 180-914 55 Laboratory test 12/24/2014 [facility] Ferritin < 10.0 ng/mL Low 11-307 finding [address] [place] [address] [phone] Vitamin B12 100 pg/mL Low 180-916 56 Vitamin D Total 25(Oh) 25.4 ng/mL Low 30-50 Erythrocyte Sed Rate 22 mm/Hr High 0-14 C Reactive Protein 5.18 mg/L High < 5.00 57 TSH (Thyroid Stim Horm) 1.38 ?IU/mL N 0.34-5.60 CBC Auto Diff 12/24/2014 [facility] White Blood 6.6 10^3/uL N 4.8-10.[address] [place] [address] [phone] Red Blood Count 4.37 10^6/uL N 4.0-5.4 Hemoglobin 12.9 g/dL N 12.0-16.0 Hematocrit 40 % N 35-47 Mean Corpuscular Volume 91 fL N 80-97 Mean Corpuscular Hemoglobin 29 pg N 27-31 Mean Corpuscular HGB Conc 33 g/dL N 31-36 Red Cell Distribution Width 15 % N 10.5-15 Platelet Count 301 10^3/uL N 150-450 Mean Platelet Volume 8 um3 N 7.4-10.4 Abs Neutrophils 4.3 10^3/uL N 1.5-7.7 Abs Lymphocytes 1.6 10^3/uL N 1.0-4.8 Abs Monocytes 0.4 10^3/uL N 0-0.8 Abs Eosinophils 0.2 10^3/uL N 0-0.6 Abs Basophils 0 10^3/uL N 0-0.2 Abs Nucleated RBC 0.01 10^3/uL N Granulocyte % 65.3 % N 38-83 Lymphocyte % 24.4 % Low 25-47 Monocyte % 6.6 % N 1-9 Eosinophil % 3.2 % N 0-6 Basophil % 0.5 % N 0-2 Nucleated Red Blood Cells % 0.1 N Lipid Profile 12/24/2014 [facility] Triglycerides 90 mg/dL N 58 (Trig/Chol/HDL) [address] [place] [address] [phone] Cholesterol 179 mg/dL N 59 HDL Cholesterol 51.0 mg/dL N 60 LDL Cholesterol 110 mg/dL N 61 Comp Metabolic Panel 12/24/2014 [facility] Sodium 137 mmol/L N 133-145 [address] [place] [address] [phone] Potassium 4.6 mmol/L N 3.5-5.0 Chloride 107 mmol/L N 101-111 Co2 Carbon Dioxide 26 mmol/L N 22-32 Anion Gap 4 mmol/L N 2-11 Glucose 80 mg/dL N 70-100 Blood Urea Nitrogen 13 mg/dL N 6-24 Creatinine 0.87 mg/dL N 0.51-0.95 BUN/Creatinine Ratio 14.9 N 8-20 Calcium 8.8 mg/dL N 8.6-10.3 Total Protein 6.3 g/dL Low 6.4-8.9 Albumin 3.7 g/dL N 3.2-5.2 Globulin 2.6 g/dL N 2-4 Albumin/Globulin Ratio 1.4 N 1-3 Total Bilirubin 0.40 mg/dL N 0.2-1.0 Alkaline Phosphatase 57 U/L N 34-104 Alt 9 U/L N 7-52 Ast 14 U/L N 13-39 Egfr Non- 70.7 N >60 Egfr 91.0 N >60 62 Laboratory 12/24/2014 [facility] Elisa (Antinuclear Negative N Negative test finding [address] Antibodies) [place] [address] [phone] Surgical 06/10/2009 [facility] Surgical [address] ---- <[place] [address] NOTE> [phone] Cortical Block 06/09/2009 [facility] Cortical Block [id number] [address] <[place] [address] NOTE> [phone] Tissue Kit 06/09/2009 [facility] Tissue Kit [id number] [address] <[place] [address] NOTE> [phone] Type And 06/07/2009 [facility] Patient Blood O POSITIVE 66 Screen [address] [place] [address] [phone] Antibody Screen NEGATIVE Specimen Discard Date 06/21/2009 67 CBC With 06/07/2009 [facility] White Blood 6.3 CUMM 4.8-10.8 Electronic Diff [address] [place] [address] [phone] Red Cell Count 4.08 CUMM Low 4.2-5.4 Hemoglobin 13.1 g/dL 12.0-16.0 Hematocrit 38 % 35-47 Mean Corpuscular Volume 94 um3 79-97 Mean Corpuscular Hemoglob 32 pg High 27-31 Mean Corpuscular HGB Cone 34 g/dL 32-36 Redcell Distribution WDTH 13 % 10.5-15 Platelet Count 313 CUMM 150-450 Mean Platelet Volume 7.3 um3 Low 7.4-10.4 Gran % 51.4 % 38-83 Lymph % 39.4 % 25-47 Mononuclear % 5.5 % 1-9 Eosinophil % 3.3 % 0-6 Basophil % 0.4 % 0-2 Abs Lymphs 2.5 1.0-4.8 Abs Mononuclear 0.3 0-0.8 Absolute Neutrophil Count 3.2 1.5-7.7 Abs Eosinophils 0.2 0-0.6 Abs Basophils 0 0-0.2 1 Roof Truss Machine Tender: [id number] 2 Roof Truss Machine Tender: [id number] 3 Because ethnic data is not always [...] in selective patients <6.0%. Please refer to [employer] diabetic care guidelines for further information. 5 FASTING 8 HOUR 6 Therapeutic target for the treatment of diabetes mellitus patients is <7% HBA1C, and in selective patients <6.0%. Please refer to [employer] diabetic care guidelines for further information. 7 FASTING 8 HOUR 8 Test Performed by: [facility] [address] [place] [address] 9 Because ethnic data is not always [...] pg/mL: likely moderate to severe CHF 12 Roof Truss Machine Tender: [id number] 13 >100 to <200 pg/mL: likely compensated [...] 145 to 180 Deficient Range <145 17 [id number] 18 SEE RESULT BELOW Name: CHAIM THOMAS : [address]: Fab Turcios MD Acct: [id number] Unit: [id number] AGE: 46 Location: ENDOC Re07/31/17 SEX: F Status: DEP REF SPEC: [id number] LEONORA: 07/31/17- SUBM DR: Fab Turcios MD REQ: [id number] RECD: 07/31/17 STATUS: GUIDO ALVAREZ DR: Cecil Holland DEVELOPMENT CONSULTANT _ ORDERED: LEVEL 4 COMMENTS: [id number] FINAL DIAGNOSIS Surgical anastomosis, biopsy: -- Body-type [...] 1104 END OF REPORT DEPARTMENT OF PATHOLOGY, [address] [place] [address] Chaparro Trammell M.D. Director [facility] # [id number] 19 Because ethnic data is not always [...] 145 to 180 Deficient Range <145 22 [facility] Severe Sepsis and Septic Shock Management [...] be used for medical purposes only. 27 [facility] Severe Sepsis and Septic Shock Management [...] 145 to 180 Deficient Range <145 35 Roof Truss Machine Tender: [id number] 36 SEE RESULT BELOW Name: CHAIM THOMAS : [address]: Christelle King NP Acct: [id number] Unit: [id number] AGE: 46 Location: [facility] Re08/15/16 SEX: F Status: REG REF SPEC: [id number] LEONORA: 08/15/16-[address]: Christelle King NP REQ: [id number] RECD: 08/15/16 STATUS: COMP _ SOURCE: [facility]: ORDERED: Flu A B Request COMMENTS: [id number] Procedure Result Reported Site Rapid Influenza A B Request Final 08/15/16- 1934 ML Specimen received for Influenza A/B Molecular testing * ML - MAIN LAB (PSC1) . END OF REPORT * ML=Testing performed at Main Lab DEPARTMENT OF PATHOLOGY, [address] [place] [address] Chaparro Trammell M.D. Director [facility] # [id number] 37 Because ethnic data is not always [...] > or= 3.0 U. Studies performed at [facility] indicate that positive ELISA results <3.0 U are rarely accompanied by positive second order tests. Test Performed by: [facility] [address] [address] Helper Coordinator: Haris August II, M.D., Ph.D. 44 Due [...] > or= 3.0 U. Studies performed at [facility] indicate that positive ELISA results <3.0 U are rarely accompanied by positive second order tests. Test Performed by: [address] [address] Helper Coordinator: Haris August II, M.D., Ph.D. 51 Low risk: <1.00 Average risk: 1.00-3.00 High risk: >3.00 52 Serologic response to B. burgdorferi infection is not detected, but cannot rule out early infection during which low or undetectable antibody levels to B. burgdorferi may be present. If clinically indicated, a new serum specimen should be submitted in 7-14 days. Test Performed by: [facility] - [address] [address] Helper Coordinator: Haris August II, M.D., Ph.D. 53 Normal [...] (or dialysis) 63 ---- RUN DATE: 06/15/09 [facility] NMI LIVE PAGE 1 RUN TIME: 1455 Specimen Inquiry RUN USER: INTERFACE -- Name: CHAIM THOMAS#: [id number] Status: [facility] Re06/10/09 Age/Sex: 38/F Unit#: [id number] Location: [facility]. : [birth year] -- Specimen: [id number] SOUT Spec Date: 06/10/[address]: Lionel martinez MD Spec Type: SURGICAL P Received: 06/10/09-8988 Copies to: SPECIMEN C5-6 DISC HISTORY PRE-OP DIAGNOSIS: C5-6 Herniated disc with myelopathy. GROSS DESCRIPTION Specimen received in formalin labelled Chaim Cheryitt, C5-6 Disc and consists of multiple fragments of bony tissue measuring in aggregate 2.0 x 2.0 x 1.0 cm. Information Systems Technician sections, one cassette. DIAGNOSIS Intervertebral disc, C5-6, discectomy - Intervertebral disc material and bone with degenerative changes. Signed Electronically by: CHAPARRO TRAMMELL MD 06/15/09 1452 -- -- DEPARTMENT OF PATHOLOGY, [address] [place] [address] [facility] Permit #[id number] Chaparro Trammell M.D. Director Daquan Gates M.D. House Wrecker Dir khanna -- [phone] [id number] HARJIT GREEN #7 TRANSFUSED 06/10/09 1044 65 [id number] TISSUE KIT TRANSFUSED 06/10/09 0722 66 SDS [...] DAYS OF THE SURGERY DATE. Procedures Date Code Description Status 09/27/2017 05876 Myocardial Perfusion Imaging Tomographic (Spect) Completed Multiple Studies 09/20/2017 92000 Stress Test Completed 09/20/2017 67497 Myocardial Perfusion Imaging Tomographic (Spect) Completed Multiple Studies 09/11/2017 26142 EKG Tracing & Interpretation Completed 01/05/2017 71387 ECHO Transthorasic Realtime 2D W Doppler & Color Flow Completed Hosp 08/02/2016 54486 Sleep Study Unattended,HRT Rate,Oxygen Sat,Resp Completed Effort/Airflow 05/04/2016 80860 Admin Of Inj Completed 01/14/2016 89418 Injection For Nerve Block, Greater Occipital Nerve Completed 01/12/2016 76551 Injection For Nerve Block, Greater Occipital Nerve Completed 11/18/2015 98125 Excision;Trochanteric Bursa Or Calcification Completed 11/18/2015 23923 Excision;Trochanteric Bursa Or Calcification Completed 09/24/2015 09486 Injection Single Tendon Origin/Insertion Completed 08/24/2015 14075905 Mammogram Completed 08/16/2015 07651 Admin Of Inj Completed 07/19/2015 25344 Admin Of Inj Completed 05/24/2015 82368 Admin Of Inj Completed 05/04/2015 72004 Admin Of Inj Completed 02/15/2015 76028 Admin Of Inj Completed 01/25/2015 23791 Admin Of Inj Completed 01/18/2015 19843 Admin Of Inj Completed 01/04/2015 29728 Admin Of Inj Completed 06/10/2009 15533 Discectomy,W/Decomp SP Cord/Nerve Root;Cervical Single Completed Interspace 06/10/2009 54161 Anterior Instrumentation 2-3 Vertebral Segments Completed 06/10/2009 32326 Arthrodesis, Anterior Cervical C2 And Below Completed 06/10/200902562 Allograft For Spine Surgery,Structural (Bone Bank) Completed Encounters Type Date Location Provider Dx Diagnosis Office Visit 01/02/2018 [facility] Jose Garcia, G43.119 Migraine with 9:30a Clinic aura, intractable, without status migrainosus Office Visit 12/25/2017 [facility] Internal Medicine Burton Price J06.9 Acute upper 10:00a - Zenia Will M.D. respiratory infection, unspecified Office Visit 09/26/2017 Knottjannet Lim R00.0 Tachycardia, 8:50a Assoc,pc Hospitalists Anya Thurman unspecified F41.9 Anxiety disorder, unspecified R53.83 Other fatigue Office Visit 09/25/2017 8:50a Knott Natividad Lim R00.0 Tachycardia, Assoc,pc Anya Thurman unspecified Hospitalists E16.2 Hypoglycemia, unspecified Office Visit 09/11/2017 9:20a [facility] Internal Cecil Amalia, R07.9 Chest pain, Medicine - DEVELOPMENT CONSULTANT unspecified [place] R20.2 Paresthesia of skin R00.2 Palpitations F41.9 Anxiety disorder, unspecified Office Visit 07/11/2017 [facility] Jose G47.33 Obstructive 11:15a Clinic MD Jose sleep apnea (adult) (pediatric) G43.019 Migraine w/o aura, intractable, without status migrainosus G25.0 Essential tremor G25.2 Other specified forms of tremor G44.201 Tension-type headache, unspecified, intractable Office Visit 07/05/2017 Pulmonology And Roz G47.33 Obstructive sleep 1:15p Sleep Services Of ELHAM Velazquez, RN, apnea (adult) [facility] RV TECHNICIAN-BC (pediatric) G47.14 Hypersomnia due to medical condition Z68.41 Body mass index (BMI) 40.0-44.9, adult Office Visit 06/19/2017 11:40a [facility] Internal Cecil Holland, J01.90 Acute sinusitis, Medicine - DEVELOPMENT CONSULTANT unspecified [place] R53.83 Other fatigue R10.9 Unspecified abdominal pain Office Visit 02/06/2017 1:40p [facility] Internal Robby Connor J45.991 Cough variant Medicine - Anya Richard,FACP asthma [place] G43.011 Migraine without aura, intractable, with status migrainosus Office 01/30/2017 [facility] Geo Silva G43.719 Chronic migraine Visit 1:46p Clinic Anya Andrade w/o aura, intractable, w/o stat migr R20.0 Anesthesia of skin Office 01/12/2017 [place]/Shaq Oh G43.011 Migraine without Visit 11:30a Neurologic Serv Of Anya Fuchs aura, Travel Clerk intractable, with status migrainosus Office 01/12/2017 [facility] Internal Cecil Holland, IVAN T48.295A Adverse effect Visit 9:20a Medicine - [place] of other drugs acting on muscles, init encntr J06.9 Acute upper respiratory infection, unspecified K59.00 Constipation, unspecified Office Visit 01/06/2017 [facility] Jose T48.295A Adverse 10:20a Clinic MD Jose effect of other drugs acting on muscles, init encntr H02.402 Unspecified ptosis of left eyelid Office Visit 01/06/2017 10:49a [facility] Haris G89.29 Other chronic Assoc,PAULO Christie pain Hospitalists T48.295A Adverse effect of other drugs acting on muscles, init encntr F41.9 Anxiety disorder, unspecified Z86.69 Personal history of dis of the nervous sys and sense organs Office Visit 01/05/2017 [facility] Pedro Sergio I63.9 Cerebral 10:48a kelly Miller II, M.D. infarction, Hospitalists unspecified F41.9 Anxiety disorder, unspecified Z86.69 Personal history of dis of the nervous sys and sense organs Office Visit 12/29/2016 9:45a Orthopedic Karely Guzmán, M76.31 Iliotibial band Services Of Anya syndrome, right C.M.A. leg Office Visit 12/20/2016 10:20a [facility] Internal Cecil Holland, M25.551 Pain in right hip Medicine - DEVELOPMENT CONSULTANT [place] R10.9 Unspecified abdominal pain J01.90 Acute sinusitis, unspecified Office Visit 12/14/2016 Knott Hamzah Oh G43.711 Chronic migraine 10:00a Services Of Jem Fuchs M.D. w/o aura, intractable, w status migrainosus Office Visit 09/12/2016 Pulmonology And Roz G47.33 Obstructive sleep 9:15a Sleep Services Of ELHAM Velazquez, RN, apnea (adult) [facility] RV TECHNICIAN-BC (pediatric) G47.14 Hypersomnia due to medical condition E66.01 Morbid (severe) obesity due to excess calories Z68.41 Body mass index (BMI) 40.0-44.9, adult Office Visit 09/04/2016 2:15p Neurosurgery Services Belen Celestin M54.2 Cervicalgia Of [facility] PA-C M25.511 Pain in right shoulder M25.512 Pain in left shoulder Z98.1 Arthrodesis status Office Visit 08/21/2016 Orthopedic Gui Chao M54.12 Radiculopathy, 9:00a Services Of MD Delores cervical region C.M.A. Office Visit 08/17/2016 Knottjannet Oh G43.719 Chronic migraine 8:30a Neurologic Anya Fuchs w/o aura, Services Of [facility] intractable, w/o stat migr R25.1 Tremor, unspecified Office Visit 08/15/2016 1:00p [facility] Internal Christelle King, J20.9 Acute bronchitis, Medicine - N.P. 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 [place] E55.9 Vitamin D deficiency, unspecified D51.9 Vitamin B12 deficiency anemia, unspecified M72.2 Plantar fascial fibromatosis J01.90 Acute sinusitis, unspecified Office Visit 05/25/2016 Shaq Oh G43.719 Chronic migraine 9:15a Neurologic Anya Fuchs w/o aura, Services Of [facility] intractable, w/o stat migr Office Visit 04/19/2016 [facility] Internal Cecil Holland NP J06.9 Acute upper 11:40a Medicine - respiratory [place] infection, unspecified F41.9 Anxiety disorder, unspecified Office Visit 01/27/2016 Shaq Oh G43.711 Chronic migraine 11:30a Neurologic Anya Fuchs w/o aura, Services Of [facility] intractable, w status migrainosus Office Visit 01/04/2016 [facility] Internal Cecil Holland NP M54.31 Sciatica, right 9:40a Medicine - side [place] Office Visit 11/09/2015 Shaq Oh G43.711 Chronic migraine 9:45a Hamzah Fuchs M.D. w/o aura, Services Of [facility] intractable, w status migrainosus Office Visit 11/08/2015 [facility] Internal Cecil Holland NP Z01.818 Encounter for 9:00a Medicine - other [place] preprocedural examination M70.61 Trochanteric bursitis, right hip M76.01 Gluteal tendinitis, right hip G43.909 Migraine, unsp, not intractable, without status migrainosus Office Visit 11/01/2015 9:15a Orthopedic Services Karely Guzmán, M25.551 Pain in right Of C.M.A. M.D. hip M70.61 Trochanteric bursitis, right hip M76.01 Gluteal tendinitis, right hip Office Visit 10/25/2015 9:30a Orthopedic Services Karely Guzmán, M54.5 Low back pain Of C.M.A. M.D. M70.61 Trochanteric bursitis, right hip Office Visit 09/24/2015 10:00a Orthopedic Services Karely Guzmán, M25.551 Pain in right Of C.M.A. M.D. hip M70.61 Trochanteric bursitis, right hip E66.01 Morbid (severe) obesity due to excess calories Office Visit 09/06/2015 10:20a [facility] Internal Cecil Holland, M25.551 Pain in right hip Medicine - DEVELOPMENT CONSULTANT [place] Office Visit 09/02/2015 3:15p Knott Neurologic Joie MYas G43.011 Migraine without Services Of farzana Evans intractable, M.DYas with status migrainosus M54.2 Cervicalgia M25.551 Pain in right hip M25.579 Pain in unspecified ankle and joints of unspecified foot Office Visit 08/16/2015 1:00p [facility] Internal Christelle King F41.9 Anxiety disorder, Medicine - N.P. unspecified [place] Z12.31 Encntr screen mammogram for malignant neoplasm of breast D51.9 Vitamin B12 deficiency anemia, unspecified N64.4 Mastodynia N60.11 Diffuse cystic mastopathy of right breast N60.12 Diffuse cystic mastopathy of left breast Office Visit 07/19/2015 9:40a [facility] Internal Cecil Holland, F41.9 Anxiety disorder, Medicine - DEVELOPMENT CONSULTANT unspecified [place] F32.8 Other depressive episodes R05 Cough D51.9 Vitamin B12 deficiency anemia, unspecified Office Visit 07/09/2015 2:00p [facility] Internal Cecil Holland, J01.90 Acute sinusitis, Medicine - DEVELOPMENT CONSULTANT unspecified [place] R05 Cough Office Visit 07/05/2015 11:40a [facility] Internal Cecil Holland, J01.90 Acute sinusitis, Medicine - DEVELOPMENT CONSULTANT unspecified [place] Office Visit 06/02/2015 3:00p [facility] Internal Cecil Holland, M54.2 Cervicalgia Medicine - DEVELOPMENT CONSULTANT [place] Office Visit 05/24/2015 8:40a [facility] Internal Cecil Holland, F41.9 Anxiety disorder, Medicine - DEVELOPMENT CONSULTANT unspecified [place] D51.9 Vitamin B12 deficiency anemia, unspecified R10.9 Unspecified abdominal pain Office Visit 04/15/2015 Shaq Oh G43.011 Migraine without 9:30a Neurologic Anya Fuchs aura, intractable, Services Of [facility] with status migrainosus Office Visit 02/15/2015 [facility] Internal Cecil Holland NP M25.571 Pain in right 11:40a Medicine - ankle and joints [place] of right foot D51.9 Vitamin B12 deficiency anemia, unspecified Office Visit 01/13/2015 2:20p [facility] Internal Christelle King G43.011 Migraine without Medicine - N.P. aura, intractable, [place] with status migrainosus M54.5 Low back pain Office Visit 12/22/2014 2:00p [facility] Internal Cecil Holland NP R53.83 Other fatigue Medicine - [place] Z13.220 Encounter for screening for lipoid disorders M46.1 Sacroiliitis, not elsewhere classified Office Visit 11/30/2014 11:20a Neurosurgery Lionel Marcelino 723.1 Cervicalgia Services Of Jem Ramirez M.D. V45.4 Arthrodesis Status Postsurgical 721.3 Spondylosis Lumbar W/O Myelopathy 724.2 Lumbago Office Visit 08/04/2014 Neurohospitalist Joie Oh 346.90 Migraine Unspec 9:15a Clinic Anya Fuchs W/O Intractable W/O Status Migrainosus Office Visit 06/02/2014 Neurosurgery Services Lionel Marcelino 723.1 Cervicalgia 9:40a Of Jem Ramirez M.D. V45.4 Arthrodesis Status Postsurgical 724.2 Lumbago Office Visit 02/03/2014 11:15a Shaq Oh 784.0 Headache Services Of Jem Fuchs M.D. Office Visit 12/03/2013 2:40p Neurosurgery Lionel Marcelino 723.1 Cervicalgia Services Of Jem Ramirez M.D. V45.4 Arthrodesis Status Postsurgical Office Visit 10/07/2013 9:45a Shaq Oh 723.8 Cervical Services Of Jem Fuchs M.D. Syndromes Not Elsewhere Class 784.0 Headache Office Visit 04/23/2013 2:40p Neurosurgery Lionel Marcelino 723.1 Cervicalgia Services Of Jem Ramirez M.D. [place] 722.71 Intervertebral Disc Cervical W/ Myelopathy V45.89 Postsurgical Status Other Office Visit 12/25/2012 Shaq Oh 723.8 Cervical 8:45a Services Of Jem Fuchs M.D. Syndromes Not Elsewhere Class Office Visit 12/04/2012 Neurosurgery Lionel Marcelino 723.1 Cervicalgia 9:40a Services Of Jem Ramirez M.D. [place] Office Visit 10/29/2012 Shaq Oh 723.8 Cervical 11:00a Services Of Jem Fuchs M.D. Syndromes Not Elsewhere Class Office Visit 08/05/2012 Neurosurgery Lionel Marcelino 723.1 Cervicalgia 3:20p Services Of Jem Ramirez M.D. Office Visit 01/25/2012 Shaq Oh 723.8 Cervical 2:00p Services Of Jem Fuchs M.D. Syndromes Not Elsewhere Class 729.5 Pain In Limb Office Visit 11/23/2011 [place]/Shaq Oh 346.90 Migraine Unspec 11:00a Neurologic Serv Of Anya Fuchs W/O Intractable Travel Clerk W/O Status Migrainosus 723.8 Cervical Syndromes Not Elsewhere Class Office Visit 11/06/2011 1:20p Neurosurgery Lionel Marcelino 723.1 Cervicalgia Services Of Jem Ramirez M.D. Office Visit 09/25/2011 3:20p Neurosurgery Lionel Marcelino 721.3 Spondylosis Services Of Jem Ramirez M.D. Lumbar W/O Myelopathy 726.5 Enthesopathy Of Hip Region Office Visit 03/17/2011 2:20p Neurosurgery Lionel Marcelino 721.3 Spondylosis Services Of Jem Ramirez M.D. Lumbar W/O Myelopathy 726.5 Enthesopathy Of Hip Region Office Visit 11/14/2010 Neurosurgery Lionel JYas 721.3 Spondylosis Lumbar 2:40p Services Of Jem Ramirez M.D. W/O Myelopathy Office Visit 04/29/2010 Neurosurgery Lionel Marcelino 722.71 Intervertebral Disc 1:40p Services Of Jem Ramirez M.D. Cervical W/ Myelopathy Office Visit 09/16/2009 Neurosurgery Lionel Marcelino 722.71 Intervertebral Disc 2:40p Services Of Jem Ramirez M.D. Cervical W/ Myelopathy Office Visit 06/04/2009 Neurosurgery Lionel JYas 722.0 Intervertebral Disc 1:40p Services Of Jem Ramirez M.D. Displacement Cervical W/O Myelopathy Office Visit 02/19/2007 Neurosurgery Lionel JYas 721.3 Spondylosis Lumbar 4:00p Services Of Jem Ramirez M.D. W/O Myelopathy Plan of Treatment Future Appointment(s):08/20/2018 9:30 am - Jose Garcia MD at Neurohospitalist [id number]/10/2018 - Jose Garcia MDG43.119 Migraine with aura , intractable, without status migrainosusComments:Intractable headaches that are refractory to meds to date. Will stop the ajovy and then in a month will decrease the depakote to 500mg at night and then after one month to go off depakote completely. After I see her back will consider weaning the topamax. Not using tylenol, maxalt or other prn medications. In the interim I will refer to Dr Keith to see if she has any recommendations for Chaim's treatment.Referral:Caryl Keith MD, NeurologyFollow up:3 MONTHS
--- NOTE | 2018-06-25 13:31 | ED ---
Skin Complaint - HPI Summary HPI Summary: This pt is a 47 y/o female presenting to [facility] c/o wounds on the left side of abdomen s/p dog scratched pt on same area 5 months ago. Pt reports after her dog scratched her these turned into wounds. She tried Neosporin without relief. Pt has also seen her PCP who placed her on PO antibiotics, Penicillin, and antibiotic cream about 1.5 months ago without relief. Pt denies any pain associated with her wounds. She notes lower back pain. Denies any other pain, fever, chills. Pt is UTD on tetanus shot. Denies hx of DM. Daughter reports the pt has been in and out of the hospital, 6 months ago pt was hospitalized due to elevated glucose and blood pressure. Pt has a glucose reader at home and states it usually runs in the 70s but sometimes drops to 40. - History of Current Complaint Chief Complaint: EDGeneral Time Seen by Provider: 06/25/18 13:23 Stated Complaint: SORES ON STOMACH WITH RED STREAKS PER PT Hx Obtained From: Patient Hx Last Menstrual Period: a while - had uterine ablation Onset/Duration: Started Weeks Ago, Still Present Skin Exposure Onset/Duration: Weeks Ago Timing: Lasting Weeks Current Severity: Moderate Pain Intensity: 0 Pain Scale Used: 0-10 Numeric Skin Location: Abdomen - left side Character: Redness Aggravating Symptom(s): Nothing Alleviating Symptom(s): Nothing Associated Signs & Symptoms: Negative Related History: Other: - s/p dog scratches 5 months ago on same area, left side of abdomen - Additional Pertinent History Primary Care Physician: ADILSON - Allergy/Home Medications Allergies/Adverse Reactions: Allergies Allergy/AdvReac Type Severity Reaction Status Date / Time ciprofloxacin Allergy Vomiting Verified 06/25/18 12:16 famotidine Allergy Unknown Verified 06/25/18 12:16 Reaction Details indomethacin Allergy Vomiting Verified 06/25/18 12:16 methocarbamol Allergy Vomiting Verified 06/25/18 12:16 niacin Allergy Unknown Verified 06/25/18 12:16 Reaction Details omeprazole Allergy Unknown Verified 06/25/18 12:16 Reaction Details verapamil Allergy Vomiting Verified 06/25/18 12:16 cephalexin AdvReac Intermediate Vomiting Verified 06/25/18 12:16 hydromorphone AdvReac Intermediate Headache Verified 06/25/18 12:16 Sulfa (Sulfonamide AdvReac Intermediate Vomiting Verified 06/25/18 12:16 Antibiotics) Home Medications: Home Medications Mupirocin 2% OINT* [Bactroban 2 % Oint*] 1 applic TOPICAL QID 06/25/18 [History Confirmed 06/25/18] Rizatriptan Benzoate [Rizatriptan Benzoate Odt] 10 mg PO DAILY 06/25/18 [ History Confirmed 06/25/18] tiZANidine TAB* [Zanaflex TAB*] 4 mg PO TID 06/25/18 [History Confirmed 06/25/18 ] PMH/Surg Hx/FS Hx/Imm Hx Endocrine/Hematology History: Reports: Hx Anemia Denies: Hx Diabetes, Hx Thyroid Disease Cardiovascular History: Reports: Hx Hypertension Denies: Hx Congestive Heart Failure, Hx Pacemaker/ICD, Other Cardiovascular Problems/Disorders Respiratory History: Reports: Hx Asthma Denies: Hx Chronic Obstructive Pulmonary Disease (COPD), Other Respiratory Problems/Disorders GI History: Reports: Hx Ulcer Denies: Other GI Disorders History: Denies: Hx Renal Disease, Other Problems/Disorders Musculoskeletal History: Reports: Hx Back Problems, Hx Bursitis - RIGHT HIP Denies: Hx Rheumatoid Arthritis, Hx Osteoporosis, Other Musculoskeletal History Sensory History: Denies: Hx Contacts or Glasses, Hx Hearing Aid Opthamlomology History: Denies: Hx Contacts or Glasses Neurological History: Reports: Hx Headaches - migraines, Hx Migraine - receives Botox, Other Neuro Impairments/Disorders - PAIN CLINIC PT Psychiatric History: Reports: Hx Anxiety - ON MEDS PRN, Hx Depression, Hx Panic Disorder - Cancer History Hx Chemotherapy: No Hx Radiation Therapy: No - Surgical History Surgery Procedure, Year, and Place: c-spine fusion 2007, [facility]. 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 c-sections x2-TUBAL LIGATION 1997. left ankle surgery, RIGHT HIP SURGERY FOR BURSITIS. Lt breast biopsy LUMPECTOMY. RIGHT HIP BURSECTOMY-11/2015 Hx Anesthesia Reactions: No Infectious Disease History: No Infectious Disease History: Denies: Hx Clostridium Difficile, Hx Hepatitis, Hx Human Immunodeficiency Virus (HIV), Hx of Known/Suspected MRSA, Hx Shingles, Hx Tuberculosis, History Other Infectious Disease, Traveled Outside the [place] in Last 30 Days - Family History Known Family History: Positive: Cardiac Disease - Social History Alcohol Use: Occasionally Alcohol Amount: 2 PER MONTH Substance Use Type: Reports: None Hx Tobacco Use: Yes Smoking Status (MU): Never Smoked Tobacco Have You Smoked in the Last Year: No Review of Systems Negative: Fever, Chills Negative: Abdominal Pain Musculoskeletal: Other - POS: lower back pain Skin: Other - POS: wounds on left abdomen All Other Systems Reviewed And Are Negative: Yes Physical Exam - Summary Physical Exam Summary: Appearance: Well appearing, no pain distress Skin: warm, dry. Open two wounds with erythema around them on the LLQ abdomen . Head/face: normal Eyes: EOMI, TIO ENT: normal Neck: supple, non-tender Respiratory: CTA, breath sounds present Cardiovascular: RRR, pulses symmetrical Abdomen: non-tender, soft Musculoskeletal: normal, strength/ROM intact Neuro: normal, sensory motor intact, A&Ox3 Triage Information Reviewed: Yes Vital Signs On Initial Exam: Initial Vitals Temp Pulse Resp BP Pulse Ox 98.2 F 83 16 133/109 98 06/25/18 12:11 06/25/18 12:11 06/25/18 12:11 06/25/18 12:11 06/25/18 12:11 Vital Signs Reviewed: Yes Diagnostics - Vital Signs Vital Signs Temp Pulse Resp BP Pulse Ox 06/25/18 12:11 98.2 F 83 16 133/109 98 - Laboratory Lab Statement: Any lab studies that have been ordered have been reviewed, and results considered in the medical decision making process. Course/Dx - Course Assessment/Plan: Pt is a 47 y/o female who presents with wounds on the left side of abdomen s/p dog scratched pt on same area 5 months ago. Pt has also seen her PCP who placed her on PO antibiotics, Penicillin, and antibiotic cream about 1.5 months ago without relief. Patient is UTD on tetanus shot. POC glucose is 69. Patient will be discharged home with follow up from Wound Care. She was given a referral to wound care. Pt is instructed to return to the ED for any new or worsening symptoms. - Differential Diagnoses - Skin Complaint Differential Diagnoses: Cellulitis, Eczema - Diagnoses Provider Diagnoses: Superficial ulcer of skin, Cellulitis of abdominal wall Discharge - Sign-Out/Discharge Documenting (check all that apply): Patient Departure - Discharge home Patient Received Moderate/Deep Sedation with Procedure: No - Discharge Plan Condition: Stable Disposition: HOME Patient Education Materials: Cellulitis (ED), Acute Wound Care (ED), Chronic Wounds (ED) Referrals: Marcella LENTZ,Chaparro Molina [Primary Care Provider] - Additional Instructions: Follow up with Wound Care: [facility] [address] [place] [phone] Call to make an appointment for your wounds. RETURN TO THE ED FOR ANY WORSENING OR NEW SYMPTOMS. - Billing Disposition and Condition Condition: STABLE Disposition: Home - Attestation Statements Document Initiated by Scribe: Yes Documenting Scribe: Tari Rascon Provider For Whom Scribe is Documenting (Include Credential): Simba Peoples MD Scribe Attestation: Tari Sinclair, scribed for Simba Peoples MD on 06/25/18 at 1621. Scribe Documentation Reviewed: Yes Provider Attestation: The documentation as recorded by the Tari elias accurately reflects the service I personally performed and the decisions made by , Simba Peoples MD Status of Scribe Document: Viewed
[2018-06-25] MEDS ORDERED: Sulfamethox/Trimethoprim DS 800/160* TAB PO ONE (13:33)
[2018-06-25 13:48] VITALS: BP 131/85
== END 2018-06-25 13:47 | disposition home or self-care (01) ==
LOC: ED 12:05
DX: L98.499 Non-pressure chronic ulcer of skin of other sites with unspecified severity (principal); L03.311 Cellulitis of abdominal wall; M54.5 Low back pain; I10 Essential (primary) hypertension; F41.9 Anxiety disorder, unspecified; Z88.1 Allergy status to other antibiotic agents; Z88.5 Allergy status to narcotic agent; Z88.2 Allergy status to sulfonamides; Z88.8 Allergy status to other drugs, medicaments and biological substances; Z82.49 Family history of ischemic heart disease and other diseases of the circulatory system
CPT/HCPCS: 99282

== ENCOUNTER 2018-08-18 10:05 | Inpatient (IN) | payer MEDICARE, OTHER ==
[2018-08-18] MEDS ORDERED: Lorazepam PYXIS KEY PRN (10:32)
[2018-08-18] MEDS ORDERED: Acetaminophen TAB* 325 MG PO ONE (10:32)
[2018-08-18] MEDS ORDERED: LORazepam INJ* 2 MG/ML 1 ML VIAL IV PUSH ONE (10:32)
[2018-08-18] MEDS ORDERED: LORazepam TAB(*) 1 MG PO ONE (10:34)
--- NOTE | 2018-08-18 10:34 | ED ---
Psychiatric Complaint - HPI Summary HPI Summary: Patient is a 48-year-old female who presents to the ED with suicidal ideation. She endorses suicidal ideation as of last night, denies this currently. She states her symptoms have been intermittent. Extra stressors recently. History of depression and anxiety and is currently on medications. Denies any drug or alcohol use. She is tearful on arrival. is at bedside. She states she has no plan, however "does not want to be here anymore." She has never been to our [facility] facility for this in the past. - History Of Current Complaint Chief Complaint: EDSuicidal Time Seen by Provider: 08/18/18 10:20 Hx Obtained From: Patient Hx Last Menstrual Period: a while - had uterine ablation ?: No Onset/Duration: Sudden Onset Timing: Constant Severity Initially: Severe Severity Currently: Severe Character: Depressed Aggravating Factor(s): Recent Stress Alleviating Factor(s): Nothing Associated Signs And Symptoms: Positive: Social Withdrawal, Social Isolation - Risk Factor(s) Completed Suicide Risk Factors: Negative - Allergies/Home Medications Allergies/Adverse Reactions: Allergies Allergy/AdvReac Type Severity Reaction Status Date / Time ciprofloxacin Allergy Vomiting Verified 08/18/18 10:43 famotidine Allergy Unknown Verified 08/18/18 10:43 Reaction Details indomethacin Allergy Vomiting Verified 08/18/18 10:43 methocarbamol Allergy Vomiting Verified 08/18/18 10:43 niacin Allergy Unknown Verified 08/18/18 10:43 Reaction Details omeprazole Allergy Unknown Verified 08/18/18 10:43 Reaction Details verapamil Allergy Vomiting Verified 08/18/18 10:43 cephalexin AdvReac Intermediate Vomiting Verified 08/18/18 10:43 hydromorphone AdvReac Intermediate Headache Verified 08/18/18 10:43 Sulfa (Sulfonamide AdvReac Intermediate Vomiting Verified 08/18/18 10:43 Antibiotics) PMH/Surg Hx/FS Hx/Imm Hx Previously Healthy: Yes Endocrine/Hematology History: Reports: Hx Anemia Denies: Hx Diabetes, Hx Thyroid Disease Cardiovascular History: Reports: Hx Hypertension Denies: Hx Congestive Heart Failure, Hx Pacemaker/ICD, Other Cardiovascular Problems/Disorders Respiratory History: Reports: Hx Asthma Denies: Hx Chronic Obstructive Pulmonary Disease (COPD), Other Respiratory Problems/Disorders GI History: Reports: Hx Ulcer Denies: Other GI Disorders History: Denies: Hx Renal Disease, Other Problems/Disorders Musculoskeletal History: Reports: Hx Back Problems, Hx Bursitis - RIGHT HIP Denies: Hx Rheumatoid Arthritis, Hx Osteoporosis, Other Musculoskeletal History Sensory History: Denies: Hx Contacts or Glasses, Hx Hearing Aid Opthamlomology History: Denies: Hx Contacts or Glasses Neurological History: Reports: Hx Headaches - migraines, Hx Migraine - receives Botox, Other Neuro Impairments/Disorders - PAIN CLINIC PT Psychiatric History: Reports: Hx Anxiety - ON MEDS PRN, Hx Depression, Hx Panic Disorder - Cancer History Hx Chemotherapy: No Hx Radiation Therapy: No - Surgical History Surgery Procedure, Year, and Place: c-spine fusion 2007, . 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 c-sections x2-TUBAL LIGATION 1997. left ankle surgery, RIGHT HIP SURGERY FOR BURSITIS. Lt breast biopsy LUMPECTOMY. RIGHT HIP BURSECTOMY-11/2015 Hx Anesthesia Reactions: No - Immunization History Hx Pertussis Vaccination: No Immunizations Up to Date: Yes Infectious Disease History: No Infectious Disease History: Denies: Hx Clostridium Difficile, Hx Hepatitis, Hx Human Immunodeficiency Virus (HIV), Hx of Known/Suspected MRSA, Hx Shingles, Hx Tuberculosis, History Other Infectious Disease, Traveled Outside the [place] in Last 30 Days - Family History Known Family History: Positive: Cardiac Disease - Social History Occupation: Employed Full-time Lives: With Family Alcohol Use: Occasionally Alcohol Amount: 2 PER MONTH Hx Substance Use: No Substance Use Type: Reports: None Hx Tobacco Use: Yes Smoking Status (MU): Never Smoked Tobacco Have You Smoked in the Last Year: No Review of Systems Negative: Fever, Chills, Fatigue Negative: Palpitations, Chest Pain Negative: Shortness Of Breath, Cough Positive: Nausea. Negative: Abdominal Pain, Vomiting, Diarrhea Negative: Arthralgia, Myalgia Positive: Headache All Other Systems Reviewed And Are Negative: Yes Physical Exam Triage Information Reviewed: Yes Vital Signs On Initial Exam: Initial Vitals Temp Pulse Resp BP Pulse Ox 99.3 F 85 18 151/102 99 08/18/18 10:16 08/18/18 10:16 08/18/18 10:16 08/18/18 10:16 08/18/18 10:16 Vital Signs Reviewed: Yes Appearance: Positive: Well-Appearing, No Pain Distress Skin: Positive: Warm, Skin Color Reflects Adequate Perfusion Head/Face: Positive: Normal Head/Face Inspection Neck: Positive: Supple, No Lymphadenopathy Respiratory/Lung Sounds: Positive: Clear to Auscultation, Breath Sounds Present Cardiovascular: Positive: RRR Musculoskeletal: Positive: Strength/ROM Intact Neurological: Positive: Sensory/Motor Intact, Alert, Oriented to Person Place, Time Psychiatric: Positive: Anxious, Depressed AVPU Assessment: Alert Diagnostics - Vital Signs Vital Signs Temp Pulse Resp BP Pulse Ox 08/18/18 10:16 99.3 F 85 18 151/102 99 - Laboratory Result Diagrams: 08/18/18 10:38 08/18/18 10:38 Lab Statement: Any lab studies that have been ordered have been reviewed, and results considered in the medical decision making process. Course/Dx - Course Course Of Treatment: Patient here was suicidal ideations, worse last evening, however remains intermittently. She denies any plan. States "I don't want to be here anymore." Physical on symptoms include headache and some nausea as she is very anxious. She is given Ativan and Tylenol. MHE completed. Per Dr. Beverly, patient will be admitted to [facility]. 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
[2018-08-18 10:49] LABS: ABS Lymphocytes 1.9 10^3/ul (1.0-4.8); ABS Monocytes 0.7 10^3/ul (0-0.8); ABS Neutrophils 6.7 10^3/ul (1.5-7.7); Hematocrit 40 % (35-47); Lymphocyte % 20.5 %; Mean Corpuscular HGB Conc 32 g/dL (31-36); Mean Corpuscular Hemoglobin 29 pg (27-31); Mean Corpuscular Volume 88 fL (80-97); Mean Platelet Volume 8.3 fL (7.4-10.4); Platelet Count 383 10^3/uL (150-450); Red Blood Count 4.58 10^6 /uL (3.70-4.87); Red Cell Distribution Width 15 % (10.5-15); White Blood Count 9.4 10^3/uL (3.5-10.8)
[2018-08-18 10:51] LABS: Urine Appearance Clear; Urine Bilirubin Negative (Negative); Urine Blood Negative (Negative); Urine Color Yellow; Urine Glucose Negative (Negative); Urine Ketones Negative (Negative); Urine Nitrite Negative (Negative); Urine Protein Negative (Negative); Urine Specific Gravity 1.016 (1.010-1.030); Urine Urobilinogen Negative (Negative)
[2018-08-18 11:03] LABS: Urine Benzodiazepine Screen None Detected (None Detect); Urine Opiates Screen None Detected (None Detect)
[2018-08-18 11:06] LABS: ALT 10 U/L (7-52); AST 12 U/L (13-39); Albumin/Globulin Ratio 1.2 (1-3); Alkaline Phosphatase 62 U/L (34-104); Anion Gap 5 mmol/L (2-11); BUN/Creatinine Ratio 14.1 (8-20); Blood Urea Nitrogen 14 mg/dL (6-24); CO2 Carbon Dioxide 24 mmol/L (22-32); Calcium 9.6 mg/dL (8.6-10.3); Chloride 110 mmol/L (101-111); EGFR African American 72.4 (>60); EGFR Non-African American 59.9 (>60); Globulin 3.3 g/dL (2-4); Glucose 97 mg/dL (70-100); Potassium 4.4 mmol/L (3.5-5.0); Sodium 139 mmol/L (135-145); Total Protein 7.3 g/dL (6.4-8.9)
[2018-08-18 11:33] LABS: Acetaminophen < 15 mcg/mL; Alcohol < 10 mg/dL (<10); Salicylate < 2.50 mg/dL (<30)
[2018-08-18] MEDS ORDERED: Al Hydrox/Mg Hydrox/Simet LIQ* 30 ML UDC PO PRN (19:03)
[2018-08-18] MEDS: Acetaminophen TAB* 325 MG PO PRN (19:13)
[2018-08-19] MEDS: Acetaminophen TAB* 325 MG PO PRN ×2 (05:30→12:59)
[2018-08-19 08:36] LABS: HDL Cholesterol 48.1 mg/dL
[2018-08-19 08:52] VITALS: BP 132/75
[2018-08-19] MEDS ORDERED: Vitamin THERAPEUTIC TAB PO SCH (09:00)
[2018-08-19] MEDS ORDERED: Rizatriptan 10 MG TAB PO PRN (13:58)
[2018-08-19] MEDS ORDERED: Ibuprofen TAB* 600 MG PO PRN (13:58)
[2018-08-19] MEDS ORDERED: tiZANidine TAB* 2 MG PO PRN (13:58)
--- NOTE | 2018-08-19 15:05 | DCNOTE ---
Subjective - Subjective Service Types: [id number] [facility] Day Mgmt simple under 30 min Discharge Date: 08/19/18 Subjective: Patient is euthymic with bright affect. She reports improved mood and denies SI or passive wish. She is eager to be discharged to return home and to attend an appt with her neurologist in the morning. She states desire to be referred to an outpatient counselor. Objective - General Observations Appearance: Well Groomed Stature: Overweight Posture: WNL Eye Contact: Average Behavior/Activity: WNL - Interaction Observations Attitude Towards Examiner: Cooperative Stated Mood: Euthymic Affect: Full Speech Pattern/Tone: Clear, Appropriate, Quiet Volume Thought Process: Coherent, Goal Directed Perception: WNL Thought Content: WNL Hallucination Type: None Delusion Type: None - Cognitive Function Orientation: A&O x 4 Level of Consciousness: Alert Cognition: WNL Estimated Intelligence: Normal Insight: WNL Judgment Within Normal Limits: Yes - Medication Compliance Cooperative with Inpatient Medication Regimen: Yes - Group Participation Participates in Group Activities: Yes DC Assessment - Assessment Clinical Impression: Julissa is a 48-year-old white female with a history of unspecified depression and anxiety, who presented to the emergency department with reports of increased depression and suicidal ideation. She has been stabilized in the hospital setting and reports improved mood and cessation of suicidal ideation. She reports wanting someone to talk to and is agreeable to referrals for outpatient therapy. We have not changed any medicines. She will continue on medications that she was taking prior to admission. She agrees to follow up with her primary care provider and has been referred for an intake to [facility]. Merits Inpatient Hospitalization: No Clear for Discharge: Acceptable Safety Profile, Low Utility of Inpt Care Inpatient DSM-V Dx: F33.9 Discharge Planning - Discharge Planning Discharge Plan: Outpatient Follow Up Outpatient Program: [facility] Recommendations for Continuing Care: Medication Management, Psychotherapy, Routine Metabolic Monitoring, Primary Care Followup, Specialty Followup Medications: Current Medications Divalproex Sodium (Depakote Dr Tab(*)) 500 mg PO BEDTIME GARY Ibuprofen (Motrin Tab*) 600 mg PO TID PRN PRN Reason: PAIN Multivitamins (Theragran Tab*) 1 tab PO DAILY GARY Last Admin: 08/19/18 12:59 Dose: Not Given Pregabalin (Lyrica Cap(*)) 300 mg PO BEDTIME GARY Rizatriptan Benzoate (Maxalt-Bacon Slicer (Nf)) 10 mg PO DAILY PRN PRN Reason: MIGRAINE HEADACHE Tizanidine HCl (Zanaflex Tab*) 4 mg PO .SEE INSTRUCTIONS PRN PRN Reason: muscle spasms Topiramate (Topamax(*)) 100 mg PO BEDTIME GARY Trazodone HCl (Desyrel Tab*) 200 mg PO BEDTIME GARY Discharge Planning: Prescriptions provided for discharge [x] Yes [] No Follow up care details as per social work arrangements. Patient response to discharge plan: [x] eager for discharge [x] agreeable with discharge plan [] ambivalent about discharge [] disagrees with discharge today
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
[2018-08-19] MEDS ORDERED: Divalproex DR TAB(*) 500 MG PO SCH (21:00)
[2018-08-19] MEDS ORDERED: Topiramate TAB(*) 100 MG PO SCH (21:00)
[2018-08-19] MEDS ORDERED: traZODone TAB* 100 MG PO SCH (21:00)
[2018-08-19] MEDS ORDERED: Pregabalin CAP(*) 300 MG PO SCH (21:00)
--- NOTE | 2018-08-28 11:46 | DS ---
HISTORY AND PHYSICAL/DISCHARGE SUMMARY: ADDENDUM: SUPERVISING PSYCHIATRIST: Dhruv Nielson MD. CONDITION AT TIME OF DISCHARGE: Improved. Amend the primary diagnosis to: Major depressive disorder, recurrent, moderate. SALBADOR GABRIEL NP [id number]/CPS #: [id number] LISA
== END 2018-08-19 17:40 | disposition home or self-care (01) | DRG 885 ==
LOC: ED 10:05 → BSU 14:05
PROVIDERS: ADMIT Psychiatry & Neurology Psychiatry; ATTEND Psychiatry & Neurology Psychiatry
DX: F33.1 Major depressive disorder, recurrent, moderate (principal); R45.851 Suicidal ideations; F43.21 Adjustment disorder with depressed mood; G89.29 Other chronic pain; E66.3 Overweight; I10 Essential (primary) hypertension; J45.909 Unspecified asthma, uncomplicated; G43.909 Migraine, unspecified, not intractable, without status migrainosus; M79.7 Fibromyalgia; K21.9 Gastro-esophageal reflux disease without esophagitis; F41.0 Panic disorder [episodic paroxysmal anxiety]; Z98.1 Arthrodesis status; Z68.39 Body mass index [BMI] 39.0-39.9, adult; Z88.1 Allergy status to other antibiotic agents; Z88.8 Allergy status to other drugs, medicaments and biological substances; Z88.6 Allergy status to analgesic agent; Z88.2 Allergy status to sulfonamides; Z82.49 Family history of ischemic heart disease and other diseases of the circulatory system; Z72.89 Other problems related to lifestyle; Z98.84 Bariatric surgery status; Z98.51 Tubal ligation status; Z62.810 Personal history of physical and sexual abuse in childhood
CPT/HCPCS: 36415; 80053; 80061; 80307; 80320; 80329; 81003; 83036; 84443; 85025; 99238; 99284; A9270-GY; G0480